=== PATIENT | male | born 1955 | race Caucasian/White ===

== ENCOUNTER → 2017-08-21 10:58 | Outpatient (CLI) | payer BC, SELFPAY ==
[2017-08-21 12:49] LABS: AST(SGOT) 37 U/L (15-37); Alanine Aminotransfer ALT/SGPT 47 U/L (16-61); Albumin, Serum 3.8 g/dL (3.2-5.0); Alkaline Phosphatase 68 U/L (45-117); Bilirubin, Direct 0.16 mg/dL (0.00-0.30); Cholesterol 178 mg/dL (200); Globulin 3.7 g/dL (2.2-4.2); High Density Lipoprotein 55 mg/dL; Protein, Total 7.5 g/dL (6.4-8.2); Triglycerides 131 mg/dL; Very Low Density Lipoprotein 26 mg/dL (5-40)
== END ==
PROVIDERS: Physician Assistant Medical; Family Provider Family Medicine; PCP Family Medicine; Visit Provider Internal Medicine Cardiovascular Disease
DX: E78.5 Hyperlipidemia, unspecified (principal); I25.10 Atherosclerotic heart disease of native coronary artery without angina pectoris; I10 Essential (primary) hypertension; Z79.899 Other long term (current) drug therapy
CPT/HCPCS: 36415; 80061; 80076

== ENCOUNTER 2018-01-12 07:30 | Outpatient (RCR) | payer BC, SELFPAY ==
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
--- NOTE | 2018-03-13 07:31 | HP.PTDCNRP_ITS ---
HP - Discharge Summary (1) - Patient Information AXEL GIRON was seen in my office for initial evaluation on 12/29/17. The following Plan of Care was established for this patient: Initial Frequency: 2x /Week Initial Duration: 4 Weeks - Anticipated Interventions Patient/Client Instruction: Educate patient on: Condition, Plan of Care For the Purpose of:: To decrease pain, To increase ROM, To improve muscle perf ormance and motor function, To improve ability to perform ADL's, To increase tolerance to activity/condition/position, To improve ability of physical actions for home/community/work/leisure, To improve health of tissue, To decrease soft tissue restriction, To increase flexibility/ROM, To improve ability to perform tasks related to life management Therapeutic Exercise to Include: Strength training, Body mechanics, Postural training, Flexibilty training, Active ROM For the Purpose of:: To decrease pain, To increase ROM, To improve muscle performance and motor function, To increase tolerance to activity/condition/position, To improve health of tissue, To decrease soft tissue restriction, To increase flexibility/ROM, To improve tolerance to ADL's Manual Therapy Techniques to Include: Mobilization Comment: CERVICAL TRACTION For the Purpose of:: To decrease pain, To increase ROM, To improve muscle performance and motor function, To improve ability to perform ADL's, To increase tolerance to activity/condition/position, To decrease soft tissue restriction, To increase flexibility/ROM, To improve ability to perform tasks related to life management IF ES: Yes Cryotherapy (ice pack, ice massage): Yes Thermo therapy (hot pack): Yes Ultrasound (thermal/non thermal): Yes Intermittent cervical traction: Yes For the Purpose of:: To decrease pain, To increase ROM, To improve health of tissue, To decrease soft tissue restriction This patient was last seen in our office 01/12/18. Pertinent comments regarding their Physical therapy will appear below: Patient seen for PT for cervical radiculopathy focusing in postural ex's ,patient education and ICTX,US. Patient symptoms unchanged with parathesia with ICTX . Patient is d/c due to under going TKR,thus is d/c. At this point I will be discontinuing this patient from physical therapy. I would be happy to see this patient again in the future if found appropriate by the physician. Thank you! Tyrel Spears, PT,
== END 2018-01-12 19:00 | disposition home or self-care (01) ==
LOC: PT 07:30
PROVIDERS: Family Provider Family Medicine; PCP Family Medicine; Visit Provider Family Medicine
DX: M54.12 Radiculopathy, cervical region (principal)
CPT/HCPCS: 97012; 97035; 97140; 97162

== ENCOUNTER → 2018-02-19 06:26 | Outpatient (CLI) | payer BC, SELFPAY ==
--- NOTE | 2018-02-19 15:38 | STRESSREP ---
Stress Test Report Pharmacologic myocardial perfusion stress test. 62-year-old man for preoperative surgery evaluation. Resting EKG demonstrates normal sinus rhythm with a rate of 62 bpm normal intervals and noted resting blood pressure 134/90 mmHg. 0.4 mg of regadenoson was infused per usual protocol followed by rapid intravenous saline flush injection continuous EKG monitoring was performed. The maximum heart rate attained was 80 bpm which was 50% of maximum predicted heart rate the maximum workload was 1 metabolic equivalent. At rest there were no ST or T wave changes noted suggest abnormal flow reserve at peak infusion no ST or T wave changes were noted suggest abnormal flow reserve. Myocardial perfusion protocol. 14.7 mCi of technetium 99m sestamibi was injected at rest. 0.4 mg of regadenoson was infused per usual protocol. At peak infusion 44.6 mCi of technetium 99m sestamibi was injected stress images were obtained stress and rest images were reconstructed and compared in the short axis vertical long and horizontal long axis. Gated images were also obtained Perfusion SPECT analysis: Review of the stress images demonstrate normal uptake of tracer noted in all areas of the myocardium. The resting images similarly demonstrate normal uptake of tracer noted in all areas of the myocardium. No areas of reversibility are noted suggest ischemia no previous infarct is noted. Gated SPECT analysis: The gated ejection fraction is noted to be 62%. Conclusion: Normal pharmacologic myocardial perfusion stress test. Preserved ejection fraction.
== END ==
PROVIDERS: Family Provider Family Medicine; PCP Family Medicine; Referring Provider Internal Medicine Cardiovascular Disease; Visit Provider Internal Medicine Cardiovascular Disease
DX: Z01.810 Encounter for preprocedural cardiovascular examination (principal); I25.10 Atherosclerotic heart disease of native coronary artery without angina pectoris; I10 Essential (primary) hypertension; E78.5 Hyperlipidemia, unspecified; R74.8 Abnormal levels of other serum enzymes
CPT/HCPCS: 78452; 93017; A9500; A4216; J2785

== ENCOUNTER → 2018-03-05 17:02 | Outpatient (CLI) | payer BC, SELFPAY | PROVIDERS: Family Provider Family Medicine; PCP Family Medicine; Referring Provider Orthopaedic Surgery; Visit Provider Orthopaedic Surgery | DX: Z01.812 Encounter for preprocedural laboratory examination (principal); M17.11 Unilateral primary osteoarthritis, right knee | CPT/HCPCS: 87081 ==

== ENCOUNTER → 2018-03-07 12:00 | Outpatient (CLI) | payer BC, SELFPAY ==
--- NOTE | 2018-03-07 12:32 | EKG12_ITS ---
Test Reason : PRE-OP Blood Pressure : / mmHG Vent. Rate : 062 BPM Atrial Rate : 062 BPM P-R Int : 158 ms QRS Dur : 074 ms QT Int : 422 ms P-R-T Axes : 021 010 020 degrees QTc Int : 428 ms Normal sinus rhythm Normal ECG Confirmed by DAYAMI STORY, RENETTA ([id number]), manager editorial ALE BAEZ ([id number]) on 03/14/2018 1:09:33 PM Referred By: GAURAV ANDERSON Confirmed By:RENETTA STOCK MD
[2018-03-07 12:40] LABS: Mean Corp Hgb Conc 33.3 g/gl (32-36); Mean Corpuscular Hgb 31.5 pg (27.0-32.0); Mean Corpuscular Volume 94.5 fL (80-94); Mean Platelet Vol. 9.9 fl (6.2-12.0); Platelet Count 195 K/mm3 (150-450); RBC Distribution Width CV 13.3 % (11.6-14.6); Red Blood Count 5.08 M/mm3 (4.6-6.2); White Blood Count 5.5 K/mm3 (4.4-11.0)
[2018-03-07 12:42] LABS: Scan Indicated on CBC? Y/N NO
[2018-03-07 12:58] LABS: AST(SGOT) 31 U/L (15-37); Alanine Aminotransfer ALT/SGPT 49 U/L (16-61); Albumin, Serum 3.8 g/dL (3.2-5.0); Alkaline Phosphatase 61 U/L (45-117); Bilirubin, Direct 0.21 mg/dL (0.00-0.30); Cholesterol 167 mg/dL (200); Globulin 3.7 g/dL (2.2-4.2); High Density Lipoprotein 49 mg/dL; Protein, Total 7.5 g/dL (6.4-8.2); Triglycerides 142 mg/dL; Very Low Density Lipoprotein 28 mg/dL (5-40)
[2018-03-07 12:59] LABS: Anion Gap 4 (5-15); BUN 18 mg/dL (7-18); BUN/Creat Ratio 16.2 RATIO (10-20); Calcium,Total 9.1 mg/dL (8.5-10.1); Chloride 104 mmol/L (98-107); Creatinine, Serum 1.11 mg/dL (0.70-1.30); EST Glomerular Filtration Rate 71 mL/min (>60); Est Glom Filt Rate - Afr Amer 86 mL/min (>60); Glucose 99 mg/dL (74-106); Potassium 4.4 mmol/L (3.5-5.1); Sodium Level 138 mmol/L (136-145)
== END ==
PROVIDERS: Physician Assistant Medical; Family Provider Family Medicine; PCP Family Medicine; Referring Provider Orthopaedic Surgery; Visit Provider Orthopaedic Surgery
DX: Z01.818 Encounter for other preprocedural examination (principal); M17.11 Unilateral primary osteoarthritis, right knee; E78.5 Hyperlipidemia, unspecified
CPT/HCPCS: 36415; 80048; 80061; 80076; 85027; 93005

== ENCOUNTER 2018-05-31 16:30 | Outpatient (RCR) | payer BC, SELFPAY ==
--- NOTE | 2018-03-15 13:15 | HP.PTEVAL ---
Patient's Visit Information AXEL GIRON is a 62 year old M referred to Physical Therapy by Ricci Kyle with a diagnosis of UNILATERAL PRMARY OSTEOARTHRITIS,PAIN IN KNEE. Date of Evaluation: 03/15/18 Physical Therapist: Tyrel Spears PT, - Visit Plan Frequency: 2-3x /Week Duration: 6 Months Plan: ROM,PRE'S QUADS/HAMS/HIP,NUSTEPS FOR ROM,GAIT BALANCE TRAINING - Subjective Subjective: This 62 y/o male presents to physical therapy with right TKR on 03/13/[address] Kumar at [facility]. Patient d/c same day with Carloz bandage and FWW. Pateint has had knee pain many years with right reconstruction 1977. Patient RTD next 03/21/18 .Pateint has parthesia in knee ,mild ecchymosis. Patient lives in 2 story with 3steps no rail. Patient can stay on 1st floor with walkin shower ,elevated commode.Patient has limitaions following surgery with ADLS' anf return to housework tasks . Patienmt surgery has affect QOL and gait. SOCIAL: . 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 GAIT: reciprocal pattern mild foward posture with swing phase decrease stance right leg. BALANCE: fair + with fww. STAIRS: one step at a time. EDEMA: 1+ right. JOINT LINE 46 CM. AROM: 0-105 supine knee flexion. MMT: quads/hams 4-/5,hip flexion 4-/5,ankle 4/5. [facility] - Goals Goal 1:: Independant with HEP Goal Time Frame: 6-8 Weeks Goal 2:: Patient to improve AROM knee flexion 0-120 degrees or greater to improve stairs Goal Time Frame: 6-8 Weeks Goal 3:: Patient to increase strength quads/hams /hip 4/5 to improve function Goal Time Frame: 6-8 Weeks Goal 4:: Patient to ambaulte with normal audrey and swing phase during gait cycle. Goal Time Frame: 6-8 Weeks Goal 5:: Patient to improve balance to good. Goal Time Frame: 6-8 Weeks Goal 6:: Patient to improve LFES score by 20 points to improve QOL Goal Time Frame: 6-8 Weeks - Rehabilitation Potential Physical Therapy Diagnosis: Patient underwent s/p TKR with decrease ROM , strength ,impairs gait,balance and RETURN TO WORK function thus benifit from skilled PT Rehabilitation Potential: Good - Anticipated Interventions Patient/Client Instruction: Educate patient on: Condition, Plan of Care For the Purpose of:: To decrease pain, To decrease swelling/inflammation, To increase ROM, To improve muscle performance and motor function, To improve ability to perform ADL's, To increase tolerance to activity/condition/position, To improve ability of physical actions for home/community/work/leisure, To improve gait and locomotor functions, To improve health of tissue, To decrease soft tissue restriction, To increase flexibility/ROM, To improve ability to perform tasks related to life management Therapeutic Exercise to Include: Strength training, Postural training, Flexibilty training, Gait and locomotor training, Passive ROM, Active ROM For the Purpose of:: To decrease pain, To decrease swelling/inflammation, To increase ROM, To improve muscle performance and motor function, To improve ability to perform ADL's, To increase tolerance to activity/condition/position, To improve performance and independence with ADL's, To improve ability of physical actions for home/community/work/leisure, To improve gait and locomotor functions, To improve health of tissue, To decrease soft tissue restriction, To increase flexibility/ROM, To improve endurance, To improve balance, To improve ability to perform tasks related to life management Cryotherapy (ice pack, ice massage): Yes Vasopneumatic device: Yes For the Purpose of:: To decrease swelling/inflammation, To improve nutrient delivery to tissue, To increase oxygenation perfusion, To improve health of tissue Thank you for the opportunity to evaluate your patient. For Medicare and Medicare HMO plans, please review the plan of care and approve it. It will need to be FAXED BACK to us at [phone] for Medicare purposes. Please let me know if there are questions or concerns regarding this plan of care. Physician Signature: Date:
--- NOTE | 2018-08-14 10:05 | HP.PT.NRP ---
HP - Discharge Summary (1) - Patient Information AXEL GIRON was seen in my office for initial evaluation on 03/15/18. The following Plan of Care was established for this patient: Initial Frequency: 2-3x /Week Initial Duration: 6 Months - Anticipated Interventions Patient/Client Instruction: Educate patient on: Condition, Plan of Care For the Purpose of:: To decrease pain, To decrease swelling/inflammation, To increase ROM, To improve muscle performance and motor function, To improve ability to perform ADL's, To increase tolerance to activity/condition/position, To improve ability of physical actions for home/community/work/leisure, To improve gait and locomotor functions, To improve health of tissue, To decrease soft tissue restriction, To increase flexibility/ROM, To improve ability to perform tasks related to life management Therapeutic Exercise to Include: Strength training, Postural training, Flexibilty training, Gait and locomotor training, Passive ROM, Active ROM For the Purpose of:: To decrease pain, To decrease swelling/inflammation, To increase ROM, To improve muscle performance and motor function, To improve ability to perform ADL's, To increase tolerance to activity/condition/position, To improve performance and independence with ADL's, To improve ability of physical actions for home/community/work/leisure, To improve gait and locomotor functions, To improve health of tissue, To decrease soft tissue restriction, To increase flexibility/ROM, To improve endurance, To improve balance, To improve ability to perform tasks related to life management Cryotherapy (ice pack, ice massage): Yes Vasopneumatic device: Yes For the Purpose of:: To decrease swelling/inflammation, To improve nutrient delivery to tissue, To increase oxygenation perfusion, To improve health of tissue This patient was last seen in our office 05/31/18. Pertinent comments regarding their Physical therapy will appear below: This patient received right TKR for ROM,STRENGTH ,gait and balance ,Patient doing well with ROM and strength . Goals met. At this point I will be discontinuing this patient from physical therapy. I would be happy to see this patient again in the future if found appropriate by the physician. Thank you! Tyrel Spears, PT, Cert MDT, OCS
== END 2018-05-31 19:00 | disposition home or self-care (01) ==
LOC: PT 16:30
PROVIDERS: Family Provider Family Medicine; PCP Family Medicine; Referring Provider Orthopaedic Surgery; Visit Provider Orthopaedic Surgery
DX: M17.11 Unilateral primary osteoarthritis, right knee (principal); M25.561 Pain in right knee
CPT/HCPCS: 97016; 97110; 97162

== ENCOUNTER → 2018-08-29 08:49 | Outpatient (CLI) | payer BC, SELFPAY ==
[2018-08-29 13:47] LABS: AST(SGOT) 33 U/L (15-37); Alanine Aminotransfer ALT/SGPT 48 U/L (16-61); Albumin, Serum 3.8 g/dL (3.2-5.0); Alkaline Phosphatase 72 U/L (45-117); Bilirubin, Direct 0.17 mg/dL (0.00-0.30); Cholesterol 170 mg/dL (200); Globulin 3.3 g/dL (2.2-4.2); High Density Lipoprotein 47 mg/dL; Protein, Total 7.1 g/dL (6.4-8.2); Triglycerides 164 mg/dL; Very Low Density Lipoprotein 33 mg/dL (5-40)
== END ==
PROVIDERS: Nurse Practitioner Family; Family Provider Family Medicine; PCP Family Medicine; Referring Provider Internal Medicine Cardiovascular Disease; Visit Provider Internal Medicine Cardiovascular Disease
DX: E78.5 Hyperlipidemia, unspecified (principal)
CPT/HCPCS: 36415; 80061; 80076

== ENCOUNTER → 2018-09-28 11:04 | Outpatient (CLI) | payer BC, SELFPAY ==
[2018-09-03 16:23] VITALS: BMI 30.6
--- NOTE | 2018-09-28 11:09 | ECHOD_ITS ---
Reason For Study: ASHD Procedure This was a 2D Doppler, Color Flow transthoracic echocardiogram. Exam performed in department. Left Ventricle Normal LV size. Left ventricular systolic function is normal. The estimated ejection fraction is 55 %. Stage 1 diastolic dysfunction. No regional wall motion abnormalities noted. Right Ventricle Normal RV size. Normal systolic function. Atria Normal left atrium. Normal right atrium. Mitral Valve Normal mitral valve. Mild (1+) eccentric mitral valve insufficiency. Tricuspid Valve Normal tricuspid valve. Unable to estimate RV systolic pressure due to inadequate jet, pulmonary artery pressure probably normal. Aortic Valve Normal aortic valve. Pulmonic Valve Normal pulmonic valve. Great Vessels Normal aortic root. Pericardium/Pleural No pericardial effusion. MMode/2D Measurements & Calculations LVIDd: 4.2 cm IVSd: 1.2 cm Ao root diam: 3.5 cm LVIDs: 2.7 cm LVPWd: 1.1 cm RVDd: 2.9 cm FS: 34.3 % LAV(MOD-bp): 47.5 ml LVAd ap4: 28.4 cm2 SV(MOD-sp4): 40.5 ml LAV(MOD-bp) Indexed: 21.4 ml/m2 EDV(MOD-sp4): 78.6 ml LAV(MOD-sp2): 49.7 ml EDV(sp4-el): 81.9 ml LAV(MOD-sp4): 39.2 ml LVAs ap4: 18.3 cm2 ESV(MOD-sp4): 38.1 ml ESV(sp4-el): 38.0 ml EF(MOD-sp4): 51.5 % EF(sp4-el): 53.6 % SV(sp4-el): 43.9 ml LA A4 area: 15.2 cm2 LA dimension(2D): 3.0 cm RA A4 area: 14.1 cm2 Doppler Measurements & Calculations MV E max quinten: 59.8 cm/sec Lat Peak E' Quinten: 8.1 cm/sec Med Peak E' Quinten: 4.9 cm/sec MV A max quinten: 92.8 cm/sec E/E' lat: 7.4 E/E' med: 12.2 MV E/A: 0.64 Ao V2 max: 107.7 cm/sec LV V1 max: 93.5 cm/sec PA V2 max: 71.6 cm/sec Ao max P.6 mmHg LV V1 max P.5 mmHg Interpretation Summary Normal LV size. Left ventricular systolic function is normal. The estimated ejection fraction is 55 %. Stage 1 diastolic dysfunction. Structurally normal valves. Ordering Physician: Fam Graves/Daniel Rincon Referring Physician: Fam Alberto M.D. Performed By: Ellie Gardner RDCS
== END ==
PROVIDERS: Family Provider Family Medicine; PCP Family Medicine; Referring Provider Nurse Practitioner Family; Visit Provider Nurse Practitioner Family
DX: I25.10 Atherosclerotic heart disease of native coronary artery without angina pectoris (principal); R06.02 Shortness of breath
CPT/HCPCS: 93306

== ENCOUNTER → 2018-11-29 15:03 | Outpatient (CLI) | payer BC, SELFPAY ==
[2018-10-05 09:39] VITALS: BMI 29.9
--- NOTE | 2018-11-29 15:06 | RAD_ITS ---
STUDY: X-RAY - ABDOMEN/PELVIS REASON FOR EXAM: Male, 63 years old. Right-sided kidney stone TECHNIQUE: Two AP supine views of the abdomen and pelvis. COMPARISON: None. FINDINGS: Constipation pattern is present. Nonobstructive bowel gas pattern. There is no demonstrated free abdominal air. Multiple calcifications are present to the left of midline at the L1-2 level measuring in total up to 19 x 12 mm. This could be vascular calcifications or jessica calcifications. There are likely too far superior to be located in the left ureter. There are calcified phleboliths in the pelvis. Normal visualized osseous structures. RAD/Abdomen Single View IMPRESSION: No urinary tract calculi are visible. Constipation pattern is present. Nonobstructive bowel gas pattern. Electronically Signed: Bill Hanley MD at 17:02 EDT Tel , Service support ,
== END ==
PROVIDERS: Family Provider Family Medicine; PCP Family Medicine; Referring Provider Urology; Visit Provider Urology
DX: N20.0 Calculus of kidney (principal)
CPT/HCPCS: 74018

== ENCOUNTER 2018-12-14 07:18 | Day surgery (SDC) | payer BC, SELFPAY ==
[2018-10-05 09:39] VITALS: BMI 29.9
[2018-12-14 07:44] VITALS: BP 158/83; PULSE 55; RESP 16; TEMP 37.1; O2SAT 96; BMI 30.3
[2018-12-14] MEDS: Cefazolin 2 GM in 0.9% Normal Saline 100 ML IV (08:46)
--- NOTE | 2018-12-14 08:46 | DCINST_ITS ---
Discharge Diet: Light diet - advance as tolerated Discharge Activity: Return to Normal Activity Call your doctor if your incision/area has: Continuous Slow Oozing, Sudden Increased Bleeding, Increased Pain/ Swelling, Increased Redness, Foul Smelling Discharge, Swelling at the incision site Allergies/Adverse Reactions: Allergies No Known Allergies Allergy (Verified 12/13/18 11:53) Medications to take at Discharge aspirin 81 mg tablet,delayed release 81 mg PO QDAY 08/21/17 lisinopril 20 mg tablet 20 mg PO QHS 08/21/17 metoprolol tartrate 100 mg tablet 100 mg PO QDAY tab 08/21/17 multivitamin tablet 1 tab PO QDAY 08/21/17 naproxen sodium 220 mg tablet 220 mg PO QDAY PRN tab 08/24/17 rosuvastatin 20 mg tablet 20 mg PO MOWEFR 08/24/17 allopurinol 100 mg tablet 100 mg PO BID tab 09/03/18 ascorbate calcium (vitamin C) 500 mg tablet 500 mg PO DAILY 09/03/18 cholecalciferol (vitamin D3) 1,000 unit capsule 1,000 unit PO BID cap 09/03/18 Tamsulosin HCl [Flomax] 0.4 mg PO QHS 12/13/18 Primary Care Physician: Fam Alberto MD [Primary Care Provider] - Test Results: Test results from this visit will be discussed in further detail at your follow- up appointment, if applicable. Please Follow Up With: Shahid Garcia MD When: please call to make an appointment.
--- NOTE | 2018-12-14 09:18 | PCM.OPRPT ---
Report of Operation Date of Procedure: 12/14/18 Pre-Operative Diagnosis: Right ureteral calculi Post-Operative Diagnosis: Right ureteral calculi impacted distal right ureter Surgery/Procedure Performed:: Cystoscopy, right retrograde pyelogram, balloon dilation and of the ureter, interpretation fluoroscopic images, ureteroscopy and laser lithotripsy, basket fragments, and right stent placement. Description of Surgical Findings:: 63-year-old male who has a small stone in the distal right ureter has been trying to pass it for several weeks now not been successful so I offered him surgical intervention he was agreeable to proceeding with ureteroscopy and laser and he understands he probably will need a stent afterwards. 63-year-old male taken back to the operating room after smooth induction of general anesthesia he was placed in dorsolithotomy position the penis and testicles are prepped and draped in usual sterile fashion went into the bladder with a 21 Peruvian rigid cystourethroscope the entire length of the urethra was normal membranous urethra is normal pendulous urethra is normal sphincter was intact verumontanum was normal nonobstructive prostate once again inside the bladder I looked at the right ureteral orifice severely inflamed he could see a tip of the stone at the at the very edge of the ureteral orifice I then used a Glidewire was able to get up the ureter I then advanced a balloon dilator, used a 12 Peruvian by 10 cm balloon dilator and balloon dilated the distal ureter I then left the wire in place next the wire went in with a semirigid ureteroscope encountered the stone perform laser lithotripsy of the stone I then used the basket back to about the fragments, I then went back in with a cystoscope performed a retrograde pyelogram and looked at the fluoroscopic images could see some contrast draining but discussed low so I decided to leave a stent put a wire up in the right kidney over the wire I placed a stent 6 Peruvian by 24 cm stent of the string of the stent for easy extraction patient's bladder was drained and was taken back to PACU in good condition as successfully remove the impacted stone left a stent and will remove the stent next week. Type of Anesthesia:: General Drains: stent - Admit VTE Documentation VTE Present on Admission: No VTE Mechan Device Prophylaxis: SCD's
[2018-12-14 09:26] VITALS: BP 121/81; BP 158/83; PULSE 54; RESP 18; TEMP 36.4; O2SAT 93
[2018-12-14 09:30] VITALS: BP 116/79; BP 158/83; PULSE 55; RESP 16; O2SAT 95
[2018-12-14 09:45] VITALS: BP 118/88; BP 158/83; PULSE 54; RESP 16; O2SAT 95
[2018-12-14] MEDS: Ketorolac 15 MG/ML Vial IV (09:45)
[2018-12-14 09:51] VITALS: BP 143/84; BP 158/83; PULSE 55; RESP 16; TEMP 35.9; O2SAT 95
[2018-12-14 10:15] VITALS: BP 158/83
== END 2018-12-14 10:40 | disposition home or self-care (01) ==
LOC: SDC 07:18 → AC 07:19
PROVIDERS: Family Provider Family Medicine; PCP Family Medicine; Referring Provider Urology; Visit Provider Urology
PROC: 0TJ98ZZ Inspection of Ureter, Via Natural or Artificial Opening Endoscopic (ICD-10-PCS; CPT 52352; principal; 2018-12-14 08:40)
DX: N20.1 Calculus of ureter (principal); I25.10 Atherosclerotic heart disease of native coronary artery without angina pectoris; I10 Essential (primary) hypertension; E78.00 Pure hypercholesterolemia, unspecified; Z79.82 Long term (current) use of aspirin; Z79.899 Other long term (current) drug therapy
CPT/HCPCS: 52356; 76000; J7120; C1769; C2617; J2405

== ENCOUNTER → 2019-04-16 10:44 | Outpatient (CLI) | payer BC, SELFPAY ==
[2019-04-16 12:34] LABS: AST(SGOT) 63 U/L (15-37); Alanine Aminotransfer ALT/SGPT 109 U/L (16-61); Albumin, Serum 3.7 g/dL (3.2-5.0); Alkaline Phosphatase 72 U/L (45-117); Bilirubin, Direct 0.14 mg/dL (0.00-0.30); Cholesterol 169 mg/dL (200); Globulin 3.8 g/dL (2.2-4.2); High Density Lipoprotein 50 mg/dL; PSA,Total - Annual Screen 1.46 ng/mL (0.00-4.00); Protein, Total 7.5 g/dL (6.4-8.2); Triglycerides 101 mg/dL; Very Low Density Lipoprotein 20 mg/dL (5-40)
== END ==
PROVIDERS: Family Provider Family Medicine; PCP Family Medicine; Referring Provider Nurse Practitioner Family; Visit Provider Nurse Practitioner Family
DX: I25.10 Atherosclerotic heart disease of native coronary artery without angina pectoris (principal); I10 Essential (primary) hypertension; E78.00 Pure hypercholesterolemia, unspecified; R06.09 Other forms of dyspnea
CPT/HCPCS: 36415; 80061; 80076; 83880; 84153; G0103

== ENCOUNTER → 2019-05-06 06:54 | Outpatient (CLI) | payer BC, SELFPAY ==
[2019-04-18 15:45] VITALS: BMI 31.0
--- NOTE | 2019-05-06 09:47 | STRESSREP ---
Stress Test Report Exercise myocardial perfusion stress test. 63-year-old man with a history of chest pain and known coronary artery disease. Stress protocol: Resting EKG demonstrates normal sinus rhythm with a rate of 69 bpm normal intervals are noted resting blood pressures 130/78 mmHg. The patient exercised according to regular Tre protocol for total duration of 6 minutes and 30 seconds. The maximum heart rate attained was 144 bpm which was 91% of maximum predicted heart rate the maximum workload was 7.7 metabolic equivalents. At rest there were no ST or T wave changes noted suggest ischemia. At peak exercise there was approximately [address] depression noted in leads II and aVF and V6. Occasional premature ventricular complex was noted. During recovery T wave inversions were noted in lead III. No clinical angina was noted the test was terminated due to dyspnea. The resting blood pressure was 130/78 mmHg with a peak blood pressure 190/90 mmHg. Myocardial perfusion protocol. 14.8 mCi of technetium 99m sestamibi was injected at rest. The patient exercised for 6-1/2 minutes at peak exercise 44.0 mCi of technetium 99m sestamibi was injected stress images were obtained stress and rest images were reconstructed and compared in the short axis vertical long horizontal long axis. Gated images were also obtained Perfusion SPECT analysis: Review of the stress images demonstrate normal uptake of tracer noted in all areas of the myocardium. The resting images similarly demonstrate normal uptake of tracer noted in all areas of the myocardium no areas of reversibility are noted suggest ischemia no previous infarct is noted. Gated SPECT analysis: The gated ejection fraction is noted to be 60%. Conclusion: Normal exercise myocardial perfusion stress test at a moderate workload. Good functional capacity. No ischemia noted.
== END ==
PROVIDERS: Family Provider Family Medicine; PCP Family Medicine; Referring Provider Nurse Practitioner Family; Visit Provider Nurse Practitioner Family
DX: I25.10 Atherosclerotic heart disease of native coronary artery without angina pectoris (principal); I10 Essential (primary) hypertension; E78.5 Hyperlipidemia, unspecified; R06.09 Other forms of dyspnea
CPT/HCPCS: 78452; 93017; A9500; A4216

== ENCOUNTER → 2019-09-05 11:44 | Outpatient (CLI) | payer BC, SELFPAY ==
[2019-04-18 15:45] VITALS: BMI 31.0
[2019-09-05 15:14] LABS: Hematocrit 49.9 % (40-54); Hemoglobin 16.5 g/dL (13.0-16.5); Mean Corp Hgb Conc 33.1 g/dL (32-36); Mean Corpuscular Hgb 31.2 pg (27.0-32.0); Mean Corpuscular Volume 94.3 fL (80-94); Mean Platelet Vol. 10.1 fl (6.2-12.0); Platelet Count 196 K/mm3 (150-450); RBC Distribution Width CV 13.2 % (11.6-14.6); RBC Distribution Width SD 45.3 fl (35.1-43.9); Red Blood Count 5.29 M/mm3 (4.6-6.2); White Blood Count 5.8 K/mm3 (4.4-11.0)
[2019-09-05 15:23] LABS: Vitamin D,25 Hydroxy 49.8 ng/mL
[2019-09-05 15:36] LABS: Anion Gap 5 (5-15); BUN 15 mg/dL (7-18); BUN/Creat Ratio 15.6 RATIO (10-20); Calcium,Total 9.5 mg/dL (8.5-10.1); Chloride 104 mmol/L (98-107); Cholesterol 175 mg/dL (200); Creatinine, Serum 0.96 mg/dL (0.70-1.30); EST Glomerular Filtration Rate 84 mL/min (>60); Est Glom Filt Rate - Afr Amer 101 mL/min (>60); Glucose 98 mg/dL (74-106); High Density Lipoprotein 54 mg/dL; Potassium 4.3 mmol/L (3.5-5.1); Sodium Level 138 mmol/L (136-145); Triglycerides 154 mg/dL; Very Low Density Lipoprotein 31 mg/dL (5-40)
== END ==
PROVIDERS: PCP Family Medicine; Referring Provider Family Medicine; Visit Provider Family Medicine
DX: Z00.00 Encounter for general adult medical examination without abnormal findings (principal); R53.83 Other fatigue
CPT/HCPCS: 36415; 80048; 80061; 82306; 84403; 84443; 85027

== ENCOUNTER → 2019-09-25 09:00 | Outpatient (CLI) | payer BC, SELFPAY ==
[2019-04-18 15:45] VITALS: BMI 31.0
--- NOTE | 2019-09-25 12:01 | NEURO ---
NCS and/or EMG Patient Report Ordering Doctor: Wood Hurtado DATE OF SERVICE: 09/25/19 Lam Bergman is a 64-year-old male who presents for electrodiagnostic testing of the upper limbs. He reports numbness and tingling in both hands. Electrodiagnostic findings: The right median motor nerve demonstrates prolonged distal latency with normal amplitude and reduced conduction velocity. Left median motor nerve demonstrates prolonged distal latency with reduced amplitude and reduced conduction velocity. Ulnar motor response is normal on the right. There is reduced ulnar conduction velocity across the left elbow. Prolonged left median sensory latency at the wrist. Absent right median sensory latency at the wrist. Normal ulnar and radial sensory responses. On needle EMG, all muscles tested in the upper limb showed no evidence of denervation with normal motor unit action potentials. Electrodiagnostic impression: This is an abnormal study in the upper limbs. 1. Electrodiagnostic findings demonstrate bilateral median mononeuropathy. This is consistent with a severe bilateral carpal tunnel syndrome. 2. No electrodiagnostic evidence noted for cervical radiculopathy. If there are any further questions, please do not hesitate to contact me.
== END ==
PROVIDERS: PCP Family Medicine; Referring Provider Family Medicine; Visit Provider Family Medicine
DX: G56.03 Carpal tunnel syndrome, bilateral upper limbs (principal)
CPT/HCPCS: 95886; 95912

== ENCOUNTER → 2020-03-02 | Outpatient (CLI) | payer BC, SELFPAY ==
[2019-10-18 08:31] VITALS: BMI 30.5
--- NOTE | 2020-03-02 11:00 | COLBX_PTH ---
PATIENT: AXEL GIRON LOC: [facility] U#:[id number] AGE/SX: 64/M ROOM: RE03/02/[address]: Dr. Bryn Arias MD : 1955 BED: DIS: 03/02/2020 SPEC #: [id number] RECD: 03/02/20 14:59 STATUS: LULU AUAditya #: [id number] HUNTER: 03/02/20 11:[address]: Bryn Arias DEPT: SURGICAL PATHOLOGY RECD BY: Jovanna Cheek ENTERED: 03/03/20 09:36 SP TYPE: COLON BX OTHR DR: Dr. Wood Hurtado MD [facility] Tissues: POLYP Procedures: Surgery Specimen Level IV HEADER OPERATION: Colonoscopy PRE-OP DIAGNOSIS: Screening / polyp TISSUE SUBMITTED: Polyp 30 cm MICROSCOPIC DIAGNOSIS Polyp at 30 cm, biopsy: Tubular adenoma. SJ:nany 03/04/20 MICROSCOPIC DESCRIPTION Slides are reviewed. GROSS DESCRIPTION Received in fixative is one container labeled with the patient's name and designated polyp 30 cm. The specimen consists of a piece of martinez-pink polyp measuring 0.7 x 0.4 x 0.3 cm. The entire specimen is submitted in one cassette. / SJ:nany 03/03/20 TC:1 CPT: 50618
== END | disposition home or self-care (01) ==
LOC: LABSPEC 15:33
PROVIDERS: PCP Family Medicine; Referring Provider Internal Medicine Gastroenterology; Visit Provider Internal Medicine Gastroenterology
DX: Z12.11 Encounter for screening for malignant neoplasm of colon (principal); D12.6 Benign neoplasm of colon, unspecified
CPT/HCPCS: 88305

== ENCOUNTER 2020-07-16 06:44 | Outpatient (RCR) | payer BC, SELFPAY ==
[2019-10-18 08:31] VITALS: BMI 30.5
[2020-07-16] MEDS: COVID-19 VACC, MRNA(PFIZER)/PF 30 MCG/0.3 ML SYRINGE IM (15:59)
[2020-08-06] MEDS: COVID-19 VACC, MRNA(PFIZER)/PF 30 MCG/0.3 ML SYRINGE IM (15:32)
== END 2020-07-16 23:59 ==
LOC: IMMUN 06:44
PROVIDERS: PCP Family Medicine; Referring Provider Family Medicine; Visit Provider Family Medicine
DX: Z23 Encounter for immunization (principal)
CPT/HCPCS: 0001A; 0002A; 91300

== ENCOUNTER 2021-03-23 09:00 | Outpatient (RCR) | payer BC, SELFPAY ==
--- NOTE | 2021-03-10 16:45 | HP.OTEVAL ---
Patient's Visit Information AXEL GIRON is a 65 year old M, referred to Occupational Therapy by Dr. Lynda Rodriguez MD, with a diagnosis of CTS, extensor tendon repair.. Date of Evaluation: 03/10/21 Occupational Therapist: Gisele Berg, STEPHANIER/Soraida, CHT - Subjective This 65 year old male was seen for OT eval with dx of wound unspecified finger without damage to nail and CTS with extensor tendon repair and CTR on 02/09/21. pt states he cut his finger in caught in a sleeper couch- pt states he went to ER because he couldn't stop bleeding. 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 pt states he can not do any writing. pt states he can make calls and dressing appropriately for work. - ROM MP: right -10/40 left 0/60 PIP: right -10/60 left 0/90 DIP: right -5/25 left 0/60 ROM Comments: therapist adj. orthosis to place PIP at 0* - Strength Glove Factory Sewer: right NT left 55# Lateral Pinch: right NT left 10# Tripod Pinch: right NT left 8# Strength Comments: will test strength at later date - Sensation Thumb: right 3.84 left 3.61 Index: right 3.84 left 3.61 Middle: right 3.22 left 3.22 Ring: right 3.22 left 3.22 Little: right 3.22 left 3.22 - Quick DASH-Disab of Arm,Shoulder& Hand Quick DASH Score: 31.6650 - Goals Goal:100% adherence to protocol: Yes Comment: extensor tendon protocol zone 4-5 Goal:Daily scar massage when approriate: Yes Goal:ROM equal to unaffected hand: Yes Goal:Glove Factory Sewer/Pinch strength at least 75% of unaffected hand: Yes Goal:Full use of affected hand in daily activities including: Yes - Rehabilitation General Assessment: pt arrives 4 week from extensor tendon repair zone 4-5 and CTR. pt demo with limited ROM and healing structures limiting pts use of right hand with ADLs and IADLs. pt would benefit from skilled OT services 1-2 x week for 6 weeks to return pts ROM and strength for pt to return to PLOF. Today therapist ed. pt on AROM of wrist, digits and extension ex. along with scar mtg- therapist noted PIP ext. lag by 10* adj. orthosis accordingly. pt demo understanding and agree to POC Rehabilitation Potential: Good - Anticipated Interventions A/AAROM/PROM, Strengthening, Scar Care, Modalities, Orthoses, Fine Motor Coord/Simone, Education re assistive Equipment, Education re Diagnosis - Visit Plan Frequency: 1-2x /Week Duration: 6 Weeks TEXT: Thank you for the opportunity to evaluate your patient. For Medicare and Medicare HMO plans, please review the plan of care and approve it. It will need to be FAXED BACK to us at [phone] for Medicare purposes. Please let me know if there are questions or concerns regarding this plan of care. Physician Signature: Date:
--- NOTE | 2021-05-27 13:11 | HP.OT.NRP ---
AXEL GIRON was seen in my office for initial evaluation on 03/10/21. The following Plan of Care was established for this patient: Initial Frequency: 1-2x /Week Initial Duration: 6 Weeks Anticipated Interventions: A/AAROM/PROM, Strengthening, Scar Care, Modalities, Orthoses, Fine Motor Coord/Simone, Education re assistive Equipment, Education re Diagnosis This patient was last seen in our office 03/23/21. Pertinent comments regarding their Occupational therapy will appear below: pt was seen for 4 OT session following a extensor tendon repair- pt cancelled his last scheduled apt. and at this time has not rescheduled- due to time lapse in services pt is d/c. At this point I will be discontinuing this patient from occupational therapy. I would be happy to see this patient again in the future if found appropriate by the physician. Thank you! Gisele Berg, OTR/L, CHT
== END 2021-03-23 19:00 | disposition home or self-care (01) ==
LOC: OT 09:00
PROVIDERS: PCP Family Medicine; Referring Provider Orthopaedic Surgery Hand Surgery; Visit Provider Orthopaedic Surgery Hand Surgery
DX: S61.209D Unspecified open wound of unspecified finger without damage to nail, subsequent encounter (principal)
CPT/HCPCS: 97035; 97110; 97166; 97530

== ENCOUNTER 2021-07-07 14:37 | Outpatient (CLI) | payer BC, SELFPAY ==
[2021-07-07 17:33] LABS: Absolute Lymphocyte Count 1.78 X10^3/uL (0.83-4.51); Basophil# 0.02 X10^3/uL; Basophil% 0.3 % (0-1); Eosinophil# 0.21 X10^3/uL; Eosinophils% 2.9 % (0-5); Hematocrit 47.6 % (40-54); Hemoglobin 15.9 g/dL (13.0-16.5); Lymphocyte # 1.78 X10^3/ul (0.83-4.51); Lymphocyte % 24.4 % (19-41); Mean Corp Hgb Conc 33.4 g/dL (32-36); Mean Corpuscular Hgb 31.9 pg (27.0-32.0); Mean Corpuscular Volume 95.4 fL (80-94); Mean Platelet Vol. 10.1 fl (6.2-12.0); Monocyte# 1.21 X10^3/uL; Monocyte% 16.6 % (0-10); NRBC Flagged by Analyzer 0 % (0-5); Neutrophil # 4.03 X10^3/uL (2.7-7.7); Neutrophil % 55.1 % (47-70); Platelet Count 255 K/mm3 (150-450); RBC Distribution Width CV 13.6 % (11.6-14.6); RBC Distribution Width SD 47.7 fl (35.1-43.9); Red Blood Count 4.99 M/mm3 (4.6-6.2); White Blood Count 7.3 K/mm3 (4.4-11.0)
[2021-07-07 17:59] LABS: ALB/GLOB Ratio 0.9 RATIO (0.9-2.4); AST(SGOT) 61 U/L (15-37); Alanine Aminotransfer ALT/SGPT 87 U/L (16-61); Albumin, Serum 3.5 g/dL (3.2-5.0); Alkaline Phosphatase 65 U/L (45-117); Anion Gap 5 (5-15); BUN 17 mg/dL (7-18); Calcium,Total 9.1 mg/dL (8.5-10.1); Chloride 105 mmol/L (98-107); Cholesterol 145 mg/dL (200); Creatinine, Serum 1.06 mg/dL (0.70-1.30); EST Glomerular Filtration Rate 74 mL/min (>60); Est Glom Filt Rate - Afr Amer 90 mL/min (>60); Globulin 3.8 g/dL (2.2-4.2); Glucose 95 mg/dL (74-106); High Density Lipoprotein 45 mg/dL; PSA,Total - Annual Screen 1.16 ng/mL (0.00-4.00); Potassium 4.3 mmol/L (3.5-5.1); Protein, Total 7.3 g/dL (6.4-8.2); Sodium Level 139 mmol/L (136-145); Thyroid Stim Hormone (TSH) 1.69 uIU/mL (0.358-3.74); Triglycerides 324 mg/dL; Very Low Density Lipoprotein 65 mg/dL (5-40)
== END 2021-07-07 23:59 | disposition home or self-care (01) ==
LOC: LAB 14:40
PROVIDERS: PCP Family Medicine; Referring Provider Physician Assistant Medical; Visit Provider Physician Assistant Medical
DX: I25.10 Atherosclerotic heart disease of native coronary artery without angina pectoris (principal); I10 Essential (primary) hypertension; E78.00 Pure hypercholesterolemia, unspecified; R07.9 Chest pain, unspecified; Z12.5 Encounter for screening for malignant neoplasm of prostate
CPT/HCPCS: 36415; 80053; 80061; 84153; 84443; 85025; G0103

== ENCOUNTER 2021-08-16 07:05 | Outpatient (CLI) | payer BC, SELFPAY ==
--- NOTE | 2021-08-16 13:14 | STRESSREP ---
Stress Test Report Exercise myocardial perfusion stress test. 66-year-old man with a history of chest pain. Stress protocol: Resting EKG demonstrates normal sinus rhythm with a rate of 65 bpm normal intervals are noted resting blood pressure is 138/80 mmHg. The patient exercised according to regular Tre protocol for total duration of 6 minutes and 44 seconds. The maximum heart rate attained was 131 bpm which was 85% of max impact at heart rate the maximum workload was 9.2 metabolic equivalents. At rest there were no ST or T wave changes noted suggest ischemia and at peak exercise upsloping ST changes were noted which did not meet the criteria for ischemia. No clinical angina was noted. The resting blood pressure was 138/80 with a peak blood pressure was 170/106 mmHg. Patient did experience some chest pressure at peak exercise which dissipated on recovery. There were no EKG changes noted to match this. Myocardial perfusion protocol. 14.8 mCi of technetium 99m sestamibi was injected at rest. Patient exercised according to regular Tre protocol and at peak exercise 44.5 mCi of technetium 99m sestamibi was injected stress images were obtained and stress and rest images were reconstructed and compared in the short axis vertical long and horizontal long axis. Gated images were also obtained per Perfusion SPECT analysis: Review of the stress images demonstrate normal uptake of tracer noted in all areas of the myocardium. The resting images similarly demonstrate normal uptake of tracer noted in all areas of the myocardium. No areas of reversibility are noted to suggest ischemia and no previous infarct is noted. Gated SPECT analysis: The gated ejection fraction is 65%. Conclusion: Normal exercise myocardial perfusion stress test. Preserved ejection fraction.
== END 2021-08-16 23:59 | disposition home or self-care (01) ==
PROVIDERS: PCP Family Medicine; Referring Provider Internal Medicine Cardiovascular Disease; Visit Provider Internal Medicine Cardiovascular Disease
DX: I10 Essential (primary) hypertension (principal); E78.00 Pure hypercholesterolemia, unspecified; R07.9 Chest pain, unspecified; R06.02 Shortness of breath; E78.5 Hyperlipidemia, unspecified
CPT/HCPCS: 78452; 93017; A9500; A4216

== ENCOUNTER 2021-09-10 08:04 | Day surgery (SDC) | payer BC, SELFPAY ==
[2021-09-09 07:48] VITALS: BMI 32.4
[2021-09-10 08:27] LABS: Absolute Lymphocyte Count 1.75 X10^3/uL (0.83-4.51); Basophil# 0.02 X10^3/uL; Basophil% 0.3 % (0-1); Eosinophils% 3.4 % (0-5); Hematocrit 46.9 % (40-54); Lymphocyte # 1.75 X10^3/ul (0.83-4.51); Mean Corp Hgb Conc 34.1 g/dL (32-36); Mean Corpuscular Hgb 31.9 pg (27.0-32.0); Mean Corpuscular Volume 93.4 fL (80-94); Mean Platelet Vol. 9.4 fl (6.2-12.0); Monocyte# 0.87 X10^3/uL; Monocyte% 14.9 % (0-10); NRBC Flagged by Analyzer 0 % (0-5); Neutrophil # 2.96 X10^3/uL (2.7-7.7); Neutrophil % 50.9 % (47-70); Platelet Count 221 K/mm3 (150-450); RBC Distribution Width CV 12.9 % (11.6-14.6); RBC Distribution Width SD 43.9 fl (35.1-43.9); Red Blood Count 5.02 M/mm3 (4.6-6.2); White Blood Count 5.8 K/mm3 (4.4-11.0)
[2021-09-10 08:35] LABS: Partial Thromboplast Time 25.8 Seconds (24.1-36.2); Prothrombin Time (Protime)PT. 13.1 SECONDS (11.7-14.9)
[2021-09-10 08:38] LABS: Anion Gap 8 (5-15); BUN 16 mg/dL (7-18); BUN/Creat Ratio 16.5 RATIO (10-20); Calcium,Total 9.1 mg/dL (8.5-10.1); Chloride 106 mmol/L (98-107); Creatinine, Serum 0.97 mg/dL (0.70-1.30); EST Glomerular Filtration Rate 82 mL/min (>60); Est Glom Filt Rate - Afr Amer 100 mL/min (>60); Estimated Creatinine Clearance 82.22 ml/min; Glucose 114 mg/dL (74-106); Sodium Level 138 mmol/L (136-145)
--- NOTE | 2021-09-10 10:05 | CL.D_ITS ---
Patient Name: AXEL GIRON Study Date: 09/10/2021 Performing: Daniel Rincon MD Ht: 72.04 inches 183 cm : 1955 Wt: 238.1 lbs 108 kg Age: 66 Gender: male BSA: 2.3 PROCEDURE(S) PERFORMED DC01-(11690)LHC/COR/LV CLINICAL PROFILE AND INDICATIONS Indications: Suspected CAD Heart Failure: None Stress/Imaging Date: 08/16/21Stress Test with SPECT MPI: Indeterminant CAD Presentations: Stable angina. CONCLUSIONS Coronary artery disease noted with moderate disease noted in the left anterior descending artery, mod erate disease in the circumflex artery, and a high-grade right coronary artery stenosis in a nondomin ant small vessel. Preserved left ventricular systolic function. Calcified paratracheal lymph nodes RECOMMENDATIONS Medical therapy DESCRIPTION OF PROCEDURE The patient arrived to the procedure lab. The risks and benefits of the procedure as well as a full d escription of our services here and current unavailability of surgical backup were fully explained to the patient and/or their significant other prior to the catheterization. The Timeout was completed, verifying the correct patient and procedure. The patient's procedural site was prepped and draped in the usual fashion. Local anesthetic was given subcutaneously to right radial region with Lidocaine 2% . Using a modified Seldinger technique, arterial access was obtained via the right radial artery, a 6 Fr sheath was inserted. Left Coronary Artery selective angiography was performed in multiple views u sing a 5 Fr. 4.0 [place] catheter. Right Coronary Artery selective angiography was then performed in mu ltiple views using a 5 Fr. 4.0 [place] catheter. Left Ventriculography was performed in [place] projection using a 5 Fr. Pigtail catheter. LV to AO pullback pressures were then recorded.The arterial sheath was pulled and a TR Band was applied for hemostasis 13cc air inserted CORONARY ANGIOGRAPHY DOMINANCE: Left Dominant LEFT HEART ASSESSMENT Left Ventricular Ejection Fraction: by LV Gram 65 % Normal LV wall motion Normal Left Ventricular systolic function Significant calcification of lymph nodes noted in the paratracheal area. LEFT MAIN: Mild calcification, Mild luminal irregularities LEFT ANTERIOR DESCENDING ARTERY: Moderate calcification, Proximal 50% stenosis and mid segment calcif ied 50 to 60% stenosis and distal mild disease present. CIRCUMFLEX ARTERY: Dominant vessel with first small obtuse marginal vessel and mild disease noted in the mid segment with an ectatic area in the mid to distal segment. No high-grade stenosis noted of m ore than 50% present. RIGHT CORONARY ARTERY: Nondominant vessel with proximal 80% stenosis present. % Stenosis COMPLICATIONS No Complications PROCEDURE MEDICATIONS Fentanyl 50 mcg IV Versed 1 mg IV Versed 1 mg IV Oxygen: 2 L/min via nasal cannula Heparin given IA 09/10/2021 09:41:43 Verapamil 2.5mg, Ntg 100mcgs, 3000 units of Heparin given IA 09/10/2021 09:41:43 SUMMARY OF HEMODYNAMIC DATA Time AIR REST ECG 08:38:50 AO 113/68 (89) SA 09:42:51 LV 95/4, 16 09:50:02 LV 114/7, 14 09:50:08 LV 104/9, 15 09:50:53 LVp 103/11, 16 09:51:03 AOp 105/63 (81) 09:51:08 RM AIR REST 10:04:22 Signed By Daniel Rincon MD On 09/10/2021 10:04:43 Daniel Rincon MD
--- NOTE | 2021-09-10 10:40 | CT_ITS ---
STUDY: CT CHEST WITHOUT CONTRAST REASON FOR EXAM: Male, 66 years old. Lymphadenopathy. Hypertension. RADIATION DOSAGE (If Supplied By Facility): CTDIvol = ( 19.79 ) mGy, DLP = ( 776.26 ) mGycm TECHNIQUE: Transaxial imaging was performed without the administration of intravenous contrast material. Multiplanar coronal and sagittal images were reformatted. Individualized dose optimization techniques were used for this CT. COMPARISON: No relevant priors. FINDINGS: CHEST Small benign-appearing bilateral axillary lymph nodes. There is elevation of the right hemidiaphragm. Calcified granuloma in the posterior right lower lobe. There are mild increased markings in the anterior aspect of the right lower lobe suggestive of either atelectasis and/or scarring. There is no demonstrated pleural abnormality. There are calcifications of the coronary arteries. There are multiple small lymph nodes within the mediastinum, which are normal in size and morphology most compatible with reactive lymph hyperplasia. Calcified subcarinal lymph nodes. Calcified bilateral hilar lymph nodes. Normal unenhanced pulmonary arteries. There is atherosclerotic calcification of the aortic arch and descending thoracic aorta. There are degenerative changes of the thoracic spine. Calcified splenic granulomas. Fatty infiltration of the liver. CT/Chest without Contrast IMPRESSION: Calcified mediastinal and bilateral hilar lymph nodes. Findings suggest mild degree of scarring in the anterior aspect of the right lower lobe. Fatty infiltration of the liver. Electronically Signed: Kodak Zamudio MD at 12:31 EDT ,
== END 2021-09-10 12:35 | disposition home or self-care (01) ==
PROVIDERS: Physician Assistant Medical; PCP Family Medicine; Referring Provider Internal Medicine Cardiovascular Disease; Visit Provider Internal Medicine Cardiovascular Disease
DX: I25.118 Atherosclerotic heart disease of native coronary artery with other forms of angina pectoris (principal); I10 Essential (primary) hypertension; E78.00 Pure hypercholesterolemia, unspecified; R07.9 Chest pain, unspecified; Z79.82 Long term (current) use of aspirin; Z79.899 Other long term (current) drug therapy
CPT/HCPCS: 36415; 71250; 80048; 85025; 85610; 85730; 88341; 88342; 93458; 99152; 99153; J7030; Q9967; C1769; C1894

== ENCOUNTER → 2021-12-02 | Outpatient (CLI) | payer BC, SELFPAY ==
--- NOTE | 2021-12-02 12:56 | VDLE_ITS ---
Reason For Study: edema RIGHT LEFT GSV is normal. GSV is normal. CFV is compressible, spontaneous, phasic, CFV is compressible, spontaneous, phasic, competent and demonstrates normal competent, and demonstrates normal augmentation. augmentation. FV is compressible, spontaneous, phasic, FV is compressible, spontaneous, phasic, competent and demonstrates normal competent and demonstrates normal augmentation. augmentation. POP V is compressible, spontaneous, phasic, POP V is compressible, spontaneous, phasic, competent and demonstrates normal competent and demonstrates normal augmentation. augmentation. T/P Trunk is compressible. T/P Trunk is compressible. PTV is compressible. PTV is compressible. RT PerV is compressible. LT PerV is compressible. Procedure This is a venous duplex using B-mode, color flow and spectral Doppler. Exam performed in department. The exam was diagnostic. A preliminary report was called and/or faxed to Dr. Sales. VL/Venous Duplex US - Apolinar Extrem Interpretation Summary Deep veins of the lower extremities are bilaterally patent and compressible seg mentally. There is no evidence of deep vein thrombosis on either side. Valvular competence appears in tact within the proximal deep venous systems bilaterally. The great saphenous veins appear bila terally patent and compressible segmentally. Ordering Physician: Fam Sales Performed By: Ricci Martinez, RVT
== END | disposition home or self-care (01) ==
LOC: CVS 12:43
PROVIDERS: PCP Family Medicine; Referring Provider Family Medicine; Visit Provider Family Medicine
DX: R60.0 Localized edema (principal)
CPT/HCPCS: 93970

== ENCOUNTER → 2022-07-13 | Outpatient (CLI) | payer BC, SELFPAY ==
[2022-07-13 13:17] LABS: AST(SGOT) 43 U/L (15-37); Alanine Aminotransfer ALT/SGPT 65 U/L (16-61); Albumin, Serum 3.7 g/dL (3.2-5.0); Alkaline Phosphatase 65 U/L (45-117); Anion Gap 11 (5-15); BUN 17 mg/dL (7-18); Calcium,Total 9.4 mg/dL (8.5-10.1); Chloride 105 mmol/L (98-107); Cholesterol 129 mg/dL (200); Creatinine, Serum 0.95 mg/dL (0.70-1.30); EST Glomerular Filtration Rate 84 mL/min (>60); Est Glom Filt Rate - Afr Amer 102 mL/min (>60); Globulin 3.6 g/dL (2.2-4.2); Glucose 105 mg/dL (74-106); High Density Lipoprotein 49 mg/dL; Potassium 3.8 mmol/L (3.5-5.1); Protein, Total 7.3 g/dL (6.4-8.2); Sodium Level 139 mmol/L (136-145); Triglycerides 131 mg/dL; Very Low Density Lipoprotein 26 mg/dL (5-40)
== END | disposition home or self-care (01) ==
LOC: MTLAB 09:51
PROVIDERS: PCP Family Medicine; Visit Provider Family Medicine
DX: I10 Essential (primary) hypertension (principal)
CPT/HCPCS: 36415; 80053; 80061

== ENCOUNTER 2022-08-08 10:59 | Emergency (ER) | payer BC, SELFPAY ==
[2022-08-08 11:00] VITALS: BP 168/101; PULSE 73; RESP 16; TEMP 36.7; O2SAT 97; BMI 31.7
--- NOTE | 2022-08-08 11:27 | EX.ED.DYSGE1 ---
HPI History of Present Illness Chief Complaint: Abn Labs Detail of Chief Complaint: Elevated D-dimer Narrative Narrative: Patient presents from GI office secondary to elevated D-dimer. Patient has had recurrent chest pain for at least the last 6 months. He has had significant cardiac work-up including stress test and heart cath that was unremarkable. Patient describes chest pressure that builds up with any exertion. It will improve after he belches. He was referred to Dr. Joy who he saw this morning. He had some lab work done including a D-dimer and was sent to the ER due to elevated D-dimer of 0.71. [facility] Medical History Acute insomnia Anxiety Atherosclerotic heart disease of [place] coronary artery without angina pectoris CAD (coronary artery disease) Calculus of right kidney Cervical radiculopathy Edema Elevated liver enzymes Erectile dysfunction Essential (primary) hypertension Essential hypertension GERD (gastroesophageal reflux disease) Glucose intolerance (impaired glucose tolerance) Gout HLD (hyperlipidemia) Osteoarthritis Home Medications aspirin 81 mg tablet,delayed release (Adult Low Dose Aspirin) 81 mg PO QDAY 08/21/17 [History Last Taken 09/10/21] lisinopril 20 mg tablet 20 mg PO QHS 08/21/17 [History Last Taken Unknown] metoprolol tartrate 100 mg tablet 100 mg PO QDAY 08/21/17 [History Last Taken 09/10/21] multivitamin 1 tab PO QDAY 08/21/17 [History Last Taken Unknown] naproxen sodium 220 mg tablet (Aleve) 220 mg PO QDAY PRN Pain 08/24/17 [History Last Taken Unknown] rosuvastatin 20 mg tablet (Crestor) 20 mg PO MOWEFR 08/24/17 [History Last Taken Unknown] allopurinol 100 mg tablet 100 mg PO BID 09/03/18 [History Last Taken 09/10/21] amlodipine 5 mg tablet 5 mg PO DAILY 10/18/19 [History Last Taken Unknown] nitroglycerin 0.4 mg sublingual tablet (Nitrostat) 0.4 mg sublingual Q5-15M PRN chest pain #25 tabs 08/25/21 [Rx Last Taken Unknown] omeprazole magnesium 20 mg tablet,delayed release (Prilosec OTC) 20 mg PO DAILY #30 tabs 08/25/21 [Rx Last Taken Unknown] isosorbide mononitrate 30 mg tablet,extended release 24 hr 30 mg PO DAILY #90 tabs 01/28/22 [Rx Last Taken Unknown] cholecalciferol (vitamin D3) 25 mcg (1,000 unit) capsule 25 mcg PO DAILY 05/03/22 [History Last Taken Unknown] Allergy/AdvReac Type Severity Reaction Status Date / Time gabapentin AdvReac memory loss Verified 08/08/22 11:02 Family History Father Myocardial infarction CAD (coronary artery disease) Hx coronary stents HLD (hyperlipidemia) Mother CVA (cerebral vascular accident) Brother Myocardial infarction CAD (coronary artery disease) Hc coronary stents HLD (hyperlipidemia) Hypertension Colon cancer Surgical History History of knee surgery History of left heart catheterization (09/10/21) History of lithotripsy (12/2018) 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) Social History Smoking Status: Never smoker alcohol intake: current alcohol intake frequency: a few times a week Alcohol type: beer, wine and hard liquor substance use type: does not use caffeine: Yes Type: coffee what type of physical activity do you participate in: none seatbelt use: always do you feel safe at home: Yes ROS ROS ED Constitutional Constitutional ED: Denies chills or fever(s) Eyes Eyes: Denies change in vision or discharge from eye(s) ENT ENT ED: Denies discharge from eye(s), rhinorrhea or sore throat Cardiovascular Cardiovascular: Reports chest pain; Denies palpitations Respiratory/Chest Respiratory/Chest: Reports dyspnea; Denies cough Gastrointestinal Gastrointestinal: Denies abdominal pain, diarrhea, nausea or vomiting Genitourinary Genitourinary ED: Denies dysuria Musculoskeletal Musculoskeletal: Denies back pain or extremity pain Integumentary Denies Abrasions or rash Neurologic Neurologic: Denies headache(s) or weakness Allergic/Immunologic Allergic/Immunologic ED: Denies lip swelling or urticaria EXAM Physical Exam Const Vital Signs: 08/08/22 11:00 08/08/22 11:11 Temperature 98.0 F Temperature Source Temporal Pulse Rate 73 Respiratory Rate 16 Respiratory Effort Short of Breath Respiratory Pattern Normal Blood Pressure 168/101 H Blood Pressure Mean 123 Pulse Ox 97 Oxygen Delivery Method Room Air Positive well nourished and well developed General Appearance ED: well developed HEENT Reports normocephalic and head/scalp atraumatic Eyes PERRL and EOMs intact bilaterally Neck supple Chest Wall inspection of chest normal and palpation of chest normal Resp normal respiratory effort and clear to auscultation bilaterally Cardio regular rate and regular rhythm GI normal to inspection, nondistended, normoactive bowel sounds Palpation: soft Extremity normal to inspection Neuro oriented x3 and no sensory deficits noted Sensorium / Orientation: alert Motor Exam: strength 5/5 throughout Psych mental status grossly normal Skin no rashes or lesions noted MDM MDM MDM Narrative Medical decision making narrative: Patient's prior heart cath from September of last year is reviewed. He had 50 to 60% LAD disease. This appeared stable when compared to prior. Patient's symptoms certainly sound more GI related and that he gets a buildup of gas and is better after he belches. CBC and chemistry studies are obtained as these were not performed earlier. Troponin is obtained to ensure no evidence of cardiac strain. CTA of the chest is ordered given the patient's elevated D-dimer. Lab Data Attestation: I reviewed the patient's lab results. Labs: Laboratory Results - last 24 hr 08/08/22 08/08/22 11:39 11:39 WBC 5.5 RBC 5.15 Hgb 16.4 Hct 48.2 MCV 93.6 MCH 31.8 MCHC 34.0 RDW Std Deviation 46.3 H RDW Coeff of Sima 13.4 Plt Count 223 MPV 9.4 Immature Gran % (Auto) 0.700 Neut % (Auto) 44.3 L Lymph % (Auto) 34.4 [place] % (Auto) 17.8 H Eos % (Auto) 2.4 Baso % (Auto) 0.4 Absolute Neuts (auto) 2.4 Absolute Lymphs (auto) 1.88 Nucleated RBC % 0 Sodium 139 Potassium 4.0 Chloride 107 Carbon Dioxide 27.0 Anion Gap 5 BUN 10 Creatinine 0.96 Estim Creat Clear Calc 83.08 Est GFR (MDRD) Af Amer 101 Est GFR (MDRD) Non-Af 84 BUN/Creatinine Ratio 10.5 Glucose 104 Calcium 9.0 Troponin I High Sens 8 Radiography Diagnostic Testing: Clinical Impression(s) from Imaging Studies Chest CTA 08/08/22 12:12 IMPRESSION: 1. No CTA evidence of pulmonary thromboemboli, thoracic aortic aneurysm or dissection. 2. Multiple calcified nodes in the subcarinal space and left hilum from prior granulomatous exposure. 3. Small calcified granuloma in the right posterior lung base. 4. Moderate elevation of right hemidiaphragm with subsegmental atelectasis of right lung base. 5. Moderate diffuse hepatic steatosis but unchanged when compared to 09/10/2021. 6. Extensive calcified plaques along the LAD branch and circumflex branch of the left coronary artery but unchanged since 09/10/2021. Electronically Signed: Carlos Vega MD at 12:50 EDT , EKG Initial EKG: Interpretation: Sinus Rhythm (Sinus at 61 with no acute ischemia.) Treatment and Re-Evaluation :: CBC and chemistry studies are unremarkable. Troponin is normal at 8. CTA of the chest reveals no evidence of PE. There is moderate elevation of the right hemidiaphragm with subsegmental atelectasis of the right lung base. Old granulomatous disease is noted. Extensive calcified plaques are noted in the LAD branch and circumflex branch, but this is noted to be unchanged when compared to prior study of 09/10/2021. Test results discussed with patient and at bedside. He will follow-up Dr. Joy for further GI work-up as his symptoms are brought on by increased gas and relieved by belching. He states his pain is the exact same that he was experiencing last year when he underwent a stress test and a heart cath. He does not feel that it has changed at all. Given his history of coronary disease I also recommend outpatient follow-up with cardiology. Discharge Plan Triage Chief Complaint: Abn Labs ED Provider: Tanika Nguyễn Dx/Rx/DC Orders Clinical Impression: Atypical chest pain Instructions: ED Chest Pain, Uncertain Cause Prescriptions: No Action aspirin [Adult Low Dose Aspirin] 81 mg tablet,delayed release (DR/EC) 81 mg PO QDAY lisinopril 20 mg tablet 20 mg PO QHS metoprolol tartrate 100 mg tablet 100 mg PO QDAY multivitamin tablet 1 tab PO QDAY naproxen sodium [Aleve] 220 mg tablet 220 mg PO QDAY PRN (Reason: Pain) rosuvastatin [Crestor] 20 mg tablet 20 mg PO Label Comments: 20 mg PO every monday, monday, and monday. Rx Instructions: 20 mg PO every monday, monday, and monday. allopurinol 100 mg tablet 100 mg PO BID amlodipine 5 mg tablet 5 mg PO DAILY Label Comments: TAKE 1 TABLET BY MOUTH EVERY DAY omeprazole magnesium [Prilosec OTC] 20 mg tablet,delayed release (DR/EC) 20 mg PO DAILY Qty: 30 3RF nitroglycerin [Nitrostat] 0.4 mg tablet, sublingual 0.4 mg sublingual Q5-15M PRN (Reason: chest pain) Qty: 25 3RF Rx Instructions: do not exceed 3 doses per episode cholecalciferol (vitamin D3) 25 mcg (1,000 unit) capsule 25 mcg PO DAILY isosorbide mononitrate 30 mg tablet extended release 24 hr 30 mg PO DAILY Qty: 90 3RF Primary Care Provider: Wood Hurtado Referrals: Daniel Rincon MD [Med Staff - Active Staff] - As Needed Wood Hurtado MD [Primary Care Provider] - Luc Joy DO [Med Staff - Active Staff] - Keep John appointment Disposition Disposition: Home, Self Care
[2022-08-08 11:55] LABS: Absolute Lymphocyte Count 1.88 X10^3/uL (0.83-4.51); Absolute Neutrophil Count 2.4 X10^3/uL (2.0-7.7); Basophil# 0.02 X10^3/uL; Basophil% 0.4 % (0-1); Eosinophil# 0.13 X10^3/uL; Eosinophils% 2.4 % (0-5); Hematocrit 48.2 % (40-54); Hemoglobin 16.4 g/dL (13.0-16.5); Lymphocyte # 1.88 X10^3/ul (0.83-4.51); Lymphocyte % 34.4 % (19-41); Mean Corpuscular Hgb 31.8 pg (27.0-32.0); Mean Corpuscular Volume 93.6 fL (80-94); Mean Platelet Vol. 9.4 fl (6.2-12.0); Monocyte# 0.97 X10^3/uL; Monocyte% 17.8 % (0-10); NRBC Flagged by Analyzer 0 % (0-5); Neutrophil # 2.42 X10^3/uL (2.7-7.7); Neutrophil % 44.3 % (47-70); Platelet Count 223 K/mm3 (150-450); RBC Distribution Width CV 13.4 % (11.6-14.6); RBC Distribution Width SD 46.3 fl (35.1-43.9); Red Blood Count 5.15 M/mm3 (4.6-6.2); White Blood Count 5.5 K/mm3 (4.4-11.0)
[2022-08-08 12:05] LABS: Anion Gap 5 (5-15); BUN 10 mg/dL (7-18); BUN/Creat Ratio 10.5 RATIO (10-20); Chloride 107 mmol/L (98-107); Creatinine, Serum 0.96 mg/dL (0.70-1.30); EST Glomerular Filtration Rate 84 mL/min (>60); Est Glom Filt Rate - Afr Amer 101 mL/min (>60); Estimated Creatinine Clearance 83.08 ml/min; Glucose 104 mg/dL (74-106); Sodium Level 139 mmol/L (136-145); Troponin-I HS 8 pg/mL (3.0-78.0)
--- NOTE | 2022-08-08 12:12 | CT_ITS ---
EXAM: CT ANGIOGRAPHY CHEST WITHOUT AND WITH INTRAVENOUS CONTRAST CLINICAL INDICATION: CP, elevated d-dimer TECHNIQUE: Helically acquired angiography images were obtained of the chest without and with intravenous contrast. This CT exam was performed using one or more of the following dose reduction techniques: automated exposure control, adjustment of the mA and/or kV according to patient size, and/or use of iterative reconstruction technique. This report was created using Dac[employer] report generation technology. MIP reconstructed images were created and reviewed. CONTRAST: IV 100mL Isovue-370 RADIATION DOSE: CTDIvol = 13.74 mGy, DLP = 599.86 mGy-cm COMPARISON: CT chest without contrast 09/10/2021. FINDINGS: PULMONARY ARTERIES: Less than optimal contrast enhancement of the peripheral pulmonary arteries. No suspicious intraluminal filling defects to suggest pulmonary thromboemboli. Normal in caliber. AORTA: Unremarkable. Normal in caliber. No evidence of dissection. GREAT VESSELS OF AORTIC ARCH: Unremarkable. Normal in caliber. No evidence of dissection. LUNGS AND PLEURAL SPACES: Calcified granuloma in the right posterior lung base. Minimal subsegmental atelectasis in the right lung base. No mass. No pleural effusion or thickening. No pneumothorax. HEART: Unremarkable. No signs of right heart strain, ratio of right ventricle to left ventricle measures less than 1. Normal cardiac size but extensive calcified plaques along the LAD branch and circumflex branch of the left coronary artery. Normal pericardium. MEDIASTINUM: Multiple calcified subcarinal nodes and calcified left hilar nodes from prior granulomatous exposure. Esophagus is unremarkable. No hiatal hernia. THYROID: Unremarkable. No thyroid lesions. BONES/JOINTS: Minimal degenerative anterolisthesis of T4 on T5. No suspicious lytic or blastic abnormality. LIVER: Moderate diffuse fatty infiltration of the liver. UPPER ABDOMEN: Moderate elevation of right hemidiaphragm. CT/CTA Chest W/WO Contrast IMPRESSION: 1. No CTA evidence of pulmonary thromboemboli, thoracic aortic aneurysm or dissection. 2. Multiple calcified nodes in the subcarinal space and left hilum from prior granulomatous exposure. 3. Small calcified granuloma in the right posterior lung base. 4. Moderate elevation of right hemidiaphragm with subsegmental atelectasis of right lung base. 5. Moderate diffuse hepatic steatosis but unchanged when compared to 09/10/2021. 6. Extensive calcified plaques along the LAD branch and circumflex branch of the left coronary artery but unchanged since 09/10/2021. Electronically Signed: Carlos Vega MD at 12:50 EDT ,
[2022-08-08 13:00] VITALS: BP 169/92
--- NOTE | 2022-08-08 13:00 | EKG12_ITS ---
Test Reason : CP Blood Pressure : / mmHG Vent. Rate : 061 BPM Atrial Rate : 061 BPM P-R Int : 174 ms QRS Dur : 072 ms QT Int : 418 ms P-R-T Axes : 031 -02 007 degrees QTc Int : 420 ms Normal sinus rhythm Normal ECG Confirmed by CHRIS STORY, GAUDENCIO ([id number]), online editor VENITA HOUSER ([id number]) on 08/10/2022 9:47:30 AM Referred By: Confirmed By:ABIDA PEREZ MD
== END 2022-08-08 13:34 | disposition home or self-care (01) ==
PROVIDERS: Emergency Provider Emergency Medicine; PCP Family Medicine; Visit Provider Emergency Medicine
DX: R07.89 Other chest pain (principal); I25.10 Atherosclerotic heart disease of native coronary artery without angina pectoris; I10 Essential (primary) hypertension; E78.5 Hyperlipidemia, unspecified; Z79.82 Long term (current) use of aspirin; Z79.899 Other long term (current) drug therapy
CPT/HCPCS: 71275; 80048; 84484; 85025; 93005; 99284; Q9967; A4216

== ENCOUNTER → 2022-08-08 | Outpatient (CLI) | payer BC, SELFPAY ==
[2022-08-08 10:12] LABS: Erythrocyte Sedimentation Rate 8 mm/hr (0-20)
[2022-08-08 11:04] LABS: CRP < 2.90 mg/L (0.0-3.0); LDH 210 U/L (87-241)
[2022-08-08 11:54] LABS: D-Dimer Quantitative (DVT/PE) 0.71 FEU/ug/m (0.27-0.49)
[2022-08-09 12:09] LABS: Anti-Centromere B Ab <0.2 AI (0.0-0.9); Anti-Chromatin <0.2 AI (0.0-0.9); Anti-Jo <0.2 AI (0.0-0.9); Anti-Scleroderma-70 AB <0.2 AI (0.0-0.9); RNP Ab <0.2 AI (0.0-0.9); SJOGREN'S Anti-SS-A test < 0.2 AI (0.0-0.9); SJOGREN'S Anti-SS-B test < 0.2 AI (0.0-0.9); Smith Ab <0.2 AI (0.0-0.9)
[2022-08-09 16:36] LABS: Anti-dsDNA Ab 1 IU/mL (0-9)
[2022-08-10 16:09] LABS: Albumin 3.8 g/dL (2.9-4.4); Alpha-1-Globulins 0.3 g/dL (0.0-0.4); Alpha-2-Globulins 0.9 g/dL (0.4-1.0); Cytoplasmic Ab (C-ANCA) <1:20 titer (Neg:<1:20); Gamma Globulin 0.9 g/dL (0.4-1.8); Immunoglobulin A 409 mg/dL (61-437); Immunoglobulin G 931 mg/dL (603-1613); Immunoglobulin M 40 mg/dL (20-172); QNTFERON TB Mitogen Value > 10.00 IU/mL (.); QNTFERON TB Nil Value 0.02 IU/mL (.); QNTFERON TB1+ Ag Value 0.02 IU/mL (.); QNTFERON TB2+ Ag Value 0.02 IU/mL (.)
[2022-08-11 14:19] LABS: Angiotensin Convert Enzyme < 15 U/L (14-82); Perinuclear Ab (P-ANCA) <1:20 titer (Neg:<1:20); QNTIFERON TB Positive Criteria Negative (Negative)
== END | disposition home or self-care (01) ==
LOC: LAB 09:15
PROVIDERS: PCP Family Medicine; Referring Provider Internal Medicine Gastroenterology; Visit Provider Internal Medicine Gastroenterology
DX: R10.13 Epigastric pain (principal)
CPT/HCPCS: 36415; 82164; 82784; 83615; 84165; 85379; 85652; 86140; 86225; 86235; 86256; 86334; 86480

== ENCOUNTER 2022-09-05 07:02 | Day surgery (SDC) | payer BC, SELFPAY ==
[2022-08-29 11:40] LABS: International Normalized Ratio 1.1; Partial Thromboplast Time 27.1 Seconds (24.1-36.2); Prothrombin Time (Protime)PT. 13.5 SECONDS (11.7-14.9)
--- NOTE | 2022-09-05 08:27 | CL.D_ITS ---
Patient Name: AXEL GIRON Study Date: 09/05/2022 Performing: Daniel Rincon MD Ht: 72 inches 182.88 cm : 1955 Wt: 236 lbs 107.05 kg Age: 67 Gender: male BSA: 2.29 PROCEDURE(S) PERFORMED DC01-(36052)LHC/COR/LV CLINICAL PROFILE AND INDICATIONS Indications: Suspected CAD Heart Failure: None Stress/Imaging Stress/Image Study Performed: No CAD Presentations: Unstable angina. CONCLUSIONS Three-vessel disease with a nondominant right coronary artery and moderate disease noted in the left anterior descending artery, moderate disease noted in the left circumflex artery. In comparison to the previous cardiac catheterization from a year ago the above unchanged. RECOMMENDATIONS Medical therapy DESCRIPTION OF PROCEDURE The patient arrived to the procedure lab. The risks and benefits of the procedure as well as a full description of our services here and current unavailability of surgical backup were fully explained to the patient and/or their significant other prior to the catheterization. The Timeout was completed, verifying the correct patient and procedure. The patient's procedural site was prepped and draped in the usual fashion. Local anesthetic was given subcutaneously to right radial region with Lidocaine 2%. Using a modified Seldinger technique, arterial access was obtained via the right radial artery, a 6Fr sheath was inserted. Right Coronary Artery selective angiography was then performed in multiple views using a 5 Fr. 4.0 Equality catheter. Left Coronary Artery selective angiography was performed in multiple views using a 5 Fr. 4.0 Equality catheter. Left Ventriculography was performed in [place]ERTY projection using a 5 Fr. Pigtail catheter. LV to AO pullback pressures were then recorded.The arterial sheath was pulled and a TR Band was applied for hemostasis.10cc air inserted. CORONARY ANGIOGRAPHY DOMINANCE: Left Dominant LEFT HEART ASSESSMENT Left Ventricular Ejection Fraction: by LV Gram 60 % Normal LV wall motion Normal Left Ventricular systolic function LEFT MAIN: Mild calcification, No significant disease noted LEFT ANTERIOR DESCENDING ARTERY: Medium size vessel noted with moderate calcification. There is a proximal 50% stenosis, and mid segment calcified 50 to 60% stenosis and distal mild disease. 2 small diagonal branches are noted which are severely diseased not amenable to PCI. CIRCUMFLEX ARTERY: Dominant vessel with first small obtuse marginal branch and mild disease noted in the midsegment with an ectatic area in the mid to distal segment. Second obtuse marginal branch noted with mild disease and distal mild disease noted no more than 30 to 40%. RIGHT CORONARY ARTERY: Nondominant vessel with high-grade proximal 80 to 90% stenosis noted. COMPLICATIONS No Complications PROCEDURE MEDICATIONS Fentanyl 50 mcg IV Versed 1 mg IV Versed 1 mg IV Oxygen: 2 L/min via nasal cannula Heparin given IA 09/05/2022 08:07:14 Verapamil 2.5mg, Ntg 100mcgs, 3000 units of Heparin given IA 09/05/2022 08:07:14 SUMMARY OF HEMODYNAMIC DATA Time AIR REST ECG 07:22:39 AO 91/63 (75) SA 08:10:28 LV 104/15, 26 08:18:01 LV 102/15, 23 08:18:06 LV 100/15, 25 08:18:46 LVp 101/13, 21 08:18:50 Signed By Daniel Rincon MD On 09/05/2022 08:26:47 Daniel Rincon MD
== END 2022-09-05 10:10 | disposition home or self-care (01) ==
PROVIDERS: Physician Assistant Medical; PCP Family Medicine; Referring Provider Internal Medicine Cardiovascular Disease; Visit Provider Internal Medicine Cardiovascular Disease
DX: I25.110 Atherosclerotic heart disease of native coronary artery with unstable angina pectoris (principal); I10 Essential (primary) hypertension; K21.9 Gastro-esophageal reflux disease without esophagitis; E78.00 Pure hypercholesterolemia, unspecified; Z79.82 Long term (current) use of aspirin; Z79.899 Other long term (current) drug therapy
CPT/HCPCS: 36415; 85610; 85730; 93458; 99152; 99153; J7040; Q9967; C1769; C1894

== ENCOUNTER → 2022-11-04 | Outpatient (CLI) | payer BC, SELFPAY ==
[2022-11-04 17:30] LABS: AST(SGOT) 31 U/L (15-37); Alanine Aminotransfer ALT/SGPT 48 U/L (16-61); Albumin, Serum 3.5 g/dL (3.2-5.0); Alkaline Phosphatase 62 U/L (45-117); Bilirubin, Direct 0.18 mg/dL (0.00-0.30); Cholesterol 134 mg/dL (200); Globulin 3.9 g/dL (2.2-4.2); High Density Lipoprotein 54 mg/dL; Protein, Total 7.4 g/dL (6.4-8.2); Triglycerides 121 mg/dL; Very Low Density Lipoprotein 24 mg/dL (5-40)
[2022-11-04 17:40] LABS: PSA,Total - Annual Screen 1.31 ng/mL (0.00-4.00)
[2022-11-07 16:09] LABS: Immunoglobulin A 393 mg/dL (61-437); Immunoglobulin G 900 mg/dL (603-1613); Immunoglobulin M 33 mg/dL (20-172); PROEL- A/G Ratio 1.1 (0.7-1.7); PROEL- Albumin 3.7 g/dL (2.9-4.4); PROEL- Alpha-1 Globulin 0.3 g/dL (0.0-0.4); PROEL- Beta Globulin 1.3 g/dL (0.7-1.3); PROEL- Gamma Globulin 0.8 g/dL (0.4-1.8); PROEL- Globulin, Total 3.3 g/dL (2.2-3.9)
== END | disposition home or self-care (01) ==
LOC: LAB 14:29
PROVIDERS: PCP Family Medicine; Referring Provider Internal Medicine Cardiovascular Disease; Visit Provider Internal Medicine Cardiovascular Disease
DX: Z12.5 Encounter for screening for malignant neoplasm of prostate (principal); I25.10 Atherosclerotic heart disease of native coronary artery without angina pectoris; E78.5 Hyperlipidemia, unspecified
CPT/HCPCS: 36415; 80061; 80076; 82784; 84153; 84165; 86334; G0103

== ENCOUNTER → 2023-05-15 | Outpatient (CLI) | payer BC, SELFPAY ==
--- OUTSIDE RECORDS SUMMARY | 2023-05-15 10:15 | XMS RPT_ITS | CCD ---
Author Name Unknown Address [id number] [place] [address] Organization [facility] Care Team Providers Care Assignment Manager Name Role Phone Chela Rahman Unavailable Unavailable MD Mckenzie, Daniel Hammer Unavailable Janey Cruz Unavailable Chela Rahman Unavailable Unavailable Unavailable Primary Care Provider Unavailabl e Allergies Allergy Classification Reported Allergen(s) Allergy Type Date of Onset Reaction(s) Facility (4 sources) atorvastatin Drug Allergy 08-26-2014 Myalgias [facility] Work Phone: (4 sources) gabapentin Drug Allergy 07-01-2013 MEMORY LOSS [facility] Work Phone: Medications Completed/Discontinued Medications Medication Drug Class(es) Dates Sig (Normalized) Sig (Original) allopurinol 100 mg oral tablet (5 sources) Xanthine Oxidase Inhibitor Start: 08-18-2015 take 1 tablet by mouth once daily ALLOPURINOL 100 MG TABS One tablet by mouth daily ALLOPURINOL [id number] Daniel Rincon MD Problems Active Problems Problem Classification Problem Date Documented Date Episodic/Chronic Coronary atherosclerosis and other heart disease (8 sources) Atherosclerotic heart disease of [place] coronary artery without angina pectoris; Translations: [Coronary arteriosclerosis] Onset: 07-01-2013 08-14-2015 Chronic Disorders of lipid metabolism (4 sources) Hyperlipidemia; Translations: [Hyperlipidemia, unspecified] Onset: 07-01-2013 07-01-2013 Chronic Essential hypertension (4 sources) Hypertensive disorder; Translations: [Essential (primary) hypertension] Onset: 07-01-2013 07-01-2013 Chronic Open wounds of extremities (1 source) Laceration of right index finger; Translations: [Laceration without foreign body of right index finger without damage to nail, initial encounter] Episodic Other nutritional; endocrine; and metabolic disorders (4 sources) Body mass index (BMI) 30.0-30.9, adult; Translations: [Body mass index (BMI) 30.0-30.9, adult] Onset: 02-25-2014 02-25-2014 Chronic Unclassified (8 sources) Long-term drug therapy; Translations: [Long-term (current) use of other medications] Onset: 07-06-2013 07-06-2013 Unclassified (1 source) Screening for malignant neoplasm of prostate ; Translations: [Encounter for screening for malignant neoplasm of prostate] Onset: 02-21-2017 02-21-2017 Past or Other Problems Problem Classification Problem Date Documented Date Episodic/Chronic Other nutritional; endocrine; and metabolic disorders (9 sources) Body mass index (BMI) 29.0-29.9, adult; Translations: [Body mass index (BMI) 29.0-29.9, adult] Onset: 07-03-2013 Resolved: 08-26-2014 08-26-2014 Episodic Other screening for suspected conditions (not mental disorders or infectious disease) (12 sources) Cardiovascular stress test abnormal; Translations: [Liver enzymes abnormal] Onset: 07-10-2013 Resolved: 08-14-2015 08-14-2015 Episodic Residual codes; unclassified (19 sources) FH: Hypertension; Translations: [FH: Raised blood lipids] Onset: 07-01-2013 Resolved: 02-18-2016 02-18-2016 Episodic Residual codes; unclassified (6 sources) Family history of stroke; Translations: [Family history of stroke] Resolved: 02-18-2016 02-25-2014 Episodic Residual codes; unclassified (6 sources) FH: Raised blood lipids; Translations: [Family history of other specified conditions] Resolved: 02-18-2016 02-25-2014 Episodic Residual codes; unclassified (6 sources) Family history of ischemic heart disease and other diseases of the circulatory system; Translations: [Family history of ischemic heart disease and other diseases of the circulatory system] Resolved: 02-18-2016 02-26-2015 Episodic Residual codes; unclassified (6 sources) Family history of ischemic heart disease; Translations: [Family history of ischemic heart disease and other diseases of the circulatory system] Onset: 07-01-2013 Resolved: 02-18-2016 07-01-2013 Episodic Results Test Name Value Interpretation Reference Range Facil ity Vital Signs Date Time Vital Sign Value Performing Clinician Faci lity 10-22-2020 18:52-0400 Diastolic blood pressure 79 mm[Hg] Joseph Jang MD Work Phone: [facility] Work Phone: 10-22-2020 18:52-0400 Heart rate 62 /min Joseph Jang MD Work Phone: [facility] Work Phone: 10-22-2020 18:52-0400 Respiratory rate 14 /min Joseph Jang MD Work Phone: [facility] Work Phone: 10-22-2020 18:52-0400 SaO2% (BldA) [Mass fraction] 99 % Joseph Jang MD Work Phone: [facility] Work Phone: 10-22-2020 18:52-0400 Systolic blood pressure 136 mm[Hg] Joseph Jang MD Work Phone: [facility] Work Phone: 10-22-2020 16:50-0400 Body height 182.9 cm Joseph Jang MD Work Phone: [facility] Work Phone: 10-22-2020 16:50-0400 Body mass index (BMI) [Ratio] 29.84 kg/m2 Joseph Jang MD Work Phone: [facility] Work Phone: 10-22-2020 16:50-0400 Body temperature 97.9 [degF] Joseph Jang MD Work Phone: [facility] Work Phone: 10-22-2020 16:50-0400 Body weight 99.79 kg Joseph Jang MD Work Phone: [facility] Work Phone: 02-21-2017 14:10-0400 BMI (Body Mass Index) 29.83 kg/m2 [facility] Work Phone: 02-21-2017 14:10-0400 BP Diastolic 80 mm[Hg] [facility] Work Phone: 02-21-2017 14:10-0400 BP Systolic 130 mm[Hg] [facility] Work Phone: 02-21-2017 14:10-0400 Height 182.88 cm [facility] Work Phone: 02-21-2017 14:10-0400 Pulse (Heart Rate) 64 /min [facility] Work Phone: 02-21-2017 14:10-0400 Respiratory Rate 20 /min [facility] Work Phone: 02-21-2017 14:10-0400 Weight 99.79 kg [facility] Work Phone: 08-18-2016 15:41-0400 BMI (Body Mass Index) 30.11 kg/m2 MD [facility] Work Phone: 08-18-2016 15:41-0400 BP Diastolic 60 mm[Hg] Daniel Rincon MD [facility] Work Phone: 08-18-2016 15:41-0400 BP Systolic 100 mm[Hg] Daniel Rincon MD [facility] Work Phone: 08-18-2016 15:41-0400 Height 182.88 cm Daniel Rincon MD [facility] Work Phone: 08-18-2016 15:41-0400 Pulse (Heart Rate) 68 /min MD [facility] Work Phone: 08-18-2016 15:41-0400 Respiratory Rate 20 /min Daniel Rincon MD [facility] Work Phone: 08-18-2016 15:41-0400 Weight 100.7 kg MD [facility] Work Phone: 02-18-2016 15:19-0400 BSA (Body Surface Area) 2.25 m2 MD [facility] Work Phone: 02-26-2015 15:41-0400 Heart rate 64 /min Daniel Rincon MD [facility] Work Phone: Encounters Encounter Date Encounter Type Care Provider Facility Start: 10-22-2020 End: 10-22-2020 Emergency department patient visit Joseph Jang MD Work Phone: [facility] ED Procedures Date Procedure Procedure Detail Performing Clinician Start: 10-22-2020 LACERATION REPAIR Joseph aJng MD Work Phone: Start: 02-21-2017 Screening for malignant neoplasm of prostate Screening, prostate ca Janey Cruz Start: 02-15-2017 End: 02-20-2017 *Hepatic Function Panel Adina Simms Start: 02-15-2017 End: 02-20-2017 Lipid 1996 panel - Serum or Plasma Daniel Rincon MD Start: 08-18-2016 End: 02-07-2017 Follow Up Appt 6 months Adina Simms Start: 08-18-2016 End: 02-07-2017 MMM Daniel Rincon MD Start: 08-16-2016 End: 08-16-2016 *Hepatic Function Panel Adina Simms Start: 08-16-2016 End: 08-16-2016 Lipid 1996 panel - Serum or Plasma Daniel Rincon MD Start: 02-18-2016 End: 02-18-2016 Dietary management education, guidance, and counseling Daniel Rincon MD Start: 02-18-2016 End: 02-18-2016 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 FARM MANAGER Daniel Rincon MD Start: 02-18-2016 End: 02-18-2016 Follow Up Appt 6 months Adina Simms Start: 02-18-2016 End: 03-21-2016 Nuclear stress test -exercise Daniel Rincon MD Start: 08-18-2015 End: 02-16-2016 *Hepatic Function Panel Adina Simms Start: 08-18-2015 End: 02-07-2017 FISH FARM MANAGER Daniel Rincon MD Start: 08-18-2015 End: 02-07-2017 Follow Up Appt 6 months Adina Simms Start: 08-18-2015 End: 02-16-2016 Lipid 1996 panel - Serum or Plasma Daniel Rincon MD Start: 06-26-2015 End: 08-17-2015 *Hepatic Function Panel Gisele vuong PA-C Work Phone: Start: 06-26-2015 End: 08-17-2015 Lipid [place] panel - Serum or Plasma Gisele Messina PA-C Work Phone: Start: 03-19-2015 End: 04-24-2015 *Hepatic Function Panel Gisele vuong PA-C Work Phone: Start: 02-26-2015 End: 02-26-2015 FISH FARM MANAGER Gisele Messina PA-C Work Phone: Start: 02-26-2015 End: 02-26-2015 Follow Up Appt 6 months Gisele vuong PA-C Work Phone: Start: 02-19-2015 End: 02-19-2015 *Hepatic Function Panel Adina Simms Start: 02-19-2015 End: 02-19-2015 Lipid 1996 panel - Serum or Plasma Daniel Rincon MD Start: 08-26-2014 End: 08-26-2014 Follow Up Appt 6 months Adina Simms Start: 08-26-2014 End: 08-26-2014 MMAdina Rincon MD Start: 08-25-2014 End: 08-25-2014 *Hepatic Function Panel Adina Simms Start: 08-25-2014 End: 08-25-2014 Lipid 1996 panel - Serum or Plasma Daniel Rincon MD Start: 02-25-2014 End: 02-25-2014 FISH FARM MANAGER Gisele Messina PA-C Work Phone: Start: 02-25-2014 End: 02-25-2014 Follow Up Appt 6 months Gisele vuong PA-C Work Phone: Start: 12-06-2013 End: 02-24-2014 *Hepatic Function Panel Adina Simms Start: 12-06-2013 End: 02-24-2014 Lipid 1996 panel - Serum or Plasma Daniel Rincon MD Start: 08-16-2013 End: 02-05-2014 *Hepatic Function Panel Adina Simms Start: 08-16-2013 End: 08-16-2013 Follow Up Appt 6 months Adina Simms Start: 08-16-2013 End: 02-05-2014 Lipid 1996 panel - Serum or Plasma Daniel Rincon MD Start: 08-16-2013 End: 08-16-2013 MMAdina Rincon MD Start: 07-10-2013 End: 02-05-2014 *BMP Daniel Rincon MD Start: 07-10-2013 End: 02-05-2014 CBC W Auto Differential panel - Blood Daniel Rincon MD Start: 07-10-2013 End: 07-16-2013 Chest x-ray Daniel Rincon MD Start: 07-10-2013 End: 02-05-2014 INR in Platelet poor plasma by Coagulation assay Daniel Rincon MD Start: 07-10-2013 End: 02-05-2014 Left Heart Cath Daniel Rincon MD Start: 07-10-2013 End: 07-10-2013 Nurse, Teaching, Wound Check (no charge) Daniel Rincon MD Start: 07-03-2013 End: 07-03-2013 *BMP Daniel Rincon MD Start: 07-03-2013 End: 07-03-2013 *Hepatic Function Panel Adina Simms Start: 07-03-2013 End: 07-10-2013 Carotid duplex Daniel Rincon MD Start: 07-03-2013 End: 07-03-2013 FISH FARM MANAGER Daniel Rincon MD Start: 07-03-2013 End: 07-03-2013 Ecg routine ecg w/least 12 lds w/i&r Daniel Rincon MD Start: 07-03-2013 End: 07-10-2013 Echocardiography Daniel Rincon MD Start: 07-03-2013 End: 07-03-2013 Follow Up Appt 6 months Adina Simms Start: 07-03-2013 End: 07-03-2013 Lipid 1996 panel - Serum or Plasma Daniel Rincon MD Start: 07-03-2013 End: 07-03-2013 Magnesium [Mass/volume] in Serum or Plasma Daniel Rincon MD Start: 07-03-2013 End: 07-10-2013 Nuclear stress test -exercise Daniel Rincon MD Plan of Treatment Date Care Activity Detail Author Start: 01-06-2021 Influenza vaccination Flu vaccine (Season Ended) [facility] Work Phone: Start: 09-01-2017 End: 02-21-2017 *Hepatic Function Panel *Hepatic Function Panel [facility] Work Phone: Start: 09-01-2017 End: 02-21-2017 Lipid panel [AGGREGATE] *Lipid Profile CC PCP [facility] Work Phone: Start: 08-22-2017 End: 08-22-2017 Appointment Appointment [facility] Work Phone: Start: 02-21-2017 End: 02-21-2017 Appointment Appointment [facility] Work Phone: Start: 02-21-2017 End: 02-21-2017 FISH FARM MANAGER FISH FARM MANAGER [facility] Work Phone: Start: 02-21-2017 End: 02-21-2017 Follow Up Appt 6 months Follow Up Appt 6 months [facility] Work Phone: Start: 02-21-2017 End: 02-21-2017 PSA *PSA (Prostate Specific Antigen) [facility] Work Phone: Start: 02-15-2017 End: 02-20-2017 *Hepatic Function Panel *Hepatic Function Panel [facility] Work Phone: Start: 02-15-2017 End: 02-20-2017 Lipid panel [AGGREGATE] *Lipid Profile CC PCP [facility] Work Phone: Start: 08-18-2016 End: 02-07-2017 Follow Up Appt 6 months Follow Up Appt 6 months [facility] Work Phone: Start: 08-18-2016 End: 02-07-2017 MMM MMM [facility] Work Phone: Start: 08-16-2016 End: 08-16-2016 *Hepatic Function Panel *Hepatic Function Panel [facility] Work Phone: Start: 08-16-2016 End: 08-16-2016 Lipid panel [AGGREGATE] *Lipid Profile CC PCP [facility] Work Phone: Start: 02-18-2016 End: 02-18-2016 FISH FARM MANAGER FISH FARM MANAGER [facility] Work Phone: Start: 02-18-2016 End: 02-18-2016 Follow Up Appt 6 months Follow Up Appt 6 months [facility] Work Phone: Start: 02-18-2016 End: 02-18-2016 Nuclear stress test -exercise Nuclear stress test -exercise [facility] Work Phone: Start: 08-18-2015 End: 02-16-2016 *Hepatic Function Panel *Hepatic Function Panel [facility] Work Phone: Start: 08-18-2015 End: 02-07-2017 FISH FARM MANAGER FISH FARM MANAGER [facility] Work Phone: Start: 08-18-2015 End: 02-07-2017 Follow Up Appt 6 months Follow Up Appt 6 months [facility] Work Phone: Start: 08-18-2015 End: 02-16-2016 Lipid panel [AGGREGATE] *Lipid Profile CC PCP [facility] Work Phone: Start: 06-26-2015 End: 08-17-2015 *Hepatic Function Panel *Hepatic Function Panel [facility] Work Phone: Start: 06-26-2015 End: 08-17-2015 Lipid panel [AGGREGATE] *Lipid Profile CC PCP [facility] Work Phone: Start: 03-19-2015 End: 04-24-2015 *Hepatic Function Panel *Hepatic Function Panel [facility] Work Phone: Start: 02-26-2015 End: 02-26-2015 FISH FARM MANAGER FISH FARM MANAGER [facility] Work Phone: Start: 02-26-2015 End: 02-26-2015 Follow Up Appt 6 months Follow Up Appt 6 months [facility] Work Phone: Start: 02-19-2015 End: 02-19-2015 *Hepatic Function Panel *Hepatic Function Panel [facility] Work Phone: Start: 02-19-2015 End: 02-19-2015 Lipid panel [AGGREGATE] *Lipid Profile CC PCP [facility] Work Phone: Start: 08-26-2014 End: 08-26-2014 Follow Up Appt 6 months Follow Up Appt 6 months [facility] Work Phone: Start: 08-26-2014 End: 08-26-2014 MMM MMM [facility] Work Phone: Start: 08-25-2014 End: 08-25-2014 *Hepatic Function Panel *Hepatic Function Panel [facility] Work Phone: Start: 08-25-2014 End: 08-25-2014 Lipid panel [AGGREGATE] *Lipid Profile CC PCP [facility] Work Phone: Start: 02-25-2014 End: 02-25-2014 FISH FARM MANAGER FISH FARM MANAGER [facility] Work Phone: Start: 02-25-2014 End: 02-25-2014 Follow Up Appt 6 months Follow Up Appt 6 months [facility] Work Phone: Start: 12-06-2013 End: 02-24-2014 *Hepatic Function Panel *Hepatic Function Panel [facility] Work Phone: Start: 12-06-2013 End: 02-24-2014 Lipid panel [AGGREGATE] *Lipid Profile CC PCP [facility] Work Phone: Start: 08-16-2013 End: 02-05-2014 *Hepatic Function Panel *Hepatic Function Panel [facility] Work Phone: Start: 08-16-2013 End: 08-16-2013 Follow Up Appt 6 months Follow Up Appt 6 months [facility] Work Phone: Start: 08-16-2013 End: 02-05-2014 Lipid panel [AGGREGATE] *Lipid Profile CC PCP [facility] Work Phone: Start: 08-16-2013 End: 08-16-2013 MMM MMM [facility] Work Phone: Start: 07-10-2013 End: 02-05-2014 *BMP *BMP [facility] Work Phone: Start: 07-10-2013 End: 02-05-2014 CBC W Auto Differential panel - Blood *CBC without Diff [facility] Work Phone: Start: 07-10-2013 End: 07-16-2013 Chest x-ray X-Ray, Chest, PA & Lateral [facility] Work Phone: Start: 07-10-2013 End: 02-05-2014 INR Coag RelTime (PPP) *PT/INR [facility] Work Phone: Start: 07-10-2013 End: 07-10-2013 Left Heart Cath Left Heart Cath [facility] Work Phone: Start: 07-03-2013 End: 07-03-2013 *BMP *BMP [facility] Work Phone: Start: 07-03-2013 End: 07-03-2013 *Hepatic Function Panel *Hepatic Function Panel [facility] Work Phone: Start: 07-03-2013 End: 07-03-2013 Carotid duplex Carotid duplex [facility] Work Phone: Start: 07-03-2013 End: 07-03-2013 FISH FARM MANAGER FISH FARM MANAGER [facility] Work Phone: Start: 07-03-2013 End: 07-03-2013 Ecg routine ecg w/least 12 lds w/i&r EKG (In office) [facility] Work Phone: Start: 07-03-2013 End: 07-03-2013 Echocardiography Echocardiogram (complete) [facility] Work Phone: Start: 07-03-2013 End: 07-03-2013 Follow Up Appt 6 months Follow Up Appt 6 months [facility] Work Phone: Start: 07-03-2013 End: 07-03-2013 Lipid panel [AGGREGATE] *Lipid Profile CC PCP [facility] Work Phone: Start: 07-03-2013 End: 07-03-2013 Magnesium *Magnesium [facility] Work Phone: Start: 07-03-2013 End: 07-03-2013 Nuclear stress test -exercise Nuclear stress test -exercise [facility] Work Phone: Start: 1955 Creatinine measurement Creatinine monitoring [facility] Work Phone: Start: 1955 Potassium monitoring Potassium monitoring [facility] Work Phone: Patient Education [facility] Work Phone: Immunizations Immunization Date Immunization Notes Care Provider Fa cili 10-22-2020 tetanus toxoid, redu ro diphtheria toxoid, and acellular pertussis vaccine, adsorbed Joseph Jang MD Work Phone: [facility] Work Phone: Social History Date Type Detail Facility Start: 10-22-2020 Tobacco smoking stat [facility] Never smoker [facility] Work Phone: Start: 10-22-2020 Alcohol intake Current drinke r of alcohol (finding) [facility] Work Phone: Start: 10-22-2020 Alcohol Comment daily [facility] Work Phone: Start: 1955 Sex Assigned At Not on file [facility] Work Phone: Exposure to SARS-CoV -2 (event) Not sure [facility] Evaluation note Note Date & Type Note Facility documented in this encounter [facility] Work Phone: Hospital Discharge instructions Attachments Note Date & Type Note Facility Hospital Discharge instructions The following attachments cannot be sent through Care Everywhere.Hand Laceration: Stitches ([place])documented in this encounter [facility] Work Phone: Additional Source Comments Reason for Visit (unrecogniz ed section and content) Scheduled Active and Recently Administ ered Medications (unrecognized section and content) FOR RECORDS PERTAINING TO PATIENTS WHO ARE OR HAVE BEEN ENROLLED IN A CHEMICAL DEPENDENCY/SUBSTANCEABUSE PROGRAM, SOME INFORMATION MAY BE OMITTED. This clinical summary was aggregated from multiple sources. Caution should be exercised in using it in the provision of clinical care. This summary normalizes information from multiple sources, and as a consequence, information in this document may materially change the coding, format and clinical context of patient data. In addition, data may be omitted in some cases. CLINICAL DECISIONS SHOULD BE BASED ON THE PRIMARY CLINICAL RECORDS. [facility] [employer] [facility]. provides no warranty or guarantee of the accuracy or completeness of information in this document.
[2023-05-15 10:59] LABS: AST(SGOT) 29 U/L (15-37); Alanine Aminotransfer ALT/SGPT 43 U/L (16-61); Albumin, Serum 3.5 g/dL (3.2-5.0); Alkaline Phosphatase 66 U/L (45-117); Bilirubin, Direct 0.19 mg/dL (0.00-0.30); Cholesterol 145 mg/dL (200); Globulin 3.7 g/dL (2.2-4.2); High Density Lipoprotein 58 mg/dL; Protein, Total 7.2 g/dL (6.4-8.2); Thyroid Stim Hormone (TSH) 2.13 uIU/mL (0.358-3.74); Triglycerides 95 mg/dL; Very Low Density Lipoprotein 19 mg/dL (5-40)
== END | disposition home or self-care (01) ==
PROVIDERS: PCP Family Medicine; Referring Provider Physician Assistant Medical; Visit Provider Physician Assistant Medical
DX: I25.10 Atherosclerotic heart disease of native coronary artery without angina pectoris (principal); I10 Essential (primary) hypertension; E78.00 Pure hypercholesterolemia, unspecified
CPT/HCPCS: 36415; 80061; 80076; 84443

== ENCOUNTER → 2023-09-22 | Outpatient (CLI) | payer BC, SELFPAY ==
[2023-09-22 11:54] LABS: Absolute Lymphocyte Count 1.64 X10^3/uL (0.83-4.51); Absolute Neutrophil Count 3.5 X10^3/uL (2.0-7.7); Basophil# 0.03 X10^3/uL; Basophil% 0.5 % (0-1); Eosinophil# 0.19 X10^3/uL; Hematocrit 48.6 % (40-54); Hemoglobin 16.6 g/dL (13.0-16.5); Lymphocyte # 1.64 X10^3/ul (0.83-4.51); Lymphocyte % 25.7 % (19-41); Mean Corp Hgb Conc 34.2 g/dL (32-36); Mean Corpuscular Hgb 32.2 pg (27.0-32.0); Mean Corpuscular Volume 94.2 fL (80-94); Mean Platelet Vol. 9.3 fl (6.2-12.0); Monocyte# 0.94 X10^3/uL; Monocyte% 14.8 % (0-10); NRBC Flagged by Analyzer 0 % (0-5); Neutrophil # 3.53 X10^3/uL (2.7-7.7); Neutrophil % 55.4 % (47-70); Platelet Count 319 K/mm3 (150-450); RBC Distribution Width CV 12.7 % (11.6-14.6); RBC Distribution Width SD 44.2 fl (35.1-43.9); Red Blood Count 5.16 M/mm3 (4.6-6.2); White Blood Count 6.4 K/mm3 (4.4-11.0)
[2023-09-22 12:29] LABS: BNP,B-Type NATRIURETIC PEPTIDE 22.7 pg/mL (0-100)
[2023-09-22 12:45] LABS: AST(SGOT) 28 U/L (15-37); Alanine Aminotransfer ALT/SGPT 47 U/L (16-61); Albumin, Serum 3.8 g/dL (3.2-5.0); Alkaline Phosphatase 66 U/L (45-117); Anion Gap 5 (5-15); BUN 15 mg/dL (7-18); BUN/Creat Ratio 14.3 RATIO (10-20); Calcium,Total 9.8 mg/dL (8.5-10.1); Chloride 103 mmol/L (98-107); Creatinine, Serum 1.05 mg/dL (0.70-1.30); EST Glomerular Filtration Rate 75 mL/min (>60); Est Glom Filt Rate - Afr Amer 90 mL/min (>60); Globulin 3.8 g/dL (2.2-4.2); Glucose 112 mg/dL (74-106); Magnesium 1.8 mg/dL (1.6-2.6); Potassium 3.8 mmol/L (3.5-5.1); Protein, Total 7.6 g/dL (6.4-8.2); Sodium Level 137 mmol/L (136-145); T4 Free Direct 0.98 ng/dL (0.76-1.46); Thyroid Stim Hormone (TSH) 2.01 uIU/mL (0.358-3.74)
== END | disposition home or self-care (01) ==
LOC: LAB 11:18
PROVIDERS: PCP Family Medicine; Referring Provider Nurse Practitioner Family; Visit Provider Nurse Practitioner Family
DX: I25.10 Atherosclerotic heart disease of native coronary artery without angina pectoris (principal); I10 Essential (primary) hypertension; E78.00 Pure hypercholesterolemia, unspecified; R06.09 Other forms of dyspnea
CPT/HCPCS: 36415; 80053; 83735; 83880; 84439; 84443; 85025

== ENCOUNTER 2023-10-27 10:01 | Outpatient (RCR) | payer BC, SELFPAY ==
--- NOTE | 2023-10-27 10:53 | HP.PTEVAL_ITS ---
Patient's Visit Information Visit Information Visit Information: AXEL GIRON is a 68 year old M referred to Physical Therapy by Aba Dc PA-C with a diagnosis of L knee pain and strain of L Quad. Date of Evaluation: 10/27/23 Physical Therapist: MONAE Jaramillo Visit Plan Frequency: 2x /Week Duration: 3 Weeks Plan: 2X/ week for 3 weeks for L Quad and hip flexor stretching, L Quad/HS co contraction strength, B Glut and hip ext strength, some core with HEP HEP: bridges, SLR, S/L hip abd, off the side of the table hip flexor stretch Subjective Subjective: Pt tweaked his L knee and they thought that he had torn the Quad a little bit. The PA wanted him to do PT. He injured him self about 1.5 to 2 mo ago. He was walking down the steps and his foot slipped out from underneath him. He is feeling better. It is not bothering him at all now. He is walking fine, getting up off the floor fine. He has a TKR on the R and that knee bothers him. He was walking and play pickle ball. he feels that a scaled down version he thinks he might be ready to go back to pickleball Pain L knee pain: Pain Intensity (Out of 10): 0 Objective Objective: Gait: walks with decrease stance time on the L Heel and toe raises with ease B LE MMT: B hip flex 4/5 R knee ext 4+/5 and L 4/5 R knee flex B 4+/5 L knee AROM -1 to 1118 R knee AROM 0-120 Pt is able to SLR, bridge and S/L hip abd without any issues Pt has tight L >R Quad/hip flexor tightness Pt has 2-/5 B hip ext strength with def decrease AROM (increase twinge of pain in his back) Balance/Special Test Scores Lower Extremity Functional Score: 46 Goals Goal 1:: I HEP Goal Time Frame: 4-6 Weeks Goal 2:: Be able to perform B hip ext with increase strength and no back pain Goal Time Frame: 4-6 Weeks Goal 3:: Restore B Quad and hip flexor muscle length Goal Time Frame: 4-6 Weeks Rehabilitation Potential Rehabilitation Potential: Good Anticipated Interventions Therapeutic Exercise to Include: Strength training, Flexibilty training, Gait and locomotor training, Active ROM and Dynamic Lumbar Stabilization For the Purpose of:: To decrease pain, To increase ROM, To improve muscle performance and motor function, To improve ability to perform ADL's, To improve ability of physical actions for home/community/work/leisure, To improve gait and locomotor functions, To improve health of tissue, To decrease soft tissue restriction and To increase flexibility/ROM Functional Training to Include: Gait training For the Purpose of:: To improve gait and locomotor functions Text: Thank you for the opportunity to evaluate your patient. For Medicare and Medicare HMO plans, please review the plan of care and approve it. It will need to be FAXED BACK to us at [phone] for Medicare purposes. For Medicare only, by signing this I certify the plan of care. Please let me know if there are questions or concerns regarding this plan of care. Physician Signature: ____Date:
--- NOTE | 2024-02-06 08:13 | HP.PT.NRP ---
Patient Information Patient Information: AXEL GIRON was seen in my office for initial evaluation on 10/27/23. The following Plan of Care was established for this patient: POC Established Initial Frequency: 2x /Week Initial Duration: 3 Weeks Anticipated Interventions Therapeutic Exercise to Include: Strength training, Flexibilty training, Gait and locomotor training, Active ROM and Dynamic Lumbar Stabilization For the Purpose of:: To decrease pain, To increase ROM, To improve muscle performance and motor function, To improve ability to perform ADL's, To improve ability of physical actions for home/community/work/leisure, To improve gait and locomotor functions, To improve health of tissue, To decrease soft tissue restriction and To increase flexibility/ROM Functional Training to Include: Gait training For the Purpose of:: To improve gait and locomotor functions Last Seen Last Seen: This patient was last seen in our office 10/27/23. Pertinent comments regarding their Physical therapy will appear below: DC PT At this point I will be discontinuing this patient from physical therapy. I would be happy to see this patient again in the future if found appropriate by the physician. Thank you! Hattie Donahue, MONAE Balance/Gait/Functional tests Balance/Special Test Scores Lower Extremity Functional Score: 46
== END 2023-10-27 19:00 | disposition home or self-care (01) ==
LOC: PT 10:01
PROVIDERS: PCP Family Medicine; Visit Provider Physician Assistant
DX: S83.8X2D Sprain of other specified parts of left knee, subsequent encounter (principal); S76.112D Strain of left quadriceps muscle, fascia and tendon, subsequent encounter
CPT/HCPCS: 97161

== ENCOUNTER 2023-12-26 16:53 | Emergency (ER) | payer BC, SELFPAY ==
[2023-12-26 16:54] VITALS: BP 122/99; PULSE 115; RESP 18; TEMP 37.7; O2SAT 98; BMI 31.3
[2023-12-26 17:43] VITALS: TEMP 37.3
--- NOTE | 2023-12-26 19:03 | EDS_ITS ---
HPI History of Present Illness Chief Complaint: Fever Informant: patient Onset/Context/Timing Onset: Yesterday Context: Gradual Onset Timing: Continuous Quality: Chills Location: Generalized Worsened by: Nothing Relieved by: Tylenol Narrative Narrative: Patient presents with a fever that began yesterday. Patient states he checked his temperature at home and it was up to 105. Patient states that was a scanning thermometer and he is not sure how accurate it was. Patient admits to feeling chilled. Patient states he did take some Tylenol prior to arrival. Patient states this seemed to help. Patient also admits to a frontal headache. Patient was to some postnasal drainage and some rhinorrhea. Patient also admits to a mild cough. 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 pectoris HLD (hyperlipidemia) Home Medications ?Medication ?Instructions ?Recorded ?Last Taken ?Type multivitamin 1 tab PO QDAY 08/21/17 Unknown History naproxen sodium 220 mg tablet 220 mg PO QDAY PRN Pain 08/24/17 Unknown History (Aleve) allopurinol 100 mg tablet 100 mg PO BID 09/03/18 09/10/21 History nitroglycerin 0.4 mg sublingual 0.4 mg sublingual Q5-15M PRN chest 11/04/22 Unknown Rx tablet (Nitrostat) pain #25 tabs rosuvastatin 20 mg tablet (Crestor) 20 mg PO DAILY 11/04/22 Unknown History sildenafil 100 mg tablet 100 mg PO ONCE PRN 11/04/22 Unknown History sucralfate 1 gram tablet 1 g PO BID 11/04/22 Unknown History amlodipine 5 mg tablet 5 mg PO BID #180 tabs 05/15/23 Unknown Rx aspirin 81 mg tablet,delayed 81 mg PO DAILY 05/15/23 Unknown History release (Adult Low Dose Aspirin) famotidine 20 mg tablet 20 mg PO QDAY 09/22/23 Unknown History metoprolol tartrate 100 mg tablet 100 mg PO QDAY 09/22/23 Unknown History ranolazine 1,000 mg 1,000 mg PO BID #180 tabs 11/08/23 Unknown Rx tablet,extended release,12 hr nirmatrelvir 300 mg (150 mg See Rx Instructions PO .COMPLEX 12/26/23 Unknown Rx x2)-ritonavir 100 mg tablet,dose #30 tabs pack (Paxlovid) Allergy/AdvReac Type Severity Reaction Status Date / Time gabapentin AdvReac memory loss Verified 12/26/23 16:54 Family History Father Myocardial infarction CAD (coronary artery disease) Hx coronary stents HLD (hyperlipidemia) Mother CVA (cerebral vascular accident) Brother Myocardial infarction CAD (coronary artery disease) Hc coronary stents HLD (hyperlipidemia) Hypertension Colon cancer Surgical History History of carpal tunnel surgery History of left heart catheterization (09/10/21) History of lithotripsy (12/2018) 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) History of knee surgery Social History Smoking Status: Never smoker alcohol intake: current alcohol intake frequency: a few times a week Alcohol type: beer, wine and hard liquor substance use type: does not use caffeine: Yes Type: coffee what type of physical activity do you participate in: none seatbelt use: always do you feel safe at home: Yes ROS ROS ED Constitutional Constitutional ED: Reports chills and fever(s) Eyes Eyes: Denies blurry vision or change in vision ENT ENT ED: Reports rhinorrhea; Denies sore throat Cardiovascular Cardiovascular: Denies chest pain or palpitations Respiratory/Chest Respiratory/Chest: Reports cough; Denies dyspnea Gastrointestinal Gastrointestinal: Denies nausea or vomiting Genitourinary Genitourinary ED: Denies dysuria or hematuria Musculoskeletal Musculoskeletal: Denies back pain or neck pain Integumentary Denies abscess or rash Neurologic Neurologic: Reports headache(s); Denies weakness Allergic/Immunologic Allergic/Immunologic ED: Denies mouth swelling or urticaria EXAM Physical Exam Const Vital Signs: 12/26/23 16:54 12/26/23 17:43 Temperature 99.8 F H 99.2 F H Temperature Source Oral Oral Pulse Rate 115 H Respiratory Rate 18 Blood Pressure 122/99 H Blood Pressure Mean 106 Pulse Ox 98 Oxygen Delivery Method Room Air Positive well nourished and well developed General Appearance ED: well developed and NAD HEENT Reports moist mucous membranes Neck supple and no JVD Resp normal respiratory effort and clear to auscultation bilaterally Cardio regular rate and regular rhythm GI non-tender and non-distended Palpation: soft Extremity normal to inspection General Extremety ED: Negative for edema or tenderness General Extremity: Negative for edema Neuro oriented x3, CN's II-XII intact bilaterally and no sensory deficits noted Sensorium / Orientation: alert Motor Exam: strength 5/5 throughout Psych mental status grossly normal MDM MDM MDM Narrative Medical decision making narrative: Differential diagnosis includes viral illness, COVID-19, influenza, and RSV. COVID-19, influenza, and RSV PCR will be obtained to assess for viral infection. Lab Data Attestation: I reviewed the patient's lab results. Lab results narrative: COVID-19 PCR was reviewed with positive. Influenza PCR was reviewed and was negative for influenza A and influenza B. RSV PCR was reviewed and was negative. Treatment and Re-Evaluation :: Patient was advised of his findings. Since the patient's symptoms only started yesterday evening, patient is eligible for Paxlovid. Patient states he would prefer to have this. Patient was given a prescription for this. Patient was instructed to follow-up with his primary care physician in 5 to 7 days. Patient was instructed continue Tylenol and ibuprofen as needed for any fevers. Patient was instructed to drink plenty of fluids. Patient was instructed to return if worse in any way. Patient understood and was agreeable with the plan. All questions were answered. Discharge Plan Triage Chief Complaint: Fever ED Provider: Jerod Prado Dx/Rx/DC Orders Clinical Impression: COVID-19, Essential (primary) hypertension Instructions: Coronavirus Disease 2019 (COVID-19): Caring for Yourself or Others Prescriptions: New Paxlovid 300 mg (150 mg x 2)-100 mg tablets,dose pack See Rx Instructions .ROUTE .COMPLEX Qty: 30 0RF Rx Instructions: take TWO 150 mg tablets of nirmatrelvir with ONE 100 mg tablet of ritonavir twice daily for 5 days No Action multivitamin tablet 1 tab PO QDAY naproxen sodium [Aleve] 220 mg tablet 220 mg PO QDAY PRN (Reason: Pain) allopurinol 100 mg tablet 100 mg PO BID rosuvastatin [Crestor] 20 mg tablet 20 mg PO DAILY metoprolol tartrate 100 mg tablet 100 mg PO QDAY sucralfate 1 gram tablet 1 g PO BID Patient Comments: TAKE 1 TABLET BY MOUTH FOUR TIMES A DAY sildenafil 100 mg tablet 100 mg PO ONCE PRN Patient Comments: take 1 tablet by mouth once daily nitroglycerin [Nitrostat] 0.4 mg tablet, sublingual 0.4 mg sublingual Q5-15M PRN (Reason: chest pain) Qty: 25 3RF Rx Instructions: do not exceed 3 doses per episode aspirin [Adult Low Dose Aspirin] 81 mg tablet,delayed release (DR/EC) 81 mg PO DAILY amlodipine 5 mg tablet 5 mg PO BID Qty: 180 3RF famotidine 20 mg tablet 20 mg PO QDAY ranolazine 1,000 mg tablet extended release 12 hr 1,000 mg PO BID Qty: 180 3RF Primary Care Provider: Wood Hurtado Referrals: Wood Hurtado MD [Primary Care Provider] - Print Language: Macedonian Disposition Disposition: Home, Self Care
[2023-12-26 19:30] VITALS: BP 154/86; PULSE 83; RESP 18; TEMP 36.2; O2SAT 94
== END 2023-12-26 19:31 | disposition home or self-care (01) ==
PROVIDERS: Emergency Provider Emergency Medicine; PCP Family Medicine; Visit Provider Emergency Medicine
DX: U07.1 COVID-19 (principal); I25.10 Atherosclerotic heart disease of native coronary artery without angina pectoris; I10 Essential (primary) hypertension; E78.5 Hyperlipidemia, unspecified; Z79.82 Long term (current) use of aspirin; Z79.899 Other long term (current) drug therapy
CPT/HCPCS: 87631; 99282

== ENCOUNTER → 2024-10-29 | Outpatient (CLI) | payer BC, SELFPAY ==
[2024-10-29 10:32] LABS: AST(SGOT) 28 U/L (<=37); Alanine Aminotransfer ALT/SGPT 31 U/L (<=46); Albumin, Serum 4.1 g/dL (3.4-4.8); Alkaline Phosphatase 69 U/L (40-129); Bilirubin, Direct 0.25 mg/dL (0.00-0.30); Cholesterol 133 mg/dL (<=200); Globulin 2.8 g/dL (2.2-4.2); High Density Lipoprotein 49 mg/dL; Low Density Lipoprotein Calc. 67 mg/dL; Total Bilirubin 0.64 mg/dL (0.00-1.30); Triglycerides 90 mg/dL; Very Low Density Lipoprotein 18 mg/dL (5-40); cholesterol:hdl ratio screen 2.74
--- OUTSIDE RECORDS SUMMARY | 2024-10-29 17:07 | XMS RPT_ITS | CCD ---
Author Organization [facility] Care Team Providers Care Tax Consultant Name Role Phone Chela Rahman Unavailable Unavailable MD Rincon Cyril S Unavailable Janey Cruz Unavailable Chela Rahman Unavailable Unavailable Unavailable Primary Care Provider Dr. Wood Cantu Primary Care Provider Dr. Wood Hurtado Referring Provider ESTRELLA Osorio Attending Provider Dr. Daniel Rincon Attending Provider Dr. Daniel Rincon Referring Provider Dr. Daniel Rincon Other Provider Dr. Wood Hurtado Primary Care Provider Dr. Wood Hurtado Referring Provider ESTRELLA Osorio Attending Provider Dr. Wood Hurtado Primary Care Provider Dr. Wood Hurtado Referring Provider Dr. Luc Joy Attending Provider [phone] ESTRELLA Osorio Attending Provider Dr. Daniel Rincon Attending Provider Dr. Wood Hurtado Primary Care Provider Dr. Wood Hurtado Referring Provider ESTRELLA Osorio Attending Provider Roof TEST ENGINEER.Fam MONTERO Unavailable [phone] Gisele Osorio Attending Unavail able Gisele Osorio Referring Unavail able Hurtado, Wood Primary Care Unavailable Roof STERILE PROCESS TECH, Fam Ambriz Attending Unavailable Roof STERILE PROCESS TECH, Fam Ambriz Referring Unavailable Hurtado, Wood Primary Care Unavailable Hurtado, Wood Primary Care Unavailable Aba Elias Attending Unavailable Hurtado, Wood Primary Care Unavailable Jerod Prado Attending Unavailable Hurtado, Wood Referring Unavailable Roof STERILE PROCESS TECH, Fam Ambriz Attending Unavailable Hurtado, Wood Primary Care Unavailable Hurtado, Wood Primary Care Unavailable Roof STERILE PROCESS TECH, Fam Ambriz Attending Unavailable Hurtado, Wood Referring Unavailable Hurtado, Wood Referring Unavailable Gisele Osorio Attending Unavail able Hurtado, Wood Primary Care Unavailable Maycol STORY, Delma Unavailable [phone] Wood Hurtado MD Primary Care Provider [phone] JUDYIS-MARIA, DELMA Referring Unavai lable TAMIS-MARIA, DELMA Referring Unavai lable TAMIS-MARIA, DELMA Referring Unavai lable TAMIS-MARIA, DELMA Attending Unavai lable TAMIS-MARIA, DELMA Attending Unavai lable TAMIS-MARIA, DELMA Referring Unavai lable GENESIS, WOOD Cordero Primary Care Unavailable TAMIS-MARIA, DELMA Referring Unavai lable HURTADO, WOOD Cordero Primary Care Unavailable TAMIS-MARIA, DELMA Referring Unavai lable TAMIS-MARIA, DELMA Attending Unavai lable GENESIS, WOOD Cordero Primary Care Unavailable TAMIS-MARIA, DELMA Attending Unavai lable TAMIS-MARIA, DELMA Admitting Unavai lable TAMIS-MARIA, DELMA Attending Unavai lable TAMIS-MARIA, DELMA Referring Unavai lable TAMIS-MARIA, DELMA Attending Unavai lable TAMIS-MARIA, DELMA Referring Unavai lable TAMIS-MARIA, DELMA Referring Unavai lable Wood Hurtado MD Primary Care Provider Dr. Wood Hurtado MD Primary Care Provider [phone] Gisele Osorio Attending Provider [phone] Gisele Osorio Referring Provider [phone] Genesis STORY, Dr. Muir Referring Provider [phone] Mckenzie STORY, Dr. Sanchez Attending Provider [phone] Allergies Allergy Classification Reported Allergen(s) Allergy Type Date of Onset Reaction(s) Facility (4 sources) atorvastatin Drug Allergy 08-26-2014 Myalgias [facility] Work Phone: (4 sources) gabapentin Drug Allergy 07-01-2013 MEMORY LOSS [facility] Work Phone: (10 sources) gabapentin Drug Allergy 08-25-2021 memory loss [facility] (1 source) gabapentin Drug Allergy 12-26-2023 [facility] Repository Medications Current Medications Medication Drug Class(es) Dates Sig (Normalized) Sig (Original) allopurinol 100 mg oral tablet (20 sources) Xanthine Oxidase Inhibitor Start: 09-03-2018 take 1 tablet by mouth twice daily allopurinol (ZYLOPRIM) 100 mg tablet Take 100 mg by mouth two times a day. 12/03/2023 Active Start: 08-21-2017 End: 09-03-2018 take 1 tablet by mouth once daily Allopurinol 100 mg tablet Discontinued 100 mg PO daily August 21, 2017 12:00am September 03, 2018 4:30pm Start: 08-18-2015 take 1 tablet by la th once daily ALLOPURINOL 100 MG TABS One tablet by mouth daily ALLOPURINOL [id number] Daniel Rincon MD ALLOPURINOL PO T sid by mouth 0 Active amLODIPine 2.5 mg oral tablet (20 sources) Dihydropyridine Calcium Channel Radha Start: 10-29-2024 take 1 tablet by mouth once daily Amlodipine 2.5 mg tablet Active 2.5 mg PO daily October 29, 2024 12:00am Start: 07-15-2024 take 1 tablet by la th once daily amLODIPine (NORVASC) 2.5 mg tablet Take 1 tablet by mouth once daily. 90 tablet 3 07/15/2024 Active Start: 01-23-2024 End: 07-15-2024 take 1 tablet by mouth once daily amLODIPine (NORVASC) 5 mg tablet Take 1 tablet by mouth once daily. 90 tablet 3 01/23/2024 07/15/2024 Discontinued Start: 05-15-2023 End: 10-29-2024 take 1 tablet by mouth twice daily Amlodipine 5 mg tablet Discontinued 5 mg PO TWICE A DAY 180 April 22, 2024 8:56am October 29, 2024 2:03pm Start: 10-18-2019 End: 05-15-2023 take 1 tablet by mouth once daily Amlodipine 5 mg tablet Discontinued 5 mg PO DAILY October 18, 2019 12:00am May 15, 2023 10:31am aspirin 81 mg delayed release oral tablet (20 sources) Platelet Aggregation Inhibitor, Nonsteroidal Anti-inflammatory Drug Start: 08-21-2017 End: 05-15-2023 Aspirin (Adult Low Dose Aspirin) 81 mg tablet,delayed release (DR/EC) Active 81 mg PO DAILY May 15, 2023 1:00am Start: 03-03-2004 ASPIRIN 81MG T ABLET Take one (1) tablet daily . 0 03/03/2004 Active atorvastatin 80 mg oral tablet (20 sources) HMG-CoA Reductase Inhibitor Start: 10-29-2024 take 1 tablet by mouth once daily Atorvastatin 80 mg tablet Active 80 mg PO daily October 29, 2024 12:00am Start: 07-15-2024 take 1 tablet by la th once daily atorvastatin (LIPITOR) 80 mg tablet Take 1 tablet by mouth once daily. 90 tablet 3 07/15/2024 Active Start: 03-19-2024 End: 07-15-2024 take 1 tablet by mouth once daily atorvastatin (LIPITOR) 40 mg tablet Take 1 tablet by mouth once daily. 90 tablet 3 03/19/2024 07/15/2024 Discontinued Start: 08-16-2013 take 1 tablet by la th once daily ATORVASTATIN CALCIUM 40 MG TABS One tablet by mouth daily ATORVASTATIN CALCIUM [id number] Daniel Rincon MD Start: 03-03-2006 End: 03-19-2024 LIPITOR 20 MG TAB Take one(1 ) tablet daily. 0 03/03/2006 03/19/2024 Discontinued famotidine 20 mg oral tablet (19 sources) Histamine-2 Receptor Antagonist Start: 09-22-2023 take 1 tablet by mouth once famotidine (PEPCID) 20 mg tablet Take 1 tablet by mouth every afternoon. 10/27/2023 Active Start: 08-29-2022 End: 05-15-2023 take 1 tablet by mouth at bedtime Famotidine 20 mg tablet Discontinued 20 mg PO AT BEDTIME August 29, 2022 12:00am May 15, 2023 10:03am losartan potassium 100 mg oral tablet (18 sources) Angiotensin 2 Receptor Radha Start: 10-29-2024 take 1 tablet by mouth once daily Losartan 100 mg tablet Active 100 mg PO daily October 29, 2024 12:00am Start: 01-23-2024 take 1 tablet by mouth once lo sartan (COZAAR) 100 mg tablet Take 1 tablet by mouth every afternoon. 90 tablet 3 01/23/2024 Active Start: 11-24-2023 End: 01-23-2024 take 1 tablet by mouth once losartan (COZAAR) 50 mg ta blet Take 1 tablet by mouth every afternoon. 11/24/2023 01/23/2024 Discontinued Start: 05-15-2023 End: 09-22-2023 take 1 tablet by mouth once daily Losartan 50 mg tablet Discontinued 50 mg PO DAILY May 15, 2023 1:00am September 22, 2023 10:09am metoprolol tartrate 50 mg oral tablet (20 sources) beta-Adrenergic Radha Start: 10-29-2024 Metopr olol Tartrate 50 mg tablet Active 25 mg PO daily October 29, 2024 12:00am Start: 07-15-2024 take 1 tablet by la th twice daily metoprolol tartrate, short acting, (LOPRESSOR) 50 mg tablet Take 1 tablet by mouth two times a day. 180 tablet 07/15/2024 Active Start: 01-23-2024 End: 07-15-2024 take 1 tablet by mouth twice daily metoprolol tartrate, short acting, (LOPRESSOR) 25 mg tablet Take 1 tablet by mouth two times a day. 180 tablet 3 01/23/2024 07/15/2024 Discontinued Start: 12-03-2023 End: 01-23-2024 take 1 tablet by mouth once daily metoprolol tartrate, short acting, (LOPRESSOR) 50 mg tablet Take 50 mg by mouth once daily. 12/03/2023 01/23/2024 Discontinued Start: 09-22-2023 End: 12-26-2023 take 1 tablet by mouth once daily Metoprolol Tartrate 100 mg tablet Discontinued 100 mg PO daily September 22, 2023 10:08am December 26, 2023 7:24pm Start: 05-15-2023 End: 09-22-2023 Metoprolol Tartrate 100 mg t ablet Discontinued 50 mg PO daily May 15, 2023 10:36am September 22, 2023 10:11am Start: 05-15-2023 take 50 mg by mouth once daily Metoprolol Tartrate Active 50 MG PO daily May 15, 2023 9:36am Start: 08-21-2017 End: 05-15-2023 take 1 tablet by mouth once daily Metoprolol Tartrate 100 mg tablet Discontinued 100 mg PO daily August 21, 2017 12:00am May 15, 2023 10:36am Start: 07-01-2013 take 1 tablet by la th once daily METOPROLOL TARTRATE 100 MG TABS One tablet by mouth daily METOPROLOL TARTRATE [id number] Niesha Gould RN Start: 03-03-2006 End: 01-23-2024 TOPROL XL 100 MG 24 HR TAB T sid one(1) tablet daily. 0 03/03/2006 01/23/2024 Discontinued (Course of therapy completed) Metoprolol Tartr ate (FIRST - METOPROLOL PO) Take by mouth 0 Active Multivitamin preparation (9 sources) Start: 08-21-2017 take 1 tablet by mouth once daily Multivitamin Active 1 TABLET PO daily August 21, 2017 2:05pm Start: 08-21-2017 take 1 tablet by la th once daily Multivitamin Active 1 TABLET PO daily August 20, 2017 11:00pm Start: 08-21-2017 take 1 tablet by la th once daily Multivitamin Active 1 TABLET PO daily August 21, 2017 12:00am Multivitamin tablet (1 source) Start: 08-21-2017 Multivitamin tablet Active 1 {tbl} PO daily August 21, 2017 12:00am Multivitamins-[place] als-Lutein (MULTIVITAMIN 50 PLUS) tab (14 sources) Multivitamins-Mi ne rals-Lutein (MULTIVITAMIN 50 PLUS) tab Take 1 tablet by mouth once daily. Active naproxen sodium 220 mg oral tablet (20 sources) Nonsteroidal Anti-inflammatory Drug Start: 08-21-2017 End: 08-24-2017 take 1 tablet by mouth once daily as needed for pain Naproxen Sodium (Aleve) 220 mg tablet Active 220 mg PO daily as needed for Pain August 24, 2017 4:25pm Start: 07-03-2013 take 1 tablet by la th once daily for pain ALEVE 220 MG TABS One tablet by mouth daily for knee pain NAPROXEN SODIUM [id number] Daniel Rincon MD nitroglycerin 0.4 mg sublingual tablet (13 sources) Nitrate Vasodilator Start: 08-25-2021 End: 11-04-2022 Nitroglycerin (Nitrostat) 0.4 mg tablet, sublingual Active 0.4 mg SL every 5 to 15 minutes as needed for chest pain November 04, 2022 2:21pm do not exceed 3 doses per episode Start: 08-25-2021 End: 11-04-2022 Nitroglycerin (Nitrostat) 0. 4 mg tablet, sublingual Active 0.4 MG SL every 5 to 15 minutes November 04, 2022 1:21pm do not exceed 3 doses per episode 12 hr ranolazine 1000 mg extended release oral tablet (20 sources) Anti-anginal Start: 09-22-2023 End: 09-22-2023 take 1 tablet by mouth twice daily Ranolazine 1,000 mg tablet extended release 12 hr Discontinued 500 mg PO TWICE A DAY September 22, 2023 10:08am September 22, 2023 10:47am Start: 11-04-2022 End: 08-29-2024 take 1 tablet by mouth twice daily Ranolazine 1,000 mg tablet extended release 12 hr Active 1000 mg PO TWICE A DAY 180 August 29, 2024 7:56am Start: 09-05-2022 End: 11-04-2022 take 1 tablet by mouth twice daily Ranolazine 500 mg tablet extended release 12 hr Discontinued 500 mg PO TWICE A DAY 60 September 27, 2022 10:13am November 04, 2022 2:05pm Completed/Discontinued Medications Medication Drug Class(es) Dates Sig (Normalized) Sig (Original) acetaminophen 325 mg / oxyCODONE hydrochloride 5 mg oral tablet (10 sources) Opioid Agonist Start: 12-14-2018 End: 12-19-2018 Oxycodone-Acetamino phen 1 TABLET tablet Discontinued 1 {tbl} PO EVERY 4 HOURS NEEDED as needed for Pain 14 December 14, 2018 December 18, 2018 12:00am December 19, 2018 12:08am Start: 12-14-2018 End: 12-19-2018 take 1 tablet by mouth every four hours as needed Oxycodone-Acetaminophen Discontinued 1 TABLET PO EVERY 4 HOURS NEEDED 14 December 14, 2018 December 18, 2018 11:08pm ascorbic acid 1000 mg extended release oral tablet (11 sources) Vitamin C Start: 02-21-2017 take 1 tablet by mouth once daily VITAMIN C CR CR-TABS One tablet by mouth daily ASCORBIC ACID CR-TABS Gisele Messina PA-C Start: 07-03-2013 End: 08-16-2013 take 1 tablet by mouth once daily VITAMIN C-DIVINA HIPS 500 MG TABS One tablet by mouth daily ASCORBIC ACID [id number] Daniel Rincon MD Start: 07-03-2013 End: 08-16-2013 take 1 tablet by mouth once daily VITAMIN C-DIVINA HIPS 500 MG TABS One tablet by mouth daily ASCORBIC ACID [id number] Daniel Rincon MD bacitracin zinc 0.5 unt/mg topical ointment (1 source) Start: 10-22-2020 End: 10-22-2020 bacitracin ointment calcium ascorbate 500 mg oral tablet (10 sources) Start: 09-03-2018 End: 10-18-2019 take 1 tablet by mouth once daily Ascorbate Calcium (Vitamin C) 500 mg tablet Discontinued 500 mg PO DAILY September 03, 2018 12:00am October 18, 2019 8:34am cholecalciferol 0.025 mg oral capsule (17 sources) Vitamin D Start: 05-03-2022 End: 08-29-2022 take 1 capsule by mouth once daily Cholecalciferol (Vitamin D3) 25 mcg (1,000 unit) capsule Discontinued 25 ug PO DAILY May 03, 2022 1:00am August 29, 2022 10:14am Start: 09-03-2018 End: 08-25-2021 take 1 capsule by mouth twice daily Cholecalciferol (Vitamin D3) 1,000 unit capsule Discontinued 1000 U PO TWICE A DAY September 03, 2018 12:00am August 25, 2021 8:46am ciprofloxacin 500 mg oral tablet (10 sources) Quinolone Antimicrobial Start: 12-14-2018 End: 10-18-2019 take 1 tablet by mouth twice daily Ciprofloxacin Hcl 500 MG tablet Discontinued 500 mg PO TWICE A DAY December 14, 2018 12:00am October 18, 2019 8:35am COENZYME Q10 (8 sources) Start: 07-03-2013 End: 08-16-2013 take 1 tablet by mouth twice daily CO Q-10 100 MG CAPS One tablet by mouth twice daily COENZYME Q10 [id number] Daniel Rincon MD Start: 07-03-2013 take 1 tablet by la th twice daily CO Q-10 100 MG CAPS One tablet by mouth twice daily COENZYME Q10 [id number] Daniel Rincon MD Start: 07-03-2013 End: 08-16-2013 take 1 tablet by mouth twice daily CO Q-10 100 MG CAPS One tablet by mouth twice daily COENZYME Q10 [id number] Daniel Rincon MD dicyclomine hydrochloride 20 mg oral tablet (3 sources) Anticholinergic Start: 11-04-2022 End: 05-15-2023 take 1 tablet by mouth twice daily Dicyclomine 20 mg tablet Discontinued 20 mg PO TWICE A DAY November 04, 2022 12:00am May 15, 2023 10:03am ibuprofen 400 mg oral tablet (4 sources) Nonsteroidal Anti-inflammatory Drug Start: 10-22-2020 End: 10-22-2020 ibuprofen (ADVIL;MOTRIN) tablet 400 mg Start: 03-03-2004 End: 01-23-2024 IBUPROFEN 800MG TABLET as ne cessary 0 03/03/2004 01/23/2024 Discontinued (Course of therapy completed) 24 hr isosorbide mononitrate 30 mg extended release oral tablet (16 sources) Nitrate Vasodilator Start: 01-27-2022 End: 05-15-2023 take 1 tablet by mouth once daily, then take 1 tablet by mouth every twenty-four hours Isosorbide Mononitrate 30 mg tablet extended release 24 hr Discontinued 30 mg PO DAILY January 05, 2023 11:36am May 15, 2023 10:30am 10 ml lidocaine hydrochloride 10 mg/ml injection (1 source) Antiarrhythmic, Amide Local Anesthetic Start: 10-22-2020 End: 10-22-2020 lidocaine 1 % injection 10 mL lisinopril 20 mg oral tablet (15 sources) Angiotensin Converting Enzyme Inhibitor Start: 08-21-2017 End: 05-15-2023 take 1 tablet by mouth at bedtime Lisinopril 20 mg tablet Discontinued 20 mg PO AT BEDTIME August 21, 2017 12:00am May 15, 2023 10:36am Start: 07-01-2013 take 1 tablet by la th once daily LISINOPRIL 20 MG TABS One tablet by mouth daily LISINOPRIL [id number] Niesha Gould RN LISINOPRIL PO Ta ke by mouth 0 Active MULTIPLE VITAMIN (4 sources) Start: 07-03-2013 take 1 tablet by mouth once daily MULTIVITAMINS TABS One tablet by mouth daily MULTIPLE VITAMIN Daniel Rincon MD Nirmatrelvir-Riton avir (Paxlovid) 300 mg (150 mg x 2)-100 mg tablets,dose pack (1 source) Start: 12-26-2023 End: 10-29-2024 Nirmatrelvir-Ritonav ir (Paxlovid) 300 mg (150 mg x 2)-100 mg tablets,dose pack Discontinued 0 PO .COMPLEX December 26, 2023 12:00am October 29, 2024 2:04pm take TWO 150 mg tablets of nirmatrelvir with ONE 100 mg tablet of ritonavir twice daily for 5 days omeprazole 40 mg delayed release oral capsule (17 sources) Proton Pump Inhibitor Start: 11-04-2022 End: 09-22-2023 take 1 capsule by mouth once daily Omeprazole 40 mg capsule,delayed release(DR/EC) Discontinued 40 mg PO DAILY November 04, 2022 12:00am September 22, 2023 10:10am Start: 08-29-2022 End: 11-04-2022 Omeprazole Magnesium (Prilos ec Otc) 20 mg tablet,delayed release (DR/EC) Discontinued 40 mg PO DAILY August 29, 2022 10:12am November 04, 2022 2:03pm Start: 08-25-2021 End: 08-29-2022 take 1 tablet by mouth once daily Omeprazole Magnesium (Prilosec Otc) 20 mg tablet,delayed release (DR/EC) Discontinued 20 mg PO DAILY August 25, 2021 12:00am August 29, 2022 10:14am phenazopyridine hydrochloride 100 mg oral tablet (10 sources) Start: 12-14-2018 End: 10-18-2019 take 1 tablet by mouth three times daily Phenazopyridine 100 MG tablet Discontinued 100 mg PO THREE TIMES A DAY December 14, 2018 12:00am October 18, 2019 8:36am rosuvastatin calcium 20 mg oral tablet (20 sources) HMG-CoA Reductase Inhibitor Start: 08-21-2017 End: 10-29-2024 take 1 tablet by mouth once daily Rosuvastatin (Crestor) 20 mg tablet Discontinued 20 mg PO DAILY November 04, 2022 2:01pm October 29, 2024 2:04pm Start: 08-16-2013 take 1 tablet by la th once daily CRESTOR 20 MG TABS One tablet by mouth daily ROSUVASTATIN CALCIUM [id number] Daniel Rincon MD Start: 08-16-2013 take 1 tablet by la th every other day CRESTOR 20 MG TABS one tablet by mouth every other day ROSUVASTATIN CALCIUM [id number] Ann Cline STERILE PROCESS TECH Rosuvastatin Graeme cium (CRESTOR PO) Take by mouth 0 Active sildenafil 100 mg oral tablet (3 sources) Phosphodiesterase 5 Inhibitor Start: 11-04-2022 End: 12-26-2023 take 1 tablet by mouth once as needed Sildenafil 100 mg tablet Discontinued 100 mg PO ONCE as needed November 04, 2022 12:00am December 26, 2023 7:25pm Sucralfate (3 sources) Aluminum Complex Start: 11-04-2022 End: 10-29-2024 take 1 tablet by mouth twice daily Sucralfate 1 gram tablet Discontinued 1 g PO TWICE A DAY November 04, 2022 12:00am October 29, 2024 2:05pm Start: 11-04-2022 take 1 g by mouth twice daily Sucralfate Active 1 GM PO TWICE A DAY November 03, 2022 11:00pm Start: 11-04-2022 take 1 g by mouth twice daily Sucralfate Active 1 GM PO TWICE A DAY November 04, 2022 12:00am tamsulosin hydrochloride 0.4 mg oral capsule (10 sources) alpha-Adrenergic Radha Start: 12-13-2018 End: 04-18-2019 take 1 capsule by mouth at bedtime Tamsulosin 0.4 MG capsule Discontinued 0.4 mg PO AT BEDTIME December 13, 2018 12:00am April 18, 2019 4:47pm vitamin b 12 0.25 mg oral tablet (8 sources) Vitamin B12 Start: 07-03-2013 End: 08-16-2013 take 1 tablet by mouth once daily VITAMIN B-12 250 MCG TABS One tablet by mouth daily CYANOCOBALAMIN [id number] Daniel Rincon MD CHOLECALCIFEROL TABS (3 sources) Start: 02-21-2017 take 1 tablet by mouth once daily VITAMIN D TABS One tablet by mouth daily CHOLECALCIFEROL TABS [id number] Gisele Messina PA-C vitamin e 1000 unt oral tablet (8 sources) Start: 07-03-2013 End: 08-16-2013 take 1 tablet by mouth once daily VITAMIN E 1000 UNIT CAPS One tablet by mouth daily VITAMIN E [id number] Daniel Rincon MD Problems Active Problems Problem Classification Problem Date Documented Date Episodic/Chronic Abdominal pain (10 sources) Epigastric discomfort; Translations: [Epigastric pain] 08-08-2022 Episodic Coronary atherosclerosis and other heart disease (20 sources) Atherosclerotic heart disease of [place] coronary artery without angina pectoris; Translations: [Coronary arteriosclerosis] Onset: 07-01-2013 08-14-2015 Chronic Disorders of lipid metabolism (20 sources) Hyperlipidemia; Translations: [Hyperlipidemia, unspecified] Onset: 03-03-2006 07-01-2013 Chronic Essential hypertension (20 sources) Hypertensive disorder; Translations: [Essential hypertension] Onset: 03-03-2006 07-01-2013 Chronic Fever of unknown origin (1 source) Fever, unspecified; Translations: [Fever, unspecified] Onset: 01-21-2024 Episodic Nonspecific chest pain (20 sources) Atypical chest pain; Translations: [Other chest pain] Onset: 03-03-2006 08-08-2022 Episodic Open wounds of extremities (1 source) Laceration of right index finger; Translations: [Laceration without foreign body of right index finger without damage to nail, initial encounter] Episodic Osteoarthritis (16 sources) Degenerative joint disease involving multiple joints; Translations: [Polyosteoarthritis, unspecified] Onset: 03-03-2006 03-03-2006 Chronic Other liver diseases (10 sources) Elevated liver enzymes level; Translations: [Abnormal levels of other serum enzymes] 10-17-2019 Episodic Other lower respiratory disease (10 sources) Dyspnea on exertion; Translations: [Dyspnea, unspecified] 10-17-2019 Episodic Other lower respiratory disease (4 sources) Dyspnea; Translations: [Shortness of breath] 01-23-2024 Episodic Other lower respiratory disease (1 source) Elevated diaphragm; Translations: [Disorders of diaphragm] 09-22-2023 Episodic Other nutritional; endocrine; and metabolic disorders (4 sources) Body mass index (BMI) 30.0-30.9, adult; Translations: [Body mass index (BMI) 30.0-30.9, adult] Onset: 02-25-2014 02-25-2014 Chronic Other nutritional; endocrine; and metabolic disorders (2 sources) Overweight; Translations: [Overweight] 01-23-2024 Episodic Residual codes; unclassified (1 source) Family history of prostate cancer; Translations: [Family history of malignant neoplasm of prostate] 07-15-2024 Episodic Unclassified (8 sources) Long-term drug therapy; Translations: [Long-term (current) use of other medications] Onset: 07-06-2013 07-06-2013 Unclassified (1 source) Screening for malignant neoplasm of prostate ; Translations: [Encounter for screening for malignant neoplasm of prostate] Onset: 02-21-2017 02-21-2017 Viral infection (1 source) Disease caused by 2019-nCoV; Translations: [COVID-19] 12-26-2023 Episodic Past or Other Problems Problem Classification Problem Date Documented Date Episodic/Chronic Other connective tissue disease (16 sources) Pain in limb; Translations: [Pain in unspecified limb] Onset: 02-25-2003 09-01-2003 Episodic Other lower respiratory disease (1 source) Other forms of dyspnea; Translations: [Other forms of dyspnea] Onset: 09-22-2023 Episodic Other lower respiratory disease (1 source) Shortness of breath; Translations: [SOB (shortness of breath)] Onset: 03-19-2024 Episodic Other nutritional; endocrine; and metabolic disorders (9 sources) Body mass index (BMI) 29.0-29.9, adult; Translations: [Body mass index (BMI) 29.0-29.9, adult] Onset: 07-03-2013 Resolved: 08-26-2014 08-26-2014 Episodic Other screening for suspected conditions (not mental disorders or infectious disease) (20 sources) Cardiovascular stress test abnormal; Translations: [Liver enzymes abnormal] Onset: 03-03-2006 Resolved: 08-14-2015 08-14-2015 Episodic Residual codes; unclassified [...] Results Test Name Value Interpretation Reference Range Facility Bilirubin directOrdered By: Gisele Messina on 10-29-2024 Bilirubin.direct [Mass/Vol] 0.25 mg/dL 0.00-0.3 0 [facility] Bilirubin, totalOrdered By: Gisele Messina on 10-29-2024 Bilirubin [Mass/Vol] 0.64 mg/dL 0.00-1.30 [facility] Calculated very low density lipoprotein (VLDL) cholesterol measurementOrdered By: Gisele Messina on 10-29-2024 Calculated very low density lipoprotein (VLDL) cholesterol measurement 18 mg/dL 5-40 [facility] LDL calc ser/plasOrdered By: Gisele Messina on 10-29-2024 Cholesterol in LDL [Mass/Vol] 67 mg/dL [facility] Comment on above: Gfkiiwwisy=813-528 m g/dL & Higher Urix=238 mg/dL or greater Laboratory - Chemistry and C hemistry - challengeOrdered By: Gisele Messina on 10-29-2024 AST [Catalytic activity/Vol] 28 U/L <38 [facility] Screening total cholesterol/ high density lipoprotein (HDL) cholesterol ratioOrdered By: Gisele Messina on 10-29-2024 Cholesterol.total/Cholester ol in HDL [Mass ratio] 2.74 {ratio} [facility] Serum globulin measurementOr dered By: Gisele Messina on 10-29-2024 Globulin (S) [Mass/Vol] 2.8 g/dL 2.2-4.2 [facility] Serum or plasma alanine pollard otransferase (ALT) measurementOrdered By: Gisele Messina on 10-29-2024 ALT [Catalytic activity/Vol] 31 U/L <47 [facility] Serum or plasma albumin ronald urement (mass/volume)Ordered By: Gisele Messina on 10-29-2024 Albumin [Mass/Vol] 4.1 g/dL 3.4-4.8 [facility] Serum or plasma alkaline jeanie sphatase measurementOrdered By: Gisele Messina on 10-29-2024 ALP [Catalytic activity/Vol] 69 U/L 40-129 [facility] Serum or plasma cholesterol in HDL measurement (mass/volume)Ordered By: Gisele Messina on 10-29-2024 Cholesterol in HDL [Mass/Vol] 49 mg/dL >40 [facility] Comment on above: National Cholesterol Education Program (NCEP) guidelines:<40 mg/dL: Low HDL-cholesterol (major risk factor for CHD)>= 60 mg/dL: High HDL-cholesterol (negative risk factor for CHD)HDL-cholesterol is affected by a number of factors, e.g. smoking, exercise, hormones, sex and age. Serum or plasma cholesterol measurement (mass/volume)Ordered By: Gisele Messina on 06-24-2025 Cholesterol [Mass/Vol] 133 mg/dL <201 [facility] Comment on above: Cholesterol level, D esirable <200 mg/dLBorderline high cholesterol 200-239 mg/dLHigh cholesterol >=240 mg/dLRecommendations of the NCEP Adult Treatment Panel for the following risk-cutoff thresholds for the [place] population. Total proteinOrdered By: Erik joycelyn Mayuri on 10-29-2024 Protein [Mass/Vol] 7.0 g/dL 5[facility]4 [facility] Triglycerides measurementOrd ered By: Gisele Messina on 10-29-2024 Triglyceride [Mass/Vol] 90 mg/dL <199 [facility] Comment on above: The drugs N-Acetylcy steine and Metamizole may falsely depress this assay. Normal range: <150 mg/dLBorderline High: 150-199 mg/dLHigh: 200-499 mg/dLVery High: >500 mg/dL CNOVon 07-15-2024 CNOV Office Visit (CATHMN ) LAM GARCIA ([id number]) 1955 M Date Time Provider Department 07/15/24 2:30 PM DELMA SEVERINO During your visit today, we recorded the following information about you: Pulse Respiration Blood pressure Weight 66/minute 18/minute 101/63 103.4 kg Height 1.829 m Delma Severino MD 07/15/2024 6:32 PM Signed Heart, Vascular [facility] Thoracic [facility] Department of Cardiovascular Medicine SECTION OF INTERVENTIONAL CARDIOLOGY OUTPATIENT VISIT DATE July 15, 2024 OUTPATIENT VISIT TYPE Established CHIEF COMPLAINT: Followup HISTORY OF PRESENT ILLNESS: Patient is a 68-year-old male with a history of hypertension, hyperlipidemia, and coronary artery disease (CAD), He had several prior caths with the most recent in 2022. But was advised medical therapies. He came to see me for chest pain in 2023. Cath done most recently in with moderate LAD and RFR of 0.94 and moderate dominant LCX with RFR of 0.99. There were small LPL with severe disease and LPDA with severe disease and OM1 with severe disease but a large OM2 with mild disease but on further review has a focal 50% disease in the mid vessel The RCA was non dominant with severe disease. He was medically managed and comes in f/u. Of note he had extensive testing for other causes and they could not find the reason. The patient reports persistent chest discomfort described as a tightness that occurs both during ambulation and while lying on his right side. The discomfort is less severe when lying down compared to walking. He notes that the discomfort when lying down occurs when lying on his right side and is alleviated by sitting up and belching or lying on his back. The symptoms when walking will get better if he stops to rest. He denies any new symptoms since his last cardiac catheterization. He experiences numbness in his legs extending to his feet after standing or walking for prolonged periods, which he attributes to sciatica. This numbness reportedly affects his balance and ability to walk. These symptoms have limited his ability to exercise. He denies any medication allergies. He smokes and consumes bourbon 2-3 times per week. He uses Viagra occasionally. Recent lab results show an LDL of 72 mg/dL and an Lp(a) of 8 mg/dL. Current medications include amlodipine 5 mg once daily, allopurinol, aspirin, atorvastatin 40 mg once daily, Pepcid, losartan 100 mg once daily, metoprolol tartrate 25 mg BID, multivitamins, and Ranexa. He has not tried Imdur. PAST MEDICAL HISTORY Diagnosis Date ABNORMAL CARDIOVASC STUDY NOS 03/03/2006 CT scan with a high calcium score of 880.9 02-27-06 Arthritis CAD (coronary artery disease) Elevated hemidiaphragm GENERAL OSTEOARTHROSIS 03/03/2006 Hernia, diaphragmatic HLD (hyperlipidemia) HTN (hypertension) PAST SURGICAL HISTORY Procedure Laterality Date ARTHROSCOPY KNEE DIAGNOSTIC W/WO SYNOVIAL BX SPX Arthroscopy, knee ARTHROTOMY W/MENISCUS REPAIR KNEE Open knee reconstruction REVISE MEDIAN N/CARPAL TUNNEL SURG TOTAL KNEE REPLACEMENT Right SOCIAL HISTORY Social History Tobacco Use Smoking status: Never Passive exposure: Never Smokeless tobacco: Never Vaping Use Vaping status: Never Used Substance Use Topics Alcohol use: Yes Comment: bourbon 2-3x/week Drug use: No FAMILY HISTORY Problem Relation Age of Onset Stroke Mother at age 82 Heart Attack Father 88 stents Coronary Artery Disease Father Heart Attack Brother 50 stents Heart Attack Maternal Grandfather 74 fatal Coronary Artery Disease Maternal Grandfather Diabetes Maternal Grandfather Heart Attack Paternal Grandfather 58 Coronary Artery Disease Paternal Grandfather ALLERGIES: ALLERGIES No Known Allergies MEDICATIONS: Current Outpatient Medications Medication Sig atorvastatin (LIPITOR) 40 mg tablet Take 1 tablet by mouth once daily. allopurinol (ZYLOPRIM) 100 mg tablet Take 100 mg by mouth two times a day. famotidine (PEPCID) 20 mg tablet Take 1 tablet by mouth every afternoon. ranolazine SR (RANEXA) 1,000 mg tab ER 12 hr Take 1,000 mg by mouth two times a day. Multivitamins-Minerals- Lutein (MULTIVITAMIN 50 PLUS) tab Take 1 tablet by mouth once daily. metoprolol tartrate, short acting, (LOPRESSOR) 25 mg tablet Take 1 tablet by mouth two times a day. losartan (COZAAR) 100 mg tablet Take 1 tablet by mouth every afternoon. amLODIPine (NORVASC) 5 mg tablet Take 1 tablet by mouth once daily. ASPIRIN 81MG TABLET Take one (1) tablet daily . No current facility-administered medications for this visit. REVIEW OF SYSTEMS: ROS see above PHYSICAL EXAMINATION: 07/15/24 1527 BP: 101/63 BP Site: Left Arm BP Position: Sitting Pulse: 66 Resp: 18 SpO2: 97% Weight: 103.4 kg (228 lb) Height: 182 (more content not included)... Normal [facility] Comprehensive metabolic 2000 panelon 07-10-2024 Albumin [Mass/Vol] 4.2 g/dL Normal 3.9-4.9 [facility] Comment on above: Order Comment: Speci men Type: BLOOD SPECIMENOrdering Facility: [facility] Address: [address] [place] [address] Performed By: #### 2 4323-8 ####[facility] [id number] [place] [address] [place]#### 78307-7 ####[facility] LABORATORYCLIA [id number] [place], [place] [address] [place] [address] OF [facility]ITALNCL[facility] [id number] [place] [address] [place] ALP [Catalytic activity/Vol] 71 U/L Normal 38-113 [facility] Comment on above: Order Comment: Speci men Type: BLOOD SPECIMENOrdering Facility: [facility] Address: [address] [place] [address] Performed By: #### 2 4323-8 ####[facility] FLORIDAWNCL[facility] [id number] [place] [address] [place]#### 45073-1 ####[facility] LABORATORYCLIA [id number] [address] STATES OF [facility]IT[facility]IA [id number] [place] [address] [place] ALT [Catalytic activity/Vol] 19 U/L Normal 10-54 [facility] Comment on above: Order Comment: Speci men Type: BLOOD SPECIMENOrdering Facility: [facility] Address: [address] [place] [address] Performed By: #### 2 4323-8 ####[facility] MED[facility] CENTERLIA [id number] [place] [address] [place]#### 61024-7 ####[facility]ORATORYCLIA [id number] [place] [address] [place] AMERICABUCYRUS COMM[facility] KBOHIOHEALTH PICKERINGTON METHODIST HOSPITALTORIVER'S EDGE HOSPITALLIA [id number] [place] [address] [place] Anion gap [Moles/Vol] 13 mmol/L Normal 8-15 [facility] Comment on above: Order Comment: Speci men Type: BLOOD SPECIMENOrdering Facility: [facility] Address: [address] [place] [address] Performed By: #### 2 4323-8 ####[facility] MILLTOWNCLIA [id number] [place] [address] [place]#### 14328-9 ####[facility]ORATORYCLIA [id number] [address] STATES OF [facility] MILLTOWNCLIA [id number] [place] [address] [place] AST [Catalytic activity/Vol] 17 U/L Normal 14-40 [facility] Comment on above: Order Comment: Speci men Type: BLOOD SPECIMENOrdering Facility: [facility] Address: [address] [place] [address] Performed By: #### 2 4323-8 ####[facility] MILLTOWNCLIA [id number] [place] [address] [place]#### 22526-9 ####[facility]ORATORYCLIA [id number] [address] STATES OF [facility] HOSPITALLIA [id number] [place] [address] [place] Bilirubin [Mass/Vol] 0.4 mg/dL Normal 0.2-1.3 [facility] Comment on above: Order Comment: Speci men Type: BLOOD SPECIMENOrdering Facility: [facility] Address: [address] [place] [address] Performed By: #### 2 4323-8 ####[facility] MILLTOWNCLIA [id number] [place] [address] [place]#### 36835-2 ####[facility]ORATORYCLIA [id number] [place] [address] [place] AMERICAMETROHEALTH PARMA [facility] MILLTOWNCLIA [id number] [place] [address] [place] Calcium [Mass/Vol] 9.4 mg/dL Normal 8.5-10.2 [facility] Comment on above: Order Comment: Speci men Type: BLOOD SPECIMENOrdering Facility: [facility] Address: [facility] [place] [id number] Performed By: #### 2 4323-8 ####[facility]ITALOSTER MILLTOWNCLIA [id number] [place] [address] [place]#### 07657-2 ####[facility]ORATORYCLIA [id number] [place] [address] [place] [facility] KB MILLWNCLIA [id number] [place] [address] [place] Chloride [Moles/Vol] 102 mmol/L Normal 98-107 [facility] Comment on above: Order Comment: Speci men Type: BLOOD SPECIMENOrdering Facility: [facility] Address: [facility] [place] [address] Performed By: #### 2 4323-8 ####[facility] MILLTOWNCLIA [id number] [place] [address] [place]#### 82296-7 ####[facility]ORATORYCLIA [id number] [place] [address] [place] AMERICABUCYRUS COMM[facility] KB MILLTOWNCLIA [id number] [place] [address] [place] CO2 [Moles/Vol] 25 mmol/L Normal 22-30 [facility] Comment on above: Order Comment: Speci men Type: BLOOD SPECIMENOrdering Facility: [facility] Address: [facility] [place] [address] Performed By: #### 2 4323-8 ####[facility] KB MILLTOWNCLIA [id number] [place] [address] [place]#### 10816-8 ####[facility]ORATORYCLIA [id number] [address] [id number] [place] [address] [place] Creatinine [Mass/Vol] 1.07 mg/dL Normal 0.73-1.22 [facility] Comment on above: Order Comment: Speci men Type: BLOOD SPECIMENOrdering Facility: [facility] Address: [address] [place] [address] Performed By: #### 2 4323-8 ####[facility]ITALA [id number] [address]#### 17799-7 ####[facility]OSPITALCLIA [id number] [address] [id number] [place] [address] STATES [facility] Creatinine and Glomerular filtration rate.predicted panel (S/P/Bld) 76 mL/min/1.73m??? Normal >=60 [facility] Comment on above: Order Comment: Aidai men Type: BLOOD SPECIMENOrdering Facility: [facility] Address: [address] [place] [address] Result Comment: Diana mated Glomerular Filtration Rate (eGFR) is calculated using the 2020 CKD-EPI creatinine equation. This equation utilizes serum creatinine, sex, and age as parameters. The creatinine assay has traceable calibration to isotope dilution-mass spectrometry. Refer to KDIGO guidelines for clinical interpretation. In patients with unstable renal function, e.g. those with acute kidney injury, the eGFR may not accurately reflect actual GFR. Performed By: #### 2 4323-8 ####[facility] FLORIDAWFLLIA [id number] [address]#### 27816-8 ####[facility] LABORATORYCLIA [id number] [address] [id number] [place] [address] [place] Glucose [Mass/Vol] 104 mg/dL High 74-99 [facility] Comment on above: Order Comment: Speci men Type: BLOOD SPECIMENOrdering Facility: [facility] Address: [address] [place] [address] Result Comment: The [place] Diabetes Association (ADA) provides guidance for cutoff values for fasting glucose and random glucose. The ADA defines fasting as no caloric intake for at least 8 hours. Fasting plasma glucose results between 100 to 125 mg/dL indicate increased risk for diabetes (prediabetes). Fasting plasma glucose results greater than or equal to 126 mg/dL meet the criteria for diagnosis of diabetes. In the absence of unequivocal hyperglycemia, results should be confirmed by repeat testing. In a patient with classic symptoms of hyperglycemia or hyperglycemic crisis, random plasma glucose results greater than or equal to 200 mg/dL meet the criteria for diagnosis of diabetes. Reference: Standards of Medical Care in Diabetes 2016, [place] Diabetes Association. Diabetes Care. 2016.39(Suppl 1). Performed By: #### 2 4323-8 ####[facility] MED[facility] CENTERLIA [id number] [place] [address] [place]#### 06717-3 ####[facility]ORATORYCLIA [id number] [place] [address] [place] AMERICAKETTERING HEALTH BEHAVIORAL MEDICAL CENTERLIA [id number] [place] [address] [place] Potassium [Moles/Vol] 4.5 mmol/L Normal 3.7-5.1 [facility] Comment on above: Order Comment: Speci men Type: BLOOD SPECIMENOrdering Facility: [facility] Address: [address] [place] [address] Performed By: #### 2 4323-8 ####[facility] MEDICAL CENTERLIA [id number] [place] [address] [place]#### 10573-7 ####[facility]ORATORYCLIA [id number] [address] KB MILLTOWNCLIA [id number] [place] [address] [place] Protein [Mass/Vol] 6.7 g/dL Normal 6.3-8.0 [facility] Comment on above: Order Comment: Speci men Type: BLOOD SPECIMENOrdering Facility: [facility] Address: [address] [place] [address] Performed By: #### 2 4323-8 ####[facility] MILLWNCLIA [id number] [place] [address] [place]#### 65631-7 ####[facility] LABORATORYCLIA [id number] [address] STATES OF [facility]A [id number] [place] [address] [place] Sodium [Moles/Vol] 140 mmol/L Normal 136-144 [facility] Comment on above: Order Comment: Speci men Type: BLOOD SPECIMENOrdering Facility: [facility] Address: [address] [place] [address] Performed By: #### 2 4323-8 ####[facility] FLORIDAWNCLIA [id number] [place] [address] [place]#### 56386-0 ####[facility]ORATORYCLIA [id number] [place] [address] [place] AMERICABUCYR[facility] KB MILLTOWNCLIA [id number] [place] [address] [place] Urea nitrogen [Mass/Vol] 16 mg/dL Normal 9-24 [facility] Comment on above: Order Comment: Speci men Type: BLOOD SPECIMENOrdering Facility: [facility] Address: [address] [place] [address] Performed By: #### 2 4323-8 ####[facility] MILLTOWNCLIA [id number] [place] [address] [place]#### 80610-1 ####[facility] LABORATORYCLIA [id number] [address]WFLL[address] [id number] [place] [address] [place] Lipid 1996 panelon 5 Cholesterol [Mass/Vol] 142 mg/dL Normal <200 [facility] Comment on above: Order Comment: Speci men Type: BLOOD SPECIMENOrdering Facility: [facility] Address: [address] [place] [address] Result Comment: <200 mg/dL, Desirable 200-239 mg/dL, Borderline high >239 mg/dL, High Performed By: #### 2 4323-8 ####[facility] FLORIDAWNCLIA [id number] [place] [address] [place]#### 87443-6 ####[facility]ORATORYCLIA [id number] [address] STATES [facility] HOSPITALLIA [id number] [place] [address] [place] Cholesterol in HDL [Mass/Vol] 48 mg/dL Normal >39 [facility] Comment on above: Order Comment: Speci men Type: BLOOD SPECIMENOrdering Facility: [facility] Address: [address] [place] [address] Result Comment: 40-5 9 mg/dL, Acceptable >59 mg/dL, High: Negative risk factor for coronary heart disease <40 mg/dL, Low: Positive risk factor for coronary heart disease Performed By: #### 2 4323-8 ####[facility] MILLTOWNCLIA [id number] [place] [address] [place]#### 72322-4 ####[facility]ORATORYCLIA [id number] [address] [id number] [address] Cholesterol in LDL [Mass/Vol] 72 mg/dL Normal <100 [facility] Comment on above: Order Comment: Speci men Type: BLOOD SPECIMENOrdering Facility: [facility] Address: [address] [place] [address] Result Comment: <100 mg/dL, Optimal 100-129 mg/dL, Near optimal/above optimal 130-159 mg/dL, Borderline high 160-189 mg/dL, High >189 mg/dL, Very high Secondary prevention optimal LDL Cholesterol levels are recommended to be < 70 mg/dL Performed By: #### 2 4323-8 ####[facility] [id number] [address] OF [facility]#### 39690-3 ####[facility] LABORATORYCLIA [id number] [address] [id number] [address] Cholesterol in LDL/Cholesterol in HDL [Mass ratio] 1.50 {ratio} Normal <2.54 [facility] Comment on above: Order Comment: Speci men Type: BLOOD SPECIMENOrdering Facility: [facility] Address: [address] [place] [address] Result Comment: [place] d[place]: 1. National Cholesterol Education Program ATP III Guideline At-A-Glance Quick Desk Reference: National Heart, Lung, and Blood Flushing. National Institutes of Health. 2001: NIH Publication No. 01-3305. 2. An International Atherosclerosis Society position paper: global recommendations for the management of dyslipidemia: executive summary, Atherosclerosis. 2014: 232(2):410-413. Performed By: #### 2 4323-8 ####[facility]NC[facility] [id number] [place] [address] [place]#### 06960-9 ####[facility] LABORATORYCLIA [id number] [place], [place] [address] [place] [id number] STATES [facility] Cholesterol in VLDL [Mass/Vol] 22 mg/dL Normal <30 [facility] Comment on above: Order Comment: Speci men Type: BLOOD SPECIMENOrdering Facility: [facility] Address: [address] [place] [address] Performed By: #### 2 4323-8 ####[facility] [id number] [address]#### 58930-6 ####[facility] LABORATORYCLIA [id number] [address] [id number] [address] STATES OF [place] Cholesterol non HDL [Mass/Vol] 94 mg/dL Normal <130 [facility] Comment on above: Order Comment: Speci men Type: BLOOD SPECIMENOrdering Facility: [facility] Address: [address] [place] [address] Result Comment: <130 mg/dL, Optimal 130-159 mg/dL, Near optimal/above optimal 160-189 mg/dL, Borderline high 190-219 mg/dL, High >219 mg/dL, Very high Secondary prevention optimal non HDL Cholesterol levels are recommended to be <100 mg/dL Performed By: #### 2 4323-8 ####[facility] [id number] [address] [place]#### 46607-4 ####[facility]ORATORYCLIA [id number] [address] STATES OF [facility] [id number] [place] [address] [place] Cholesterol.total/Cholester ol in HDL [Mass ratio] 2.96 {ratio} Normal <5.10 [facility] Comment on above: Order Comment: Speci men Type: BLOOD SPECIMENOrdering Facility: [facility] Address: [address] [place] [address] Performed By: #### 2 4323-8 ####[facility] MILLTOWNCLIA [id number] [address] [place]#### 98201-1 ####[facility]ORATORYCLIA [id number] [address] [id number] [address] FASTING TIME 12 hrs Normal [facility] Comment on above: Order Comment: Speci men Type: BLOOD SPECIMENOrdering Facility: [facility] Address: [address] [place] [address] Performed By: #### 2 4323-8 ####[facility] FLORIDAWNCLIA [id number] [address] [place]#### 71468-6 ####[facility]ORATORYCLIA [id number] [address] KB MILLTOWNCLIA [id number] [address] Triglyceride [Mass/Vol] 108 mg/dL Normal <150 [facility] Comment on above: Order Comment: Speci men Type: BLOOD SPECIMENOrdering Facility: [facility] Address: [address] [place], [place] [id number] Result Comment: <150 mg/dL, Normal 150-199 mg/dL, Borderline high 200-499 mg/dL, High >499 mg/dL, Very high Performed By: #### 2 4323-8 ####[facility] MILLTOWNCLIA [id number] [address] [place]#### 71578-9 ####[facility] LABORATORYCLIA [id number] [place] [id number] [place] STATES OF [facility] KB [facility] [id number] [place] [address] [facility] OF ABE Tiffanie 07-08-2024 CNPN Telephone (CATHMN) LAM GARCIA ([id number]) 1955 Date Time Provider Department 07/08/24 DELMA SEVERINO During your visit today, we recorded the following information about you: Tika Eagle 07/08/2024 2:29 PM Signed July 08, 2024 [id number] Patient Name: Lam Garcia Contact Information: [phone] (home) [phone] (cell) Reason For Call:Appointment ([place] or [facility]) Physician:Dr Serene Maria Pt called to make sure no blood tests are needed before next Monday's visit. Allergies As of Date: 07/08/2024 (No Known Allergies) Date Reviewed: 03/29/2024 Reviewed by: Shabana Molina, RN - Fully Assessed Reason for Visit: Patient Question [9315] Cmt: blood work? Prescriptions as of 07/08/2024 - atorvastatin (LIPITOR) 40 mg tablet Take 1 tablet by mouth once daily. - allopurinol (ZYLOPRIM) 100 mg tablet Take 100 mg by mouth two times a day. - famotidine (PEPCID) 20 mg tablet Take 1 tablet by mouth every afternoon. - ranolazine SR (RANEXA) 1,000 mg tab ER 12 hr Take 1,000 mg by mouth two times a day. - Multivitamins-Minerals- Lutein (MULTIVITAMIN 50 PLUS) tab Take 1 tablet by mouth once daily. - metoprolol tartrate, short acting, (LOPRESSOR) 25 mg tablet Take 1 tablet by mouth two times a day. - losartan (COZAAR) 100 mg tablet Take 1 tablet by mouth every afternoon. - amLODIPine (NORVASC) 5 mg tablet Take 1 tablet by mouth once daily. - ASPIRIN 81MG TABLET Take one (1) tablet daily . Problem List As Of Date 07/08/2024 Noted Resolved PAIN IN LIMB [M79.609] 02/25/2003 ABNORMAL CARDIOVASC STUDY NOS [R94.30] 03/03/2006 CHEST PAIN NOS [R07.9] 03/03/2006 BENIGN HYPERTENSION [I10] 03/03/2006 HYPERLIPIDEMIA NEC/NOS [E78.5] 03/03/2006 GENERAL OSTEOARTHROSIS [M15.9] 03/03/2006 Encounter Status:Closed by TIKA EAGLE on 07/08/24 [facility] Tiffanie 04-18-2024 CNPN Telephone (CATHMN) LAM GARCIA ([id number]) 1955 M Date Time Provider Department 04/18/24 DELMA SEVERINO During your visit today, we recorded the following information about you: Juhi Bo 04/18/2024 3:30 PM Signed Patient's Cardiac Cath denied by insurance. Appeal submitted via fax 04/17/2024 Copy uploaded under scanned documents. Allergies As of Date: 04/18/2024 (No Known Allergies) Date Reviewed: 03/29/2024 Reviewed by: Shabana Molina, RN - Fully Assessed Prescriptions as of 04/18/2024 - atorvastatin (LIPITOR) 40 mg tablet Take 1 tablet by mouth once daily. - allopurinol (ZYLOPRIM) 100 mg tablet Take 100 mg by mouth two times a day. - famotidine (PEPCID) 20 mg tablet Take 1 tablet by mouth every afternoon. - ranolazine SR (RANEXA) 1,000 mg tab ER 12 hr Take 1,000 mg by mouth two times a day. - Multivitamins-Minerals- Lutein (MULTIVITAMIN 50 PLUS) tab Take 1 tablet by mouth once daily. - metoprolol tartrate, short acting, (LOPRESSOR) 25 mg tablet Take 1 tablet by mouth two times a day. - losartan (COZAAR) 100 mg tablet Take 1 tablet by mouth every afternoon. - amLODIPine (NORVASC) 5 mg tablet Take 1 tablet by mouth once daily. - ASPIRIN 81MG TABLET Take one (1) tablet daily . Problem List As Of Date 04/18/2024 Noted Resolved PAIN IN LIMB [M79.609] 02/25/2003 ABNORMAL CARDIOVASC STUDY NOS [R94.30] 03/03/2006 CHEST PAIN NOS [R07.9] 03/03/2006 BENIGN HYPERTENSION [I10] 03/03/2006 HYPERLIPIDEMIA NEC/NOS [E78.5] 03/03/2006 GENERAL OSTEOARTHROSIS [M15.9] 03/03/2006 Encounter Status:Closed by JUHI BO on 04/18/24 Normal [facility] Basic metabolic 2000 panelon 03-29-2024 Anion gap [Moles/Vol] 13 mmol/L Normal 8-15 [facility] Comment on above: Order Comment: Speci men Type: BLOOD SPECIMENOrdering Facility: [facility] Address: [address] [place] [address] Performed By: #### 2 4321-2 ####[facility] LABCLIA [id number] [place] [address] [place] Calcium [Mass/Vol] 9.8 mg/dL Normal 8.5-10.2 [facility] Comment on above: Order Comment: Speci men Type: BLOOD SPECIMENOrdering Facility: [facility] Address: [address] [place] [address] Performed By: #### 2 4321-2 ####[facility] LABCLIA [id number] [place] [address] [place] Chloride [Moles/Vol] 104 mmol/L Normal 98-107 [facility] Comment on above: Order Comment: Speci men Type: BLOOD SPECIMENOrdering Facility: [facility] Address: [address] [place] [address] Performed By: #### 2 4321-2 ####[facility] LABCLIA [id number] [place] [address] [place] CO2 [Moles/Vol] 23 mmol/L Normal 22-30 [facility] Comment on above: Order Comment: Speci men Type: BLOOD SPECIMENOrdering Facility: [facility] Address: [address] [place] [address] Performed By: #### 2 4321-2 ####[facility] LABCLIA [id number] [place] [address] [place] Creatinine [Mass/Vol] 1.01 mg/dL Normal 0.73-1.22 [facility] Comment on above: Order Comment: Speci men Type: BLOOD SPECIMENOrdering Facility: [facility] Address: [address] [place] [address] Performed By: #### 2 4321-2 ####[facility] LABCLIA [id number] [place] [address] [place] Creatinine and Glomerular filtration rate.predicted panel (S/P/Bld) 81 mL/min/1.73m??? Normal >=60 [facility] Comment on above: Order Comment: Speci men Type: BLOOD SPECIMENOrdering Facility: [facility] Address: [address] [place] [address] Result Comment: Diana mated Glomerular Filtration Rate (eGFR) is calculated using the 2020 CKD-EPI creatinine equation. This equation utilizes serum creatinine, sex, and age as parameters. The creatinine assay has traceable calibration to isotope dilution-mass spectrometry. Refer to KDIGO guidelines for clinical interpretation. In patients with unstable renal function, e.g. those with acute kidney injury, the eGFR may not accurately reflect actual GFR. Performed By: #### 2 4321-2 ####[facility] LABIA [id number] [place] [address] [place] Glucose [Mass/Vol] 105 mg/dL High 74-99 [facility] Comment on above: Order Comment: Speci men Type: BLOOD SPECIMENOrdering Facility: [facility] Address: [address] [place] [address] Result Comment: The [place] Diabetes Association (ADA) provides guidance for cutoff values for fasting glucose and random glucose. The ADA defines fasting as no caloric intake for at least 8 hours. Fasting plasma glucose results between 100 to 125 mg/dL indicate increased risk for diabetes (prediabetes). Fasting plasma glucose results greater than or equal to 126 mg/dL meet the criteria for diagnosis of diabetes. In the absence of unequivocal hyperglycemia, results should be confirmed by repeat testing. In a patient with classic symptoms of hyperglycemia or hyperglycemic crisis, random plasma glucose results greater than or equal to 200 mg/dL meet the criteria for diagnosis of diabetes. Reference: Standards of Medical Care in Diabetes 2016, [place] Diabetes Association. Diabetes Care. 2016.39(Suppl 1). Performed By: #### 2 4321-2 ####[facility] LABIA [id number] [place] [address] [place] Potassium [Moles/Vol] 4.1 mmol/L Normal 3.7-5.1 [facility] Comment on above: Order Comment: Speci men Type: BLOOD SPECIMENOrdering Facility: [facility] Address: [address] [place] [address] Performed By: #### 2 4321-2 ####[facility] LABIA [id number] [place] [address] [place] Sodium [Moles/Vol] 140 mmol/L Normal 136-144 [facility] Comment on above: Order Comment: Speci men Type: BLOOD SPECIMENOrdering Facility: [facility] Address: [address] [place] [address] Performed By: #### 2 4321-2 ####[facility] LABCLIA [id number] [place] [address] [place] Urea nitrogen [Mass/Vol] 15 mg/dL Normal 9-24 [facility] Comment on above: Order Comment: Speci men Type: BLOOD SPECIMENOrdering Facility: [facility] Address: [address] [place] [address] Performed By: #### 2 4321-2 ####[facility] LABCLIA [id number] [place] [id number] [place] CARD CATH DIAGNOSTICon 03-29 CARD CATH DIAGNOSTIC Site Id: [id number] Lab #: [id number] [employer] 10 Study Date: 03/29/2024 Start Time: 03/29/2024 8:41:02 AM End Time: 03/29/2024 9:33:22 AM Physician Name Kishore Vasquez M.D., M.D. Nursing/Serge Yan R.N., M. R.N. Leonardo, N. R.N. Lynch, J R.N. + + PATIENT INFORMATION + + Name: MR. LAM GARCIA : 1955 Age: 68 years Gender: M Height: 72 in / 183 cm Weight: 227.29 lb / 103.10 kg BMI: 30.79 kg/m BSA: 2.25 m + --------+ CLINICAL HISTORY/INDICATION(s) + --------+ High-risk noninvasive findings in a medically managed patient with worsening/limiting symptoms and worsening findings; AUC score = 9. CAD Presentation: Symptoms Likely to be Ischemic Angina Classification (within 2 weeks): CCS II Anti-Angina Meds (within 2 weeks): Yes. No Heart Failure No Cardiomyopathy - No LV Dysfunction Pre-Op Evaluation before Non-Card Surg: No Cardiogenic Shock: No Cardiac Arrest: No The patient is a 68 year old male with HTN, HLD, known CAD on prior cath who had been medically managed who presents with ongoing chest pain. He is referred for [facility] to assess for progression of CAD and consider physiologic assessment. Access Point Sheath Size Hemostasis Method Right Radial Artery 6F Short Radial TR band + + DIAGNOSTIC FINDINGS + + Coronary Anatomy: Left Dominant Injection Site(s): Coronary Artery LMT: The LMT has mild luminal irregularities. Additional Comment: The left main is moderately calcified. The left main is a large caliber vessel that bifurcates into LAD and LCX. LAD: The proximal LAD is narrowed 50 % - focal disease and ostial. The mid LAD is narrowed 50 % - involving a bifurcation. The distal is narrowed 65 % - focal disease. Additional Comment: The LAD is moderately calicified. The LAD is a large caliber vessel that gives rise to two medium diagonal branches and a large septal before reaching and wrapping around the apex. The proximal LAD has a focal 50% stenosis. The mid LAD has a focal 50% stenosis. The distal LAD has an apical 65% stenosis. The remaining vessel has mild diffuse disease. RFR across the proximal and mid LAD ending in the distal LAD was 0.94 consistent with a non physiologically signficant stenosis. LCX: The distal circumflex is narrowed 50 % - focal disease. The 1st left posterolateral circumflex is narrowed 80 % - ostial and focal disease. The 2nd left posterolateral circumflex is narrowed 80 % - focal disease and ostial. The left posterolateral descending circumflex is narrowed 70 % - focal disease. Additional Comment: The LCX is moderately calcified. The LCX is a large caliber dominant vessel that gives off a small OM1 and a large OM2 before continuing in AV groove and giving several LPLs before terminating as the LPDA. The AV LCx has a 50% stenosis followed by an aneurysmal segment. The OM1 has diffuse moderate disease and the OM2 has mild diffuse disease. There is severe ostial stenoses of the LPL1 and LPL2 as seen on prior angiograms. These are small branches. The LPDA has A Focal stenosis 70% as seen on prior angiograms. RFR across the distal Lcx into AV groove was 0.99. RAMUS: The Ramus is Absent. RCA: The proximal RCA is narrowed 90 % - focal disease. Additional Comment: The RCA is nondominant and is medium sized vessel that gives rise to a marginal then continues as a diminutive vessel. There is a 90% focal stenosis in the proximal RCA. +-------+ IMAGING +-------+ Intravascular imaging not performed. + ---+ HEMODYNAMIC INTERROGATION + ---+ Run 1, LCX Distal Type RFR for Pre-PCI Value- 0.99. Run 2, LAD Distal Type RFR for Pre-PCI Value- 0.94. RFR for distal LCx 0.99, 0.99, 0.99. RFR for distal LAD 0.94, 0.93, 0.94. 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 Plan: -Further optimization of medical therapies -Agressive risk factor control + + ADVERSE OUTCOME(s)/COMPLICATION (s) + + None + --------+ PROCEDURAL & TECHNICAL DETAILS + --------+ PROCEDURE SEQUENCE: Time Procedure Performed 03/29/2024 8:49:26 AM Left Heart Cath 03/29/2024 9:22:50 AM (more content not included)... Normal [facility] CBC panel Auto (Bld)on 03-29 Erythrocyte distribution width (RBC) [Ratio] 13.1 % Normal 11.5-15.0 [facility] Comment on above: Order Comment: Carrol olivas Type: BLOOD SPECIMENOrdering Facility: [facility] Address: [address] [place] [address] Performed By: #### 5 8410-2 ####[facility] LABIA [id number] [address] [place] Hematocrit (Bld) [Volume fraction] 47.6 % Normal 39.0-51.0 [facility] Comment on above: Order Comment: Carrol olivas Type: BLOOD SPECIMENOrdering Facility: [facility] Address: [address] [place] [address] Performed By: #### 5 8410-2 ####[facility] LABCLIA [id number] [place] [address] [place] Hemoglobin (Bld) [Mass/Vol] 15.8 g/dL Normal 13.0-17. 0 [facility] Comment on above: Order Comment: Carrol olivas Type: BLOOD SPECIMENOrdering Facility: [facility] Address: [address] [place] [address] Performed By: #### 5 8410-2 ####[facility] LABCLIA [id number] [place] [address] [place] MCH (RBC) [Entitic mass] 31.6 pg Normal 26.0-34.0 [facility] Comment on above: Order Comment: Speci men Type: BLOOD SPECIMENOrdering Facility: [facility] Address: [address] [place] [address] Performed By: #### 5 8410-2 ####[facility] LABCLIA [id number] [place] [address] [place] MCHC (RBC) [Mass/Vol] 33.2 g/dL Normal 30.5-36.0 [facility] Comment on above: Order Comment: Speci men Type: BLOOD SPECIMENOrdering Facility: [facility] Address: [address] [place] [address] Performed By: #### 5 8410-2 ####[facility] LABIA [id number] [place] [address] [place] MCV (RBC) [Entitic vol] 95.2 fL Normal 80.0-100.0 [facility] Comment on above: Order Comment: Speci men Type: BLOOD SPECIMENOrdering Facility: [facility] Address: [address] [place] [address] Performed By: #### 5 8410-2 ####[facility] LABIA [id number] [place] [address] [place] Nucleated RBC (Bld) [#/Vol] 10*3/uL Normal <0.01 [facility] Comment on above: Order Comment: Speci men Type: BLOOD SPECIMENOrdering Facility: [facility] Address: [address] [place] [address] Performed By: #### 5 8410-2 ####[facility] LABIA [id number] [place] [address] [place] Platelet mean volume (Bld) [Entitic vol] 9.5 fL Normal 9.0-12.7 [facility] Comment on above: Order Comment: Speci men Type: BLOOD SPECIMENOrdering Facility: [facility] Address: [address] [place] [address] Performed By: #### 5 8410-2 ####[facility] LABIA [id number] [place] [address] [place] Platelets (Bld) [#/Vol] 232 10*3/uL Normal 150-400 [facility] Comment on above: Order Comment: Speci men Type: BLOOD SPECIMENOrdering Facility: [facility] Address: [address] [place] [address] Performed By: #### 5 8410-2 ####[facility] LABIA [id number] [place] [address] [place] RBC (Bld) [#/Vol] 5.00 10*6/uL Normal 4.20-6.00 [facility] Comment on above: Order Comment: Speci men Type: BLOOD SPECIMENOrdering Facility: [facility] Address: [address] [place] [address] Performed By: #### 5 8410-2 ####[facility] LABIA [id number] [place] [address] [place] WBC (Bld) [#/Vol] 5.96 10*3/uL Normal 3.70-11.00 [facility] Comment on above: Order Comment: Speci men Type: BLOOD SPECIMENOrdering Facility: [facility] Address: [address] [place] [address] Performed By: #### 5 8410-2 ####[facility] LABIA [id number] [place] [id number] [place] ECG COMPLETEon 03-29-2024 ECG COMPLETE Ventricular Rate : 5 6 BPM Atrial Rate : 56 BPM P-R Interval : 180 ms QRS Duration : 76 ms Q-T Interval : 464 ms QTC Calculation(Bazett) : 447 ms Calculated P [place] : 29 degrees Calculated R [place] : -5 degrees Calculated T [place] : -16 degrees SINUS BRADYCARDIA OTHERWISE NORMAL ECG Confirmed by MD JOSE, PhD, ISACC ([id number]) on 05/02/2024 4:39:13 PM NAME : LAM GARCIA PID : [id number] : 1955 Gender : Male Race : ORD : [id number] Procedure Date : Mar 29 2024 08:17:36 Edit Date : May 02 2024 16:39:17 Diagnosis: SINUS BRADYCARDIA OTHERWISE NORMAL ECG Confirmed by MD JOSE, PhD, ISACC ([id number]) on 05/02/2024 4:39:13 PM Test Reason : Pre-OP [facility] : 23 : [facility] Overread By : MD JOSE, PhD,ISACC Edited By : MD JOSE, PhD,ISACC Referred By : , Acquired by : [id number], Normal [facility] HbA1c (Bld)on 03-29-2024 Average glucose Estimated from glycated hemoglobin (Bld) [Mass/Vol] 103 mg/dL Normal [facility] Comment on above: Order Comment: Carrol olivas Type: BLOOD SPECIMENOrdering Facility: [facility] Address: [address] [place] [address] Result Comment: eAG: (Estimated average glucose) is a calculated value from HgbA1c and is surgical sales representative of the average blood glucose level in the last 2-3 month period. Performed By: #### 5 5454-3 ####[facility] LABCLIA [id number] [place] [address] [place] [facility] HbA1c (Bld) [Mass fraction] 5.2 % Normal 4.3-5.6 [facility] Comment on above: Order Comment: Carrol olivas Type: BLOOD SPECIMENOrdering Facility: [facility] Address: [address] [place] [address] Result Comment: [place] Diabetes Association guidelines indicate that patients with HgbA1c in the range 5.7-6.4% are at increased risk for development of diabetes, and intervention by lifestyle modification may be beneficial. HgbA1c greater or equal to 6.5% is considered diagnostic of diabetes. Performed By: #### 5 5454-3 ####[facility] LABCLIA [id number] [place] [id number] [facility] Tiffanie 03-28-2024 CNPN Telephone (CATLMN) LAM GARCIA ([id number]) 1955 M Date Time Provider Department 03/28/24 DELMA SEVERINO During your visit today, we recorded the following information about you: Yue Rivera RN 03/28/2024 2:09 PM Signed CARDIOVASCULAR LAB INSTRUCTIONS: Readiness to Learn: Cognitive Ability: Alert and oriented Motivation To Learn: Interested Family/Significant Other Support: Unable to assess - Family not present Instruction Provided To: Patient Patient Learns Best By: Verbal Instruction Factors Affecting Learning: None Physical Limitations Affecting Learning: None Learning Response: Procedure: Left Heart Diagnostic Pre procedure education topics: Arrival time/NPO Status/Medications/Escobar el Instructions/Restrictio ns Patient/Family Response Evaluation: Verbalizes understanding Follow Up Plan and Medication: As directed by physician Instruction/Supplementa l Material Given: Cardiac catheterization instructions, procedure information, hospital information, hotel information. Instructed By Yue Rivera, RN, RN. In Department of CARDIOLOGY. Allergies As of Date: 03/28/2024 (No Known Allergies) Date Reviewed: 03/19/2024 Reviewed by: Delma Severino MD - Fully Assessed Reason for Visit: Patient Education [91] Prescriptions as of 03/28/2024 - atorvastatin (LIPITOR) 40 mg tablet Take 1 tablet by mouth once daily. - allopurinol (ZYLOPRIM) 100 mg tablet Take 100 mg by mouth two times a day. - famotidine (PEPCID) 20 mg tablet Take 1 tablet by mouth every afternoon. - ranolazine SR (RANEXA) 1,000 mg tab ER 12 hr Take 1,000 mg by mouth two times a day. - Multivitamins-Minerals- Lutein (MULTIVITAMIN 50 PLUS) tab Take 1 tablet by mouth once daily. - metoprolol tartrate, short acting, (LOPRESSOR) 25 mg tablet Take 1 tablet by mouth two times a day. - losartan (COZAAR) 100 mg tablet Take 1 tablet by mouth every afternoon. - amLODIPine (NORVASC) 5 mg tablet Take 1 tablet by mouth once daily. - ASPIRIN 81MG TABLET Take one (1) tablet daily . Problem List As Of Date 03/28/2024 Noted Resolved PAIN IN LIMB [M79.609] 02/25/2003 ABNORMAL CARDIOVASC STUDY NOS [R94.30] 03/03/2006 CHEST PAIN NOS [R07.9] 03/03/2006 BENIGN HYPERTENSION [I10] 03/03/2006 HYPERLIPIDEMIA NEC/NOS [E78.5] 03/03/2006 GENERAL OSTEOARTHROSIS [M15.9] 03/03/2006 Encounter Status:Closed by YUE RIVERA RN on 03/28/24 [facility] ([id number]) 1955 Date Time Provider Department 03/26/24 DELMA SEVERINO During your visit today, we recorded the following information about you: Delma Severino MD 03/26/2024 5:14 PM Signed Cath denied by Insurance The following letter should be send and I will ask the team to request an appeal basedon the information in chart and the letter 03-27-2024 Re: Lam Garcia To Whom it May concern I am writing regarding an appeal for the denial of services to proceed with a cardiac cath in this patient. The reference number is [id number]. I am surprised by your denial, as if you read my note it is clear that this patient has classic angina and known coronary artery disease despite optimal medical therapy. To summarize this is a 68-year-old male with multiple cardiac risk factors including obesity hypertension high cholesterol who has known severe coronary artery disease with severe LPL 1, LPL 2, LPDA and an intermediate stenosis of the mid LAD on cardiac cath in 2022. He had been managed medically but continues to have ongoing symptoms despite optimal medical therapy. This therapy includes antiplatelets, atorvastatin, ranolazine, and metoprolol. Given the known severe disease and the ongoing symptoms despite medical therapy he is referred for coronary angiography with the intention of proceeding with revascularization if it is appropriate. I hope that you reconsider this request for a cardiac cath. Please let me know if you have any questions. Delma Severino MD, [facility], FA. FSCAI Allergies As of Date: 03/26/2024 (No Known Allergies) Date Reviewed: 03/19/2024 Reviewed by: Delma Severino MD - Fully Assessed Prescriptions as of 03/26/2024 - atorvastatin (LIPITOR) 40 mg tablet Take 1 tablet by mouth once daily. - allopurinol (ZYLOPRIM) 100 mg tablet Take 100 mg by mouth two times a day. - famotidine (PEPCID) 20 mg tablet Take 1 tablet by mouth every afternoon. - ranolazine SR (RANEXA) 1,000 mg tab ER 12 hr Take 1,000 mg by mouth two times a day. - Multivitamins-Minerals- Lutein (MULTIVITAMIN 50 PLUS) tab Take 1 tablet by mouth once daily. - metoprolol tartrate, short acting, (LOPRESSOR) 25 mg tablet Take 1 tablet by mouth two times a day. - losartan (COZAAR) 100 mg tablet Take 1 tablet by mouth every afternoon. - amLODIPine (NORVASC) 5 mg tablet Take 1 tablet by mouth once daily. - ASPIRIN 81MG TABLET Take one (1) tablet daily . Problem List As Of Date 03/26/2024 Noted Resolved PAIN IN LIMB [M79.609] 02/25/2003 ABNORMAL CARDIOVASC STUDY NOS [R94.30] 03/03/2006 CHEST PAIN NOS [R07.9] 03/03/2006 BENIGN HYPERTENSION [I10] 03/03/2006 HYPERLIPIDEMIA NEC/NOS [E78.5] 03/03/2006 GENERAL OSTEOARTHROSIS [M15.9] 03/03/2006 Encounter Status:Closed by DELMA SEVERINO on 03/26/24 Normal [facility] CNOVon 03-19-2024 CNOV Office Visit (CATHMN ) LAM GARCIA ([id number]) 1955 Date Time Provider Department 03/19/24 2:30 PM DELMA SEVERINO CATHMN During your visit today, we recorded the following information about you: Pulse Respiration Blood pressure Weight 69/minute 15/minute 142/84 103.2 kg Height 1.829 m Delma Severino MD 03/19/2024 3:37 PM Signed [facility] Department of Cardiovascular Medicine SECTION OF INTERVENTIONAL CARDIOLOGY OUTPATIENT VISIT DATE March 19, 2024 OUTPATIENT VISIT TYPE Established CHIEF COMPLAINT: For CAD and chest pain HISTORY OF PRESENT ILLNESS: Patient is a 68-year-old male with a history of hypertension, hyperlipidemia, and coronary artery disease (CAD), presenting for evaluation of chest pressure and dyspnea. He reports a two-year history of intermittent chest pressure localized to the mid-sternal area, accompanied by dyspnea. He had severeal prior caths with the most recent in 2022. But was advised medical therapies. When I met him I suggested an echo and amyloid study but if this is unrevealing then cath He reports worsening dyspnea and chest pressure over the past year to year and a half, which have become more pronounced recently. These symptoms are variable, sometimes occurring after walking short distances (1-2 blocks) and other times not appearing even after walking up to a mile. He notes that the symptoms are not consistently related to the time of day, weather, or meals. He experiences relief with rest and forced belching. He also reports persistent lower extremity edema, which has improved since the reduction of amlodipine dosage. He notes that wearing lower-cut socks seems to exacerbate the swelling. Recent diagnostic tests include an echocardiogram showing good cardiac function with mild stiffness, and an amyloid scan and blood tests that were negative for amyloidosis. Lipid panel results showed an LDL of 77 mg/dL, HDL within normal limits, and lipoprotein A levels were good. 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 PAST MEDICAL HISTORY Diagnosis Date ABNORMAL CARDIOVASC STUDY NOS 03/03/2006 CT scan with a high calcium score of 880.9 02-27-06 Arthritis CAD (coronary artery disease) Elevated hemidiaphragm GENERAL OSTEOARTHROSIS 03/03/2006 Hernia, diaphragmatic HLD (hyperlipidemia) HTN (hypertension) PAST SURGICAL HISTORY Procedure Laterality Date ARTHROSCOPY KNEE DIAGNOSTIC W/WO SYNOVIAL BX SPX Arthroscopy, knee ARTHROTOMY W/MENISCUS REPAIR KNEE Open knee reconstruction REVISE MEDIAN N/CARPAL TUNNEL SURG SOCIAL HISTORY Social History Tobacco Use Smoking status: Never Passive exposure: Never Smokeless tobacco: Never Vaping Use Vaping status: Never Used Substance Use Topics Alcohol use: Yes Comment: bourbon 2-3x/week Drug use: No FAMILY HISTORY Problem Relation Age of Onset Stroke Mother at age 82 Heart Attack Father 88 stents Coronary Artery Disease Father Heart Attack Brother 50 stents Heart Attack Maternal Grandfather 74 fatal Coronary Artery Disease Maternal Grandfather Diabetes Maternal Grandfather Heart Attack Paternal Grandfather 58 Coronary Artery Disease Paternal Grandfather ALLERGIES: ALLERGIES No Known Allergies MEDICATIONS: Current Outpatient Medications Medication Sig allopurinol (ZYLOPRIM) 100 mg tablet Take 100 mg by mouth two times a day. famotidine (PEPCID) 20 mg tablet Take 1 tablet by mouth every afternoon. ranolazine SR (RANEXA) 1,000 mg tab ER 12 hr Take 1,000 mg by mouth two times a day. Multivitamins-Minerals- Lutein (MULTIVITAMIN 50 PLUS) tab Take 1 tablet by mouth once daily. metoprolol tartrate, short acting, (LOPRESSOR) 25 mg tablet Take 1 tablet by mouth two times a day. losartan (COZAAR) 100 mg tablet Take 1 tablet by mouth every afternoon. amLODIPine (NORVASC) 5 mg tablet Take 1 tablet by mouth once daily. LIPITOR 20 MG TAB Take one(1) tablet daily. ASPIRIN 81MG TABLET Take one (1) tablet daily . No current facility-administered medications for this visit. REVIEW OF SYSTEMS: Review of Systems Constitutional: Negative for chills, fever, malaise/fatigue, weight gain and weight loss. HENT: Negative for hearing loss and nosebleeds. Eyes: Negative for visual disturbance. Cardiovascular: Positive for chest pain, dyspnea on exertion and leg swelling. Negative for claudication, irregular heartbeat, near-syncope, orthopnea, palpitations, paroxysmal nocturnal dyspnea and syncope. Respiratory: Positive for shortness of breath. Negative for cough, sleep disturbances due to breathing and wheezing. Endocrine: Negative for cold intolerance, heat intolerance, polydipsia, polyphagia and polyuria. Hematologic/Lymphatic: Neg (more content not included)... Normal [facility] Office Visit (CFLAMN ) LAM GARCIA ([id number]) 1955 M Date Time Provider Department 03/19/24 1:30 PM ECHO A17 CARD MAIN CFLAMN During your visit today, we recorded the following information about you: Delma Severino MD 03/19/2024 4:36 PM Signed See office notes for comments Delma Severino MD 03/20/2024 1:08 PM [facility]igned [facility] Referring Provider: DELMA SEVERINO [[id number]] Allergies As of Date: 03/19/2024 (No Known Allergies) Date Reviewed: 03/19/2024 Reviewed by: Delma Severino MD - Fully Assessed Visit Diagnosis:SOB (shortness of breath) [R06.02] Order(s):ECHO [[id number]] Order #: [id number]. #:[id number] : 1 Prescriptions as of 03/20/2024 - atorvastatin (LIPITOR) 40 mg tablet Take 1 tablet by mouth once daily. - allopurinol (ZYLOPRIM) 100 mg tablet Take 100 mg by mouth two times a day. - famotidine (PEPCID) 20 mg tablet Take 1 tablet by mouth every afternoon. - ranolazine SR (RANEXA) 1,000 mg tab ER 12 hr Take 1,000 mg by mouth two times a day. - Multivitamins-Minerals- Lutein (MULTIVITAMIN 50 PLUS) tab Take 1 tablet by mouth once daily. - metoprolol tartrate, short acting, (LOPRESSOR) 25 mg tablet Take 1 tablet by mouth two times a day. - losartan (COZAAR) 100 mg tablet Take 1 tablet by mouth every afternoon. - amLODIPine (NORVASC) 5 mg tablet Take 1 tablet by mouth once daily. - ASPIRIN 81MG TABLET Take one (1) tablet daily . Problem List As Of Date 03/19/2024 Noted Resolved PAIN IN LIMB [M79.609] 02/25/2003 ABNORMAL CARDIOVASC STUDY NOS [R94.30] 03/03/2006 CHEST PAIN NOS [R07.9] 03/03/2006 BENIGN HYPERTENSION [I10] 03/03/2006 HYPERLIPIDEMIA NEC/NOS [E78.5] 03/03/2006 GENERAL OSTEOARTHROSIS [M15.9] 03/03/2006 Encounter Status:Closed by DELMA SEVERINO on 03/20/24 Normal [facility] ECHOon 03-19-2024 CONCLUSIONS: - Exam indication: Shortness of Breath - The left ventricle is normal in size. There is left ventricular hypertrophy. Left ventricular systolic function is normal. EF = 54 5% (2D biplane) - The right ventricle is normal in size. Right ventricular systolic function is normal. - There are no significant valvular abnormalities. - The patient has not had a prior [facility] echocardiographic exam for comparison. * * * Final * * * [facility] Echocardiography Report: Transthoracic Echo [facility] A17 Date of service: 03/19/2024 12:55:24 PM SEATER Ordering physician: DELMA SEVERINO Indication: Shortness of Breath Technologist: Sulema Figueroa Interpreting physician: Bob Arce MD PATIENT: Name: MR. LAM GARCIA : 1955 Age: 68 years Gender: M History of coronary artery disease, hypertension and dyslipidemia. Previous cardiovascular interventions: Diagnostic cath (2011) Primary rhythm: sinus. Height: 182.90 cm BSA: 2.30 m Weight: 104.33 kg BMI: 31.2 kg/m Heart rate 71 bpm Blood pressure 129/77 mmHg Color Doppler was utilized to interrogate the cardiac valves assessed and spectral Doppler was utilized to determine the flow velocities and pressure gradients reported in this exam. MEASUREMENTS: Value Indexed Normal Max aortic dimension 3.4 cm Ao < 3.8 Left atrial volume 66 ml (biplane A-L) 29 ml/m Jimy <= 34 LV ID (diastole) 4.8 cm (2D) 2.08 cm/m LV ID (systole) 3.2 cm (2D) 1.39 cm/m IVS, leaflet tips 1.2 cm (2D) Posterior wall thickness 1.2 cm (2D) Left ventricular mass 213 g (2D) 92 g/m LV stroke volume 52 ml (2D biplane) LV end diastolic volume 97 ml (2D biplane) 42.3 ml/m 34<=EDVi<75 LV end systolic volume 45 ml (2D biplane) 19.5 ml/m Ejection Fraction 54 % (2D biplane) EF > 52 FINDINGS: LEFT VENTRICLE The left ventricle is normal in size. There is left ventricular hypertrophy. Left ventricular systolic function is normal. Grade I left ventricular diastolic dysfunction. Mitral annular lateral E/e': 10.3. Mitral annular septal E/e': 13.0. Wall Motion: All scored segments are normal. RIGHT VENTRICLE The right ventricle is normal in size. Right ventricular systolic function is normal. RV systolic tissue Doppler velocity is 12.0 cm/s. Tricuspid annular displacement is 2.2 cm. Estimated right ventricular systolic pressure is not reported due to an insufficient tricuspid regurgitation signal. Estimated right atrial pressure is 3 mmHg based on IVC assessment. LEFT ATRIUM The left atrial cavity is normal in size. Pulmonary Veins: The pulmonary venous pattern showed normal systolic flow. RIGHT ATRIUM The right atrial cavity is normal in size. Inferior Vena Cava: The inferior vena cava appears normal measuring 1.4 cm. The vessel decreases greater than 50 percent with inspiration. MITRAL VALVE There is trace mitral valve regurgitation. There is mild thickening. The pressure half time is 62 msec. The peak mitral E/A ratio is 0.98. The mitral flow deceleration time is 214 msec. TRICUSPID VALVE There is trace tricuspid valve regurgitation. There is no thickening. AORTIC VALVE There is no aortic valve regurgitation. Tricuspid aortic valve. There is mild thickening. The peak gradient is 7 mmHg (peak velocity = 131.0 cm/s). PULMONIC VALVE The pulmonic valve cusps are structurally normal. There is trace pulmonic valve regurgitation. AORTA The visualized aorta is normal in size. Measurements - Mid ascending aorta 3.4 cm. PULMONARY ARTERIES The pulmonary arteries are unseen or not interrogated. INTERATRIAL SEPTUM There is no evidence of intracardiac shunting as detected by Doppler. INTERVENTRICULAR SEPTUM There is no flow through the interventricular septum as detected by Doppler. PERICARDIUM There is no pericardial effusion. There is an epicardial fat pad. [facility] Echocardiography Echocardiography Report: Transthoracic Echo [facility] A17 Date of service: 03/19/2024 12:55:24 PM SEATER Ordering physician: DELMA SEVERINO Indication: Shortness of Breath Technologist: Sulema Figueroa Interpreting physician: Bob Arce MD PATIENT: Name: MR. LAM GARCIA : 1955 Age: 68 years Gender: M History of coronary artery disease, hypertension and dyslipidemia. Previous cardiovascular interventions: Diagnostic cath (2011) Primary rhythm: sinus. Height: 182.90 cm BSA: 2.30 m Weight: 104.33 kg BMI: 31.2 kg/m Heart rate 71 bpm Blood pressure 129/77 mmHg Color Doppler was utilized to interrogate the cardiac valves assessed and spectral Doppler was utilized to determine the flow velocities and pressure gradients reported in this exam. MEASUREMENTS: Value Indexed Normal Max aortic dimension 3.4 cm Ao < 3.8 Left atrial volume 66 ml (biplane A-L) 29 ml/m Jimy <= 34 LV ID (diastole) 4.8 cm (2D) 2.08 cm/m LV ID (systole) 3.2 cm (2D) 1.39 cm/m IVS, leaflet tips 1.2 cm (2D) Posterior wall thickness 1.2 cm (2D) Left ventricular mass 213 g (2D) 92 g/m LV stroke volume 52 ml (2D biplane) LV end diastolic volume 97 ml (2D biplane) 42.3 ml/m 34<=EDVi<75 LV end systolic volume 45 ml (2D biplane) 19.5 ml/m Ejection Fraction 54 % (2D biplane) EF > 52 FINDINGS: LEFT VENTRICLE The left ventricle is normal in size. There is left ventricular hypertrophy. Left ventricular systolic function is normal. Grade I left ventricular diastolic dysfunction. Mitral annular lateral E/e': 10.3. Mitral annular septal E/e': 13.0. Wall Motion: All scored segments are normal. RIGHT VENTRICLE The right ventricle is normal in size. Right ventricular systolic function is normal. RV systolic tissue Doppler velocity is 12.0 cm/s. Tricuspid annular displacement is 2.2 cm. Estimated right ventricular systolic pressure is not reported due to an insufficient tricuspid regurgitation signal. Estimated right atrial pressure is 3 mmHg based on IVC assessment. LEFT ATRIUM The left atrial cavity is normal in size. Pulmonary Veins: The pulmonary venous pattern showed normal systolic flow. RIGHT ATRIUM The right atrial cavity is normal in size. Inferior Vena Cava: The inferior vena cava appears normal measuring 1.4 cm. The vessel decreases greater than 50 percent with inspiration. MITRAL VALVE There is trace mitral valve regurgitation. There is mild thickening. The pressure half time is 62 msec. The peak mitral E/A ratio is 0.98. The mitral flow deceleration time is 214 msec. TRICUSPID VALVE There is trace tricuspid valve regurgitation. There is no thickening. AORTIC VALVE There is no aortic valve regurgitation. Tricuspid aortic valve. There is mild thickening. The peak gradient is 7 mmHg (peak velocity = 131.0 cm/s). PULMONIC VALVE The pulmonic valve cusps are structurally normal. There is trace pulmonic valve regurgitation. AORTA The visualized aorta is normal in size. Measurements - Mid ascending aorta 3.4 cm. PULMONARY ARTERIES The pulmonary arteries are unseen or not interrogated. INTERATRIAL SEPTUM There is no evidence of intracardiac shunting as detected by Doppler. INTERVENTRICULAR SEPTUM There is no flow through the interventricular septum as detected by Doppler. PERICARDIUM There is no pericardial effusion. There is an epicardial fat pad. CONCLUSIONS: - Exam indication: Shortness of Breath - The left ventricle is normal in size. There is left ventricular hypertrophy. Left ventricular systolic function is normal. EF = 54 5% (2D biplane) - The right ventricle is normal in size. Right ventricular systolic function is normal. - There are no significant valvular abnormalities. - The patient has not had a prior CC echocardiographic exam for comparison. * * * Final * * * CC Experience Headphones Medical Image : [id number] ISUID Normal [facility] CARDIAC AMYLOID SPECT/manager of security n 03-19-2024 NM CARDIAC AMYLOID SPECT/CT * * *Final R eport* * * DATE OF EXAM: Mar 19 2024 12:08PM [facility] 0847 - [place] CARDIAC AMYLOID SPECT/CT / PROCEDURE REASON: SOB (shortness of breath) * * * * Physician Interpretation * * * * NM CTAC Report: [facility] Date of service: 03/19/2024 11:39:56 AM CTAC interpreting physician: Keon Lara MD PATIENT: Name: MR. LAM GARCIA Age: 68 years Gender: M 1. Incidental Findings from limited non-diagnostic CTAC: - Coronary calcifications visualized. calcified hilar granulomas. Calcified granuloma in right lung base * * * Final * * * ---- Patient: Name: MR. LAM GARCIA Age: 68 years Gender: M CONCLUSIONS: 1. Not Consistent with TTR amyloidosis * Please note that a negative or mildly positive study does not exclude AL amyloid. In addition, equivocal results could represent AL amyloid or early ATTR. We suggest concomitant workup of AL amyloid with laboratory testing and pathologic assessment as appropriate. Nuclear Med Report: [id number] PLANAR and SPECT: Myocardial imaging of the chest with CT attenuation correction was performed at 3 hours post IV injection of Tc-99m Pyrophosphate. See administered doses below. [facility] Date of service: 03/19/2024 11:39:56 AM Ordering Physician: Requesting Physician: DELMA SEVERINO Indication: Suspected Amyloid Heart Disease Interpreting physician: Keon Lara MD CT Dose-Length Product(DLP): 162.0 mGy * cm. CT Dose Reduction Employed: Yes. Exam Type: Rest Study Date: 03/19/2024 Radiopharm: 99m Technetium-HDP Dosage(mCi): 19.7 Injection Time: 8:35:56 PM Atten Correction: performed Time Interval: 3.0 hours Image Quality The overall study imaging quality was deemed to be good. CARDIAC FINDINGS: PLANAR: Visual Comparison to Bone: Grade 0 = No uptake and normal bone uptake (negative for ATTR) SPECT: Uptake Pattern: Persistent Blood Pool NON CARDIAC FINDINGS: Summary: Not Consistent with TTR amyloidosis * Please note that a negative or mildly positive study does not exclude AL amyloid. In addition, equivocal results could represent AL amyloid or early ATTR. We suggest concomitant workup of AL amyloid with laboratory testing and pathologic assessment as appropriate. * * * Final * * * RP Bareback Rider: RASHAWN Transcribe Date/Time: Mar 19 2024 11:39A Dictated by : KEON LARA MD This examination was interpreted and the report reviewed and electronically signed by: KEON LARA MD on Mar 19 2024 2:02PM EST [id number] Normal [facility] SPECT Heart for infarct W Tc -99m PYP Arie 03-19-2024 * * *Final Report* * * DATE OF EXAM: Mar 19 2024 12:08PM [facility] 0847 - [place] CARDIAC AMYLOID SPECT/CT / PROCEDURE REASON: SOB (shortness of breath) * * * * Physician Interpretation * * * * NM CTAC Report: [facility] Date of service: 03/19/2024 11:39:56 AM CTAC interpreting physician: Keon Lara MD PATIENT: Name: MR. LAM GARCIA Age: 68 years Gender: M 1. Incidental Findings from limited non-diagnostic CTAC: - Coronary calcifications visualized. calcified hilar granulomas. Calcified granuloma in right lung base * * * Final * * * ---- Patient: Name: MR. LAM GARCIA Age: 68 years Gender: M CONCLUSIONS: 1. Not Consistent with TTR amyloidosis * Please note that a negative or mildly positive study does not exclude AL amyloid. In addition, equivocal results could represent AL amyloid or early ATTR. We suggest concomitant workup of AL amyloid with laboratory testing and pathologic assessment as appropriate. Nuclear Med Report: [id number] PLANAR and SPECT: Myocardial imaging of the chest with CT attenuation correction was performed at 3 hours post IV injection of Tc-99m Pyrophosphate. See administered doses below. [facility] Date of service: 03/19/2024 11:39:56 AM Ordering Physician: Requesting Physician: DELMA SEVERINO Indication: Suspected Amyloid Heart Disease Interpreting physician: Keon Lara MD CT Dose-Length Product(DLP): 162.0 mGy * cm. CT Dose Reduction Employed: Yes. Exam Type: Rest Study Date: 03/19/2024 Radiopharm: 99m Technetium-HDP Dosage(mCi): 19.7 Injection Time: 8:35:56 PM Atten Correction: performed Time Interval: 3.0 hours Image Quality The overall study imaging quality was deemed to be good. CARDIAC FINDINGS: PLANAR: Visual Comparison to Bone: Grade 0 = No uptake and normal bone uptake (negative for ATTR) SPECT: Uptake Pattern: Persistent Blood Pool NON CARDIAC FINDINGS: Summary: Not Consistent with TTR amyloidosis * Please note that a negative or mildly positive study does not exclude AL amyloid. In addition, equivocal results could represent AL amyloid or early ATTR. We suggest concomitant workup of AL amyloid with laboratory testing and pathologic assessment as appropriate. * * * Final * * * Bareback Rider: RASHAWN Transcribe Date/Time: Mar 19 2024 11:39A Dictated by : KEON LARA MD This examination was interpreted and the report reviewed and electronically signed by: KEON LARA MD on Mar 19 2024 2:02PM [facility] DIVISION OF RADIOLOGY Provider, [facility] Saadjohn velásquez [place] - 03/19/2024 * * *Final Report* * * DATE OF EXAM: Mar 19 2024 12:08PM [facility] 0847 - [place] CARDIAC AMYLOID SPECT/CT / PROCEDURE REASON: SOB (shortness of breath) * * * * Physician Interpretation * * * * NM CTAC Report: [facility] Date of service: 03/19/2024 11:39:56 AM CTAC interpreting physician: Keon Lara MD PATIENT: Name: MR. LAM GARCIA Age: 68 years Gender: M 1. Incidental Findings from limited non-diagnostic CTAC: - Coronary calcifications visualized. calcified hilar granulomas. Calcified granuloma in right lung base * * * Final * * * ---- Patient: Name: MR. LAM GARCIA Age: 68 years Gender: M CONCLUSIONS: 1. Not Consistent with TTR amyloidosis * Please note that a negative or mildly positive study does not exclude AL amyloid. In addition, equivocal results could represent AL amyloid or early ATTR. We suggest concomitant workup of AL amyloid with laboratory testing and pathologic assessment as appropriate. Nuclear Med Report: [id number] PLANAR and SPECT: Myocardial imaging of the chest with CT attenuation correction was performed at 3 hours post IV injection of Tc-99m Pyrophosphate. See administered doses below. [facility] Date of service: 03/19/2024 11:39:56 AM Ordering Physician: Requesting Physician: DELMA SEVERINO Indication: Suspected Amyloid Heart Disease Interpreting physician: Keon Lara MD CT Dose-Length Product(DLP): 162.0 mGy * cm. CT Dose Reduction Employed: Yes. Exam Type: Rest Study Date: 03/19/2024 Radiopharm: 99m Technetium-HDP Dosage(mCi): 19.7 Injection Time: 8:35:56 PM Atten Correction: performed Time Interval: 3.0 hours Image Quality The overall study imaging quality was deemed to be good. CARDIAC FINDINGS: PLANAR: Visual Comparison to Bone: Grade 0 = No uptake and normal bone uptake (negative for ATTR) SPECT: Uptake Pattern: Persistent Blood Pool NON CARDIAC FINDINGS: Summary: Not Consistent with TTR amyloidosis * Please note that a negative or mildly positive study does not exclude AL amyloid. In addition, equivocal results could represent AL amyloid or early ATTR. We suggest concomitant workup of AL amyloid with laboratory testing and pathologic assessment as appropriate. * * * Final * * * RP Bareback Rider: RASHAWN Transcribe Date/Time: Mar 19 2024 11:39A Dictated by : KEON ALRA MD This examination was interpreted and the report reviewed and electronically signed by: KEON LARA MD on Mar 19 2024 2:02PM EST [facility] Radiology Study observation (narrative) [facility] SPECT Heart for infarct W Tc -99m PYP IVOrdered By: [facility]cf Provider on 03-19-2024 [facility] CBC W Auto Differential pane l (Bld)on 03-11-2024 Basophils (Bld) [#/Vol] 0.03 10*3/uL Normal <0.11 [facility] Comment on above: Order Comment: Speci men Type: BLOOD SPECIMENOrdering Facility: [facility] Address: [address] [place] [address] Performed By: #### 5 7021-8 ####[facility] LABCLIA [id number] [place] [address] [place] Basophils/100 WBC (Bld) 0.5 % Normal [facility] Comment on above: Order Comment: Speci men Type: BLOOD SPECIMENOrdering Facility: [facility] Address: [address] [place] [address] Performed By: #### 5 7021-8 ####[facility] LABCLIA [id number] [place] [address] [place] Differential cell count method Nom (Bld) Auto Normal [facility] Comment on above: Order Comment: Speci men Type: BLOOD SPECIMENOrdering Facility: [facility] Address: [address] [place] [address] Performed By: #### 5 7021-8 ####[facility] LABIA [id number] [place] [address] [place] Eosinophils (Bld) [#/Vol] 0.13 10*3/uL Normal <0.46 [facility] Comment on above: Order Comment: Speci men Type: BLOOD SPECIMENOrdering Facility: [facility] Address: [address] [place] [address] Performed By: #### 5 7021-8 ####[facility] LABIA [id number] [place] [address] [place] Eosinophils/100 WBC (Bld) 2.1 % Normal [facility] Comment on above: Order Comment: Speci men Type: BLOOD SPECIMENOrdering Facility: [facility] Address: [address] [place] [address] Performed By: #### 5 7021-8 ####[facility] LABIA [id number] [place] [address] [place] Erythrocyte distribution width (RBC) [Ratio] 13.4 % Normal 11.5-15.0 [facility] [facility] [place] Comment on above: Order Comment: Speci men Type: BLOOD SPECIMENOrdering Facility: [facility] Address: [address] [place] [address] Performed By: #### 5 7021-8 ####[facility] LABIA [id number] [place] [address] [place] Hematocrit (Bld) [Volume fraction] 48.1 % Normal 39.0-51.0 [facility] [place] Comment on above: Order Comment: Speci men Type: BLOOD SPECIMENOrdering Facility: [facility] Address: [address] [place] [address] Performed By: #### 5 7021-8 ####[facility] LABCLIA [id number] [place] [address] [place] Hemoglobin (Bld) [Mass/Vol] 16.2 g/dL Normal 13.0-17. 0 [facility] [place] Comment on above: Order Comment: Speci men Type: BLOOD SPECIMENOrdering Facility: [facility] Address: [address] [place] [address] Performed By: #### 5 7021-8 ####[facility] LABIA [id number] [place] [address] [place] Immature granulocytes (Bld) [#/Vol] 0.05 10*3/uL Normal <0.10 [facility] [place] Comment on above: Order Comment: Speci men Type: BLOOD SPECIMENOrdering Facility: [facility] Address: [address] [place] [address] Performed By: #### 5 7021-8 ####[facility] LABIA [id number] [place] [address] [place] Immature granulocytes/100 WBC (Bld) 0.8 % Normal [facility] [place] Comment on above: Order Comment: Speci men Type: BLOOD SPECIMENOrdering Facility: [facility] Address: [address] [place] [address] Performed By: #### 5 7021-8 ####[facility] LABIA [id number] [place] [address] [place] Lymphocytes (Bld) [#/Vol] 1.63 10*3/uL Normal 1.00-4.0 0 [facility] [place] Comment on above: Order Comment: Speci men Type: BLOOD SPECIMENOrdering Facility: [facility] Address: [address] [place] [address] Performed By: #### 5 7021-8 ####[facility] LABIA [id number] [place] [address] [place] Lymphocytes/100 WBC (Bld) 26.9 % Normal [facility] [place] Comment on above: Order Comment: Speci men Type: BLOOD SPECIMENOrdering Facility: [facility] Address: [address] [place] [address] Performed By: #### 5 7021-8 ####[facility] LABIA [id number] [place] [address] [place] MCH (RBC) [Entitic mass] 32.0 pg Normal 26.0-34.0 [facility] [place] Comment on above: Order Comment: Speci men Type: BLOOD SPECIMENOrdering Facility: [facility] Address: [address] [place] [address] Performed By: #### 5 7021-8 ####[facility] [id number] [place] [address] [place] MCHC (RBC) [Mass/Vol] 33.7 g/dL Normal 30.5-36.0 [facility] Comment on above: Order Comment: Speci men Type: BLOOD SPECIMENOrdering Facility: [facility] Address: [address] [place] [address] Performed By: #### 5 7021-8 ####[facility] [id number] [place] [address] [place] MCV (RBC) [Entitic vol] 94.9 fL Normal 80.0-100.0 [facility] Comment on above: Order Comment: Speci men Type: BLOOD SPECIMENOrdering Facility: [facility] Address: [address] [place] [address] Performed By: #### 5 7021-8 ####[facility] LABIA [id number] [place] [address] [place] Monocytes (Bld) [#/Vol] 0.84 10*3/uL Normal <0.87 [facility] [place] Comment on above: Order Comment: Speci men Type: BLOOD SPECIMENOrdering Facility: [facility] Address: [address] [place], [place] [address] Performed By: #### 5 7021-8 ####[facility] LABCLIA [id number] [place] [address] [place] Monocytes/100 WBC (Bld) 13.9 % Normal [facility] Comment on above: Order Comment: Speci men Type: BLOOD SPECIMENOrdering Facility: [facility] Address: [address] [place] [address] Performed By: #### 5 7021-8 ####[facility] LABCLIA [id number] [place] [address] [place] Neutrophils (Bld) [#/Vol] 3.37 10*3/uL Normal 1.45-7.5 0 [facility] [place] Comment on above: Order Comment: Speci men Type: BLOOD SPECIMENOrdering Facility: [facility] Address: [address] [place] [address] Performed By: #### 5 7021-8 ####[facility] LABCLIA [id number] [place] [address] [place] Neutrophils/100 WBC (Bld) 55.8 % Normal [facility] [place] Comment on above: Order Comment: Speci men Type: BLOOD SPECIMENOrdering Facility: [facility] Address: [address] [place] [address] Performed By: #### 5 7021-8 ####[facility] LABCLIA [id number] [place] [address] [place] Nucleated RBC (Bld) [#/Vol] 10*3/uL Normal <0.01 [facility] [place] Comment on above: Order Comment: Speci men Type: BLOOD SPECIMENOrdering Facility: [facility] Address: [address] [place] [address] Performed By: #### 5 7021-8 ####[facility] LABCLIA [id number] [place] [address] [place] Nucleated RBC/100 WBC (Bld) [Ratio] 0.0 /100 WBC Normal [facility] [place] Comment on above: Order Comment: Speci men Type: BLOOD SPECIMENOrdering Facility: [facility] Address: [address] [place] [address] Performed By: #### 5 7021-8 ####[facility] LABCLIA [id number] [place] [address] [place] Platelet mean volume (Bld) [Entitic vol] 10.0 fL Normal 9.0-12.7 [facility] [place] Comment on above: Order Comment: Speci men Type: BLOOD SPECIMENOrdering Facility: [facility] Address: [address] [place] [address] Performed By: #### 5 7021-8 ####[facility] LABCLIA [id number] [place] [address] [place] Platelets (Bld) [#/Vol] 232 10*3/uL Normal 150-400 [facility] [place] Comment on above: Order Comment: Speci men Type: BLOOD SPECIMENOrdering Facility: [facility] Address: [address] [place] [address] Performed By: #### 5 7021-8 ####[facility] LABCLIA [id number] [place] [address] [place] RBC (Bld) [#/Vol] 5.07 10*6/uL Normal 4.20-6.00 [facility] Comment on above: Order Comment: Speci men Type: BLOOD SPECIMENOrdering Facility: [facility] Address: [address] [place] [address] Performed By: #### 5 7021-8 ####[facility] LABCLIA [id number] [place] [address] [place] WBC (Bld) [#/Vol] 6.05 10*3/uL Normal 3.70-11.00 [facility] Comment on above: Order Comment: Speci men Type: BLOOD SPECIMENOrdering Facility: [facility] Address: [address] [place] [id number] Performed By: #### 5 7021-8 ####[facility] LABCLIA [id number] [place] [id number] [place] Comprehensive metabolic 2000 panelon 03-11-2024 Albumin [Mass/Vol] 4.2 g/dL Normal 3.9-4.9 [facility] Comment on above: Order Comment: Speci men Type: BLOOD SPECIMENOrdering Facility: [facility] Address: [address] [place] [address] Performed By: #### 2 4323-8, 43426-9 ####[facility] LABCLIA [id number] [place] [address] [place] ALP [Catalytic activity/Vol] 67 U/L Normal 38-113 [facility] [place] Comment on above: Order Comment: Speci men Type: BLOOD SPECIMENOrdering Facility: [facility] Address: [address] [place] [address] Performed By: #### 2 4323-8, 08257-0 ####[facility] LABCLIA [id number] [address] [place] ALT [Catalytic activity/Vol] 31 U/L Normal 10-54 [facility] [place] Comment on above: Order Comment: Speci men Type: BLOOD SPECIMENOrdering Facility: [facility] Address: [address] [place] [address] Performed By: #### 2 4323-8, 37295-8 ####[facility] LABCLIA [id number] [place] [id number] [place] Anion gap [Moles/Vol] 14 mmol/L Normal 8-15 [facility] Comment on above: Order Comment: Speci men Type: BLOOD SPECIMENOrdering Facility: [facility] Address: [address] [place], [place] [address] Performed By: #### 2 4328, ####[facility] LABCLIA [id number] [place] [id number] [place] AST [Catalytic activity/Vol] 25 U/L Normal 14-40 [facility] [place] Comment on above: Order Comment: Speci men Type: BLOOD SPECIMENOrdering Facility: [facility] Address: [address] [place] [address] Performed By: #### 2 4328, ####[facility] LABCLIA [id number] [place] [id number] [place] Bilirubin [Mass/Vol] 0.6 mg/dL Normal 0.2-1.3 [facility] Comment on above: Order Comment: Speci men Type: BLOOD SPECIMENOrdering Facility: [facility] Address: [address] [place] [address] Performed By: #### 2 4328, ####[facility] LABIA [id number] [place] [address] [place] Calcium [Mass/Vol] 9.5 mg/dL Normal 8.5-10.2 [facility] Comment on above: Order Comment: Speci men Type: BLOOD SPECIMENOrdering Facility: [facility] Address: [address] [place] [address] Performed By: #### 2 4328, ####[facility] LABCLIA [id number] [place] [id number] [place] Chloride [Moles/Vol] 102 mmol/L Normal 98-107 [facility] Comment on above: Order Comment: Speci men Type: BLOOD SPECIMENOrdering Facility: [facility] Address: [address] [place] [address] Performed By: #### 2 4323-8, 96856-5 ####[facility] LABCLIA [id number] [place] [id number] [place] CO2 [Moles/Vol] 23 mmol/L Normal 22-30 [facility] [place] Comment on above: Order Comment: Speci men Type: BLOOD SPECIMENOrdering Facility: [facility] Address: [address] [place] [address] Performed By: #### 2 4323-8, 95937-1 ####[facility] LABCLIA [id number] [place] [address] [place] Creatinine [Mass/Vol] 0.94 mg/dL Normal 0.73-1.22 [facility] Comment on above: Order Comment: Speci men Type: BLOOD SPECIMENOrdering Facility: [facility] Address: [address] [place] [address] Performed By: #### 2 4323-8, ####[facility] LABCLIA [id number] [place] [address] [place] Creatinine and Glomerular filtration rate.predicted panel (S/P/Bld) 88 mL/min/1.73m??? Normal >=60 [facility] [place] Comment on above: Order Comment: Speci men Type: BLOOD SPECIMENOrdering Facility: [facility] Address: [address] [place] [address] Result Comment: Diana mated Glomerular Filtration Rate (eGFR) is calculated using the 2020 CKD-EPI creatinine equation. This equation utilizes serum creatinine, sex, and age as parameters. The creatinine assay has traceable calibration to isotope dilution-mass spectrometry. Refer to KDIGO guidelines for clinical interpretation. In patients with unstable renal function, e.g. those with acute kidney injury, the eGFR may not accurately reflect actual GFR. Performed By: #### 2 4323-8, 94917-3 ####[facility] LABCLIA [id number] [place] [address] [place] Glucose [Mass/Vol] 104 mg/dL High 74-99 [facility] Comment on above: Order Comment: Speci men Type: BLOOD SPECIMENOrdering Facility: [facility] Address: [address] [place] [address] Result Comment: The [place] Diabetes Association (ADA) provides guidance for cutoff values for fasting glucose and random glucose. The ADA defines fasting as no caloric intake for at least 8 hours. Fasting plasma glucose results between 100 to 125 mg/dL indicate increased risk for diabetes (prediabetes). Fasting plasma glucose results greater than or equal to 126 mg/dL meet the criteria for diagnosis of diabetes. In the absence of unequivocal hyperglycemia, results should be confirmed by repeat testing. In a patient with classic symptoms of hyperglycemia or hyperglycemic crisis, random plasma glucose results greater than or equal to 200 mg/dL meet the criteria for diagnosis of diabetes. Reference: Standards of Medical Care in Diabetes 2016, [place] [employer]. Diabetes Care. 2016.39(Suppl 1). Performed By: #### 2 4323-8, 71328-8 ####[facility] LABCLIA [id number] [place] [address] [place] Potassium [Moles/Vol] 3.9 mmol/L Normal 3.7-5.1 [facility] Comment on above: Order Comment: Speci men Type: BLOOD SPECIMENOrdering Facility: [facility] Address: [address] [place] [address] Performed By: #### 2 4323-8, 13083-1 ####[facility] LABIA [id number] [place] [address] [place] Protein [Mass/Vol] 7.1 g/dL Normal 6.3-8.0 [facility] Comment on above: Order Comment: Speci men Type: BLOOD SPECIMENOrdering Facility: [facility] Address: [address] [place] [address] Performed By: #### 2 4323-8, 09666-4 ####[facility] LABCLIA [id number] [place] [address] [place] Sodium [Moles/Vol] 139 mmol/L Normal 136-144 [facility] Comment on above: Order Comment: Speci men Type: BLOOD SPECIMENOrdering Facility: [facility] Address: [address] [place] [address] Performed By: #### 2 4323-8, 96316-3 ####[facility] [id number] [place] [id number] [place] Urea nitrogen [Mass/Vol] 14 mg/dL Normal 9-24 [facility] [place] Comment on above: Order Comment: Speci men Type: BLOOD SPECIMENOrdering Facility: [facility] Address: [address] [place] [address] Performed By: #### 2 4323-8, 89608-9 ####[facility] [id number] [place] [address] [place] IMMUNOFIXATION SCREEN, SERUM on 03-11-2024 MPA RESULT No M protein is identified. Normal No M protein is identified . [facility] [place] Comment on above: Order Comment: Speci men Type: BLOOD SPECIMENOrdering Facility: [facility] Address: [address] [place] [address] Performed By: #### I FES ####[facility] [id number] [place] [address] [place] STAFF REVIEW (MPA) Reviewed by Laisha Rey M.D., Ph.D Normal [facility] [place] Comment on above: Order Comment: Speci men Type: BLOOD SPECIMENOrdering Facility: [facility] Address: [address] [place] [address] Performed By: #### I FES ####[facility] [id number] [place] [address] [place] KAPPA/ARELLANO,FREE,SERon 2023 Immunoglobulin light chains.kappa.free (S) [Mass/Vol] 18.2 mg/L Normal 3.3-19.4 [facility] [place] Comment on above: Order Comment: Speci men Type: BLOOD SPECIMENOrdering Facility: [facility] Address: [address], [place] [address] Result Comment: Rare ly, increased serum free light chains levels may not be detected or accurately quantified due to prozone phenomenon or in high viscosity samples using this immunoturbidimetric assay. Correlation with other laboratory results and clinical findings is recommended. The [place] Free Light Chain was performed using the Binding Site Optilite immunoturbidimetric method. Result obtained with different assay methods or kits cannot be used interchangeably. Performed By: #### K LFRS ####[facility] LABCLIA [id number] [address] [facility] Immunoglobulin light chains.kappa/Immunoglobulin light chains.lambda (S) [Mass ratio] 1.18 Normal 0.26-1.65 [facility] [place] Comment on above: Order Comment: Speci men Type: BLOOD SPECIMENOrdering Facility: [facility] Address: [address] [place] [address] Performed By: #### K LFRS ####[facility] LABCLIA [id number] [address] Immunoglobulin light chains.lambda.free [Mass/Vol] 15.4 mg/L Normal 5.7-26.3 [facility] [place] Comment on above: Order Comment: Speci men Type: BLOOD SPECIMENOrdering Facility: [facility] Address: [address] [place] [address] Result Comment: Rare ly, increased serum free light chains levels may not be detected or accurately quantified due to prozone phenomenon or in high viscosity samples using this immunoturbidimetric assay. Correlation with other laboratory results and clinical findings is recommended. The [place] Free Light Chain was performed using the Binding Site Optilite immunoturbidimetric method. Result obtained with different assay methods or kits cannot be used interchangeably. Performed By: #### K LFRS ####[facility] LABCLIA [id number] [place] [address] [place] LPa SerPl-mCncon 03-11-2024 Lipoprotein a [Mass/Vol] 8 mg/dL Normal <30 [facility] [place] Comment on above: Order Comment: Speci men Type: BLOOD SPECIMENOrdering Facility: [facility] Address: [address] [place] [address] Performed By: #### 1 0835-7 ####[facility] LABCLIA [id number] [place] [address] [place] Lipid 1996 panelon 4 Cholesterol [Mass/Vol] 160 mg/dL Normal <200 [facility] Comment on above: Order Comment: Speci men Type: BLOOD SPECIMENOrdering Facility: [facility] Address: [address] [place] [address] Result Comment: <200 mg/dL, Desirable 200-239 mg/dL, Borderline high >239 mg/dL, High Performed By: #### 2 4323-8, 02498-4 ####[facility] LABCLIA [id number] [address] [place] Cholesterol in HDL [Mass/Vol] 55 mg/dL Normal >39 [facility] [place] Comment on above: Order Comment: Speci men Type: BLOOD SPECIMENOrdering Facility: [facility] Address: [address] [place] [address] Result Comment: 40-5 9 mg/dL, Acceptable >59 mg/dL, High: Negative risk factor for coronary heart disease <40 mg/dL, Low: Positive risk factor for coronary heart disease Performed By: #### 2 4323-8, 64977-3 ####[facility] LABCLIA [id number] [address] [place] Cholesterol in LDL [Mass/Vol] 77 mg/dL Normal <100 [facility] [place] Comment on above: Order Comment: Speci men Type: BLOOD SPECIMENOrdering Facility: [facility] Address: [address] [place] [address] Result Comment: <100 mg/dL, Optimal 100-129 mg/dL, Near optimal/above optimal 130-159 mg/dL, Borderline high 160-189 mg/dL, High >189 mg/dL, Very high Secondary prevention optimal LDL Cholesterol levels are recommended to be < 70 mg/dL Performed By: #### 2 4323-8, 87393-2 ####[facility] LABCLIA [id number] [place] [address] [place] Cholesterol in LDL/Cholesterol in HDL [Mass ratio] 1.40 {ratio} Normal <2.54 [facility] [place] Comment on above: Order Comment: Speci men Type: BLOOD SPECIMENOrdering Facility: [facility] Address: [address] [place] [address] Result Comment: Kane toledoce: 1. National Cholesterol Education Program ATP III Guideline At-A-Glance Quick Desk Reference: National Heart, Lung, and Blood Flushing. National Institutes of Health. 2001: NIH Publication No. 01-3305. 2. An International Atherosclerosis Society position paper: global recommendations for the management of dyslipidemia: executive summary, Atherosclerosis. 2014: 232(2):410-413. Performed By: #### 2 4323-8, 90218-6 ####[facility] LABCLIA [id number] [place] [address] [place] Cholesterol in VLDL [Mass/Vol] 28 mg/dL Normal <30 [facility] [place] Comment on above: Order Comment: Speci men Type: BLOOD SPECIMENOrdering Facility: [facility] Address: [address] [place] [address] Performed By: #### 2 4323-8, 45767-5 ####[facility] LABCLIA [id number] [place] [address] [place] Cholesterol non HDL [Mass/Vol] 105 mg/dL Normal <130 [facility] [place] Comment on above: Order Comment: Speci men Type: BLOOD SPECIMENOrdering Facility: [facility] Address: [address] [place] [address] Result Comment: <130 mg/dL, Optimal 130-159 mg/dL, Near optimal/above optimal 160-189 mg/dL, Borderline high 190-219 mg/dL, High >219 mg/dL, Very high Secondary prevention optimal non HDL Cholesterol levels are recommended to be <100 mg/dL Performed By: #### 2 4323-8, 60565-8 ####[facility] LABCLIA [id number] [address] [address] [place] Cholesterol.total/Cholester ol in HDL [Mass ratio] 2.91 {ratio} Normal <5.10 [facility] [place] Comment on above: Order Comment: Speci men Type: BLOOD SPECIMENOrdering Facility: [facility] Address: [address] [place] [address] Performed By: #### 2 4323-8, 15546-3 ####[facility] LABIA [id number] [place] [address] [place] FASTING TIME 12 hrs Normal [facility] [place] Comment on above: Order Comment: Speci men Type: BLOOD SPECIMENOrdering Facility: [facility] Address: [address] [place] [address] Performed By: #### 2 4323-8, ####[facility] LABIA [id number] [place] [address] [place] Triglyceride [Mass/Vol] 142 mg/dL Normal <150 [facility] Comment on above: Order Comment: Speci men Type: BLOOD SPECIMENOrdering Facility: [facility] Address: [address] [place] [address] Result Comment: <150 mg/dL, Normal 150-199 mg/dL, Borderline high 200-499 mg/dL, High >499 mg/dL, Very high Performed By: #### 2 4323-8, ####[facility] LABIA [id number] [place] [address] [place] MONOCLONAL PROT UR W/INTERPo n 03-11-2024 STAFF REVIEW ([facility]) Reviewed by Laisha Rey M.D., Ph.D Normal [facility] Comment on above: Order Comment: Speci men Type: URINE SPECIMENOrdering Facility: [facility] Address: [address] [place] [address] Performed By: #### U RMPA ####[facility] LABCLIA [id number] [address] [place] UMPA RESULT No M protein is identified. Normal No M protein is identified . [facility] Comment on above: Order Comment: Speci men Type: URINE SPECIMENOrdering Facility: [facility] Address: [address] [place] [address] Performed By: #### U RMPA ####[facility] LABIA [id number] [address] [place] CNPNon 03-08-2024 CNPN Telephone (CATHMN) LAM GARCIA ([id number]) 1955 M Date Time Provider Department 03/08/24 DELMA SEVERINO During your visit today, we recorded the following information about you: Tika Eagle 03/08/2024 3:20 PM Signed Recvd call from pre-access department. Pt has multiple blood tests ordered, and the results are required before the test can be approved. This caregiver was unsuccessful in reaching patient personally to relay message. Left VMM on his cell # provided by his adult sone when we call the # listed in Demographics ([phone]) Juhi Bo 03/08/2024 4:27 PM Signed Patient returned call He will get labs at [facility] Topmost Allergies As of Date: 03/08/2024 (No Known Allergies) Date Reviewed: 01/23/2024 Reviewed by: Delma Severino MD - Fully Assessed Reason for Visit: Insurance Authorization [[id number]] Prescriptions as of 03/11/2024 - allopurinol (ZYLOPRIM) 100 mg tablet Take 100 mg by mouth two times a day. - famotidine (PEPCID) 20 mg tablet Take 1 tablet by mouth every afternoon. - ranolazine SR (RANEXA) 1,000 mg tab ER 12 hr Take 1,000 mg by mouth two times a day. - Multivitamins-Minerals- Lutein (MULTIVITAMIN 50 PLUS) tab Take 1 tablet by mouth once daily. - metoprolol tartrate, short acting, (LOPRESSOR) 25 mg tablet Take 1 tablet by mouth two times a day. - losartan (COZAAR) 100 mg tablet Take 1 tablet by mouth every afternoon. - amLODIPine (NORVASC) 5 mg tablet Take 1 tablet by mouth once daily. - LIPITOR 20 MG TAB Take one(1) tablet daily. - ASPIRIN 81MG TABLET Take one (1) tablet daily . Problem List As Of Date 03/08/2024 Noted Resolved PAIN IN LIMB [M79.609] 02/25/2003 ABNORMAL CARDIOVASC STUDY NOS [R94.30] 03/03/2006 CHEST PAIN NOS [R07.9] 03/03/2006 BENIGN HYPERTENSION [I10] 03/03/2006 HYPERLIPIDEMIA NEC/NOS [E78.5] 03/03/2006 GENERAL OSTEOARTHROSIS [M15.9] 03/03/2006 Encounter Status:Closed [facility] RE[facility]I [facility] (ELISEO) LAM GARCIA ([id number]) 1955 M Date Time Provider Department 02/06/24 DELMA SEVERINO During your visit today, we recorded the following information about you: Tika Eagle 02/06/2024 8:18 AM Signed Images on CD recvd from [facility] imported to [email or web address] (DL) nm stress 08/16/21; chest w/o contrast 09/10/21; CTA chest 4/3/23;NM stress 03/21/16; 07/10/13; 02/19/10; Allergies As of Date: 02/06/2024 (No Known Allergies) Date Reviewed: 01/23/2024 Reviewed by: Delma Severino MD - Fully Assessed Reason for Visit: Received Outside Medical Records [[id number]] Cmt: [facility] Prescriptions as of 02/06/2024 - allopurinol (ZYLOPRIM) 100 mg tablet Take 100 mg by mouth two times a day. - famotidine (PEPCID) 20 mg tablet Take 1 tablet by mouth every afternoon. - ranolazine SR (RANEXA) 1,000 mg tab ER 12 hr Take 1,000 mg by mouth two times a day. - Multivitamins-Minerals- Lutein (MULTIVITAMIN 50 PLUS) tab Take 1 tablet by mouth once daily. - metoprolol tartrate, short acting, (LOPRESSOR) 25 mg tablet Take 1 tablet by mouth two times a day. - losartan (COZAAR) 100 mg tablet Take 1 tablet by mouth every afternoon. - amLODIPine (NORVASC) 5 mg tablet Take 1 tablet by mouth once daily. - LIPITOR 20 MG TAB Take one(1) tablet daily. - ASPIRIN 81MG TABLET Take one (1) tablet daily . Problem List As Of Date 02/06/2024 Noted Resolved PAIN IN LIMB [M79.609] 02/25/2003 ABNORMAL CARDIOVASC STUDY NOS [R94.30] 03/03/2006 CHEST PAIN NOS [R07.9] 03/03/2006 BENIGN HYPERTENSION [I10] 03/03/2006 HYPERLIPIDEMIA NEC/NOS [E78.5] 03/03/2006 GENERAL OSTEOARTHROSIS [M15.9] 03/03/2006 Encounter Status:Closed by TIKA EAGLE on 02/06/24 Normal [facility] CNOVon 01-23-2024 CNOV Office Visit (CATHMN ) BREE,LAM J ([id number]) 1955 M Date Time Provider Department 01/23/24 2:15 PM DELMA SEVERINO During your visit today, we recorded the following information about you: Pulse Respiration Blood pressure Weight 64/minute 18/minute 134/75 104.3 kg Height 1.829 m Delma Severino MD 01/23/2024 7:10 PM Signed Heart, Vascular and Thoracic [facility] Department of Cardiovascular Medicine SECTION OF INTERVENTIONAL CARDIOLOGY OUTPATIENT VISIT DATE 01/23/2024 OUTPATIENT VISIT TYPE NEW PRIMARY CARE PHYSICIAN: To use this Smartlink, specify the provider ID whose address you want to display, e.g., .PROVADDR[1 (where 1 is the provider ID). REFERRING PHYSICIAN: No referring provider defined for this encounter. CHIEF COMPLAINT: For CAD and chest pain HISTORY OF PRESENT ILLNESS: Patient is a 68-year-old male with a history of hypertension, hyperlipidemia, and coronary artery disease (CAD), presenting for evaluation of chest pressure and dyspnea. He reports a two-year history of intermittent chest pressure localized to the mid-sternal area, accompanied by dyspnea. These symptoms occur variably during physical activity, such as walking or playing pickleball, and are sometimes alleviated by belching. He notes that the symptoms can be unpredictable, occurring during short walks or not at all during longer activities. Additionally, he has observed bilateral lower extremity edema over the past year, and overall fatigue and SOB His cardiac history includes three cardiac catheterizations, with the most recent in 2022. The first catheterization in 2011 was prompted by anxiety due to a strong family history of myocardial infarction, including both grandfathers, his brother, and his father having CAD. He was told he had blockages that were not severe and should be medically managed. The second catheterization was a follow-up, and the third was performed due to the onset of chest pressure and SOB. At that time in 2022 n addition to his cardiac evaluations, he has had extensive gastrointestinal and pulmonary testing, including a scope and imaging studies. These tests revealed an elevated right hemidiaphragm and an abdominal hernia, but no hiatal hernia. He has not had an echocardiogram.For this reason his PCP requested that he be re-evaluated with cath and when cath was done he was informed of smaller coronaries with blockages and cannot be addressed surgically. He has also undergone multiple stress tests, with the most recent in 2021, which reportedly showed no significant abnormalities. He is frustrated because he feels everyone keeps stating that the heart or lung or GI is not the cause and he wants someone to give him answers. NURSING INTAKE: The patient is a 68 year old male from [place], [place] here today for cardiovascular evaluation. He has a long personal history of CAD. He had a heart catheterization in 2013 (medical therapy recommended at the time). He had a high calcium score in 2005. He has had several heart catheterizations and stress tests since (most re recent cath in 09/2022). 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 He was told that his vessels are too small to stent and that some of them are not blocked enough to stent. For the last couple of years he has been experiencing chest pressure with activity (pickleball and walking). He feels like he has to belch in order to relieve the pressure. He sometimes has the pressure while at rest. He is also short of breath with and without activity. The pressure is usually somewhat relieved with belching. He does have an abdominal hernia. For the last 6 months he has noticed bilateral leg/ankle swelling. He feels like his symptoms have worsened over the last couple of years. He has a medical history significant for: CAD, HLD, HTN, arthritis, abd hernia He reports the following symptoms of chest pressure, shortness of breath, leg swelling He denies the following symptoms of palpitations, lightheadedness, dizziness, syncope, claudication, coughing, wheezing and signs/symptoms of a stroke. He follows a regular diet. He participates in pickleball, walking and biking for exercise/activity. Although he has not been exercising lately due to his symptoms. PAST MEDICAL HISTORY Diagnosis Date ABNORMAL CARDIOVASC STUDY NOS 03/03/2006 CT scan with a high calcium score of 880.9 02-27-06 Arthritis CAD (coronary artery disease) Elevated hemidiaphragm GENERAL OSTEOARTHROSIS 03/03/2006 Hernia, diaphragmatic HLD (hyperlipidemia) HTN (hypertension) PAST SURGICAL HISTORY Procedure Laterality Date ARTHROSCOPY KNEE DIAGNOSTIC W/WO SYNOVIAL BX SPX Arthroscopy, knee ARTHROTOMY W/MENISCUS REPAIR KNEE Open knee reconstruction (more content not included)... Normal [facility] ECG COMPLETEon 01-23-2024 ECG COMPLETE Ventricular Rate : 5 6 BPM Atrial Rate : 56 BPM P-R Interval : 176 ms QRS Duration : 72 ms Q-T Interval : 418 ms QTC Calculation(Bazett) : 403 ms Calculated P [place] : 29 degrees Calculated R [place] : 5 degrees Calculated T [place] : 13 degrees SINUS BRADYCARDIA OTHERWISE NORMAL ECG Confirmed by FERNANDEZ MOREIRA MD (57) on 02/09/2024 2:39:56 PM NAME : LAM GARCIA PID : [id number] : 1955 Gender : Male Race : ORD : [id number] Procedure Date : Jan 23 2024 13:39:13 Edit Date : Feb 09 2024 14:39:58 Diagnosis: SINUS BRADYCARDIA OTHERWISE NORMAL ECG Confirmed by FERNANDEZ MOREIRA MD (57) on 02/09/2024 2:39:56 PM Test Reason : Location : [facility] : [place] [address] Overread By : FERNANDEZ MOREIRA MD Edited By : FERNANDEZ MOREIRA MD Referred By : , Acquired by : LATA TELLO [facility] Emergency Department Summary on 12-26-2023 Emergency Department Summary [facility] Medical Records Department [address] [place] [id number] Emergency Department Summary 12/26/23 MR#: [id number] Acct: [id number] Name: LAM GARCIA Rep #: [id number] : 1955 68 From: Jerod Prado DO PCP: Dr. Wood Hurtado MD Status:DEP ER Location: ED HPI History of Present Illness Chief Complaint: Fever Informant: patient Onset/Context/Timing Onset: Yesterday Context: Gradual Onset Timing: Continuous Quality: Chills Location: Generalized Worsened by: Nothing Relieved by: Tylenol Narrative Narrative: Patient presents with a fever that began yesterday. Patient states he checked his temperature at home and it was up to 105. Patient states that was a scanning thermometer and he is not sure how accurate it was. Patient admits to feeling chilled. Patient states he did take some Tylenol prior to arrival. Patient states this seemed to help. Patient also admits to a frontal headache. Patient was to some postnasal drainage and some rhinorrhea. Patient also admits to a mild cough. [facility] Medical History Gout Anxiety Acute insomnia CAD (coronary artery disease) GERD (gastroesophageal reflux disease) Osteoarthritis Cervical radiculopathy Erectile dysfunction Edema Glucose intolerance (impaired glucose tolerance) Calculus of right kidney Essential (primary) hypertension Essential hypertension Elevated liver enzymes Atherosclerotic heart disease of [place] coronary artery without angina pectoris HLD (hyperlipidemia) Home Medications ???Medication ???Instructions ???Recorded ???Last Taken ???Type multivitamin 1 tab PO QDAY 08/21/17 Unknown History naproxen sodium 220 mg tablet 220 mg PO QDAY PRN Pain 08/24/17 Unknown History (Aleve) allopurinol 100 mg tablet 100 mg PO BID 09/03/18 09/10/21 History nitroglycerin 0.4 mg sublingual 0.4 mg sublingual Q5-15M PRN chest 11/04/22 Unknown Rx tablet (Nitrostat) pain #25 tabs rosuvastatin 20 mg tablet (Crestor) 20 mg PO DAILY 11/04/22 Unknown History sildenafil 100 mg tablet 100 mg PO ONCE PRN 11/04/22 Unknown History sucralfate 1 gram tablet 1 g PO BID 11/04/22 Unknown History amlodipine 5 mg tablet 5 mg PO BID #180 tabs 05/15/23 Unknown Rx aspirin 81 mg tablet,delayed 81 mg PO DAILY 05/15/23 Unknown History release (Adult Low Dose Aspirin) famotidine 20 mg tablet 20 mg PO QDAY 09/22/23 Unknown History metoprolol tartrate 100 mg tablet 100 mg PO QDAY 09/22/23 Unknown History ranolazine 1,000 mg 1,000 mg PO BID #180 tabs 11/08/23 Unknown Rx tablet,extended release,12 hr nirmatrelvir 300 mg (150 mg See Rx Instructions PO .COMPLEX 12/26/23 Unknown Rx x2)-ritonavir 100 mg tablet,dose #30 tabs pack (Paxlovid) Allergy/AdvReac Type Severity Reaction Status Date / Time gabapentin AdvReac memory loss Verified 12/26/23 16:54 Family History Father Myocardial infarction CAD (coronary artery disease) Hx coronary stents HLD (hyperlipidemia) Mother CVA (cerebral vascular accident) Brother Myocardial infarction CAD (coronary artery disease) Hc coronary stents HLD (hyperlipidemia) Hypertension Colon cancer Surgical History History of carpal tunnel surgery History of left heart catheterization (09/10/21) History of lithotripsy (12/2018) 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) History of knee surgery Social History Smoking Status: Never smoker alcohol intake: current alcohol intake frequency: a few times a week Alcohol type: beer, wine and hard liquor substance use type: does not use caffeine: Yes Type: coffee what type of physical activity do you participate in: none seatbelt use: always do you feel safe at home: Yes ROS ROS ED Constitutional Constitutional ED: Reports chills and fever(s) Eyes Eyes: Denies blurry vision or change in vision ENT ENT ED: Reports rhinorrhea; Denies sore throat Cardiovascular Cardiovascular: Denies chest pain or palpitations Respiratory/Chest Respiratory/Chest: Reports cough; Denies dyspnea Gastrointestinal Gastrointestinal: Denies nausea or vomiting Genitourinary Genitourinary ED: Denies dysuria or hematuria Musculoskeletal Musculoskeletal: Denies back pain or neck pain Integumentary Denies abscess or rash Neurologic Neurologic: Reports headache(s); Denies weakness Allergic/Immunologic Allergic/Immunologic ED: Denies mouth swelling or urticaria EXAM Physical Exam Const Vital Signs: 12/26/23 16:54 12/26/23 17:43 Temperature 99.8 F H 99.2 F H Temperature Source Oral Oral Pulse Rate 115 H Respiratory Rate 18 (more content not included)... Normal [facility] M100.678on 12-26-2023 M100.678 SARS-CoV-2 (COVID 19 ) A Positive A INFLUENZA A Negative INFLUENZA B Negative RSV PCR Negative SARS-CoV-2 (COVID 19) Normal [facility] Comment on above: Performed By: #### M 100.678 #### [facility] Laboratory [facility] [place], [address] Inital Evaluation (1) - PTon 10-27-2023 Inital Evaluation (1) - PT [facility] [address] [place] [address] / REHABILITATION SERVICES INITIAL EVALUATION MR#: [id number] Acct: [id number] Name: LAM GARCIA Rep #: [id number] : 1955 68 From: Hattie LICONA Referring Dr.: Aba Dc PA-C Status: REG R CR Insurance: Singular SELF PAY INSURANCE Patient's Visit Information Visit Information Visit Information: LAM GARCIA is a 68 year old M referred to Physical Therapy by Aba Dc PA-C with a diagnosis of L knee pain and strain of L Quad. Date of Evaluation: 10/27/23 Physical Therapist: MONAE Jaramillo Visit Plan Frequency: 2x /Week Duration: 3 Weeks Plan: 2X/ week for 3 weeks for L Quad and hip flexor stretching, L Quad/HS co contraction strength, B Glut and hip ext strength, some core with HEP HEP: bridges, SLR, S/L hip abd, off the side of the table hip flexor stretch Subjective Subjective: Pt tweaked his L knee and they thought that he had torn the Quad a little bit. The PA wanted him to do PT. He injured him self about 1.5 to 2 mo ago. He was walking down the steps and his foot slipped out from underneath him. He is feeling better. It is not bothering him at all now. He is walking fine, getting up off the floor fine. He has a TKR on the R and that knee bothers him. He was walking and play pickle ball. he feels that a scaled down version he thinks he might be ready to go back to pickleball Pain L knee pain: Pain Intensity (Out of 10): 0 Objective Objective: Gait: walks with decrease stance time on the L Heel and toe raises with ease B LE MMT: B hip flex 4/5 R knee ext 4+/5 and L 4/5 R knee flex B 4+/5 L knee AROM -1 to 1118 R knee AROM 0-120 Pt is able to SLR, bridge and S/L hip abd without any issues Pt has tight L >R Quad/hip flexor tightness Pt has 2-/5 B hip ext strength with def decrease AROM (increase twinge of pain in his back) Balance/Special Test Scores Lower Extremity Functional Score: 46 Goals Goal 1:: I HEP Goal Time Frame: 4-6 Weeks Goal 2:: Be able to perform B hip ext with increase strength and no back pain Goal Time Frame: 4-6 Weeks Goal 3:: Restore B Quad and hip flexor muscle length Goal Time Frame: 4-6 Weeks Rehabilitation Potential Rehabilitation Potential: Good Anticipated Interventions Therapeutic Exercise to Include: Strength training, Flexibilty training, Gait and locomotor training, Active ROM and Dynamic Lumbar Stabilization For the Purpose of:: To decrease pain, To increase ROM, To improve muscle performance and motor function, To improve ability to perform ADL's, To improve ability of physical actions for home/community/work/lei sure, To improve gait and locomotor functions, To improve health of tissue, To decrease soft tissue restriction and To increase flexibility/ROM Functional Training to Include: Gait training For the Purpose of:: To improve gait and locomotor functions Text: Thank you for the opportunity to evaluate your patient. For Medicare and Medicare HMO plans, please review the plan of care and approve it. It will need to be FAXED BACK to us at [phone] for Medicare purposes. For Medicare only, by signing this I certify the plan of care. Please let me know if there are questions or concerns regarding this plan of care. Physician Signature: Date: 10/27/23 1053 CC: GABO Dc; Dr. Wood Hurtado MD Signed Normal [facility] 10-20-2023 REJI Telephone ([facility]) LAM GARCIA ([id number]) 1955 M Date Time Provider Department 10/20/23 RENZO ECKERT During your visit today, we recorded the following information about you: Blanca Boston 10/20/2023 8:44 AM Signed NEW PATIENT REFERRAL: Referring Physician: DOMINIC KovacsC Requesting Physician: Dr. Renzo Eckert MD Reason for Referral: PENDING Diagnosis: Atherosclerotic heart disease of [place] coronary artery without angina; Essential (primary) hypertension; Pure hypercholesterolemia, unspecified Referral Received? Yes Referring Provider Information Received? Yes Patient Demographics AND Insurance Received? Yes Medical Records Received? Yes Cardiac Images Received? No CareEverywhere Updated? Yes - Pulled records through on 10/20/23 Blanca Boston [employer]aire[employer] Associated Facilities in Care Everywhere: Patients Care Team: RECORDS REQUEST: Office faxed medical records request to [facility] - Uploaded records request into patients chart - Review under scanned documents - Office requested the following information: Medical Records AND Cardiac Images from 2020 to present Facility Info: Sent AND delivered on 10/20/23 via [employer] - Blanca Boston [employer] Blanca Boston 11/02/2023 1:37 PM Signed Office received outside medical records from [facility] - Scanned AND uploaded medical records into patients chart - Review under scanned documents - Records Include: 4 PARTS OF MEDICAL RECORDS Allergies As of Date: 10/20/2023 (No Known Allergies) Date Reviewed: 03/03/2006 Reviewed by: Janey Juarez) - Reviewed Reason for Visit: Received Outside Medical Records [[id number]] Cmt: Referral AND Medical Records Consult [502] Cmt: New Patient Referral to Dr. Renzo Eckert MD Prescriptions as of 11/02/2023 - LIPITOR 20 MG TAB Take one(1) tablet daily. - TOPROL XL 100 MG 24 HR TAB Take one(1) tablet daily. - ASPIRIN 81MG TABLET Take one (1) tablet daily . - IBUPROFEN 800MG TABLET as necessary Problem List As Of Date 10/20/2023 Noted Resolved PAIN IN LIMB [M79.609] 02/25/2003 ABNORMAL CARDIOVASC STUDY NOS [R94.30] 03/03/2006 CHEST PAIN NOS [R07.9] 03/03/2006 BENIGN HYPERTENSION [I10] 03/03/2006 HYPERLIPIDEMIA NEC/NOS [E78.5] 03/03/2006 GENERAL OSTEOARTHROSIS [M15.9] 03/03/2006 Encounter Status:Closed by BLANCA BOSTON on 10/20/23 Normal [facility] BNP,B-Type NATRIURETIC PEPTI Romy 09-22-2023 Natriuretic peptide B (Bld) [Mass/Vol] 22.7 pg/mL Normal 0-100 [facility] Comment on above: Performed By: #### L 500.4050, L503.6620, L506.0400, L100.0100, L501.9520, L501.5200 #### [facility] Laboratory [address] [place], [place], [id number] CBC W/Diff, Automatedon 09-05 Absolute Lymph 1.64 X10 3/uL Normal 0.83-4.51 [facility] Comment on above: Performed By: #### L 500.4050, L503.6620, L506.0400, L100.0100, L501.9520, L501.5200 #### [facility] [address] [place], [place], [id number] [phone] Absolute Neut 3.5 X10 3/uL Normal 2.0-7.7 [facility] Comment on above: Performed By: #### L 500.4050, L503.6620, L506.0400, L100.0100, L501.9520, L501.5200 #### [facility] [address] [place], [address] Basophils/100 WBC (Bld) 0.5 % Normal 0-1 [facility] Comment on above: Performed By: #### L 500.4050, L503.6620, L506.0400, L100.0100, L501.9520, L501.5200 #### [facility] [address] [place], [address] Eosinophils/100 WBC (Bld) 3.0 % Normal 0-5 [facility] Comment on above: Performed By: #### L 500.4050, L503.6620, L506.0400, L100.0100, L501.9520, L501.5200 #### [facility] [address] [place], [address] Erythrocyte distribution width (RBC) [Ratio] 12.7 % Normal 11.6-14.6 [facility] Comment on above: Performed By: #### L 500.4050, L503.6620, L506.0400, L100.0100, L501.9520, L501.5200 #### [facility] [address] [place], [address] Hematocrit (Bld) [Volume fraction] 48.6 % Normal 40-54 [facility] Comment on above: Performed By: #### L 500.4050, L503.6620, L506.0400, L100.0100, L501.9520, L501.5200 #### [facility] [address] [place], [address] Hemoglobin (Bld) [Mass/Vol] 16.6 g/dL High 13.0-16. 5 [facility] Comment on above: Performed By: #### L 500.4050, L503.6620, L506.0400, L100.0100, L501.9520, L501.5200 #### [facility] [address] [place], [address] IG% 0.600 Normal 0.0-0.9 [facility] Comment on above: Result Comment: IG% - Immature Granulocytes (promyelocytes, myelocytes and metamyelocytes) > 1% indicates that a LEFT SHIFT is Present. Performed By: #### L 500.4050, L503.6620, L506.0400, L100.0100, L501.9520, L501.5200 #### [facility] [address] [place], [address] Lymphocytes/100 WBC (Bld) 25.7 % Normal 19-41 [facility] Comment on above: Performed By: #### L 500.4050, L503.6620, L506.0400, L100.0100, L501.9520, L501.5200 #### [facility] [address] [place], [address] MCH (RBC) [Entitic mass] 32.2 pg High 27.0-32.0 [facility] Comment on above: Performed By: #### L 500.4050, L503.6620, L506.0400, L100.0100, L501.9520, L501.5200 #### [facility] [facility] [address] [place], [address] MCHC (RBC) [Mass/Vol] 34.2 g/dL Normal 32-36 [facility] Comment on above: Performed By: #### L 500.4050, L503.6620, L506.0400, L100.0100, L501.9520, L501.5200 #### [facility] [address] [place], [address] MCV (RBC) [Entitic vol] 94.2 fL High 80-94 [facility] Comment on above: Performed By: #### L 500.4050, L503.6620, L506.0400, L100.0100, L501.9520, L501.5200 #### [facility] [address] [place], [address] Monocytes/100 WBC (Bld) 14.8 % High 0-10 [facility] Comment on above: Performed By: #### L 500.4050, L503.6620, L506.0400, L100.0100, L501.9520, L501.5200 #### [facility] [address] [place], [address] Neutrophils/100 WBC (Bld) 55.4 % Normal 47-70 [facility] Comment on above: Performed By: #### L 500.4050, L503.6620, L506.0400, L100.0100, L501.9520, L501.5200 #### [facility] [address] [place], [address] Nucleated RBC (Bld) [#/Vol] 0 10*3/uL Normal 0-5 [facility] Comment on above: Performed By: #### L 500.4050, L503.6620, L506.0400, L100.0100, L501.9520, L501.5200 #### [facility] [address] [place], [address] Platelet mean volume (Bld) [Entitic vol] 9.3 fL Normal 6.2-12.0 [facility] Comment on above: Performed By: #### L 500.4050, L503.6620, L506.0400, L100.0100, L501.9520, L501.5200 #### [facility] [address] [place], [address] Platelets (Bld) [#/Vol] 319 10*3/uL Normal 150-450 [facility] Comment on above: Performed By: #### L 500.4050, L503.6620, L506.0400, L100.0100, L501.9520, L501.5200 #### [facility] [address] [place], [address] RBC (Bld) [#/Vol] 5.16 10*6/uL Normal 4.6-6.2 [facility] Comment on above: Performed By: #### L 500.4050, L503.6620, L506.0400, L100.0100, L501.9520, L501.5200 #### [facility] [address] [place], [address] RDW SD 44.2 fl High 35.1-43.9 [facility] Comment on above: Performed By: #### L 500.4050, L503.6620, L506.0400, L100.0100, L501.9520, L501.5200 #### [facility] [address] [place], [address] WBC (Bld) [#/Vol] 6.4 10*3/uL Normal 4.4-11.0 [facility] Comment on above: Performed By: #### L 500.4050, L503.6620, L506.0400, L100.0100, L501.9520, L501.5200 #### [facility] [address] [place], [address] Cardiology Visit Reporton Cardiology Visit Report [facility] [address] [place] [address] OFFICE VISIT Date of Service: 09/22/23 MR#: [id number] Acct: [id number] Name: LAM GARCIA Rep #: [id number] : 1955 Provider: STERILE PROCESS TECH-C Fam H Kenisha f Age/Sex: 68/M Location: [facility] Status: Signed HPI HPI History of Present Illness Details: LAM GARCIA, is a 68 year old gentleman that presents here today for a cardiovascular follow up. He is a gentleman with a history of coronary artery disease status post catheterization in 2013, 2021 and more recently September 2022. He had presented with significant chest discomfort and it demonstrated a dominant left system with an ejection fraction of 60% LAD with moderate calcification and a proximal 50% stenosis in mid segment 50 to 60% stenosis and 2 small diagonal branches which were not amenable to PCI. The circumflex artery was dominant with mild disease in the right coronary was nondominant with a proximal high-grade 80 to 90% stenosis noted. It was determined to be unchanged from the year prior and medical therapy was recommended. He did have ranolazine added to his regimen and he appears to tolerating this quite well. He acknowledges chest pressure that improves with belching. He acknowledges palpitations, bilateral lower extremity edema, and shortness of breath with activity. This is intermittent and not with all activity. He denies claudication, shortness of breath at rest, orthopnea, or PND. He denies lightheadedness, dizziness, near-syncope, or syncope. He acknowledges fatigue. Intake Vital Signs 05/15/23 09:05 09/22/23 10:03 Height 6 ft 6 ft Weight: 228 lb BMI 30.9 BP 130/78 H 136/92 H Blood Pressure Location Lt brachial Position Sitting Respiration 18 Pulse 92 Pulse Source Monitor Intake Visit Reasons: 4 M FU Intake Specialist Required: No Accompanied by: Self Is patient in pain?: No Allergies gabapentin Adverse Reaction (Verified 09/22/23 10:07) memory loss Medications ???Medication ???Instructions ???Recorded ???Confirmed ???Type multivitamin 1 tab PO QDAY 08/21/17 09/22/23 History naproxen sodium 220 mg tablet 220 mg PO QDAY PRN Pain 08/24/17 09/22/23 History (Aleve) allopurinol 100 mg tablet 100 mg PO BID 09/03/18 09/22/23 History nitroglycerin 0.4 mg sublingual 0.4 mg sublingual Q5-15M PRN chest 11/04/22 09/22/23 Rx tablet (Nitrostat) pain #25 tabs rosuvastatin 20 mg tablet (Crestor) 20 mg PO DAILY 11/04/22 09/22/23 History sildenafil 100 mg tablet 100 mg PO ONCE PRN 11/04/22 09/22/23 History sucralfate 1 gram tablet 1 g PO BID 11/04/22 11/04/22 History amlodipine 5 mg tablet 5 mg PO BID #180 tabs 05/15/23 09/22/23 Rx aspirin 81 mg tablet,delayed 81 mg PO DAILY 05/15/23 09/22/23 History release (Adult Low Dose Aspirin) famotidine 20 mg tablet 20 mg PO QDAY 09/22/23 09/22/23 History metoprolol tartrate 100 mg tablet 100 mg PO QDAY 09/22/23 09/22/23 History ranolazine 1,000 mg 1,000 mg PO BID #180 tabs 09/22/23 09/22/23 Rx tablet,extended release,12 hr PFSH Medical History Gout Anxiety Acute insomnia CAD (coronary artery disease) GERD (gastroesophageal reflux disease) Osteoarthritis Cervical radiculopathy Erectile dysfunction Edema Glucose intolerance (impaired glucose tolerance) Calculus of right kidney Essential (primary) hypertension Essential hypertension Elevated liver enzymes Atherosclerotic heart disease of [place] coronary artery without angina pectoris HLD (hyperlipidemia) Surgical History History of left heart catheterization (09/10/21) History of lithotripsy (12/2018) 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) History of knee surgery Family History Father Myocardial infarction CAD (coronary artery disease) Hx coronary stents HLD (hyperlipidemia) Mother CVA (cerebral vascular accident) Brother Myocardial infarction CAD (coronary artery disease) Hc coronary stents HLD (hyperlipidemia) Hypertension Colon cancer Social History Smoking Status: Never smoker alcohol intake: current alcohol intake frequency: a few times a week Alcohol type: beer, wine and hard liquor substance use type: does not use caffeine: Yes Type: coffee what type of physical activity do you participate in: none seatbelt use: always do you feel safe at home: Yes ROS Const Const: Positive for fatigue; Negative for weakness ENT ENT: Negative for dizziness or balance problems Cardio Chest Pain: Yes Character: other (pressure) Relieving: other (belching relieves it) Palpitations: Yes Edema: (more content not included)... Normal [facility] Comprehensive Metabolic Prof ilon 09-22-2023 Albumin [Mass/Vol] 3.8 g/dL Normal 3.2-5.0 [facility] Comment on above: Performed By: #### L 500.4050, L503.6620, L506.0400, L100.0100, L501.9520, L501.5200 #### [facility] [address] [place], [address] Albumin/Globulin [Mass ratio] 1.0 {ratio} Normal 0.9-2.4 [facility] Comment on above: Performed By: #### L 500.4050, L503.6620, L506.0400, L100.0100, L501.9520, L501.5200 #### [facility] [address] [place], [address] ALK P 66 U/L Normal 45-117 [facility] Comment on above: Performed By: #### L 500.4050, L503.6620, L506.0400, L100.0100, L501.9520, L501.5200 #### [facility] [address] [place], [address] ALT [Catalytic activity/Vol] 47 U/L Normal 16-61 [facility] Comment on above: Performed By: #### L 500.4050, L503.6620, L506.0400, L100.0100, L501.9520, L501.5200 #### [facility] [address] [place], [address] AST [Catalytic activity/Vol] 28 U/L Normal 15-37 [facility] Comment on above: Performed By: #### L 500.4050, L503.6620, L506.0400, L100.0100, L501.9520, L501.5200 #### [facility] [address] [place], [address] Bilirubin [Mass/Vol] 0.80 mg/dL Normal 0.20-1.00 [facility] Comment on above: Result Comment: For patients on eltrombopag therapy, use of Dimension [place] TBIL is not recommended. Performed By: #### L 500.4050, L503.6620, L506.0400, L100.0100, L501.9520, L501.5200 #### [facility] [address] [place], [address] BUN/CRE 14.3 RATIO Normal 10-20 [facility] Comment on above: Performed By: #### L 500.4050, L503.6620, L506.0400, L100.0100, L501.9520, L501.5200 #### [facility] [address] [place], [address] CA,Total 9.8 mg/dL Normal 8.5-10.1 [facility] Comment on above: Performed By: #### L 500.4050, L503.6620, L506.0400, L100.0100, L501.9520, L501.5200 #### [facility] [address] [place], [address] Chloride [Moles/Vol] 103 mmol/L Normal 98-107 [facility] Comment on above: Performed By: #### L 500.4050, L503.6620, L506.0400, L100.0100, L501.9520, L501.5200 #### [facility] [address] [place], [address] CO2 [Moles/Vol] 29.0 mmol/L Normal 21.0-32.0 [facility] Comment on above: Performed By: #### L 500.4050, L503.6620, L506.0400, L100.0100, L501.9520, L501.5200 #### [facility] [address] [place], [place], [id number] Creatinine [Mass/Vol] 1.05 mg/dL Normal 0.70-1.30 [facility] Comment on above: Result Comment: The validity of the calculated GFR GFRAA in patients over 70 years has not been determined. Clinical correlation is essential. Performed By: #### L 500.4050, L503.6620, L506.0400, L100.0100, L501.9520, L501.5200 #### [facility] [address] [place], [place], [id number] (309 EST GFR - AA 90 mL/min Normal >60 [facility] Comment on above: Result Comment: Afri can [place] GFR Calc Performed By: #### L 500.4050, L503.6620, L506.0400, L100.0100, L501.9520, L501.5200 #### [facility] [address] [place], [place], [id number] GAP 5 Normal 5-15 [facility] Comment on above: Performed By: #### L 500.4050, L503.6620, L506.0400, L100.0100, L501.9520, L501.5200 #### [facility] [address] [place], [place], [id number] (947 GFR/1.73 sq M.predicted among non-blacks MDRD (S/P/Bld) [Vol rate/Area] 75 mL/min/{1.73_m2} Normal >60 [facility] Comment on above: Result Comment: Non- GFR Calc Performed By: #### L 500.4050, L503.6620, L506.0400, L100.0100, L501.9520, L501.5200 #### [facility] [address] [place], [address] Globulin (S) [Mass/Vol] 3.8 g/dL Normal 2.2-4.2 [facility] Comment on above: Performed By: #### L 500.4050, L503.6620, L506.0400, L100.0100, L501.9520, L501.5200 #### [facility] [address] [place], [address] Glucose [Mass/Vol] 112 mg/dL High 74-106 [facility] Comment on above: Result Comment: Fast ing Glucose result from 100 to 125 mg/dL suggests IMPAIRED HOMEOSTASIS per A.D.A. criteria. Performed By: #### L 500.4050, L503.6620, L506.0400, L100.0100, L501.9520, L501.5200 #### [facility] [address] [place], [address] Potassium [Moles/Vol] 3.8 mmol/L Normal 3.5-5.1 [facility] Comment on above: Performed By: #### L 500.4050, L503.6620, L506.0400, L100.0100, L501.9520, L501.5200 #### [facility] [address] [place], [address] Sodium [Moles/Vol] 137 mmol/L Normal 136-145 [facility] Comment on above: Performed By: #### L 500.4050, L503.6620, L506.0400, L100.0100, L501.9520, L501.5200 #### [facility] [address] [place], [address] T PROT 7.6 g/dL Normal 6.4-8.2 [facility] Comment on above: Performed By: #### L 500.4050, L503.6620, L506.0400, L100.0100, L501.9520, L501.5200 #### [facility] [address] [place], [address] Urea nitrogen [Mass/Vol] 15 mg/dL Normal 7-18 [facility] Comment on above: Performed By: #### L 500.4050, L503.6620, L506.0400, L100.0100, L501.9520, L501.5200 #### [facility] [address] [place], [address] Magnesiumon 09-22-2023 Magnesium [Mass/Vol] 1.8 mg/dL Normal 1.6-2.6 [facility] Comment on above: Performed By: #### L 500.4050, L503.6620, L506.0400, L100.0100, L501.9520, L501.5200 #### [facility] [address] [place], [address] T4 Free Directon 09-22-2023 T4 FREE DIRECT 0.98 ng/dL Normal 0.76-1.46 [facility] Comment on above: Performed By: #### L 500.4050, L503.6620, L506.0400, L100.0100, L501.9520, L501.5200 #### [facility] [address] [place], [address] Thyroid Stim Hormone (TSH)on 09-22-2023 TSH 2.01 uIU/mL Normal 0.358-3.74 [facility] Comment on above: Performed By: #### L 500.4050, L503.6620, L506.0400, L100.0100, L501.9520, L501.5200 #### [facility] [address] [place], [address] Basophil percentageOrdered B y: Gisele Messina on 05-15-2023 Bilirubin [Mass/Vol] 0.50 mg/dL 0.20-1.00 [facility] Comment on above: For patients on eltr ombopag therapy, use of Dimension [place] TBIL is not recommended. Cholesterol [Mass/Vol] 145 mg/dL <200 [facility] Comment on above: <200 mg/dL Desirable 200-240 mg/dL Borderline >240 mg/dL High Risk Protein [Mass/Vol] 7.2 g/dL 6.4-8.2 [facility] Triglyceride [Mass/Vol] 95 mg/dL <199 [facility] Comment on above: The drugs N-Acetylcy steine and Metamizole may falsely depress this assay.Serum Triglycerides Reference Interval Normal <150 mg/dL Borderline high 150 - 199 mg/dL High 200 - 499 mg/dL Very High > or = 500 mg/dL Cardiology Visit Reporton Cardiology Visit Report [facility] [address] [place] [address] OFFICE VISIT Date of Service: 05/15/23 MR#: [id number] Acct: [id number] Name: LAM GARCIA Rep #: [id number] : 1955 Provider: ESTRELLA Weaver Age/Sex: 67/M Location[place] [facility] Status: Signed HPI HPI History of Present Illness Details: LAM GARCIA, is a 67 year old gentleman that presents here today for a cardiovascular follow up. He is a gentleman with a history of coronary artery disease status post catheterization in 2013, 2021 and more recently September 2022. He had presented with significant chest discomfort and it demonstrated a dominant left system with an ejection fraction of 60% LAD with moderate calcification and a proximal 50% stenosis in mid segment 50 to 60% stenosis and 2 small diagonal branches which were not amenable to PCI. The circumflex artery was dominant with mild disease in the right coronary was nondominant with a proximal high-grade 80 to 90% stenosis noted. It was determined to be unchanged from the year prior and medical therapy was recommended he did have ranolazine added to his regimen and he appears to tolerating this quite well. Pt does occasionally have chest pressure, this is more so related to laying on his right side. He is still able to do activity without issues. He does have SOB with his discomfort, otherwise he is okay. He has not needed to use any NTG. He does not have any palpitations. He does not have any lightheadedness/dizzine ss. He does not have any edema. Intake Vital Signs 11/04/22 13:58 05/15/23 09:01 05/15/23 09:05 Height 6 ft 6 ft 6 ft Weight: 225 lb 231 lb BMI 30.5 31.3 BP 123/80 H 143/91 H 130/78 H Blood Pressure Location Lt brachial Lt brachial Position Sitting Sitting Respiration 16 18 Pulse 57 L 86 Pulse Source Monitor Monitor Pulse Oximetry (%) 96 Intake Visit Reasons: 6 M Intake Specialist Required: No Is patient in pain?: No Allergies gabapentin Adverse Reaction (Verified 05/15/23 09:01) memory loss Medications multivitamin 1 tab PO QDAY 08/21/17 [History Confirmed 05/15/23] naproxen sodium 220 mg tablet (Aleve) 220 mg PO QDAY PRN Pain 08/24/17 [History Confirmed 05/15/23] allopurinol 100 mg tablet 100 mg PO BID 09/03/18 [History Confirmed 05/15/23] nitroglycerin 0.4 mg sublingual tablet (Nitrostat) 0.4 mg sublingual Q5-15M PRN chest pain #25 tabs 11/04/22 [Rx Confirmed 05/15/23] omeprazole 40 mg capsule,delayed release 40 mg PO DAILY 11/04/22 [History Confirmed 05/15/23] ranolazine 1,000 mg tablet,extended release,12 hr 1,000 mg PO BID 11/04/22 [History Confirmed 05/15/23] rosuvastatin 20 mg tablet (Crestor) 20 mg PO DAILY 11/04/22 [History Confirmed 05/15/23] sildenafil 100 mg tablet 100 mg PO ONCE PRN 11/04/22 [History Confirmed 11/04/22] sucralfate 1 gram tablet 1 g PO BID 11/04/22 [History Confirmed 11/04/22] amlodipine 5 mg tablet 5 mg PO BID #180 tabs 05/15/23 [Rx Confirmed 05/15/23] aspirin 81 mg tablet,delayed release (Adult Low Dose Aspirin) 81 mg PO DAILY 05/15/23 [History Confirmed 05/15/23] losartan 50 mg tablet 50 mg PO DAILY 05/15/23 [History Confirmed 05/15/23] metoprolol tartrate 100 mg tablet 50 mg PO QDAY 05/15/23 [History Confirmed 05/15/23] [facility] Medical History Acute insomnia Anxiety Atherosclerotic heart disease of [place] coronary artery without angina pectoris CAD (coronary artery disease) Calculus of right kidney Cervical radiculopathy Edema Elevated liver enzymes Erectile dysfunction Essential (primary) hypertension Essential hypertension GERD (gastroesophageal reflux disease) Glucose intolerance (impaired glucose tolerance) Gout HLD (hyperlipidemia) Osteoarthritis Surgical History History of knee surgery History of left heart catheterization (09/10/21) History of lithotripsy (12/2018) 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) Family History Father Myocardial infarction CAD (coronary artery disease) Hx coronary stents HLD (hyperlipidemia) Mother CVA (cerebral vascular accident) Brother Myocardial infarction CAD (coronary artery disease) Hc coronary stents HLD (hyperlipidemia) Hypertension Colon cancer Social History Smoking Status: Never smoker alcohol intake: current alcohol intake frequency: a few times a week Alcohol type: beer, wine and hard liquor substance use type: does not use caffeine: Yes Type: coffee what type of physical activity do you participate in: none seatbelt use: always do you feel safe at home: Yes ROS Const Const (more content not included)... Normal [facility] Direct bilirubinOrdered By: Gisele Messina on 05-15-2023 Bilirubin.direct [Mass/Vol] 0.19 mg/dL 0.00-0.3 0 [facility] - Chemistry and C hemistry - challengeOrdered By: Gisele Messina on 05-15-2023 ALP [Catalytic activity/Vol] 66 U/L 45-117 [facility] ALT [Catalytic activity/Vol] 43 U/L 16-61 [facility] Globulin (S) [Mass/Vol] 3.7 g/dL 2.2-4.2 [facility] Lipid Profileon 05-15-2023 Cholesterol [Mass/Vol] 145 mg/dL Normal 200 [facility] Comment on above: Result Comment: <200 mg/dL Desirable 200-240 mg/dL Borderline >240 mg/dL High Risk Performed By: #### L 500.4100, L501.9520, L500.3400 ####[facility] [address] [place], [address] Cholesterol in HDL [Mass/Vol] 58 mg/dL Normal [facility] Comment on above: Result Comment: The drugs N-Acetylcysteine and Metamizole may falsely depress this assay. Reference Range HDL <40 mg/dL Low HDL Cholesterol HDL >or= 60 mg/dL High HDL Cholesterol Performed By: #### L 500.4100, L501.9520, L500.3400 ####[facility] [address] [place], [address] Cholesterol in LDL [Mass/Vol] 68 mg/dL Normal 0-130 [facility] Comment on above: Performed By: #### L 500.4100, L501.9520, L500.3400 ####[facility] [address] [place], [address] Cholesterol in VLDL [Mass/Vol] 19 mg/dL Normal 5-40 [facility] Comment on above: Performed By: #### L 500.4100, L501.9520, L500.3400 ####[facility] [address] [place], [address] Triglyceride [Mass/Vol] 95 mg/dL Normal [facility] Comment on above: Result Comment: The drugs N-Acetylcysteine and Metamizole may falsely depress this assay. Serum Triglycerides Reference Interval Normal <150 mg/dL Borderline high 150 - 199 mg/dL High 200 - 499 mg/dL Very High > or = 500 mg/dL Performed By: #### L 500.4100, L501.9520, L500.3400 ####[facility] [address] [place], [address] Liver Profileon 05-15-2023 Albumin [Mass/Vol] 3.5 g/dL Normal 3.2-5.0 [facility] Comment on above: Performed By: #### L 500.4100, L501.9520, L500.3400 ####[facility] [address] [place], [address] ALK P 66 U/L Normal 45-117 [facility] Comment on above: Performed By: #### L 500.4100, L501.9520, L500.3400 ####[facility] [address] [place], [address] ALT [Catalytic activity/Vol] 43 U/L Normal 16-61 [facility] Comment on above: Performed By: #### L 500.4100, L501.9520, L500.3400 ####[facility] [address] [place], [address] AST [Catalytic activity/Vol] 29 U/L Normal 15-37 [facility] Comment on above: Performed By: #### L 500.4100, L501.9520, L500.3400 ####[facility] [address] [place], [address] Bilirubin [Mass/Vol] 0.50 mg/dL Normal 0.20-1.00 [facility] Comment on above: Result Comment: For patients on eltrombopag therapy, use of Dimension [place] TBIL is not recommended. Performed By: #### L 500.4100, L501.9520, L500.3400 ####[facility] [address] [place], [address] Bilirubin.direct [Mass/Vol] 0.19 mg/dL Normal 0.00-0.3 0 [facility] Comment on above: Performed By: #### L 500.4100, L501.9520, L500.3400 ####[facility] [address] [place], [address] Globulin (S) [Mass/Vol] 3.7 g/dL Normal 2.2-4.2 [facility] Comment on above: Performed By: #### L 500.4100, L501.9520, L500.3400 ####[facility] [id number] [place], [address] T PROT 7.2 g/dL Normal 6.4-8.2 [facility] Comment on above: Performed By: #### L 500.4100, L501.9520, L500.3400 ####[facility] [id number] [place], [address] No Panel InformationOrdered By: Gisele Messina on 05-15-2023 Thyroid Stimulating Hormone (TSH) 2.13 uIU/mL 0.358-3.74 [facility] Serum or plasma albumin ronald urement (mass/volume)Ordered By: Gisele Messina on 05-15-2023 Albumin [Mass/Vol] 3.5 g/dL 3.2-5.0 [facility] Serum or plasma cholesterol in HDL measurement (mass/volume)Ordered By: Gisele Messina on 05-15-2023 Cholesterol in HDL [Mass/Vol] 58 mg/dL >40 [facility] Comment on above: The drugs N-Acetylcy steine and Metamizole may falsely depress this assay. Reference Range HDL <40 mg/dL Low HDL Cholesterol HDL >or= 60 mg/dL High HDL Cholesterol Serum or plasma cholesterol in VLDL measurement (mass/volume)Ordered By: Gisele Messina on 05-15-2023 Cholesterol in VLDL [Mass/Vol] 19 mg/dL 5-40 [facility] Serum or plasma low density lipoprotein (LDL) cholesterol measurement (mass/volume)Ordered By: Gisele Messina on 05-15-2023 Cholesterol in LDL [Mass/Vol] 68 mg/dL 0-130 [facility] Thin prep Papanicolaou smear with manual screeningOrdered By: Gisele Messina on 05-15-2023 Thin prep Papanicolaou smear with manual screening 29 U/L 15-37 [facility] Thyroid Stim Hormone (TSH)on 05-15-2023 TSH 2.13 uIU/mL Normal 0.358-3.74 [facility] Comment on above: Performed By: #### L 500.4100, L501.0820, L500.3400 ####[facility] [id number] [place], [address] Basophil percentageOrdered B y: Vilonia Mckenzie on 11-04-2022 Bilirubin [Mass/Vol] 0.50 mg/dL 0.20-1.00 [facility] Comment on above: For patients on eltr ombopag therapy, use of Dimension [place] TBIL is not recommended. Cholesterol [Mass/Vol] 134 mg/dL <200 [facility] Comment on above: <200 mg/dL Desirable 200-240 mg/dL Borderline >240 mg/dL High Risk Protein [Mass/Vol] 7.4 g/dL 6.4-8.2 [facility] Triglyceride [Mass/Vol] 121 mg/dL <199 [facility] Comment on above: The drugs N-Acetylcy steine and Metamizole may falsely depress this assay.Serum Triglycerides Reference Interval Normal <150 mg/dL Borderline high 150 - 199 mg/dL High 200 - 499 mg/dL Very High > or = 500 mg/dL Direct bilirubinOrdered By: Daniel Mckenzie on 11-04-2022 Bilirubin.direct [Mass/Vol] 0.18 mg/dL 0.00-0.3 0 [facility] Laboratory - Chemistry and C hemistry - challengeOrdered By: Vilonia Mckenzie on 11-04-2022 Albumin [Mass/Vol] 3.7 g/dL 2.9-4.4 [facility] ALP [Catalytic activity/Vol] 62 U/L 45-117 [facility] ALT [Catalytic activity/Vol] 48 U/L 16-61 [facility] Globulin (S) [Mass/Vol] 3.9 g/dL 2.2-4.2 [facility] No Panel InformationOrdered By: Daniel Rincon on 11-04-2022 Addendum Document Comment . [facility] Comment on above: The SPE pattern appe ars unremarkable. Evidence ofmonoclonal protein is not apparent. Jnoyp-2-Yvhcndvxy 0.3 g/dL 0.0-0.4 [facility] Ryaih-0-Fzusaupwa 1.0 g/dL 0.4-1.0 [facility] Gamma Globulins 0.8 g/dL 0.4-1.8 [facility] Prostate Specific Antigen Screen 1.31 ng/mL 0.00-4.00 [facility] Comment on above: This test was perfor med using the TPSA assay method for theerento chemistry system. Values obtained with differentassay methods cannot be used interchangably.When changing PSA assays in the course of monitoring apatient, additional sequential testing should be carriedout to confirm baseline values. Serum Immunofixation Comment . [facility] Comment on above: No monoclonality det ected. Protein Fractions Elph [Inte rp]Ordered By: Daniel Rincon on 11-04-2022 Protein Fractions [Interp] Comment . [facility] Comment on above: Protein electrophore sis scan will follow via computer,mail, or statistician delivery. Serum albumin to globulin ra césar by protein electrophoresisOrdered By: Daniel Rincon on 11-04-2022 Albumin/Globulin Elph [Mass ratio] 1.1 0.7-1.7 [facility] Serum globulin measurement ( mass/volume)Ordered By: Daniel Rincon on 11-04-2022 Globulin (S) [Mass/Vol] 3.3 g/dL 2.2-3.9 [facility] Serum or plasma IgA measurem ent (mass/volume)Ordered By: Daniel Rincon on 11-04-2022 IgA [Mass/Vol] 393 mg/dL 61-437 [facility] Serum or plasma IgG measurem ent (mass/volume)Ordered By: Daniel Rincon on 11-04-2022 IgG [Mass/Vol] 900 mg/dL 603-1613 [facility] Serum or plasma IgM measurem ent (mass/volume)Ordered By: Daniel Rincon on 11-04-2022 IgM [Mass/Vol] 33 mg/dL 20-172 [facility] Comment on above: Performed at: - [address] [id number] Director: Bryn Mohamud PhD, Phone: [phone] Serum or plasma albumin ronald urement (mass/volume)Ordered By: Daniel Rincon on 11-04-2022 Albumin [Mass/Vol] 3.5 g/dL 3.2-5.0 [facility] Serum or plasma beta globuli n measurement by electrophoresis (mass/volume)Ordered By: Daniel Rincon on 11-04-2022 Beta globulin Elph [Mass/Vol] 1.3 g/dL 0.7-1.3 [facility] Serum or plasma cholesterol in HDL measurement (mass/volume)Ordered By: Daniel Rincon on 11-04-2022 Cholesterol in HDL [Mass/Vol] 54 mg/dL >40 [facility] Comment on above: The drugs N-Acetylcy steine and Metamizole may falsely depress this assay. Reference Range HDL <40 mg/dL Low HDL Cholesterol HDL >or= 60 mg/dL High HDL Cholesterol Serum or plasma cholesterol in VLDL measurement (mass/volume)Ordered By: Daniel Rincon on 11-04-2022 Cholesterol in VLDL [Mass/Vol] 24 mg/dL 5-40 [facility] Serum or plasma low density lipoprotein (LDL) cholesterol measurement (mass/volume)Ordered By: Daniel Rincon on 11-04-2022 Cholesterol in LDL [Mass/Vol] 56 mg/dL 0-130 [facility] Thin prep Papanicolaou smear with manual screeningOrdered By: Danielivette Rincon on 11-04-2022 Thin prep Papanicolaou smear with manual screening 31 U/L 15-37 [facility] Thin prep Papanicolaou smear with manual screening See comment [facility] Comment on above: NOT OBSERVED Total protein bloodOrdered B y: Daniel Mckenzie on 11-04-2022 Protein [Mass/Vol] 7.0 g/dL 6.0-8.5 [facility] INR in Blood by Coagulation assayOrdered By: Gisele Messina on 08-29-2022 INR Coag (Bld) [Relative time] 1.1 {INR} [facility] Laboratory - CoagulationOrde red By: Gisele Messina on 08-29-2022 aPTT Coag (Bld) [Time] 27.1 s 24.1-36.2 [facility] PT Coag (PPP) [Time] 13.5 s 11.7-14.9 [facility] Absolute lymphocyte countOrd ered By: Dr. Nguynễ on 08-08-2022 Lymphocytes Auto (Unsp spec) [#/Vol] 1.88 10*3/uL 0.83-4.51 [facility] Albumin Elph [Mass/Vol]Order ed By: Luc Joy on 08-08-2022 Albumin [Mass/Vol] 3.8 g/dL 2.9-4.4 [facility] Atypical perinuclear antineu trophil cytoplasmic antibodies measurementOrdered By: Luc Joy on 08-08-2022 Neutrophil cytoplasmic Ab.perinuclear.atypical IF (S) [Titer] <1:20 titer Neg:<1:20 [facility] Comment on above: The atypical pANCA p attern has been observed in asignificant percentage of patients with ulcerative colitis,primary sclerosing cholangitis and autoimmune hepatitis. Basophil percentageOrdered B y: Dr. Nguyễn on 08-08-2022 Basophils/100 WBC (Bld) 0.4 % 0-1 [facility] Chloride [Moles/Vol] 107 mmol/L 98-107 [facility] Eosinophils/100 WBC (Bld) 2.4 % 0-5 [facility] Glucose [Mass/Vol] 104 mg/dL 74-106 [facility] Comment on above: Fasting Glucose resu lt from 100 to 125 mg/dL suggests IMPAIRED HOMEOSTASIS per A.D.A. criteria. Neutrophils (Bld) [#/Vol] 2.4 10*3/uL 2.0-7.7 [facility] Neutrophils/100 WBC (Bld) 44.3 % 47-70 [facility] Potassium [Moles/Vol] 4.0 mmol/L 3.5-5.1 [facility] Sodium [Moles/Vol] 139 mmol/L 136-145 [facility] WBC (Bld) [#/Vol] 5.5 10*3/uL 4.4-11.0 [facility] Basophil percentageOrdered B y: Luc Joy on 08-08-2022 Basophil percentage < 0.2 AI 0.0-0.9 [facility] LDH [Catalytic activity/Vol] 210 U/L 87-241 [facility] Blood erythrocytes count (nu mber/volume)Ordered By: Dr. Nguyễn on 08-08-2022 RBC (Bld) [#/Vol] 5.15 10*6/uL 4.6-6.2 [facility] Blood hemoglobin measurement (mass/volume)Ordered By: Dr. Nguyễn on 08-08-2022 Hemoglobin (Bld) [Mass/Vol] 16.4 g/dL 13.0-16. 5 [facility] Blood lymphocytes/100 leukoc ytesOrdered By: Dr. Nguyễn on 08-08-2022 Lymphocytes/100 WBC (Bld) 34.4 % 19-41 [facility] Blood monocytes/100 leukocyt esOrdered By: Dr. Nguyễn on 08-08-2022 Monocytes/100 WBC (Bld) 17.8 % 0-10 [facility] Blood platelet mean volumeOr dered By: Dr. Nguyễn on 08-08-2022 Platelet mean volume (Bld) [Entitic vol] 9.4 fL 6.2-12.0 [facility] Determination of erythrocyte mean corpuscular volume (MCV)Ordered By: Dr. Nguyễn on 08-08-2022 MCV (RBC) [Entitic vol] 93.6 fL 80-94 [facility] Erythrocyte sedimentation ra teOrdered By: Luc Joy on 08-08-2022 ESR (Bld) [Velocity] 8 mm/h 0-20 [facility] Hematocrit Auto (Bld) [Volum e fraction]Ordered By: Dr. Nguyễn on 08-08-2022 Hematocrit (Bld) [Volume fraction] 48.2 % 40-54 [facility] Interpretation of serum or p lasma protein pattern by immunofixation (narrative resultOrdered By: Luc Joy on 08-08-2022 Protein Fractions Immunofixation Kervin [Interp] See comment [facility] Comment on above: Result: Not Observed Laboratory - Chemistry and C hemistry - challengeOrdered By: Dr. Nguyễn on 08-08-2022 CO2 [Moles/Vol] 27.0 mmol/L 21.0-32.0 [facility] Urea nitrogen/Creatinine [Mass ratio] 10.5 mg/mg 10-20 [facility] Laboratory - Hematology and Cell countsOrdered By: Dr. Nguyễn on 08-08-2022 Erythrocyte distribution width (RBC) [Entitic vol] 46.3 fL 35.1-43.9 [facility] Erythrocyte distribution width (RBC) [Ratio] 13.4 % 11.6-14.6 [facility] Immature granulocytes/100 WBC (Bld) 0.700 % 0.0-0.9 [facility] Comment on above: IG% - Immature Granu locytes (promyelocytes, myelocytes and metamyelocytes) > 1% indicates that a LEFT SHIFT is Present. MCH (RBC) [Entitic mass] 31.8 pg 27.0-32.0 [facility] Nucleated RBC/100 WBC (Bld) [Ratio] 0 % 0-5 [facility] MCHC Auto (RBC) [Mass/Vol]Or dered By: Dr. Nguyễn on 08-08-2022 MCHC (RBC) [Mass/Vol] 34.0 g/dL 32-36 [facility] No Panel InformationOrdered By: Dr. Nguyễn on 08-08-2022 Estimated Creatinine Clearance Calc 83.08 ml/min [facility] Estimated GFR (MDRD) Amer 101 mL/min >60 [facility] Comment on above: GFR Calc Estimated GFR (MDRD) Non-Af Amer 84 mL/min >60 [facility] Comment on above: Non- GFR Calc Troponin I High Sensitivity 8 pg/mL 3.0-78.0 [facility] Comment on above: Please Note: New Eloisa t Units and Gender Specific Reference Ranges. For more information see Policy Stat Procedure [place] High Sensitivity Troponin (TNIH) and attachments. No Panel InformationOrdered By: Luc Joy on 08-08-2022 Addendum Document Comment . [facility] Comment on above: Protein electrophore sis scan will follow via computer,mail, or statistician delivery. Centromere B Antibody <0.2 AI 0.0-0.9 [facility] D-Dimer Quantitative (PE/DVT) 0.71 FEU/ug/m 0.27-0.49 [facility] Comment on above: D-Dimer ELEVATED (>0 .49): Additional studies and clinicalassessments are indicated to conclude diagnosis of:Deep Vein Thrombosis (DVT) or Pulmonary Embolism (PE)CRITICAL VALUE VERIFIED. CALLED TO THIEN LINCOLN08/08/22 1154 Glenda Valladares.RESULTS READ BACK BY SAME . Previous reported result: 0.71 FEU/ug/mEdited by: CEE on 08/08/22:1154 AMENDED REPORT 08/08/22 1154 D-DIMER QUANT previously reported as: 0.71 *H FEU/ug/m D-Dimer ELEVATED (>0.49): Additional studies and clinicalassessments are indicated to conclude diagnosis of:Deep Vein Thrombosis (DVT) or Pulmonary Embolism (PE) BUDGET ACCOUNTANT Antibody <0.2 AI 0.0-0.9 [facility] Platelets bldOrdered By: Dr. Nguyễn on 08-08-2022 Platelets (Bld) [#/Vol] 223 10*3/uL 150-450 [facility] Qualitative QuantiFERON-TB g old in tube testOrdered By: Luc Joy on 08-08-2022 M. tuberculosis tuberculin stim IFN-g Ql (Bld) 0.02 IU/mL . [facility] Serum DNA double strand anti body assay (units/volume)Ordered By: Luc Joy on 08-08-2022 DNA double strand Ab Qn (S) 1 [IU]/mL 0-9 [facility] Comment on above: Negative <5 Equivoca l 5 - 9 Positive >9 Serum Skye-1 antibody assay (u nits/volume)Ordered By: Luc Joy on 08-08-2022 Skye-1 extractable nuclear Ab Qn (S) <0.2 AI 0.0-0.9 [facility] Serum Scl-70 extractable nuc lear antibody assay (units/volume)Ordered By: Luc Joy on 08-08-2022 SCL-70 extractable nuclear Ab Qn (S) <0.2 AI 0.0-0.9 [facility] Serum Cruz extractable nucl ear antibody detectionOrdered By: Luc Joy on 08-08-2022 Cruz extractable nuclear Ab Ql (S) <0.2 AI 0.0-0.9 [facility] Serum neubz-0-uovzdabm measu rement by electrophoresisOrdered By: Luc Joy on 08-08-2022 Alpha 1 globulin Elph [Mass/Vol] 0.3 g/dL 0.0-0.4 [facility] Alpha 1 globulin Elph [Mass/Vol] 0.9 g/dL 0.4-1.0 [facility] Serum classic neutrophil cyt oplasmic antibody assay (units/volume)Ordered By: Luc Joy on 08-08-2022 Neutrophil cytoplasmic Ab.classic Qn (S) <1:20 titer Neg:<1:20 [facility] Serum globulin measurement ( mass/volume)Ordered By: Luc Joy on 08-08-2022 Globulin (S) [Mass/Vol] 3.2 g/dL 2.2-3.9 [facility] Serum or plasma C reactive p rotein measurement (mass/volume)Ordered By: Luc Joy on 08-08-2022 CRP [Mass/Vol] mg/L 0.0-3.0 [facility] Comment on above: C-Reactive Protein ( CRP) provides useful information for thediagnosis, therapy and monitoring of inflammatory processesand associated diseases. For the evaluation of Relative Riskfor Cardiovascular Disease, a High Sensitivity CRP (HSCRP)should be ordered. Serum or plasma IgA measurem ent (mass/volume)Ordered By: Luc Joy on 08-08-2022 IgA [Mass/Vol] 409 mg/dL 61-437 [facility] Serum or plasma IgG measurem ent (mass/volume)Ordered By: Luc Joy on 08-08-2022 IgG [Mass/Vol] 931 mg/dL 603-1613 [facility] Serum or plasma IgM measurem ent (mass/volume)Ordered By: Luc Joy on 08-08-2022 IgM [Mass/Vol] 40 mg/dL 20-172 [facility] Serum or plasma angiotensin converting enzyme measurement (enzymatic activity/volume)Ordered By: Luc Joy on 08-08-2022 Angiotensin converting enzyme [Catalytic activity/Vol] U/L 14-82 [facility] Comment on above: Performed at: - [address] [id number] Director: Bryn Mohamud PhD, Phone: [phone] Serum or plasma beta globuli n measurement by electrophoresis (mass/volume)Ordered By: Luc Joy on 08-08-2022 Beta globulin Elph [Mass/Vol] 1.1 g/dL 0.7-1.3 [facility] Serum or plasma calcium ronald urement (mass/volume)Ordered By: Dr. Nguyễn on 08-08-2022 Calcium [Mass/Vol] 9.0 mg/dL 8.5-10.1 [facility] Serum or plasma creatinine m easurement (mass/volume)Ordered By: Dr. Nguyễn on 08-08-2022 Creatinine [Mass/Vol] 0.96 mg/dL 0.70-1.30 [facility] Comment on above: The validity of the calculated GFR & GFRAA in patients over 70 years has not been determined. Clinical correlation is essential. Serum or plasma gamma globul in measurement by electrophoresis (mass/volume)Ordered By: Luc Joy on 08-08-2022 Gamma globulin Elph [Mass/Vol] 0.9 g/dL 0.4-1.8 [facility] Serum or plasma immunoelectr ophoresis interpretation (nominal result)Ordered By: Luc Joy on 08-08-2022 Interpretation IEP [Interp] Comment . [facility] Comment on above: No monoclonality det ected. Serum or plasma urea nitroge n measurement (mass/volume)Ordered By: Dr. Nguyễn on 08-08-2022 Urea nitrogen [Mass/Vol] 10 mg/dL 7-18 [facility] Serum perinuclear neutrophil cytoplasmic antibody titer by immunofluorescenceOrdered By: Luc Joy on 08-08-2022 Neutrophil cytoplasmic Ab.perinuclear IF (S) [Titer] <1:20 titer Neg:<1:20 [facility] Comment on above: The presence of posi tive fluorescence exhibiting P-ANCA orC-ANCA patterns alone is not specific for the diagnosis ofWegener's Granulomatosis (WG) or microscopic polyangiitis.Decisions about treatment should not be based solely onANCA IFA results. The International ANCA Group Consensusrecommends follow up testing of positive sera with both IA-3 and MPO-ANCA enzyme immunoassays. As many as 5% serumsamples are positive only by EIA. Ref. AM J Clin [id number];111:507-513. Thin prep Papanicolaou smear with manual screeningOrdered By: Dr. Nguyễn on 08-08-2022 Thin prep Papanicolaou smear with manual screening 5 5-15 [facility] Thin prep Papanicolaou smear with manual screeningOrdered By: Luc Joy on 08-08-2022 Thin prep Papanicolaou smear with manual screening 1.2 0.7-1.7 [facility] Thin prep Papanicolaou smear with manual screening Comment . [facility] Comment on above: QuantiFERON-TB Gold Plus is a qualitative indirect test forM tuberculosis infection (including disease) and isintended for use in conjunction with risk assessment,radiography, and other medical and diagnostic evaluations.The QuantiFERON-TB Gold Plus result is determined bysubtracting the Nil value from either TB antigen (Ag)value. The Mitogen tube serves as a control for the test. Thin prep Papanicolaou smear with manual screening 0.02 IU/mL . [facility] Thin prep Papanicolaou smear with manual screening > 10.00 IU/mL . [facility] Thin prep Papanicolaou smear with manual screening Negative Negative [facility] Comment on above: No response to M tub erculosis antigens detected.Infection with M tuberculosis is unlikely, but high riskindividuals should be considered for additional testing(ATS/IDSA/CDC Clinical Practice Guidelines, 2017). Thereference range is an Antigen minus Nil result of <0.35IU/mL.The specimen received for QuantiFERON testing was incubatedby the ordering institution. Specific procedures outlinedin our Directory of Services and in the package insert forthe QuantiFERON Gold (In Tube) test must be followed toenable for proper stimulation of cells for the productionof interferon gamma. Chemiluminescence immunoassaymethodology Total protein bloodOrdered B y: Luc Joy on 08-08-2022 Protein [Mass/Vol] 7.0 g/dL 6.0-8.5 [facility] Basophil percentageOrdered B y: Dr. Hurtado on 07-13-2022 Bilirubin [Mass/Vol] 0.60 mg/dL 0.20-1.00 [facility] Comment on above: For patients on eltr ombopag therapy, use of Dimension [place] TBIL is not recommended. Chloride [Moles/Vol] 105 mmol/L 98-107 [facility] Cholesterol [Mass/Vol] 129 mg/dL <200 [facility] Comment on above: <200 mg/dL Desirable 200-240 mg/dL Borderline >240 mg/dL High Risk Glucose [Mass/Vol] 105 mg/dL 74-106 [facility] Comment on above: Fasting Glucose resu lt from 100 to 125 mg/dL suggests IMPAIRED HOMEOSTASIS per A.D.A. criteria. Potassium [Moles/Vol] 3.8 mmol/L 3.5-5.1 [facility] Protein [Mass/Vol] 7.3 g/dL 6.4-8.2 [facility] Sodium [Moles/Vol] 139 mmol/L 136-145 [facility] Triglyceride [Mass/Vol] 131 mg/dL <199 [facility] Comment on above: The drugs N-Acetylcy steine and Metamizole may falsely depress this assay.Serum Triglycerides Reference Interval Normal <150 mg/dL Borderline high 150 - 199 mg/dL High 200 - 499 mg/dL Very High > or = 500 mg/dL Laboratory - Chemistry and C hemistry - challengeOrdered By: Dr. Hurtado on 07-13-2022 ALP [Catalytic activity/Vol] 65 U/L 45-117 [facility] ALT [Catalytic activity/Vol] 65 U/L 16-61 [facility] CO2 [Moles/Vol] 23.0 mmol/L 21.0-32.0 [facility] Globulin (S) [Mass/Vol] 3.6 g/dL 2.2-4.2 [facility] Urea nitrogen/Creatinine [Mass ratio] 18.0 mg/mg 10-20 [facility] No Panel InformationOrdered By: Dr. Hurtado on 07-13-2022 Estimated GFR (MDRD) Amer 102 mL/min >60 [facility] Comment on above: GFR Calc Estimated GFR (MDRD) Non-Af Amer 84 mL/min >60 [facility] Comment on above: Non- GFR Calc Serum or plasma albumin ronald urement (mass/volume)Ordered By: Dr. Hurtado on 07-13-2022 Albumin [Mass/Vol] 3.7 g/dL 3.2-5.0 [facility] Serum or plasma albumin/glob ulin mass ratioOrdered By: Dr. Hurtado on 07-13-2022 Albumin/Globulin [Mass ratio] 1.0 {ratio} 0.9-2.4 [facility] Serum or plasma calcium ronald urement (mass/volume)Ordered By: Dr. Hurtado on 07-13-2022 Calcium [Mass/Vol] 9.4 mg/dL 8.5-10.1 [facility] Serum or plasma cholesterol in HDL measurement (mass/volume)Ordered By: Dr. Hurtado on 07-13-2022 Cholesterol in HDL [Mass/Vol] 49 mg/dL >40 [facility] Comment on above: The drugs N-Acetylcy steine and Metamizole may falsely depress this assay. Reference Range HDL <40 mg/dL Low HDL Cholesterol HDL >or= 60 mg/dL High HDL Cholesterol Serum or plasma cholesterol in VLDL measurement (mass/volume)Ordered By: Dr. Hurtado on 07-13-2022 Cholesterol in VLDL [Mass/Vol] 26 mg/dL 5-40 [facility] Serum or plasma creatinine m easurement (mass/volume)Ordered By: Dr. Hurtado on 07-13-2022 Creatinine [Mass/Vol] 0.95 mg/dL 0.70-1.30 [facility] Comment on above: The validity of the calculated GFR & GFRAA in patients over 70 years has not been determined. Clinical correlation is essential. Serum or plasma low density lipoprotein (LDL) cholesterol measurement (mass/volume)Ordered By: Dr. Hurtado on 07-13-2022 Cholesterol in LDL [Mass/Vol] 54 mg/dL 0-130 [facility] Serum or plasma urea nitroge n measurement (mass/volume)Ordered By: Dr. Hurtado on 07-13-2022 Urea nitrogen [Mass/Vol] 17 mg/dL 7-18 [facility] Thin prep Papanicolaou smear with manual screeningOrdered By: Dr. Hurtado on 07-13-2022 Thin prep Papanicolaou smear with manual screening 43 U/L 15-37 [facility] Thin prep Papanicolaou smear with manual screening 11 5-15 [facility] Absolute lymphocyte counton 09-10-2021 Lymphocytes Auto (Unsp spec) [#/Vol] 1.75 10*3/uL 0.83-4.51 [facility] Work Phone: Basophil percentageon 2021 Basophils/100 WBC (Bld) 0.3 % 0-1 [facility] Work Phone: Chloride [Moles/Vol] 106 mmol/L 98-107 [facility] Work Phone: Eosinophils/100 WBC (Bld) 3.4 % 0-5 [facility] Work Phone: Glucose [Mass/Vol] 114 mg/dL 74-106 [facility] Work Phone: [phone] Comment on above: Fasting Glucose resu lt from 100 to 125 mg/dL suggests IMPAIRED HOMEOSTASIS per A.D.A. criteria. Neutrophils (Bld) [#/Vol] 3.0 10*3/uL 2.0-7.7 [facility] Work Phone: Neutrophils/100 WBC (Bld) 50.9 % 47-70 [facility] Work Phone: Potassium [Moles/Vol] 4.0 mmol/L 3.5-5.1 [facility] Work Phone: Sodium [Moles/Vol] 138 mmol/L 136-145 [facility] Work Phone: WBC (Bld) [#/Vol] 5.8 10*3/uL 4.4-11.0 [facility] Work Phone: Blood erythrocytes count (nu mber/volume)on 09-10-2021 RBC (Bld) [#/Vol] 5.02 10*6/uL 4.6-6.2 [facility] Work Phone: Blood hemoglobin measurement (mass/volume)on 09-10-2021 Hemoglobin (Bld) [Mass/Vol] 16.0 g/dL 13.0-16. 5 [facility] Work Phone: Blood lymphocytes/100 leukoc yteson 09-10-2021 Lymphocytes/100 WBC (Bld) 30.0 % 19-41 [facility] Work Phone: Blood monocytes/100 leukocyt eson 09-10-2021 Monocytes/100 WBC (Bld) 14.9 % 0-10 [facility] Work Phone: Blood platelet mean volumeon 09-10-2021 Platelet mean volume (Bld) [Entitic vol] 9.4 fL 6.2-12.0 [facility] Work Phone: [phone] Determination of erythrocyte mean corpuscular volume (MCV)on 09-10-2021 MCV (RBC) [Entitic vol] 93.4 fL 80-94 [facility] Work Phone: [phone] Hematocrit Auto (Bld) [Volum e fraction]on 09-10-2021 Hematocrit (Bld) [Volume fraction] 46.9 % 40-54 [facility] Work Phone: [phone] INR in Blood by Coagulation assayon 09-10-2021 INR Coag (Bld) [Relative time] 1.0 {INR} [facility] Work Phone: [phone] Laboratory - Chemistry and C hemistry - challengeon 09-10-2021 CO2 [Moles/Vol] 24.0 mmol/L 21.0-32.0 [facility] Work Phone: [phone] Urea nitrogen/Creatinine [Mass ratio] 16.5 mg/mg 10-20 [facility] Work Phone: [phone] Laboratory - Coagulationon 0 09-10-2021 aPTT Coag (Bld) [Time] 25.8 s 24.1-36.2 [facility] Work Phone: [phone] PT Coag (PPP) [Time] 13.1 s 11.7-14.[address] [facility] [address] [facility] Work Phone: [phone] Laboratory - Hematology and Cell countson 09-10-2021 Erythrocyte distribution width (RBC) [Entitic vol] 43.9 fL 35.1-43.9 [facility] Work Phone: Erythrocyte distribution width (RBC) [Ratio] 12.9 % 11.6-14.6 [facility] Work Phone: Immature granulocytes/100 WBC (Bld) 0.500 % 0.0-0.9 [facility] Work Phone: Comment on above: IG% - Immature Granu locytes (promyelocytes, myelocytes and metamyelocytes) > 1% indicates that a LEFT SHIFT is Present. MCH (RBC) [Entitic mass] 31.9 pg 27.0-32.0 [facility] Work Phone: Nucleated RBC/100 WBC (Bld) [Ratio] 0 % 0-5 [facility] Work Phone: MCHC Auto (RBC) [Mass/Vol]on 09-10-2021 MCHC (RBC) [Mass/Vol] 34.1 g/dL 32-36 [facility] Work Phone: No Panel Informationon 09-10 Estimated Creatinine Clearance Calc 82.22 ml/min [facility] Work Phone: Estimated GFR (MDRD) Amer 100 mL/min >60 [facility] Work Phone: Comment on above: GFR Calc Estimated GFR (MDRD) Non-Af Amer 82 mL/min >60 [facility] Work Phone: Comment on above: Non- GFR Calc Platelets bldon 09-10-2021 Platelets (Bld) [#/Vol] 221 10*3/uL 150-450 [facility] Work Phone: Serum or plasma calcium ronald urement (mass/volume)on 09-10-2021 Calcium [Mass/Vol] 9.1 mg/dL 8.5-10.1 [facility] Work Phone: Serum or plasma creatinine m easurement (mass/volume)on 05-06-2022 Creatinine [Mass/Vol] 0.97 mg/dL 0.70-1.30 [facility] Work Phone: Comment on above: The validity of the calculated GFR & GFRAA in patients over 70 years has not been determined. Clinical correlation is essential. Serum or plasma urea nitroge n measurement (mass/volume)on 09-10-2021 Urea nitrogen [Mass/Vol] 16 mg/dL 7-18 [facility] Work Phone: Thin prep Papanicolaou smear with manual screeningon 09-10-2021 Thin prep Papanicolaou smear with manual screening 8 5-15 [facility] Work Phone: Absolute lymphocyte counton 07-07-2021 Lymphocytes Auto (Unsp spec) [#/Vol] 1.78 10*3/uL 0.83-4.51 [facility] Work Phone: Basophil percentageon 2021 Basophils/100 WBC (Bld) 0.3 % 0-1 [facility] Work Phone: Bilirubin [Mass/Vol] 0.50 mg/dL 0.20-1.00 [facility] Work Phone: Comment on above: For patients on eltr ombopag therapy, use of Dimension [place] TBIL is not recommended. Chloride [Moles/Vol] 105 mmol/L 98-107 [facility] Work Phone: Cholesterol [Mass/Vol] 145 mg/dL <200 [facility] Work Phone: Comment on above: <200 mg/dL Desirable 200-240 mg/dL Borderline >240 mg/dL High Risk Eosinophils/100 WBC (Bld) 2.9 % 0-5 [facility] Work Phone: Glucose [Mass/Vol] 95 mg/dL 74-106 [facility] Work Phone: Neutrophils (Bld) [#/Vol] 4.0 10*3/uL 2.0-7.7 [facility] Work Phone: Neutrophils/100 WBC (Bld) 55.1 % 47-70 [facility] Work Phone: [phone] Potassium [Moles/Vol] 4.3 mmol/L 3.5-5.1 [facility] Work Phone: [phone] Protein [Mass/Vol] 7.3 g/dL 6.4-8.2 [facility] Work Phone: [phone] Sodium [Moles/Vol] 139 mmol/L 136-145 [facility] Work Phone: [phone] Triglyceride [Mass/Vol] 324 mg/dL [facility] Work Phone: Comment on above: The drugs N-Acetylcy steine and Metamizole may falsely depress this assay.Serum Triglycerides Reference Interval Normal <150 mg/dL Borderline high 150 - 199 mg/dL High 200 - 499 mg/dL Very High > or = 500 mg/dL WBC (Bld) [#/Vol] 7.3 10*3/uL 4.4-11.0 [facility] Work Phone: [phone] Blood erythrocytes count (nu mber/volume)on 07-07-2021 RBC (Bld) [#/Vol] 4.99 10*6/uL 4.6-6.2 [facility] Work Phone: [phone] Blood hemoglobin measurement (mass/volume)on 07-07-2021 Hemoglobin (Bld) [Mass/Vol] 15.9 g/dL 13.0-16. 5 [facility] Work Phone: Blood lymphocytes/100 leukoc yteson 07-07-2021 Lymphocytes/100 WBC (Bld) 24.4 % 19-41 [facility] Work Phone: Blood monocytes/100 leukocyt eson 07-07-2021 Monocytes/100 WBC (Bld) 16.6 % 0-10 [facility] Work Phone: [phone] Blood platelet mean volumeon 07-07-2021 Platelet mean volume (Bld) [Entitic vol] 10.1 fL 6.2-12.0 [facility] Work Phone: Determination of erythrocyte mean corpuscular volume (MCV)on 07-07-2021 MCV (RBC) [Entitic vol] 95.4 fL 80-94 [facility] Work Phone: Hematocrit Auto (Bld) [Volum e fraction]on 07-07-2021 Hematocrit (Bld) [Volume fraction] 47.6 % 40-54 [facility] Work Phone: [phone] Laboratory - Chemistry and C hemistry - challengeon 07-07-2021 ALP [Catalytic activity/Vol] 65 U/L 45-117 [facility] Work Phone: ALT [Catalytic activity/Vol] 87 U/L 16-61 [facility] Work Phone: CO2 [Moles/Vol] 29.0 mmol/L 21.0-32.0 [facility] Work Phone: [phone] Globulin (S) [Mass/Vol] 3.8 g/dL 2.2-4.2 [facility] Work Phone: [phone] Urea nitrogen/Creatinine [Mass ratio] 16.0 mg/mg 10-20 [facility] Work Phone: Laboratory - Hematology and Cell countson 07-07-2021 Erythrocyte distribution width (RBC) [Entitic vol] 47.7 fL 35.1-43.9 [facility]: [phone] Erythrocyte distribution width (RBC) [Ratio] 13.6 % 11.6-14.6 [facility] Work Phone: [phone] Immature granulocytes/100 WBC (Bld) 0.700 % 0.0-0.9 [facility] Work Phone: [phone] Comment on above: IG% - Immature Granu locytes (promyelocytes, myelocytes and metamyelocytes) > 1% indicates that a LEFT SHIFT is Present. MCH (RBC) [Entitic mass] 31.9 pg 27.0-32.0 [facility] Work Phone: [phone] Nucleated RBC/100 WBC (Bld) [Ratio] 0 % 0-5 [facility] Work Phone: [phone] MCHC Auto (RBC) [Mass/Vol]on 07-07-2021 MCHC (RBC) [Mass/Vol] 33.4 g/dL 32-36 [facility] Work Phone: No Panel Informationon 07-07 Estimated GFR (MDRD) Amer 90 mL/min >60 [facility] Work Phone: Comment on above: GFR Calc Estimated GFR (MDRD) Non-Af Amer 74 mL/min >60 [facility] Work Phone: Comment on above: Non- GFR Calc Prostate Specific Antigen Screen 1.16 ng/mL 0.00-4.00 [facility] Work Phone: Comment on above: This test was perfor med using the TPSA assay method for [employer] chemistry system. Values obtained with differentassay methods cannot be used interchangably.When changing PSA assays in the course of monitoring apatient, additional sequential testing should be carriedout to confirm baseline values. Thyroid Stimulating Hormone (TSH) 1.69 uIU/mL 0.358-3.74 [facility] Work Phone: Platelets bldon 07-07-2021 Platelets (Bld) [#/Vol] 255 10*3/uL 150-450 [facility] Work Phone: Serum or plasma albumin ronald urement (mass/volume)on 07-07-2021 Albumin [Mass/Vol] 3.5 g/dL 3.2-5.0 [facility] Work Phone: Serum or plasma albumin/glob ulin mass ratioon 07-07-2021 Albumin/Globulin [Mass ratio] 0.9 {ratio} 0.9-2.4 [facility] Work Phone: Serum or plasma calcium ronald urement (mass/volume)on 07-07-2021 Calcium [Mass/Vol] 9.1 mg/dL 8.5-10.1 [facility] Work Phone: Serum or plasma cholesterol in HDL measurement (mass/volume)on 07-07-2021 Cholesterol in HDL [Mass/Vol] 45 mg/dL [facility] Work Phone: Comment on above: The drugs N-Acetylcy steine and Metamizole may falsely depress this assay. Reference Range HDL <40 mg/dL Low HDL Cholesterol HDL >or= 60 mg/dL High HDL Cholesterol Serum or plasma cholesterol in VLDL measurement (mass/volume)on 07-07-2021 Cholesterol in VLDL [Mass/Vol] 65 mg/dL 5-40 [facility] Work Phone: Serum or plasma creatinine m easurement (mass/volume)on 07-07-2021 Creatinine [Mass/Vol] 1.06 mg/dL 0.70-1.30 [facility] Work Phone: Comment on above: The validity of the calculated GFR & GFRAA in patients over 70 years has not been determined. Clinical correlation is essential. Serum or plasma low density lipoprotein (LDL) cholesterol measurement (mass/volume)on 07-07-2021 Cholesterol in LDL [Mass/Vol] 35 mg/dL 0-130 [facility] Work Phone: Serum or plasma urea nitroge n measurement (mass/volume)on 07-07-2021 Urea nitrogen [Mass/Vol] 17 mg/dL 7-18 [facility] Work Phone: Thin prep Papanicolaou smear with manual screeningon 07-07-2021 Thin prep Papanicolaou smear with manual screening 61 U/L 15-37 [facility] Work Phone: Thin prep Papanicolaou smear with manual screening 5 5-15 [facility] Work Phone: Lac RepairOrdered By: Joseph Jang on 10-22-2020 Joseph Jang MD 10/22/2020 6:45 PM [employer] Date/Time: 10/22/2020 6:18 PM Performed by: Joseph Jang MD Authorized by: Joseph Jang MD Consent: Consent obtained: Verbal Consent given by: Patient Risks discussed: Infection, pain, poor cosmetic result, poor wound healing, need for additional repair and tendon damage Alternatives discussed: No treatment Anesthesia (see MAR for exact dosages): Anesthesia method: Nerve block Block anesthetic: Lidocaine 1% w/o epi Block technique: Digital nerve Laceration details: Length (cm): 1.6 Repair type: Repair type: Simple Pre-procedure details: Preparation: Patient was prepped and draped in usual sterile fashion Exploration: Hemostasis achieved with: Direct pressure Wound exploration: wound explored through full range of motion Wound extent: no fascia violation noted, no foreign bodies/material noted, no tendon damage noted and no underlying fracture noted Contaminated: no Treatment: Area cleansed with: Saline Amount of cleaning: Standard Irrigation solution: Sterile saline Irrigation method: Pressure wash Skin repair: Repair method: Sutures Suture size: 4-0 Wound skin closure material used: monocryl. Suture technique: Simple interrupted Number of sutures: 2 Approximation: Approximation: Close Post-procedure details: Dressing: Antibiotic ointment and splint for protection Patient tolerance of procedure: Tolerated well, no immediate complications [employer] Work Phone: [facility] Work Phone: Office Visit: [facility] 02-22-20 Documentation of current medications (procedure) Done Invalid Interpretation Code [facility] Work Phone: [phone] Fall risk assessment No Invalid Interpretation Code [employer] Work Phone: [phone] Protein mass conc Done Invalid Interpretation Code [employer] Work Phone: [phone] Lab Report: Lipid Profileon 02-20-2017 Cholesterol in HDL mass conc 53 mg/dL Invalid Interpretation Code [employer] Work Phone: [phone] Cholesterol in LDL mass conc 86 mg/dL Invalid Interpretation Code 0-130 [facility] Work Phone: [phone] Cholesterol mass conc 167 mg/dL Invalid Interpretation Code 200 [employer] Work Phone: [phone] Lipoprotein.pre-beta mass conc 28 mg/dL Invalid Interpretation Code 5-40 [employer] Work Phone: [phone] Triglyceride mass conc 141 mg/dL Invalid Interpretation Code [facility] Work Phone: [phone] Lab Report: Liver Profileon 02-20-2017 Albumin mass conc 3.8 g/dL Invalid Interpretation Code 3.4-5.0 [facility] Work Phone: [phone] Alkaline phosphatase (ALP) 67 U/L Inval id Interpretation Code 45-117 [facility] Work Phone: [phone] ALP enzyme act/vol (Bld) 67 U/L Invalid Interpretation Code 45-117 [facility] Work Phone: [phone] ALT enzyme act/vol 48 U/L Invalid Interpretation Code 12-78 [facility] Work Phone: [phone] AST enzyme act/vol 37 U/L Invalid Interpretation Code 15-37 [facility] Work Phone: [phone] Bilirubin mass conc 0.60 mg/dL Invalid Interpretation Code 0.20-1.00 [facility] Work Phone: [phone] Bilirubin.direct mass conc 0.16 mg/dL Inval id Interpretation Code 0.00-0.30 [facility] Work Phone: [phone] Globulin Calculated mass conc (S) 3.7 g/dL Invalid Interpretation Code 2.2-4.2 [facility] Work Phone: [phone] Protein mass conc 7.5 g/dL Invalid Interpretation Code 6.4-8.2 [facility] Work Phone: [phone] Office Visiton 08-18-2016 Fall risk assessment Fall risk assessment Invali d Interpretation Code [facility] Work Phone: [phone] Protein mass conc Done Invalid Interpretation Code [facility] Work Phone: [phone] Office Visiton 02-18-2016 Dietary management education, guidance, and counseling (procedure) yes Invalid Interpretation Code [facility] Work Phone: [phone] Tobacco smoking status NHIS Never smoker Inva lid Interpretation Code [facility] Work Phone: [phone] Tobacco use CPHS Never smoker Invalid Interpretation Code [facility] Work Phone: [phone] 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 Left ventricular Ejection fraction 55 % Invalid Interpretation Code [facility] Work Phone: [phone] Replaced Document: Kai Suarez CG Observationson 02-26-2015 EKG QRS axis 32 deg Invalid Interpretation Code [facility] Work Phone: [phone] Interpretation Sinus Rhythm WITHIN NORMAL LIMITS Invalid Interpretation Code [facility] Work Phone: [phone] P [place] 24 deg Invalid Interpretation Code [facility] Work Phone: [phone] IA Interval 142 ms Invalid Interpretation Code [facility] Work Phone: [phone] Pulse (Heart Rate) 64 /min Invalid Interpretation Code [facility] Work Phone: [phone] QRS Duration 90 ms Invalid Interpretation Code [facility] Work Phone: [phone] QT Interval new path ms Invalid Interpretation Code [facility] Work Phone: [phone] QTc Galvan 405 ms Invalid Interpretation Code [facility] Work Phone: [phone] T [place] -1 deg Invalid Interpretation Code [facility] Work Phone: [phone] Lab Report: PSA,Total - Beti al Screenon 02-19-2015 PSA,TOT SCREEN 1.45 ng/mL Invalid Interpretation Code 0.00-4.00 [facility] Work Phone: [phone] Office Visiton 08-26-2014 cardiac risk group C Invalid Interpretation Code [facility] Work Phone: [phone] General cardiovascular disease 10Y risk [#] [place]D'Agostino N/A Invalid Interpretation Code [facility] Work Phone: [phone] Lab Report: BMPon 07-10-2013 Calcium mass conc 9.4 mg/dL Normal 8.5-10.1 [facility] Work Phone: [phone] Chloride molar conc 104 mmol/L Normal 98-107 [facility] Work Phone: [phone] Creatinine mass conc 0.9 mg/dL Normal 0.8-1.[address] [facility] Work Phone: [phone] Glucose mass conc 86 mg/dL Normal 70-110 [facility] Work Phone: [phone] Potassium molar conc 4.3 mmol/L Normal 3.5-5.[address] [facility] Work Phone: [phone] Sodium molar conc 138 mmol/L Normal 136-145 [facility] Work Phone: [phone] Urea nitrogen mass conc 17 mg/dL Normal 7-18 [facility] Work Phone: [phone] Lab Report: CBCon 07-10-2013 Hematocrit Auto Volume Fraction (Bld) 47.1 % Normal 40-54 [facility] Work Phone: [phone] Hemoglobin mass conc (Bld) 16.3 g/dL Normal 13.0-16.5 [facility] Work Phone: [phone] Platelets Auto #/vol (Bld) 218 10*3/mm3 Normal 150-450 [facility] Work Phone: [phone] RBC Auto #/vol (Bld) 5.17 10*6/uL Normal 4.6-6.2 [facility] Work Phone: [phone] WBC Auto #/vol (Bld) 6.5 10*3/uL Normal 4.4-11.[address] [facility] Work Phone: [phone] Lab Report: PTon 07-10-2013 INR Coag RelTime (PPP) 1.0 {INR} Normal [facility] Work Phone: [phone] PTP 12.4 SECONDS Normal 11.9-14.4 [facility] Work Phone: [phone] Lab Report: MGon 07-03-2013 Magnesium mass conc 1.7 mg/dL Low 1.8-2.4 [facility] Work Phone: [phone] Vital Signs Date Time Vital Sign Value Performing Clinician Facility 10-29-2024 13:59-0400 Body height 182.[address] Wood Hurtado MD Work Phone: [facility] 10-29-2024 13:59-0400 Body mass index (BMI) [Ratio] 30.1 kg/m2 Dr. Wood Hurtado MD Work Phone: [facility] 10-29-2024 13:59-0400 Body weight 100.[address] Wood Hurtado MD Work Phone: [facility] 10-29-2024 13:59-0400 Diastolic blood pressure 85 mm[Hg] Dr. Wood Hurtado MD Work Phone: [facility] 10-29-2024 13:59-0400 Heart rate 62 /min Dr. Wood Hurtado MD Work Phone: [facility] 10-29-2024 13:59-0400 Respiratory rate 16 /min Dr. Wood Hurtado MD Work Phone: [facility] 10-29-2024 13:59-0400 Systolic blood pressure 121 mm[Hg] Dr. Wood Hurtado MD Work Phone: [facility] 07-15-2024 15:27-0400 Body height 182.9 cm Delma Severino MD Work Phone: [facility] 07-15-2024 15:27-0400 Body mass index (BMI) [Ratio] 30.92 kg/m2 Delma Severino MD Work Phone: [facility] 07-15-2024 15:27-0400 Body weight 103.42 kg Delma Severino MD Work Phone: [facility] 07-15-2024 15:27-0400 Diastolic blood pressure 63 mm[Hg] Delma Severino MD Work Phone: [facility] 07-15-2024 15:27-0400 Heart rate 66 /min Delma Severino MD Work Phone: [facility] 07-15-2024 15:27-0400 Respiratory rate 18 /min Delma Severino MD Work Phone: [facility] 07-15-2024 15:27-0400 SaO2% (BldA) [Mass fraction] 97 % Delma Severino MD Work Phone: [facility] Comment on above: RA 07-15-2024 15:27-0400 Systolic blood pressure 101 mm[Hg] Delma Severino MD Work Phone: [facility] 03-19-2024 14:29-0500 Body height 182.9 cm Delma Severino MD Work Phone: [facility] 03-19-2024 14:29-0500 Body mass index (BMI) [Ratio] 30.87 kg/m2 Delma Severino MD Work Phone: [facility] 03-19-2024 14:29-0500 Body weight 103.24 kg Delma Severino MD Work Phone: [facility] 03-19-2024 14:29-0500 Diastolic blood pressure 84 mm[Hg] Delma Severino MD Work Phone: [facility] 03-19-2024 14:29-0500 Heart rate 69 /min Delma Severino MD Work Phone: [facility] 03-19-2024 14:29-0500 Respiratory rate 15 /min Delma Severino MD Work Phone: [facility] 03-19-2024 14:29-0500 SaO2% (BldA) [Mass fraction] 95 % Delma Severino MD Work Phone: [facility] 03-19-2024 14:29-0500 Systolic blood pressure 142 mm[Hg] Delma Severino MD Work Phone: [facility] 01-23-2024 15:13-0400 Diastolic blood pressure 75 mm[Hg] Delma Severino MD Work Phone: [facility] 01-23-2024 15:13-0400 Systolic blood pressure 134 mm[Hg] Delma Severino MD Work Phone: [facility] 01-23-2024 15:10-0400 Body height 182.9 cm Delma Severino MD Work Phone: [facility] 01-23-2024 15:10-0400 Body mass index (BMI) [Ratio] 31.19 kg/m2 Delma Severino MD Work Phone: [facility] 01-23-2024 15:10-0400 Body weight 104.33 kg Delma Severino MD Work Phone: [facility] 01-23-2024 15:10-0400 Heart rate 64 /min Delma Severino MD Work Phone: [facility] 01-23-2024 15:10-0400 Respiratory rate 18 /min Delma Severino MD Work Phone: [facility] 01-23-2024 15:10-0400 SaO2% (BldA) [Mass fraction] 97 % Delma Severino MD Work Phone: [facility] Comment on above: RA 05-15-2023 09:05-0500 Body height 182.[address] Wood Hurtado Work Phone: [facility] 05-15-2023 09:05-0500 Diastolic blood pressure 78 mm[Hg] Dr. Wood Hurtado Work Phone: [facility] 05-15-2023 09:05-0500 Systolic blood pressure 130 mm[Hg] Dr. Wood Hurtado Work Phone: [facility] 05-15-2023 09:01-0500 Body mass index (BMI) [Ratio] 31.3 kg/m2 Dr. Wood Hurtado Work Phone: [facility] 05-15-2023 09:01-0500 Body weight 104.[address] Wood Hurtado Work Phone: [facility] 05-15-2023 09:01-0500 Heart rate 86 /min Dr. Wood Hurtado Work Phone: [facility] 05-15-2023 09:01-0500 Respiratory rate 18 /min Dr. Wood Hurtado Work Phone: [facility] 05-15-2023 09:01-0500 SaO2% (BldA) [Mass fraction] 96 % Dr. Wood Hurtado Work Phone: [facility] 11-04-2022 13:58-0400 Body height 182.[address] Wood Hurtado Work Phone: [facility] 11-04-2022 13:58-0400 Body mass index (BMI) [Ratio] 30.5 kg/m2 Dr. Wood Hurtado Work Phone: [facility] 11-04-2022 13:58-0400 Body weight 102.[address] Wood Hurtado Work Phone: [facility] 11-04-2022 13:58-0400 Diastolic blood pressure 80 mm[Hg] Dr. Wood Hurtado Work Phone: [facility] 11-04-2022 13:58-0400 Heart rate 57 /min Dr. Wood Hurtado Work Phone: [facility] 11-04-2022 13:58-0400 Respiratory rate 16 /min Dr. Wood Hurtado Work Phone: [facility] 11-04-2022 13:58-0400 Systolic blood pressure 123 mm[Hg] Dr. Wood Hurtado Work Phone: [facility] 09-05-2022 07:22-0400 Body height 182.[address] Wood Hurtado Work Phone: [facility] 08-29-2022 09:54-0400 Body mass index (BMI) [Ratio] 32 kg/m2 Dr. Wood Hurtado Work Phone: [facility] 08-29-2022 09:54-0400 Body weight 107.[address] Wood Hurtado Work Phone: [facility] 08-29-2022 09:54-0400 Diastolic blood pressure 100 mm[Hg] Dr. Wood Hurtado Work Phone: [facility] 08-29-2022 09:54-0400 Heart rate 81 /min Dr. Wood Hurtado Work Phone: [facility] 08-29-2022 09:54-0400 Respiratory rate 18 /min Dr. Wood Hurtado Work Phone: [facility] 08-29-2022 09:54-0400 SaO2% (BldA) [Mass fraction] 95 % Dr. Wood Hurtado Work Phone: [facility] 08-29-2022 09:54-0400 Systolic blood pressure 148 mm[Hg] Dr. Wood Hurtado Work Phone: [facility] 08-08-2022 13:00-0400 Diastolic blood pressure 92 mm[Hg] Dr. Wood Hurtado Work Phone: [facility] 08-08-2022 13:00-0400 Systolic blood pressure 169 mm[Hg] Dr. Wood Hurtado Work Phone: [facility] 08-08-2022 11:00-0400 Body height 182.[address] Wood Hurtado Work Phone: [facility] 08-08-2022 11:00-0400 Body mass index (BMI) [Ratio] 31.7 kg/m2 Dr. Wood Hurtado Work Phone: [facility] 08-08-2022 11:00-0400 Body temperature 98 [degF] Dr. Wood Hurtado Work Phone: [facility] 08-08-2022 11:00-0400 Body weight 106.[address] Wood Hurtado Work Phone: [facility] 08-08-2022 11:00-0400 Heart rate 73 /min Dr. Wood Hurtado Work Phone: [facility] 08-08-2022 11:00-0400 Respiratory rate 16 /min Dr. Wood Hurtado Work Phone: [facility] 08-08-2022 11:00-0400 SaO2% (BldA) [Mass fraction] 97 % Dr. Wood Hurtado Work Phone: [facility] 09-10-2021 08:38-0400 Body height 182.[address] Wood Hurtado Work Phone: [facility] Work Phone: 09-10-2021 08:38-0400 Body weight 108.[address] Wood Hurtado Work Phone: [facility] Work Phone: 09-09-2021 07:48-0400 Body mass index (BMI) [Ratio] 32.4 kg/m2 Dr. Wood Hurtado Work Phone: [facility] Work Phone: 08-25-2021 08:43-0400 Body mass index (BMI) [Ratio] 32.4 kg/m2 Dr. Wood Hurtado Work Phone: [facility] Work Phone: 08-25-2021 08:43-0400 Body weight 108.[address] Wood Hurtado Work Phone: [facility] Work Phone: 08-25-2021 08:43-0400 Diastolic blood pressure 86 mm[Hg] Dr. Wood Hurtado Work Phone: [facility] Work Phone: 08-25-2021 08:43-0400 Heart rate 72 /min Dr. Wood Hurtado Work Phone: [facility] Work Phone: 08-25-2021 08:43-0400 Respiratory rate 18 /min Dr. Wood Hurtado Work Phone: [facility] Work Phone: 08-25-2021 08:43-0400 SaO2% (BldA) [Mass fraction] 95 % Dr. Wood Hurtado Work Phone: [facility] Work Phone: 08-25-2021 08:43-0400 Systolic blood pressure 121 mm[Hg] Dr. Wood Hurtado Work Phone: [facility] Work Phone: 08-25-2021 08:43-0400 Body height 182.[address] Wood Hurtado Work Phone: [facility] Work Phone: 08-25-2021 08:43-0400 Body mass index (BMI) [Ratio] 32.4 kg/m2 Dr. Wood Hurtado Work Phone: [facility] Work Phone: 08-25-2021 08:43-0400 Body weight 108.[address] Wood Hurtado Work Phone: [facility] Work Phone: 08-25-2021 08:43-0400 Diastolic blood pressure 86 mm[Hg] Dr. Wood Hurtado Work Phone: [facility] Work Phone: 08-25-2021 08:43-0400 Heart rate 72 /min Dr. Wood Hurtado Work Phone: [facility] Work Phone: 08-25-2021 08:43-0400 Respiratory rate 18 /min Dr. Wood Hurtado Work Phone: [facility] Work Phone: 08-25-2021 08:43-0400 SaO2% (BldA) [Mass fraction] 95 % Dr. Wood Hurtado Work Phone: [facility] Work Phone: 08-25-2021 08:43-0400 Systolic blood pressure 121 mm[Hg] Dr. Wood Hurtado Work Phone: [facility] Work Phone: 07-07-2021 12:59-0500 Body mass index (BMI) [Ratio] 32.3 kg/m2 Dr. Wood Hurtado Work Phone: [facility] Work Phone: 07-07-2021 12:59-0500 Body weight 107.[address] Wood Hurtado Work Phone: [facility] Work Phone: 07-07-2021 12:59-0500 Diastolic blood pressure 83 mm[Hg] Dr. Wood Hurtado Work Phone: [facility] Work Phone: 07-07-2021 12:59-0500 Heart rate 77 /min Dr. Wood Hurtado Work Phone: [facility] Work Phone: 07-07-2021 12:59-0500 Respiratory rate 18 /min Dr. Wood Hurtado Work Phone: [facility] Work Phone: 07-07-2021 12:59-0500 SaO2% (BldA) [Mass fraction] 95 % Dr. Wood Hurtado Work Phone: [facility] Work Phone: 07-07-2021 12:59-0500 Systolic blood pressure 136 mm[Hg] Dr. Wood Hurtado Work Phone: [facility] Work Phone: 10-22-2020 18:52-0400 Diastolic blood pressure 79 mm[Hg] Joseph Jang MD [facility] Phone: [facility] Work Phone: 10-22-2020 18:52-0400 Heart rate 62 /min Joseph Jang MD Work Phone: [facility] Work Phone: 10-22-2020 18:52-0400 Respiratory rate 14 /min Joseph Jang MD Work Phone: [facility] Work Phone: 10-22-2020 18:52-0400 SaO2% (BldA) [Mass fraction] 99 % Joseph Jang MD Work Phone: [facility] Work Phone: 10-22-2020 18:52-0400 Systolic blood pressure 136 mm[Hg] Joseph Jang MD Work Phone: [facility] Work Phone: 10-22-2020 16:50-0400 Body height 182.9 cm Joseph Jang MD Work [facility] Work Phone: 10-22-2020 16:50-0400 Body mass index (BMI) [Ratio] 29.84 kg/m2 Joseph Jang MD Work Phone: [facility] Work Phone: 10-22-2020 16:50-0400 Body temperature 97.9 [degF] Joseph Jang MD Work Phone: [facility] Work Phone: 10-22-2020 16:50-0400 Body weight 99.79 kg Joseph Jang MD Work Phone: [facility] Work Phone: 02-21-2017 14:10-0400 BMI (Body Mass Index) 29.83 kg/m2 Janey Cruz [facility] Work Phone: 02-21-2017 14:10-0400 BP Diastolic 80 mm[Hg] Janey Cruz [facility] Work Phone: 02-21-2017 14:10-0400 BP Systolic 130 mm[Hg] Janey Cruz [facility] Work Phone: 02-21-2017 14:10-0400 Height 182.88 cm Janey Cruz [facility] Work Phone: 02-21-2017 14:10-0400 Pulse (Heart Rate) 64 /min [facility] Work Phone: 02-21-2017 14:10-0400 Respiratory Rate 20 /min [facility] Work Phone: 02-21-2017 14:10-0400 Weight 99.79 kg [facility] Work Phone: 08-18-2016 15:41-0400 BMI (Body Mass Index) 30.11 kg/m2 Daniel Rincon MD [facility] Work Phone: 08-18-2016 15:41-0400 BP Diastolic 60 mm[Hg] Daniel Rincon MD [facility] Work Phone: 08-18-2016 15:41-0400 BP Systolic 100 mm[Hg] [facility] Work Phone: 08-18-2016 15:41-0400 Height 182.88 cm MD [facility] Work Phone: 08-18-2016 15:41-0400 Pulse (Heart Rate) 68 /min MD [facility] Work Phone: 08-18-2016 15:41-0400 Respiratory Rate 20 /min MD [facility] Work Phone: 08-18-2016 15:41-0400 Weight 100.7 kg MD [facility] Work Phone: 02-18-2016 15:19-0400 BSA (Body Surface Area) 2.25 m2 MD [facility] Work Phone: 02-26-2015 15:41-0400 Heart rate 64 /min MD [facility] Work Phone: Encounters Encounter Date Encounter Type Care Provider Facility Start: 10-29-2024 End: 10-29-[address] Wood Hurtado MD Work Phone: [facility] Work Phone: Start: 10-29-2024 End: 10-29-[address] Daniel Rincon MD -[facility] Work Phone: Start: 10-29-2024 Patient encounter procedure Gisele Messina PA -Laboratory Work Phone: Start: 07-15-2024 End: 07-15-2024 ambulatory DELMA SEVERINO Facility:[facility] Start: 07-15-2024 End: 07-15-2024 Office outpatient visit 40 minutes Delma Severino MD Work Phone: Cardiology Comment on above: Hypertension, unspec ified type (Primary Dx); High cholesterol; Coronary artery disease involving [place] coronary artery of [place] heart, unspecified whether angina present; Chest pain, unspecified type; Family history of prostate cancer Start: 07-15-2024 End: 09-14-2024 Follow-up encounter Delma Severino MD Work Phone: Cardiology Start: 07-10-2024 End: 07-10-2024 ambulatory DELMA SEVERINO Facility:[facility] Start: 07-08-2024 End: 07-08-2024 Telephone encounter Delma Severino MD Work Phone: Cardiology Comment on above: Patient Question (bl ood work?) High cholesterol (Pr imary Dx) Start: 04-18-2024 End: 04-18-2024 Telephone encounter Delma Severino MD Work Phone: Cardiology Start: 03-29-2024 End: 03-29-2024 ambulatory DELMA SEVERINO Facility:[facility] Start: 03-28-2024 End: 03-28-2024 Telephone encounter Delma Severino MD Work Phone: Cardiology Comment on above: Patient Education Start: 03-26-2024 End: 03-26-2024 Telephone encounter Delma Severino MD Work Phone: Cardiology Start: 03-22-2024 ambulatory [facility] Facility[facility] Start: 03-19-2024 End: 03-19-2024 Office outpatient visit 40 minutes Delma Severino MD Work Phone: Cardiology Comment on above: High cholesterol (Pr imary Dx); Hypertension, unspecified type; Chest pain, unspecified type; Overweight; Coronary artery disease involving [place] coronary artery of [place] heart, unspecified whether angina present; SOB (shortness of breath) Start: 03-19-2024 End: 03-19-2024 ambulatory DELMA SEVERINO Facility:[facility] Start: 03-19-2024 End: 03-19-2024 Patient encounter procedure Echo A17 Card Main Work Phone: Cardiology Comment on above: SOB (shortness of br eath) Start: 03-19-2024 End: 03-19-2024 ambulatory DELMA CHISHOLMMARIA Facility:[facility] Start: 03-19-2024 End: 03-19-2024 Subsequent hospital visit by physician [employer] Work Phone: Molecular Imaging Comment on above: SOB (shortness of br eath) [R06.02] Start: 03-19-2024 End: 03-19-2024 [facility] Start: 03-19-2024 End: 03-19-2024 Subsequent hospital visit by physician [facility] Start: 03-11-2024 End: 03-11-2024 [facility] Start: 03-08-2024 End: 03-11-2024 Telephone encounter Delma Severino MD Work Phone: Cardiology Comment on above: Insurance Authorizat ion Start: 02-06-2024 End: 02-06-2024 Telephone encounter Delma Severino MD Work Phone: Cardiology Comment on above: Received Outside Med ical Records ([facility]) Start: 01-23-2024 End: 01-23-2024 Office outpatient new 60 minutes Delma Severino MD Work Phone: Cardiology Comment on above: High cholesterol (Pr imary Dx); Hypertension, unspecified type; Chest pain, unspecified type; Overweight; SOB (shortness of breath); Coronary artery disease involving [place] coronary artery of [place] heart, unspecified whether angina present Start: 01-23-2024 End: 01-23-2024 ambulatory DELMA SEVERINO Facility:[facility] Start: 12-26-2023 End: 12-26-2023 Emergency department patient visit Wood Hurtado Facility:[facility] Start: 12-06-2023 Orders Only Delma Severino MD Work Phone: Cardiology Comment on above: Chest pain, unspecif ied type (Primary Dx) Start: 10-27-2023 End: 10-27-2023 ambulatory Wood Hurtado Facility:[facility] Start: 10-20-2023 Telephone encounter Renzo Eckert MD Work Phone: Cardiology Comment on above: Received Outside [facility] Records (Referral & Medical Records); Consult (New Patient Referral to Dr. Renzo Eckert MD) Start: 09-22-2023 End: 09-22-2023 ambulatory Wood Hurtado [place] [place]: 09-22-2023 End: 09-22-2023 ambulatory Fam Graves NP Facility:[facility] Start: 05-15-2023 End: 05-15-[address] Wood Hurtado Work Phone: [facility] Work Phone: Start: 05-15-2023 End: 05-15-[address] Wood Hurtado Work Phone: [facility] Work Phone: Start: 05-15-2023 End: 05-15-2023 ambulatory Gisele DE LA ROSA Facility:[facility] Start: 11-04-2022 End: 11-04-[address] Wood Hurtado Work Phone: [facility] Work Phone: Start: 11-04-2022 End: 11-04-[address] Wood Hurtado Work Phone: [facility] Work Phone: Start: 09-05-2022 End: 09-05-2022 Admission to same day surgery center Dr. Wood Hurtado Work Phone: [facility]-[employer]/Special Procedures Start: 09-05-2022 End: 09-05-[address] Wood Hurtado Work Phone: [facility] Work Phone: Start: 08-29-2022 End: 08-29-[address] Wood Hurtado Work Phone: [facility] Start: 08-08-2022 End: 08-08-2022 Emergency department patient visit Dr. Wood Hurtado Work Phone: [facility]-Emergency Department Start: 08-08-2022 End: 08-08-[address] Wood Hurtado Work Phone: [facility] Work Phone: Start: 08-08-2022 End: 08-08-[address] Wood Hurtado Work Phone: [facility]-Laboratory Start: 08-08-2022 End: 08-08-[address] Wood Hurtado Work Phone: [facility] Start: 07-13-2022 End: 07-13-2022 ambulatory [facility] Work Phone: Start: 07-13-2022 End: 07-13-2022 Patient encounter procedure [facility] Start: 12-02-2021 End: 12-02-[address] Wood Hurtado Work Phone: [facility]-Cardiovascular Services Start: 09-10-2021 End: 09-10-2021 Admission to same day surgery center Dr. Wood Hurtado Work Phone: [facility]-[employer]/Special Procedures Start: 08-25-2021 End: 08-25-[address] Wood Hurtado Work Phone: [facility] Start: 08-16-2021 Non-patient / Non-visit Dr. Estrella Hurtado Work Phone: [facility] Start: 08-16-2021 End: 08-16-[address] [facility] Start: 07-07-2021 End: 07-07-[address] Wood Hurtado Work Phone: [facility]-Laboratory Start: 10-22-2020 End: 10-22-2020 Emergency department patient visit Joseph Jang MD Work Phone: [facility] ED Comment on above: Laceration of right index finger without foreign body without damage to nail, initial encounter (Primary Dx) Start: 01-02-[address] Wood Hurtado Work Phone: [facility] Procedures Date Procedure Procedure Detail Performing Clinician Start: 07-10-2024 Lipid 1996 panel - Serum or Plasma Delma Severino MD Work Phone: Start: 03-19-2024 Echo tthrc r-t 2d w/wom-mode compl spec&colr d Delma Severino MD Work Phone: Start: 03-19-2024 Rp loclzj kourtney spect w/ct 1 area 1 day imaging Delma Severino MD Work Phone: Start: 03-11-2024 Lipid 1996 panel - Serum or Plasma Delma Severino MD Work Phone: Start: 08-08-2022 CT angiography of chest with contrast Dr. Wood Hurtado Work Phone: Start: 09-10-2021 CT of chest without contrast Dr. Wood leone Work Phone: Start: 08-16-2021 Radionuclide imaging of perfusion of myocardium under exercise stress Dr. Wood Hurtado Work Phone: Start: 10-22-2020 LACERATION REPAIR Joseph Jang MD Work Phone: Start: 02-21-2017 Screening for malignant neoplasm of prostate Screening, prostate ca Janey Cruz Start: 02-15-2017 End: 02-20-2017 *Hepatic Function Panel Adina Simms Start: 02-15-2017 End: 02-20-2017 Lipid 1996 panel - Serum or Plasma Daniel Rincon MD Start: 08-18-2016 End: 02-07-2017 Follow Up Appt 6 months Adina Simms Start: 08-18-2016 End: 02-07-2017 MMAdina Rincon MD Start: 08-16-2016 End: 08-16-2016 *Hepatic Function Panel Adina Simms Start: 08-16-2016 End: 08-16-2016 Lipid 1996 panel - Serum or Plasma Daniel Rincon MD Start: 02-18-2016 End: 02-18-2016 Dietary management education, guidance, and counseling Daniel Rincon MD Start: 02-18-2016 End: 02-18-2016 AMALIA Rincon MD Start: 02-18-2016 End: 02-18-2016 Follow Up Appt 6 months Adina Simms Start: 02-18-2016 End: 03-21-2016 Nuclear stress test -exercise Daniel Rincon MD Start: 08-18-2015 End: 02-16-2016 *Hepatic Function Panel Adina Simms Start: 08-18-2015 End: 02-07-2017 AMALIA Rincon MD Start: 08-18-2015 End: 02-07-2017 Follow Up Appt 6 months Adina Simms Start: 08-18-2015 End: 02-16-2016 Lipid 1996 panel - Serum or Plasma Daniel Rincon MD Start: 06-26-2015 End: 08-17-2015 *Hepatic Function Panel Gisele vuong PA-C Work Phone: Start: 06-26-2015 End: 08-17-2015 Lipid 1996 panel - Serum or Plasma Gisele Messina PA-C Work Phone: Start: 03-19-2015 End: 04-24-2015 *Hepatic Function Panel Gisele vuong PA-C Work Phone: Start: 02-26-2015 End: 02-26-2015 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 Gisele Messina PA-C Work Phone: Start: 02-26-2015 End: 02-26-2015 Follow Up Appt 6 months Gisele vuong PA-C Work Phone: Start: 02-19-2015 End: 02-19-2015 *Hepatic Function Panel Adina Simms Start: 02-19-2015 End: 02-19-2015 Lipid 1996 panel - Serum or Plasma Daniel Rincon MD Start: 08-26-2014 End: 08-26-2014 Follow Up Appt 6 months Adina Simms Start: 08-26-2014 End: 08-26-2014 MMM Daniel Rincon MD Start: 08-25-2014 End: 08-25-2014 *Hepatic Function Panel Adina Simms Start: 08-25-2014 End: 08-25-2014 Lipid 1996 panel - Serum or Plasma Daniel Rincon MD Start: 02-25-2014 End: 02-25-2014 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 Gisele Messina PA-C Work Phone: Start: 02-25-2014 [...] Daniel Rincon MD Start: 08-16-2013 End: 08-16-2013 MMM Daniel Rincon MD Start: 07-10-2013 End: 02-05-2014 *BMP [...] Daniel Rincon MD Start: 07-03-2013 End: 07-03-2013 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 Daniel Rincon MD Start: 07-03-2013 End: 07-03-2013 [...] stress test -exercise Daniel Rincon MD Start: 03-03-2006 Lipid 1996 panel - Serum or Plasma Renzo Ekcert MD Work Phone: Plan of Treatment Date Care Activity Detail Author Start: 10-22-2030 Urine microalbumin profile [facility]yin Start: 08-09-2030 RSV Vaccine (1 - 1-dose 75+ series) RSV Vaccine (1 - 1-dose 75+ series) [facility] Start: 07-10-2029 Lipid panel Lipid Screening [facility] Start: 03-11-2029 Lipid panel Lipid Screening [facility] Start: 07-11-2027 Diabetes Screening Diabetes Screening [facility] Start: 03-29-2027 Diabetes Screening Diabetes Screening [facility] Start: 03-11-2027 Diabetes Screening Diabetes Screening [facility] Start: 07-15-2025 BP Controlled (<130/80) BP Controlled (<130/80) [facility] Start: 07-10-2025 Hepatitis B surface antibody level LDL Cholesterol [facility] Start: 03-11-2025 Hepatitis B surface antibody level LDL Cholesterol [facility] Start: 11-13-2024 End: 11-13-2024 Patient encounter procedure 11/13/2024 8:00 AM EDT Office Visit Cardiology [address] [place] [id number] Delma Severino MD [address] [place] [address] Coronary artery disease involving [place] coronary artery of [place] heart, unspecified whether angina present Cardiology Comment on above: Coronary artery disease involving [place] coronary artery of [place] heart, unspecified whether angina present Start: 11-13-2024 End: 11-13-2024 ambulatory 11/13/2024 7:15 AM EDT Results Only [facility] [address] [place] [id number] LAB WORK Main Fine [facility] Comment on above: LAB WORK Start: 10-15-2024 End: 01-14-2025 Comprehensive metabolic 2000 panel - Serum or Plasma COMPREHENSIVE METABOLIC PANEL Lab Routine High cholesterol Expected: 10/15/2024, Expires: 01/14/2025 [facility] Work Phone: Comment on above: Expected: 10/15/2024, Expires: Start: 10-15-2024 End: 01-14-2025 Lipid 1996 panel - Serum or Plasma LIPID PANEL BASIC Lab Routine High cholesterol Expected: 10/15/2024, Expires: 01/14/2025 [facility] Comment on above: Expected: 10/15/2024, Expires: Start: 07-15-2024 End: 07-15-2024 Patient encounter procedure 07/15/2024 2:30 PM EDT Office Visit Cardiology [address] [place] [id number] Delma Severino MD [address] [place] [address] Coronary artery disease involving [place] coronary artery of [place] heart, unspecified whether angina present Cardiology Comment on above: Coronary artery disease involving [place] coronary artery of [place] heart, unspecified whether angina present Start: 07-15-2024 End: 10-14-2024 Prostate specific Ag [Mass/volume] in Serum or Plasma PROSTATE-SPECIFIC ANTIGEN DIAGNOSTIC Lab Routine Family history of prostate cancer Expected: 07/15/2024, Expires: 10/14/2024 [facility] Comment on above: Expected: 07/15/2024, Expires: Start: 07-08-2024 End: 10-07-2024 Comprehensive metabolic 2000 panel - Serum or Plasma COMPREHENSIVE METABOLIC PANEL Lab Routine High cholesterol Expected: 07/08/2024, Expires: 10/07/2024 [facility] Work Phone: Comment on above: Expected: 07/08/2024, Expires: Start: 07-08-2024 End: 10-07-2024 Lipid 1996 panel - Serum or Plasma LIPID PANEL BASIC Lab Routine High cholesterol Expected: 07/08/2024, Expires: 10/07/2024 [facility] Comment on above: Expected: 07/08/2024, Expires: Start: 05-08-2024 Advance Directive Discussion Advance Directive Discussion [facility] Start: 04-01-2024 End: 04-01-2024 Patient encounter procedure 04/01/2024 1:30 PM EST Office Visit Cardiology [address] [place] [address] Delma Severino MD [address] [place] [id number] Clinician, Interventional [address] [place] [address] ok to use new patient slot Cardiology Comment on above: ok to use new patient slot Start: 03-29-2024 End: 03-29-2024 Admission to same day surgery center 03/29/2024 9:55 PM EST - 03/29/2024 11:02 PM EST Surgery HOSP [employer] [address] [place] [id number] Delma Severino MD [address] [place] [address] [address]ON[address] C[address] W IMAGE INJECT & INTERP W LT HEART CATH W INJECT LT VENTRGRAPHY HOSP [employer] Comment on above: CORONARY ANGIO W CATH PLACE W IMAGE INJE CT & INTERP W LT HEART CATH W INJECT LT VENTRGRAPHY Start: 03-29-2024 End: 03-29-2024 Cath plmt l hrt & arts w/njx & angio img s&i CORONARY ANGIO W CATH PLACE W IMAGE INJECT & INTERP W LT HEART CATH W INJECT LT VENTRGRAPHY Coronary artery disease involving [place] coronary artery of [place] heart, unspecified whether angina present 03/29/2024 9:55 PM EST PICKER OPERATOR Start: 03-29-2024 End: 03-29-2024 Prq trluml coronary stent w/angio one art/brnch INSERT INTRACORONARY STENT-PER MAJOR VESSEL OR BRANCH Coronary artery disease involving [place] coronary artery of [place] heart, unspecified whether angina present 03/29/2024 9:55 PM EST PICKER OPERATOR Start: 03-29-2024 Subsequent hospital visit by physician 03/29/2024 9:55 PM EST Hospital Encounter HOSP [employer] [address] [facility] [place] [address] Delma Severino MD [address] [place] [address] Coronary artery disease involving [place] coronary artery of [place] heart, unspecified whether angina present [I25.10] HOSP [employer] Comment on above: Coronary artery disease involving [place] coronary artery of [place] heart, unspecified whether angina present [I25.10] Start: 03-29-2024 End: 03-29-2024 ambulatory Cardiology Comment on above: DX:Coronary artery disease involving [place] coronary artery of [place] heart, unspecified whether angina present Start: 03-29-2024 End: 03-29-2024 Patient encounter procedure 03/29/2024 7:30 AM EST Office Visit Admitting [address] [place] [address] ADMIT Admitting Comment on above: ADMIT Start: 03-19-2024 End: 03-19-2024 Patient encounter procedure 03/19/2024 1:30 PM EST Office Visit Cardiology [address] [address] SOB (shortness of breath) [R06.02] Cardiology Comment on above: SOB (shortness of breath) [R06.02] Start: 03-19-2024 End: 03-19-2024 Patient encounter procedure 03/19/2024 11:30 AM EST Appointment Molecular Imaging [address] [place], [place] [phone] NM SPECTCT CARDIAC AMYLOID [facility] Imaging Comment on above: NM SPECTCT CARDIAC AMYLOID Start: 03-19-2024 End: 03-19-2024 Patient encounter procedure 03/19/2024 8:30 AM EST Appointment Molecular Imaging [address] [place], [place] [phone] NM SPECTCT CARDIAC AMYLOID [facility] Comment on above: NM SPECTCT CARDIAC AMYLOID Start: 01-23-2024 End: 01-23-2024 Patient encounter procedure 01/23/2024 2:15 PM EDT Office Visit Cardiology [address] [place], [place] [phone] Delma Severino MD [address] [place], [place] [id number] Clinician, Zoe [address] [place] [id number] DX: Atherosclerotic heart disease of [place] coronary artery without angina; Essential (primary) hypertension; Pure hypercholesterolemia, unspecified Cardiology Comment on above: DX: Atherosclerotic heart disease of [place] coronary artery without angina; Essential (primary) hypertension; Pure hypercholesterolemia, unspecified Start: 01-23-2024 End: 04-23-2024 CBC W Auto Differential panel - Blood COMPLETE BLOOD COUNT AND DIFFERENTIAL Lab Routine SOB (shortness of breath) Expected: 01/23/2024, Expires: 04/23/2024 [facility] Comment on above: Expected: 01/23/2024, Expires: Start: 01-23-2024 End: 04-23-2024 Comprehensive metabolic 2000 panel - Serum or Plasma COMPREHENSIVE METABOLIC PANEL Lab Routine High cholesterol Expected: 01/23/2024, Expires: 04/23/2024 [facility] Work Phone: Comment on above: Expected: 01/23/2024, Expires: Start: 01-23-2024 End: 04-23-2024 IMMUNOFIXATION SCREEN, SERUM IMMUNOFIXATION SCREEN, SERUM Lab Routine SOB (shortness of breath) Expected: 01/23/2024, Expires: 04/23/2024 [facility] Comment on above: Expected: 01/23/2024, Expires: Start: 01-23-2024 End: 04-23-2024 KAPPA/ARELLANO,FREE,SER KAPPA/ARELLANO,FREE,SER Lab Routine SOB (shortness of breath) Expected: 01/23/2024, Expires: 04/23/2024 [facility] Comment on above: Expected: 01/23/2024, Expires: Start: 01-23-2024 End: 04-23-2024 Lipid 1996 panel - Serum or Plasma LIPID PANEL BASIC Lab Routine High cholesterol Expected: 01/23/2024, Expires: 04/23/2024 [facility] Comment on above: Expected: 01/23/2024, Expires: Start: 01-23-2024 End: 04-23-2024 Lipoprotein a [Mass/volume] in Serum or Plasma LIPOPROTEIN (A) Lab Routine High cholesterol Expected: 01/23/2024, Expires: 04/23/2024 [facility] Comment on above: Expected: 01/23/2024, Expires: Start: 01-23-2024 End: 04-23-2024 MONOCLONAL PROT UR W/INTERP MONOCLONAL PROT UR W/INTERP Lab Routine SOB (shortness of breath) Expected: 01/23/2024, Expires: 04/23/2024 [facility] Comment on above: Expected: 01/23/2024, Expires: Start: 01-23-2024 End: 04-23-2024 Natriuretic peptide.B prohormone N-Terminal [Mass/volume] in Serum or Plasma NT PRO BNP Lab Routine SOB (shortness of breath) Expected: 01/23/2024, Expires: 04/23/2024 [facility] Comment on above: Expected: 01/23/2024, Expires: 4 Start: 01-23-2024 End: 04-23-2024 Protein/Creatinine [Mass Ratio] in Urine PROTEIN / CREATININE RATIO Lab Routine SOB (shortness of breath) Expected: 01/23/2024, Expires: 04/23/2024 [facility] Comment on above: Expected: 01/23/2024, Expires: 4 Start: 01-23-2024 End: 01-23-2024 ambulatory 01/23/2024 1:45 PM EDT Results Only Cardiology [address] [place] [address] DX: Atherosclerotic heart disease of [place] coronary artery without angina; Essential (primary) hypertension; Pure hypercholesterolemia, unspecified Cardiology Comment on above: DX: Atherosclerotic heart disease of [place] coronary artery without angina; Essential (primary) hypertension; Pure hypercholesterolemia, unspecified Start: 01-07-2024 Covid-19 Vaccine () Covid-19 Vaccine () [facility] Start: 01-07-2024 Covid-19 Vaccine () Covid-19 Vaccine () [facility] Start: 01-07-2024 Influenza vaccination [facility] Start: 11-30-2023 End: 11-30-2023 Patient encounter procedure Cardiology Comment on above: DX: Atherosclerotic heart disease of [place] coronary artery without angina; Essential (primary) hypertension; Pure hypercholesterolemia, unspecified Start: 05-08-2023 Advance Directive Discussion Advance Directive Discussion [facility] Start: 05-08-2023 Behavioral Health Screening Behavioral Health Screening [facility] Start: 03-07-2023 Shingrix Vaccine (2 of 2) Shingrix Vaccine (2 of 2) [facility] Start: 03-07-2023 Shingrix Vaccine (3 of 3) Shingrix Vaccine (3 of 3) [facility] Start: 01-06-2023 Covid-19 Vaccine () Covid-19 Vaccine () [facility] Start: 08-08-2022 Electrocardiographic procedure [facility] Start: 08-08-2022 Angiotensin converting enzyme [Enzymatic activity/volume] in Serum or Plasma [facility] Start: 08-08-2022 In-vitro immunologic test [facility] Start: 08-08-2022 Serum immunofixation [facility] Start: 08-08-2022 [facility] Start: 01-06-2021 Influenza vaccination Flu vaccine (Season Ended) [facility] Work Phone: Start: 09-01-2017 End: 02-21-2017 *Hepatic Function Panel *Hepatic Function Panel [facility] Work Phone: Start: 09-01-2017 End: 02-21-2017 Lipid panel [AGGREGATE] *Lipid Profile CC PCP [facility] Work Phone: Start: 08-22-2017 End: 08-22-2017 Appointment Appointment [facility] Work Phone: Start: 02-21-2017 End: 02-21-2017 Appointment Appointment [facility] Work Phone: Start: 02-21-2017 End: 02-21-2017 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 [facility] Work Phone: Start: 02-21-2017 End: 02-21-2017 Follow Up Appt 6 months Follow Up Appt 6 months [facility] Work Phone: Start: 02-21-2017 End: 02-21-2017 PSA *PSA (Prostate Specific Antigen) [facility] Work Phone: Start: 02-15-2017 End: 02-20-2017 *Hepatic Function Panel *Hepatic Function Panel [facility] Work Phone: Start: 02-15-2017 End: 02-20-2017 Lipid panel [AGGREGATE] *Lipid Profile CC PCP [facility] Work Phone: Start: 08-18-2016 End: 02-07-2017 Follow Up Appt 6 months Follow Up Appt 6 months [facility] Work Phone: Start: 08-18-2016 End: 02-07-2017 MMM MMM [facility] Work Phone: Start: 08-16-2016 End: 08-16-2016 *Hepatic Function Panel *Hepatic Function Panel [facility] Work Phone: Start: 08-16-2016 End: 08-16-2016 Lipid panel [AGGREGATE] *Lipid Profile CC PCP [facility] Work Phone: Start: 02-18-2016 End: 02-18-2016 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 [facility] Work Phone: Start: 02-18-2016 End: 02-18-2016 Follow Up Appt 6 months Follow Up Appt 6 months [facility] Work Phone: Start: 02-18-2016 End: 02-18-2016 Nuclear stress test -exercise Nuclear stress test -exercise [facility] Work Phone: Start: 08-18-2015 End: 02-16-2016 *Hepatic Function Panel *Hepatic Function Panel [facility] Work Phone: Start: 08-18-2015 End: 02-07-2017 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 [facility] Work Phone: Start: 08-18-2015 End: 02-07-2017 Follow Up Appt 6 months Follow Up Appt 6 months [facility] Work Phone: Start: 08-18-2015 End: 02-16-2016 Lipid panel [AGGREGATE] *Lipid Profile CC PCP [facility] Work Phone: Start: 2015 RSV Vaccine (1 - 1-dose 60+ series) RSV Vaccine (1 - 1-dose 60+ series) [facility] Start: 06-26-2015 End: 08-17-2015 *Hepatic Function Panel *Hepatic Function Panel [facility] Work Phone: Start: 06-26-2015 End: 08-17-2015 Lipid panel [AGGREGATE] *Lipid Profile CC PCP [facility] Work Phone: Start: 03-19-2015 End: 04-24-2015 *Hepatic Function Panel *Hepatic Function Panel [facility] Work Phone: Start: 02-26-2015 End: 02-26-2015 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 [facility] Work Phone: Start: 02-26-2015 End: 02-26-2015 Follow Up Appt 6 months Follow Up Appt 6 months [facility] Work Phone: Start: 02-19-2015 End: 02-19-2015 *Hepatic Function Panel *Hepatic Function Panel [facility] Work Phone: Start: 02-19-2015 End: 02-19-2015 Lipid panel [AGGREGATE] *Lipid Profile CC PCP [facility] Work Phone: Start: 08-26-2014 End: 08-26-2014 Follow Up Appt 6 months Follow Up Appt 6 months [facility] Work Phone: Start: 08-26-2014 End: 08-26-2014 MMM MMM [facility] Work Phone: Start: 08-25-2014 End: 08-25-2014 *Hepatic Function Panel *Hepatic Function Panel [facility] Work Phone: Start: 08-25-2014 End: 08-25-2014 Lipid panel [AGGREGATE] *Lipid Profile CC PCP [facility] Work Phone: Start: 02-25-2014 End: 02-25-2014 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 [facility] Work Phone: Start: 02-25-2014 End: 02-25-2014 Follow Up Appt 6 months Follow Up Appt 6 months [facility] Work Phone: Start: 12-06-2013 End: 02-24-2014 *Hepatic Function Panel *Hepatic Function Panel [facility] Work Phone: Start: 12-06-2013 End: 02-24-2014 Lipid panel [AGGREGATE] *Lipid Profile CC PCP [facility] Work Phone: Start: 08-16-2013 End: 02-05-2014 *Hepatic Function Panel *Hepatic Function Panel [facility] Work Phone: Start: 08-16-2013 End: 08-16-2013 Follow Up Appt 6 months Follow Up Appt 6 months [facility] Work Phone: Start: 08-16-2013 End: 02-05-2014 Lipid panel [AGGREGATE] *Lipid Profile CC PCP [facility] Work Phone: Start: 08-16-2013 End: 08-16-2013 MMM MMM [facility] Work Phone: Start: 07-10-2013 End: 02-05-2014 *BMP *BMP [facility] Work Phone: Start: 07-10-2013 End: 02-05-2014 CBC W Auto Differential panel - Blood *CBC without Diff [facility] Work Phone: Start: 07-10-2013 End: 07-16-2013 Chest x-ray X-Ray, Chest, PA & Lateral [facility] Work Phone: Start: 07-10-2013 End: 02-05-2014 INR Coag RelTime (PPP) *PT/INR [facility] Work Phone: Start: 07-10-2013 End: 07-10-2013 Left Heart Cath Left Heart Cath [facility] Work Phone: Start: 07-03-2013 End: 07-03-2013 *BMP *BMP [facility] Work Phone: Start: 07-03-2013 End: 07-03-2013 *Hepatic Function Panel *Hepatic Function Panel [facility] Work Phone: Start: 07-03-2013 End: 07-03-2013 Carotid duplex Carotid duplex [facility] Work Phone: Start: 07-03-2013 End: 07-03-2013 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 [facility] Work Phone: Start: 07-03-2013 End: 07-03-2013 Ecg routine ecg w/least 12 lds w/i&r EKG (In office) [facility] Work Phone: Start: 07-03-2013 End: 07-03-2013 Echocardiography Echocardiogram (complete) [facility] Work Phone: Start: 07-03-2013 End: 07-03-2013 Follow Up Appt 6 months Follow Up Appt 6 months [facility] Work Phone: Start: 07-03-2013 End: 07-03-2013 Lipid panel [AGGREGATE] *Lipid Profile CC PCP [facility] Work Phone: Start: 07-03-2013 End: 07-03-2013 Magnesium *Magnesium [facility] Work Phone: Start: 07-03-2013 End: 07-03-2013 Nuclear stress test -exercise Nuclear stress test -exercise [facility] Work Phone: Start: 03-03-2011 Lipid panel Lipid Screening [facility] Start: 08-09-2010 Prostate specific antigen measurement Prostate Cancer Screening Discussion [facility] Start: 03-03-2009 Diabetes Screening Diabetes Screening [facility] Start: 08-09-2000 Screening for malignant neoplasm of colon [facility] Start: 08-09-1973 Annual PCP Team Chronic Disease Visit Annual PCP Team Chronic Disease Visit [facility] Start: 08-09-1973 Anxiety Screening Anxiety Screening [facility] Start: 08-09-1973 BP Controlled (<130/80) BP Controlled (<130/80) [facility] Start: 08-09-1973 Depression Screening Depression Screening [facility] Start: 08-09-1973 Hepatitis C screening Hepatitis C Screening [facility] Start: 1955 Creatinine measurement Creatinine monitoring [facility] Work Phone: Start: 1955 Potassium monitoring Potassium monitoring [facility] Work Phone: Albumin [Moles/volum e] in Serum or Plasma [facility] Albumin/Globulin ratio [facility] Antibody to lupus La protein measurement [facility] Antibody to SS-A measurement [facility] Catheterization of l eft heart [facility] Work Phone: Catheterization of l [facility] heart [facility] Centromere protein B Ab [Units/volume] in Serum [facility] Chromatin Ab [Units/ volume] in Serum or Plasma [facility] DNA double strand Ab [Units/volume] in Serum [facility] End: 12-05-2024 ECG COMPLETE ECG COMPLETE ECG Routine Chest pain, unspecified type 1 Occurrences starting 12/06/2023 until 12/05/2024 [facility] Work Phone: Comment on above: 1 Occurrences starting 12/06/2023 until 12/05/2024 End: 01-22-2025 Echocardiography ECHO Cardiology Routine SOB (shortness of breath) 1 Occurrences starting 01/23/2024 until 01/22/2025 [facility] Comment on above: 1 Occurrences starting 01/23/2024 until 01/22/2025 Electrophoresis: [id number] [facility] Electrophoresis: mariano ma globulin [facility] Globulin measurement [facility] IgA [Mass/volume] in Serum or Plasma [facility] IgG [Mass/volume] in Serum or Plasma [facility] IgM [Mass/volume] in Serum or Plasma [facility] Skye-1 extractable nuc lear Ab [Units/volume] in Serum [facility] Mycobacterium tuberc ulosis tuberculin stimulated gamma interferon [Presence] in Blood [facility] Neutrophil cytoplasm ic Ab.classic [Units/volume] in Serum [facility] P-ANCA measurement [facility] Patient Education [facility] [employer] Work Phone: Patient referral [facility] Work Phone: Protein electrophore sis panel - Serum or Plasma [facility] SCL-70 extractable n uclear Ab [Units/volume] in Serum by Immunoassay [facility] Serum protein electrophoresis [facility] Cruz extractable nu clear Ab [Presence] in Serum [facility] End: 02-21-2025 SPECT Heart for infarct W Tc-99m PYP IV NM SPECT/CT CARDIAC AMYLOID Radiology Routine SOB (shortness of breath) 1 Occurrences starting 01/23/2024 until 02/21/2025 [facility] Comment on above: 1 Occurrences starting 01/23/2024 until 02/21/2025 XR Chest PA and Lateral [facility] Work Phone: Immunizations Immunization Date Immunization Notes Care Provider Missael anderson 01-04-2023 influenza virus vaccine, unspecified formulation Delma Severino MD Work Phone: [facility] 10-22-2020 tetanus toxoid, reduced diphtheria toxoid, and acellular pertussis vaccine, adsorbed Joseph Jang MD Work Phone: [facility] Work Phone: 08-06-2020 Covid (Pfizer) Dr. Wood sage Work Phone: [facility] 07-16-2020 Covid (Pfizer) Dr. Wood sage Work Phone: [facility] 01-21-2020 influenza virus vaccine, unspecified formulation Renzo Eckert MD Work Phone: [facility] Payers Date Payer Category Payer Self-pay [id number] 2023 [employer] BLUE CARD PPO OOS [id number] 2023 Unknown [employer]M BLUE CARD PPO OOS [id number] 2023-Present [phone] [address] [place] [address] PPO [id number] 2022 Unknown [id number] 2020 Medicare MEDICARE ERNESTINA CHAPMAN [id number] Medicare MEDICARE A ONLY [id number] Unknown SELF PAY INSURANCE [id number] Unknown [id number] Unknown [id number] Unknown [id number] Unknown [id number] Unknown [id number] Unknown [id number] Unknown [id number] Social History Date Type Detail Facility Start: 10-22-2020 End: 12-26-2023 Tobacco smoking status MNIS Never smoker [facility] Start: 10-22-2020 End: 07-15-2024 Alcohol intake Current drinker of alcohol (finding) [facility] Work Phone: Start: 10-22-2020 Alcohol Comment daily [facility] Work Phone: Start: 1955 Sex Assigned At Not on file [facility] Work Phone: Exposure to SARS-CoV-2 (event) Not sure [facility] Start: 08-25-2021 End: 05-15-2023 Tobacco smoking status NHIS Unknown if ever smoked [facility] Start: 12-13-2018 Non-smoker [facility] Start: 1955 Sex Assigned At Male [facility] Start: 01-23-2024 End: 07-15-2024 Gender identity Not on file [facility] Start: 01-23-2024 End: 03-19-2024 Tobacco use and exposure Smokeless tobacco non-user [facility] Start: 01-23-2024 End: 07-15-2024 History of Social function [facility] Start: 01-23-2024 Alcohol Comment dearing 2-3x/week [facility] NEGATED: Highlighted rowStart: NINF History of tobacco use Passive smoker [facility] Medical Equipment Procedure Code Equipment Code Equipment Origin al Text Equipment Identifier Dates STENT,URETERAL 6 FR PIG [id number] FDA Start: 12-14-2018 STENT,URETERAL 6 FR PIG 6X26 FDA Start: 12-14-2018 STENT,URETERAL 6 FR PIG 6X26 FDA Start: 12-14-2018 STENT,URETERAL 6 FR PIG 6X26 FDA Start: 12-14-2018 STENT,URETERAL 6 FR PIG 6X26 FDA Start: 12-14-2018 STENT,URETERAL 6 FR PIG 6X26 FDA Start: 12-14-2018 STENT,URETERAL 6 FR PIG 6X26 FDA Start: 12-14-2018 STENT,URETERAL 6 FR PIG 6X26 FDA Start: 12-14-2018 STENT,URETERAL 6 FR PIG 6X26 FDA Start: 12-14-2018 STENT,URETERAL 6 FR PIG 6X26 FDA Start: 12-14-2018 Goals Date Patient Goal Desired Activity /State Personal health goal Functional Status Date Assessment Result Facility 03-29-2024 Are you deaf, or do you have serious difficulty hearing No 03/29/2024 12:56 PM Shabana Lucero RN [facility] 03-29-2024 Are you blind, or do you have serious difficulty seeing, even when wearing glasses No 03/29/2024 12:56 PM Shabana Lucero, ARI [facility] 03-29-2024 Do you have serious difficulty walking or climbing stairs No 03/29/2024 12:56 PM Shabana Lucero RN [facility] 03-29-2024 Do you have difficul ty dressing or bathing No 03/29/2024 12:56 PM Shabana Lucero RN No [facility] 03-29-2024 Because of a physica l, mental, or emotional condition, do you have difficulty doing errands alone such as visiting a physician's office or shopping No 03/29/2024 12:56 PM Shabana Lucero RN No [facility] Mental Status Date Assessment Result Facility 03-29-2024 Because of a physica l, mental, or emotional condition, do you have serious difficulty concentrating, remembering, or making decisions No 03/29/2024 12:56 PM Shabana Lucero RN No [facility] 08-08-2022 Cognitive function Level Of Cons ciousness Awake;Alert;Appropriate;Fol lows Commands [facility] Work Phone: Clinical Notes 10-20-2023 to 07-31-2024 Patient InstructionsDelma Severino MD - 07/15/2024 2:30 PM EDTResult Encounter Note - Delma Severino MD - 07/15/2024 8:05 AM EDTPatient InstructionsPatient Instructions Note Date & Type Note Facility 07-31-2024 Note HNO ID: [id number] Author: ?, ?, ? Service: ? Author Type: ? Type: Progress Notes Filed: 07/31/2024 15:43 Note Text: Dr Serene Maria's message below relayed to patient via VMM. [facility] [place] 07-15-2024 Instructions Delma Severino MD - 07/15/2024 5:03 PM EDT PLAN AND RECOMMENDATIONS: Increase the atorvastatin to 80 mg daily Increase the metoprolol to 50 mg twice a day Lower the amlodipine to 2.5 mg daily Increase ambulation as tolerated with a goal to do moderate activity 30 minutes a day 5 days a week Work on weight loss Follow a heart healthy diet, rich in fruits and vegetables, fish and whole grains. Limited the amount of processed foods, sugary drinks, fried foods, red meat, pork, and salt See me in three months Fasting bloods before then CONTACT INFORMATION: Delma Severino MD, [facility], [facility] Co[employer] Extension Agent and Switchboard Operator Receptionist, Acute Coronary Care [facility], Heart, Vascular and Thoracic Flushing [address] [place] [address], [address] [place] [id number] documented in this encounter [facility] 07-15-2024 History of Presen t illness Narrative Images from the original note were not included. Heart, Vascular and Thoracic Flushing [facility] Department of Cardiovascular Medicine SECTION OF INTERVENTIONAL CARDIOLOGY OUTPATIENT VISIT DATE July 15, 2024 OUTPATIENT VISIT TYPE Established CHIEF COMPLAINT: Followup HISTORY OF PRESENT ILLNESS: Patient is a 68-year-old male with a history of hypertension, hyperlipidemia, and coronary artery disease (CAD), He had several prior caths with the most recent in 2022. But was advised medical therapies. He came to see me for chest pain in 2023. Cath done most recently in with moderate LAD and RFR of 0.94 and moderate dominant LCX with RFR of 0.99. There were small LPL with severe disease and LPDA with severe disease and OM1 with severe disease but a large OM2 with mild disease but on further review has a focal 50% disease in the mid vessel The RCA was non dominant with severe disease. He was medically managed and comes in f/u. Of note he had extensive testing for other causes and they could not find the reason. The patient reports persistent chest discomfort described as a tightness that occurs both during ambulation and while lying on his right side. The discomfort is less severe when lying down compared to walking. He notes that the discomfort when lying down occurs when lying on his right side and is alleviated by sitting up and belching or lying on his back. The symptoms when walking will get better if he stops to rest. He denies any new symptoms since his last cardiac catheterization. He experiences numbness in his legs extending to his feet after standing or walking for prolonged periods, which he attributes to sciatica. This numbness reportedly affects his balance and ability to walk. These symptoms have limited his ability to exercise. He denies any medication allergies. He smokes and consumes bourbon 2-3 times per week. He uses Viagra occasionally. Recent lab results show an LDL of 72 mg/dL and an Lp(a) of 8 mg/dL. Current medications include amlodipine 5 mg once daily, allopurinol, aspirin, atorvastatin 40 mg once daily, Pepcid, losartan 100 mg once daily, metoprolol tartrate 25 mg BID, multivitamins, and Ranexa. He has not tried Imdur. PAST MEDICAL HISTORY Diagnosis Date ABNORMAL CARDIOVASC STUDY NOS 03/03/2006 CT scan with a high calcium score of 880.9 02-27-06 Arthritis CAD (coronary artery disease) Elevated hemidiaphragm GENERAL OSTEOARTHROSIS 03/03/2006 Hernia, diaphragmatic HLD (hyperlipidemia) HTN (hypertension) PAST SURGICAL HISTORY Procedure Laterality Date ARTHROSCOPY KNEE DIAGNOSTIC W/WO SYNOVIAL BX SPX Arthroscopy, knee ARTHROTOMY W/MENISCUS REPAIR KNEE Open knee reconstruction REVISE MEDIAN N/CARPAL TUNNEL SURG TOTAL KNEE REPLACEMENT Right SOCIAL HISTORY Social History Tobacco Use Smoking status: Never Passive exposure: Never Smokeless tobacco: Never Vaping Use Vaping status: Never Used Substance Use Topics Alcohol use: Yes Comment: bourbon 2-3x/week Drug use: No FAMILY HISTORY Problem Relation Age of Onset Stroke Mother at age 82 Heart Attack Father 88 stents Coronary Artery Disease Father Heart Attack Brother 50 stents Heart Attack Maternal Grandfather 74 fatal Coronary Artery Disease Maternal Grandfather Diabetes Maternal Grandfather Heart Attack Paternal Grandfather 58 Coronary Artery Disease Paternal Grandfather ALLERGIES: ALLERGIES No Known Allergies MEDICATIONS: Current Outpatient Medications Medication Sig atorvastatin (LIPITOR) 40 mg tablet Take 1 tablet by mouth once daily. allopurinol (ZYLOPRIM) 100 mg tablet Take 100 mg by mouth two times a day. famotidine (PEPCID) 20 mg tablet Take 1 tablet by mouth every afternoon. ranolazine SR (RANEXA) 1,000 mg tab ER 12 hr Take 1,000 mg by mouth two times a day. Wogsgvlvlqkwc-Lrwdnjno-Mpzqje (MULTIVITAMIN 50 PLUS) tab Take 1 tablet by mouth once daily. metoprolol tartrate, short acting, (LOPRESSOR) 25 mg tablet Take 1 tablet by mouth two times a day. losartan (COZAAR) 100 mg tablet Take 1 tablet by mouth every afternoon. amLODIPine (NORVASC) 5 mg tablet Take 1 tablet by mouth once daily. ASPIRIN 81MG TABLET Take one (1) tablet daily . No current facility-administered medications for this visit. REVIEW OF SYSTEMS: ROS see above PHYSICAL EXAMINATION: 07/15/24 1527 BP: 101/63 BP Site: Left Arm BP Position: Sitting Pulse: 66 Resp: 18 SpO2: 97% Weight: 103.4 kg (228 lb) Height: 182.9 cm (6') Body mass index is 30.92 kg/m . General: Well appearing, in no acute distress, speaking in complete sentences. Lungs: Dry crackles to auscultation with good effort Heart: Regular rhythm,S1, S2 normal, no S3, no S4, no rub and no murmur. Abdomen: Soft, nontender, bowel sounds normal, no palpable organomegaly, no bruits. Extremities: no edema Musculoskeletal: Normal gait and ambulation Neuro: Oriented to time, place and person Last EKG Result Conclusion ECG COMPLETE Collected: 03/29/2024 8:17 AM (Final result) Impression: SINUS BRADYCARDIA OTHERWISE NORMAL ECG Confirmed by MD JOSE, PhD, ISACC ([id number]) on 05/02/2024 4:39:13 PM Injection Site(s): Coronary Artery LMT: The LMT has mild luminal irregularities. Additional Comment: The left main is moderately calcified. The left main is a large caliber vessel that bifurcates into LAD and LCX. LAD: The proximal LAD is narrowed 50 % - focal disease and ostial. The mid LAD is narrowed 50 % - involving a bifurcation. The distal is narrowed 65 % - focal disease. Additional Comment: The LAD is moderately calicified. The LAD is a large caliber vessel that gives rise to two medium diagonal branches and a large septal before reaching and wrapping around the apex. The proximal LAD has a focal 50% stenosis. The mid LAD has a focal 50% stenosis. The distal LAD has an apical 65% stenosis. The remaining vessel has mild diffuse disease. RFR across the proximal and mid LAD ending in the distal LAD was 0.94 consistent with a non physiologically signficant stenosis. LCX: The distal circumflex is narrowed 50 % - focal disease. The 1st left posterolateral circumflex is narrowed 80 % - ostial and focal disease. The 2nd left posterolateral circumflex is narrowed 80 % - focal disease and ostial. The left posterolateral descending circumflex is narrowed 70 % - focal disease. Additional Comment: The LCX is moderately calcified. The LCX is a large caliber dominant vessel that gives off a small OM1 and a large OM2 before continuing in AV groove and giving several LPLs before terminating as the LPDA. The AV LCx has a 50% stenosis followed by an aneurysmal segment. The OM1 has diffuse moderate disease and the OM2 has mild diffuse disease. There is severe ostial stenoses of the LPL1 and LPL2 as seen on prior angiograms. These are small branches. The LPDA has A Focal stenosis 70% as seen on prior angiograms. RFR across the distal Lcx into AV groove was 0.99. RAMUS: The Ramus is Absent. RCA: The proximal RCA is narrowed 90 % - focal disease. Additional Comment: The RCA is nondominant and is medium sized vessel that gives rise to a marginal then continues as a diminutive vessel. There is a 90% focal stenosis in the proximal RCA. +-------+ IMAGING +-------+ Intravascular imaging not performed. + + HEMODYNAMIC INTERROGATION + + Run 1, LCX Distal Type RFR for Pre-PCI Value- 0.99. Run 2, LAD Distal Type RFR for Pre-PCI Value- 0.94. RFR for distal LCx 0.99, 0.99, 0.99. RFR for distal LAD 0.94, 0.93, 0.94. 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 IMPRESSION: Mr. Garcia is a 68 year old male with known CAD who presents with worsening angina, GARCIA and LE swelling. Cath with ostial branch disease of the LPDA, LPL and severe diffuse disease of the OM1 (small) and moderate Om2 (large) and moderate distal LCX and LAD. And severe non dominant LCX. RFR across the LCX main branch and LAD were normal and I adivsed medical therapies. Still has angina and will adjust meds # High cholesterol (E78.00) Managed with atorvastatin 20 mg daily. Lab results show LDL at 68 mg/dL and HDL at 58 mg/dL in 2022, with previous LDL at 35 mg/dL in 2021. Then HDL of 55 and LDL of 77 and TG of 142 and Lp (a) of 8 in ; Adjusted the atorvastatin to 40 mg and LDL in was 72 and HDL if 48 and TC of 142. I now advise we increase the atorvastatin to 80 mg daily # Hypertension, unspecified type (I10) Currently managed with amlodipine 5 mg, losartan 100 mg daily, and metoprolol tartrate. In the past I felt amlodioine may be contributing to lower extremity edema and last visit we lowered the amlodipine. - Decrease amlodipine to 5 mg daily and edema improved; Now BP on lower side and I favor optimizing antianginal meds so will lower the amlodipine again to 2.5 and increase the BB # Chest pain, unspecified type (R07.9) and CAD Exertional chest pressure and dyspnea present for several years, with symptoms alleviated by belching. Previous cardiac evaluations include multiple cardiac catheterizations. The most recent done in 2022 demonstrated severe non dominant RCA and severe disease of the branch vessels of LPL1 LPL2 and LPDA with intermediate disease of the LAD but an apical severe stenosis.Prior stress tests have all been without ischemia. Symptoms may be related to coronary artery disease with more significant plaque than is seen on angiogram or other etiologies such as amyloidosis given fatigue and LE swelling and SOB. Yet work up for amyloid so far is unrevealing. Repeat cath in with ostial branch disease of the LPDA, LPL and severe diffuse disease of the OM1 (small) and moderate focal Om2 (large) and moderate distal LCX and LAD. And severe non dominant LCX. RFR across the LCX main branch and LAD were normal and I adivsed medical therapies. Still has angina and will adjust meds as it is likely from the residual disease. In either event his CAD looks diffuse and I would favor extremely aggressive preventive therapies. Can also consider GLP agonists later on # Overweight (E66.3) Advised mediterrean diet last visit. Consider GLP agonists once indicated for CAD and weight loss # LE EDEMA and SOB BNP however in was normal and echo with gradie I diastolic dysfunction and TC PYP wihout amyloid and lite chains are normal. Likely GARCIA is from deconditioning. Advised weight loss and increased activities; of note the edema now better and likely from the higher dose of norvasc We spend a lot of time discussing the importance of RF modification and optimization of meds. I review all findings on cath PLAN AND RECOMMENDATIONS: Increase the atorvastatin to 80 mg daily Increase the metoprolol to 50 mg twice a day Lower the amlodipine to 2.5 mg daily Increase ambulation as tolerated with a goal to do moderate activity 30 minutes a day 5 days a week Work on weight loss Follow a heart healthy diet, rich in fruits and vegetables, fish and whole grains. Limited the amount of processed foods, sugary drinks, fried foods, red meat, pork, and salt See me in three months Fasting bloods before then CONTACT INFORMATION: Delma Severino MD, [facility], [facility], [facility] Cooperative Extension Agent and Switchboard Operator Receptionist, Acute Coronary Care [facility], Heart, Vascular and Thoracic Flushing [address] [place] [address], [address] [place] [address] The patient consented to the use of ambient AI software for draft documentation of the visit consistent with [facility] s Notice of Privacy Practices. documented in this encounter [facility] 07-15-2024 Note HNO ID: [id number] Author: DELMA SEVERINO MD Service: ? Author Type: Physician Type: Progress Notes Filed: 07/15/2024 18:32 Note Text: Heart, Vascular and Thoracic Fl[facility] Department of Cardiovascular Medicine SECTION OF INTERVENTIONAL CARDIOLOGY OUTPATIENT VISIT DATE July 15, 2024 OUTPATIENT VISIT TYPE Established CHIEF COMPLAINT: Followup HISTORY OF PRESENT ILLNESS: Patient is a 68-year-old male with a history of hypertension, hyperlipidemia, and coronary artery disease (CAD), He had several prior caths with the most recent in 2022. But was advised medical therapies. He came to see me for chest pain in 2023. Cath done most recently in with moderate LAD and RFR of 0.94 and moderate dominant LCX with RFR of 0.99. There were small LPL with severe disease and LPDA with severe disease and OM1 with severe disease but a large OM2 with mild disease but on further review has a focal 50% disease in the mid vessel The RCA was non dominant with severe disease. He was medically managed and comes in f/u. Of note he had extensive testing for other causes and they could not find the reason. The patient reports persistent chest discomfort described as a tightness that occurs both during ambulation and while lying on his right side. The discomfort is less severe when lying down compared to walking. He notes that the discomfort when lying down occurs when lying on his right side and is alleviated by sitting up and belching or lying on his back. The symptoms when walking will get better if he stops to rest. He denies any new symptoms since his last cardiac catheterization. He experiences numbness in his legs extending to his feet after standing or walking for prolonged periods, which he attributes to sciatica. This numbness reportedly affects his balance and ability to walk. These symptoms have limited his ability to exercise. He denies any medication allergies. He smokes and consumes bourbon 2-3 times per week. He uses Viagra occasionally. Recent lab results show an LDL of 72 mg/dL and an Lp(a) of 8 mg/dL. Current medications include amlodipine 5 mg once daily, allopurinol, aspirin, atorvastatin 40 mg once daily, Pepcid, losartan 100 mg once daily, metoprolol tartrate 25 mg BID, multivitamins, and Ranexa. He has not tried Imdur. PAST MEDICAL HISTORY Diagnosis Date ABNORMAL CARDIOVASC STUDY NOS 03/03/2006 CT scan with a high calcium score of 880.9 02-27-06 Arthritis CAD (coronary artery disease) Elevated hemidiaphragm GENERAL OSTEOARTHROSIS 03/03/2006 Hernia, diaphragmatic HLD (hyperlipidemia) HTN (hypertension) PAST SURGICAL HISTORY Procedure Laterality Date ARTHROSCOPY KNEE DIAGNOSTIC W/WO SYNOVIAL BX SPX Arthroscopy, knee ARTHROTOMY W/MENISCUS REPAIR KNEE Open knee reconstruction REVISE MEDIAN N/CARPAL TUNNEL SURG TOTAL KNEE REPLACEMENT Right SOCIAL HISTORY Social History Tobacco Use Smoking status: Never Passive exposure: Never Smokeless tobacco: Never Vaping Use Vaping status: Never Used Substance Use Topics Alcohol use: Yes Comment: bourbon 2-3x/week Drug use: No FAMILY HISTORY Problem Relation Age of Onset Stroke Mother at age 82 Heart Attack Father 88 stents Coronary Artery Disease Father Heart Attack Brother 50 stents Heart Attack Maternal Grandfather 74 fatal Coronary Artery Disease Maternal Grandfather Diabetes Maternal Grandfather Heart Attack Paternal Grandfather 58 Coronary Artery Disease Paternal Grandfather ALLERGIES: ALLERGIES No Known Allergies MEDICATIONS: Current Outpatient Medications Medication Sig atorvastatin (LIPITOR) 40 mg tablet Take 1 tablet by mouth once daily. allopurinol (ZYLOPRIM) 100 mg tablet Take 100 mg by mouth two times a day. famotidine (PEPCID) 20 mg tablet Take 1 tablet by mouth every afternoon. ranolazine SR (RANEXA) 1,000 mg tab ER 12 hr Take 1,000 mg by mouth two times a day. Vyifsokxntywm-Ynficxyk-Ujxagt (MULTIVITAMIN 50 PLUS) tab Take 1 tablet by mouth once daily. metoprolol tartrate, short acting, (LOPRESSOR) 25 mg tablet Take 1 tablet by mouth two times a day. losartan (COZAAR) 100 mg tablet Take 1 tablet by mouth every afternoon. amLODIPine (NORVASC) 5 mg tablet Take 1 tablet by mouth once daily. ASPIRIN 81MG TABLET Take one (1) tablet daily . No current facility-administered medications for this visit. REVIEW OF SYSTEMS: ROS see above PHYSICAL EXAMINATION: 07/15/24 1527 BP: 101/63 BP Site: Left Arm BP Position: Sitting Pulse: 66 Resp: 18 SpO2: 97% Weight: 103.4 kg (228 lb) Height: 182.9 cm (6') Body mass index is 30.92 kg/m?. General: Well appearing, in no acute distress, speaking in complete sentences. Lungs: Dry crackles to auscultation with good effort Heart: Regular rhythm,S1, S2 normal, no S3, no S4, no rub and no murmur. Abdomen: Soft, nontender, bowel sounds normal, (more content not included)... [facility] [place] 07-15-2024 Progress note Formatting of t his note might be different from the original. Bloods look overall good but there maybe some room to further adjust the cholesterol. We can talk when we meet Best Dr Serene Maria [facility] 07-15-2024 Miscellaneous Notes Bloods look overall good but there maybe some room to further adjust the cholesterol. We can talk when we meet Best Dr Serene Maria documented in this encounter [facility] 07-08-2024 Telephone encounter Note July 08, 2024 [id number] Patient Name: Lam Garcia Contact Information: [phone] (home) [phone] (cell) Reason For Call:Appointment ([place] or [facility]) Physician:Dr Serene Maria Pt called to make sure no blood tests are needed before next Monday's visit. [facility] 07-08-2024 Miscellaneous Notes July 08, 2024 [id number] Patient Name: Lam Garcia Contact Information: [phone] (home) [phone] (cell) Reason For Call:Appointment ([place] or [facility]) Physician:Dr Serene Maria Pt called to make sure no blood tests are needed before next Monday's visit. documented in this encounter [facility] 04-18-2024 Telephone encounter Note Patient's Cardiac Cath denied by insurance. Appeal submitted via fax 04/17/2024 Copy uploaded under scanned documents. [facility] 04-18-2024 Miscellaneous Notes Patient's Cardiac Cath denied by insurance. Appeal submitted via fax 04/17/2024 Copy uploaded under scanned documents. documented in this encounter [facility] 03-28-2024 Telephone encounter Note CARDIOVASCULAR LAB INSTRUCTIONS: Readiness to Learn: Cognitive Ability: Alert and oriented Motivation To Learn: Interested Family/Significant Other Support: Unable to assess - Family not present Instruction Provided To: Patient Patient Learns Best By: Verbal Instruction Factors Affecting Learning: None Physical Limitations Affecting Learning: None Learning Response: Procedure: Left Heart Diagnostic Pre procedure education topics: Arrival time/NPO Status/Medications/Travel Instructions/Restrictions Patient/Family Response Evaluation: Verbalizes understanding Follow Up Plan and Medication: As directed by physician Instruction/Supplemental Material Given: Cardiac catheterization instructions, procedure information, hospital information, hotel information. Instructed By Yue Rivera RN, RN. In Department of CARDIOLOGY. [facility] 03-28-2024 Miscellaneous Notes CARDIOVASCULAR LAB INSTRUCTIONS: Readiness to Learn: Cognitive Ability: Alert and oriented Motivation To Learn: Interested Family/Significant Other Support: Unable to assess - Family not present Instruction Provided To: Patient Patient Learns Best By: Verbal Instruction Factors Affecting Learning: None Physical Limitations Affecting Learning: None Learning Response: Procedure: Left Heart Diagnostic Pre procedure education topics: Arrival time/NPO Status/Medications/Travel Instructions/Restrictions Patient/Family Response Evaluation: Verbalizes understanding Follow Up Plan and Medication: As directed by physician Instruction/Supplemental Material Given: Cardiac catheterization instructions, procedure information, hospital information, hotel information. Instructed By Yue Rivera RN, RN. In Department of CARDIOLOGY. documented in this encounter [facility] 03-26-2024 Telephone encounter Note Cath denied by Insurance The following letter should be send and I will ask the team to request an appeal basedon the information in chart and the letter 03-27-2024 Re: Lam Garcia To Whom it May concern I am writing regarding an appeal for the denial of services to proceed with a cardiac cath in this patient. The reference number is [id number]. I am surprised by your denial, as if you read my note it is clear that this patient has classic angina and known coronary artery disease despite optimal medical therapy. To summarize this is a 68-year-old male with multiple cardiac risk factors including obesity hypertension high cholesterol who has known severe coronary artery disease with severe LPL 1, LPL 2, LPDA and an intermediate stenosis of the mid LAD on cardiac cath in 2022. He had been managed medically but continues to have ongoing symptoms despite optimal medical therapy. This therapy includes antiplatelets, atorvastatin, ranolazine, and metoprolol. Given the known severe disease and the ongoing symptoms despite medical therapy he is referred for coronary angiography with the intention of proceeding with revascularization if it is appropriate. I hope that you reconsider this request for a cardiac cath. Please let me know if you have any questions. Delma Severino MD, [facility], FA. FSCAI [facility] 03-26-2024 Miscellaneous Notes Cath denied by Insurance The following letter should be send and I will ask the team to request an appeal basedon the information in chart and the letter 03-27-2024 Re: Lam Garcia To Whom it May concern I am writing regarding an appeal for the denial of services to proceed with a cardiac cath in this patient. The reference number is [id number]. I am surprised by your denial, as if you read my note it is clear that this patient has classic angina and known coronary artery disease despite optimal medical therapy. To summarize this is a 68-year-old male with multiple cardiac risk factors including obesity hypertension high cholesterol who has known severe coronary artery disease with severe LPL 1, LPL 2, LPDA and an intermediate stenosis of the mid LAD on cardiac cath in 2022. He had been managed medically but continues to have ongoing symptoms despite optimal medical therapy. This therapy includes antiplatelets, atorvastatin, ranolazine, and metoprolol. Given the known severe disease and the ongoing symptoms despite medical therapy he is referred for coronary angiography with the intention of proceeding with revascularization if it is appropriate. I hope that you reconsider this request for a cardiac cath. Please let me know if you have any questions. Delma Severino MD, KRISTAN MAX. FSCAI documented in this encounter [facility] 03-20-2024 Note HNO ID: [id number] Author: DELMA SEVERINO MD Service: ? Author Type: Physician Type: Progress Notes Filed: 03/20/2024 13:08 Note Text: See enajer note [facility] [place] 03-20-2024 History of Presen t illness Narrative See enounter note documented in this encounter [facility] 03-19-2024 Progress note Formatting of t his note might be different from the original. See office notes for comments [facility] 03-19-2024 Miscellaneous Notes See office notes for comments documented in this encounter [facility] 03-19-2024 Instructions Delma Severino MD - 03/19/2024 2:52 PM EST PLAN AND RECOMMENDATIONS: Increase the atorvastatin to 40 mg daily Continue the other medications To do cardiac cath 03-29-2024 Increase ambulation as tolerated with a goal to do moderate activity 30 minutes a day 5 days a week Work on weight loss Follow a heart healthy diet, rich in fruits and vegetables, fish and whole grains. Limited the amount of processed foods, sugary drinks, fried foods, red meat, pork, and salt CONTACT INFORMATION: Delma Severino MD, FACSharon, [facility] Cooperative Extension Agent and Switchboard Operator Receptionist, Acute Coronary Care [facility], Heart, Vascular and Thoracic [facility] [address] [place] [address], [id number] [place] [address] documented in this encounter [facility] 03-19-2024 Note HNO ID: [id number] Author: DELMA SEVERINO MD Service: ? Author Type: Physician Type: Progress Notes Filed: 03/19/2024 15:37 Note Text: Heart, Vascular and Thoracic Fl[facility] Department of Cardiovascular Medicine SECTION OF INTERVENTIONAL CARDIOLOGY OUTPATIENT VISIT DATE March 19, 2024 OUTPATIENT VISIT TYPE Established CHIEF COMPLAINT: For CAD and chest pain HISTORY OF PRESENT ILLNESS: Patient is a 68-year-old male with a history of hypertension, hyperlipidemia, and coronary artery disease (CAD), presenting for evaluation of chest pressure and dyspnea. He reports a two-year history of intermittent chest pressure localized to the mid-sternal area, accompanied by dyspnea. He had severeal prior caths with the most recent in 2022. But was advised medical therapies. When I met him I suggested an echo and amyloid study but if this is unrevealing then cath He reports worsening dyspnea and chest pressure over the past year to year and a half, which have become more pronounced recently. These symptoms are variable, sometimes occurring after walking short distances (1-2 blocks) and other times not appearing even after walking up to a mile. He notes that the symptoms are not consistently related to the time of day, weather, or meals. He experiences relief with rest and forced belching. He also reports persistent lower extremity edema, which has improved since the reduction of amlodipine dosage. He notes that wearing lower-cut socks seems to exacerbate the swelling. Recent diagnostic tests include an echocardiogram showing good cardiac function with mild stiffness, and an amyloid scan and blood tests that were negative for amyloidosis. Lipid panel results showed an LDL of 77 mg/dL, HDL within normal limits, and lipoprotein A levels were good. 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 PAST MEDICAL HISTORY Diagnosis Date ABNORMAL CARDIOVASC STUDY NOS 03/03/2006 CT scan with a high calcium score of 880.9 02-27-06 Arthritis CAD (coronary artery disease) Elevated hemidiaphragm GENERAL OSTEOARTHROSIS 03/03/2006 Hernia, diaphragmatic HLD (hyperlipidemia) HTN (hypertension) PAST SURGICAL HISTORY Procedure Laterality Date ARTHROSCOPY KNEE DIAGNOSTIC W/WO SYNOVIAL BX SPX Arthroscopy, knee ARTHROTOMY W/MENISCUS REPAIR KNEE Open knee reconstruction REVISE MEDIAN N/CARPAL TUNNEL SURG SOCIAL HISTORY Social History Tobacco Use Smoking status: Never Passive exposure: Never Smokeless tobacco: Never Vaping Use Vaping status: Never Used Substance Use Topics Alcohol use: Yes Comment: bourbon 2-3x/week Drug use: No FAMILY HISTORY Problem Relation Age of Onset Stroke Mother at age 82 Heart Attack Father 88 stents Coronary Artery Disease Father Heart Attack Brother 50 stents Heart Attack Maternal Grandfather 74 fatal Coronary Artery Disease Maternal Grandfather Diabetes Maternal Grandfather Heart Attack Paternal Grandfather 58 Coronary Artery Disease Paternal Grandfather ALLERGIES: ALLERGIES No Known Allergies MEDICATIONS: Current Outpatient Medications Medication Sig allopurinol (ZYLOPRIM) 100 mg tablet Take 100 mg by mouth two times a day. famotidine (PEPCID) 20 mg tablet Take 1 tablet by mouth every afternoon. ranolazine SR (RANEXA) 1,000 mg tab ER 12 hr Take 1,000 mg by mouth two times a day. Rsszsyzfiunxo-Sovzosdf-Rodqhh (MULTIVITAMIN 50 PLUS) tab Take 1 tablet by mouth once daily. metoprolol tartrate, short acting, (LOPRESSOR) 25 mg tablet Take 1 tablet by mouth two times a day. losartan (COZAAR) 100 mg tablet Take 1 tablet by mouth every afternoon. amLODIPine (NORVASC) 5 mg tablet Take 1 tablet by mouth once daily. LIPITOR 20 MG TAB Take one(1) tablet daily. ASPIRIN 81MG TABLET Take one (1) tablet daily . No current facility-administered medications for this visit. REVIEW OF SYSTEMS: Review of Systems Constitutional: Negative for chills, fever, malaise/fatigue, weight gain and weight loss. HENT: Negative for hearing loss and nosebleeds. Eyes: Negative for visual disturbance. Cardiovascular: Positive for chest pain, dyspnea on exertion and leg swelling. Negative for claudication, irregular heartbeat, near-syncope, orthopnea, palpitations, paroxysmal nocturnal dyspnea and syncope. Respiratory: Positive for shortness of breath. Negative for cough, sleep disturbances due to breathing and wheezing. Endocrine: Negative for cold intolerance, heat intolerance, polydipsia, polyphagia and polyuria. Hematologic/Lymphatic: Negative for bleeding problem. Bruises/bleeds easily. Skin: Negative for rash and suspicious lesions. Musculoskeletal: Positive for joint pain, joint swelling, muscle weakness and myalgias. Negative for falls. Gastrointestinal: Negative for abdominal pain, melena, nausea and vomiting. Genitourinary (more content not included)... [facility] [place] 03-19-2024 History of Presen t illness Narrative Images from the original note were not included. Heart, Vascular and Thoracic Fl[facility] Department of Cardiovascular Medicine SECTION OF INTERVENTIONAL CARDIOLOGY OUTPATIENT VISIT DATE March 19, 2024 OUTPATIENT VISIT TYPE Established CHIEF COMPLAINT: For CAD and chest pain HISTORY OF PRESENT ILLNESS: Patient is a 68-year-old male with a history of hypertension, hyperlipidemia, and coronary artery disease (CAD), presenting for evaluation of chest pressure and dyspnea. He reports a two-year history of intermittent chest pressure localized to the mid-sternal area, accompanied by dyspnea. He had severeal prior caths with the most recent in 2022. But was advised medical therapies. When I met him I suggested an echo and amyloid study but if this is unrevealing then cath He reports worsening dyspnea and chest pressure over the past year to year and a half, which have become more pronounced recently. These symptoms are variable, sometimes occurring after walking short distances (1-2 blocks) and other times not appearing even after walking up to a mile. He notes that the symptoms are not consistently related to the time of day, weather, or meals. He experiences relief with rest and forced belching. He also reports persistent lower extremity edema, which has improved since the reduction of amlodipine dosage. He notes that wearing lower-cut socks seems to exacerbate the swelling. Recent diagnostic tests include an echocardiogram showing good cardiac function with mild stiffness, and an amyloid scan and blood tests that were negative for amyloidosis. Lipid panel results showed an LDL of 77 mg/dL, HDL within normal limits, and lipoprotein A levels were good. 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 PAST MEDICAL HISTORY Diagnosis Date ABNORMAL CARDIOVASC STUDY NOS 03/03/2006 CT scan with a high calcium score of 880.9 02-27-06 Arthritis CAD (coronary artery disease) Elevated hemidiaphragm GENERAL OSTEOARTHROSIS 03/03/2006 Hernia, diaphragmatic HLD (hyperlipidemia) HTN (hypertension) PAST SURGICAL HISTORY Procedure Laterality Date ARTHROSCOPY KNEE DIAGNOSTIC W/WO SYNOVIAL BX SPX Arthroscopy, knee ARTHROTOMY W/MENISCUS REPAIR KNEE Open knee reconstruction REVISE MEDIAN N/CARPAL TUNNEL SURG SOCIAL HISTORY Social History Tobacco Use Smoking status: Never Passive exposure: Never Smokeless tobacco: Never Vaping Use Vaping status: Never Used Substance Use Topics Alcohol use: Yes Comment: bourbon 2-3x/week Drug use: No FAMILY HISTORY Problem Relation Age of Onset Stroke Mother at age 82 Heart Attack Father 88 stents Coronary Artery Disease Father Heart Attack Brother 50 stents Heart Attack Maternal Grandfather 74 fatal Coronary Artery Disease Maternal Grandfather Diabetes Maternal Grandfather Heart Attack Paternal Grandfather 58 Coronary Artery Disease Paternal Grandfather ALLERGIES: ALLERGIES No Known Allergies MEDICATIONS: Current Outpatient Medications Medication Sig allopurinol (ZYLOPRIM) 100 mg tablet Take 100 mg by mouth two times a day. famotidine (PEPCID) 20 mg tablet Take 1 tablet by mouth every afternoon. ranolazine SR (RANEXA) 1,000 mg tab ER 12 hr Take 1,000 mg by mouth two times a day. Igxyunkjqclrv-Grnipizu-Fjwobt (MULTIVITAMIN 50 PLUS) tab Take 1 tablet by mouth once daily. metoprolol tartrate, short acting, (LOPRESSOR) 25 mg tablet Take 1 tablet by mouth two times a day. losartan (COZAAR) 100 mg tablet Take 1 tablet by mouth every afternoon. amLODIPine (NORVASC) 5 mg tablet Take 1 tablet by mouth once daily. LIPITOR 20 MG TAB Take one(1) tablet daily. ASPIRIN 81MG TABLET Take one (1) tablet daily . No current facility-administered medications for this visit. REVIEW OF SYSTEMS: Review of Systems Constitutional: Negative for chills, fever, malaise/fatigue, weight gain and weight loss. HENT: Negative for hearing loss and nosebleeds. Eyes: Negative for visual disturbance. Cardiovascular: Positive for chest pain, dyspnea on exertion and leg swelling. Negative for claudication, irregular heartbeat, near-syncope, orthopnea, palpitations, paroxysmal nocturnal dyspnea and syncope. Respiratory: Positive for shortness of breath. Negative for cough, sleep disturbances due to breathing and wheezing. Endocrine: Negative for cold intolerance, heat intolerance, polydipsia, polyphagia and polyuria. Hematologic/Lymphatic: Negative for bleeding problem. Bruises/bleeds easily. Skin: Negative for rash and suspicious lesions. Musculoskeletal: Positive for joint pain, joint swelling, muscle weakness and myalgias. Negative for falls. Gastrointestinal: Negative for abdominal pain, melena, nausea and vomiting. Genitourinary: Positive for frequency and nocturia. Negative for dysuria, hesitancy and urgency. Neurological: Positive for numbness and paresthesias. Negative for dizziness, headaches and light-headedness. PHYSICAL EXAMINATION: 03/19/24 1429 BP: 142/84 Pulse: 69 Resp: 15 SpO2: 95% Weight: 103.2 kg (227 lb 9.6 oz) Height: 182.9 cm (6') Body mass index is 30.87 kg/m . General: Well appearing, in no acute distress, speaking in complete sentences. Lungs: Dry crackles to auscultation with good effort Heart: Regular rhythm,S1, S2 normal, no S3, no S4, no rub and no murmur. Abdomen: Soft, nontender, bowel sounds normal, no palpable organomegaly, no bruits. Extremities: no edema Musculoskeletal: Normal gait and ambulation Neuro: Oriented to time, place and person FINDINGS: LEFT VENTRICLE The left ventricle is normal in size. There is left ventricular hypertrophy. Left ventricular systolic function is normal. Grade I left ventricular diastolic dysfunction. Mitral annular lateral E/e': 10.3. Mitral annular septal E/e': 13.0. Wall Motion: All scored segments are normal. RIGHT VENTRICLE The right ventricle is normal in size. Right ventricular systolic function is normal. RV systolic tissue Doppler velocity is 12.0 cm/s. Tricuspid annular displacement is 2.2 cm. Estimated right ventricular systolic pressure is not reported due to an insufficient tricuspid regurgitation signal. Estimated right atrial pressure is 3 mmHg based on IVC assessment. LEFT ATRIUM The left atrial cavity is normal in size. Pulmonary Veins: The pulmonary venous pattern showed normal systolic flow. RIGHT ATRIUM The right atrial cavity is normal in size. Inferior Vena Cava: The inferior vena cava appears normal measuring 1.4 cm. The vessel decreases greater than 50 percent with inspiration. MITRAL VALVE There is trace mitral valve regurgitation. There is mild thickening. The pressure half time is 62 msec. The peak mitral E/A ratio is 0.98. The mitral flow deceleration time is 214 msec. TRICUSPID VALVE There is trace tricuspid valve regurgitation. There is no thickening. AORTIC VALVE There is no aortic valve regurgitation. Tricuspid aortic valve. There is mild thickening. The peak gradient is 7 mmHg (peak velocity = 131.0 cm/s). PULMONIC VALVE The pulmonic valve cusps are structurally normal. There is trace pulmonic valve regurgitation. AORTA The visualized aorta is normal in size. Measurements - Mid ascending aorta 3.4 cm. PULMONARY ARTERIES The pulmonary arteries are unseen or not interrogated. INTERATRIAL SEPTUM There is no evidence of intracardiac shunting as detected by Doppler. INTERVENTRICULAR SEPTUM There is no flow through the interventricular septum as detected by Doppler. PERICARDIUM There is no pericardial effusion. There is an epicardial fat pad. 1. Incidental Findings from limited non-diagnostic CTAC: - Coronary calcifications visualized. calcified hilar granulomas. Calcified granuloma in right lung base * * * Final * * * Patient: Name: MR. LAM GARCIA Age: 68 years Gender: M CONCLUSIONS: 1. Not Consistent with TTR amyloidosis Last ECHO Result Conclusion ECHO Collected: 03/19/2024 12:55 PM (Final result) Impression: CONCLUSIONS: - Exam indication: Shortness of Breath - The left ventricle is normal in size. There is left ventricular hypertrophy. Left ventricular systolic function is normal. EF = 54 5% (2D biplane) - The right ventricle is normal in size. Right ventricular systolic function is normal. - There are no significant valvular abnormalities. - The patient has not had a prior [facility] echocardiographic exam for comparison. * * * Final * * * Last EKG Result Conclusion ECG COMPLETE Collected: 01/23/2024 1:39 PM (Final result) Impression: SINUS BRADYCARDIA OTHERWISE NORMAL ECG Confirmed by FERNANDEZ MOREIRA MD ([id number]) on 02/09/2024 2:39:56 PM Latest Reference Range & Units 03/11/24 08:51 Sodium 136 - 144 mmol/L 139 Potassium 3.7 - 5.1 mmol/L 3.9 Chloride 98 - 107 mmol/L 102 CO2 22 - 30 mmol/L 23 BUN 9 - 24 mg/dL 14 Creatinine 0.73 - 1.22 mg/dL 0.94 Glucose 74 - 99 mg/dL 104 (H) Protein, Total 6.3 - 8.0 g/dL 7.1 Calcium 8.5 - 10.2 mg/dL 9.5 Albumin 3.9 - 4.9 g/dL 4.2 Bilirubin, Total 0.2 - 1.3 mg/dL 0.6 Alkaline Phosphatase 38 - 113 U/L 67 ALT 10 - 54 U/L 31 AST 14 - 40 U/L 25 Anion Gap 8 - 15 mmol/L 14 eGFR >=60 mL/min/1.73m 88 Cholesterol, Total <200 mg/dL 160 Triglyceride <150 mg/dL 142 Fasting Time hrs 12 HDL Cholesterol >39 mg/dL 55 LDL Cholesterol <100 mg/dL 77 VLDL Cholesterol <30 mg/dL 28 TC:HDL Ratio <5.10 2.91 LDL:HDL Ratio <2.54 1.40 Non HDL Cholesterol <130 mg/dL 105 Lipoprotein (a) <30 mg/dL 8 K/L Ratio, Serum 0.26 - 1.65 1.18 [place] Free, Serum 3.3 - 19.4 mg/L 18.2 Lambda Free, Serum 5.7 - 26.3 mg/L 15.4 [facility] Result No M protein is identified. No M protein is identified. Result ([facility]) No M protein is identified. No M protein is identified. Staff Review ([facility]) Reviewed by Laisha Rey M.D., Ph.D Staff Review ([facility]) Reviewed by Laisha Rey M.D., Ph.D WBC 3.70 - 11.00 k/uL 6.05 RBC 4.20 - 6.00 m/uL 5.07 Hemoglobin 13.0 - 17.0 g/dL 16.2 Hematocrit 39.0 - 51.0 % 48.1 Platelet Count 150 - 400 k/uL 232 MCV 80.0 - 100.0 fL 94.9 MCH 26.0 - 34.0 pg 32.0 MCHC 30.5 - 36.0 g/dL 33.7 MPV 9.0 - 12.7 fL 10.0 RDW-CV 11.5 - 15.0 % 13.4 DTYPE Auto Neut% % 55.8 Abs Neut (ANC) 1.45 - 7.50 k/uL 3.37 Lymph% % 26.9 Abs Lymph 1.00 - 4.00 k/uL 1.63 [place]% % 13.9 Abs [place] <0.87 k/uL 0.84 Eosin% % 2.1 Abs Eosin <0.46 k/uL 0.13 Baso% % 0.5 Abs Baso <0.11 k/uL 0.03 Immature Gran % % 0.8 IMMATURE GRANS (ABS) <0.10 k/uL 0.05 NRBC /100 WBC 0.0 Absolute nRBC <0.01 k/uL <0.01 (H): Data is abnormally high IMPRESSION: Mr. Garcia is a 68 year old male with known CAD who presents with worsening angina, GARCIA and LE swelling. Cath with ostial branch diseaaes and fifuse moderate CAD # High cholesterol (E78.00) Managed with atorvastatin 20 mg daily. Lab results show LDL at 68 mg/dL and HDL at 58 mg/dL in 2022, with previous LDL at 35 mg/dL in 2021. Then HDL of 55 and LDL of 77 and TG of 142 and Lp (a) of 8 in -2023; Will adjust the atorvastatin to 40 mg # Hypertension, unspecified type (I10) Currently managed with amlodipine 5 mg, losartan 100 mg daily, and metoprolol tartrate. Last visit I felt amlodioine may be contributing to lower extremity edema and last visit we lowered the amlodipine. - Decrease amlodipine to 5 mg daily and edema improved # Chest pain, unspecified type (R07.9) and CAD Exertional chest pressure and dyspnea present for several years, with symptoms alleviated by belching. Previous cardiac evaluations include multiple cardiac catheterizations. The most recent done in 2022 demonstrated severe non dominant RCA and severe disease of the branch vessels of LPL1 LPL2 and LPDA with intermediate disease of the LAD but an apical severe stenosis.Prior stress tests have all been without ischemia. Symptoms may be related to coronary artery disease with more significant plaque than is seen on angiogram or other etiologies such as amyloidosis given fatigue and LE swelling and SOB. Yet work up for amyloid so far is unrevealing. Advised a repeat cath and RFR testing; explained howerver it maybe due to the smaller branch disease so we may need to continue to adjust his meds as well. In either event his CAD looks diffuse and I would favor extremely aggressive preventive therapies. Can also consider GLP agonists later on # Overweight (E66.3) Dietary modifications attempted, including [place]'s diet, but difficult to maintain due to lifestyle. Advised mediterrean diet last visit. Consider GLP agonists once indicated for CAD and weight loss # LE EDEMA and SOB CAnnot exlcude amyloid. BNP however in was normal and echo with gradie I diastolic dysfunction and TC PYP wihout amyloid and lite chains are normal. Likely GARCIA si from deconditioning. Advised weight loss and increased activities; of note the edema now better and likely from the higher dose of norvasc PLAN AND RECOMMENDATIONS: Increase the atorvastatin to 40 mg daily Continue the other medications To do cardiac cath 03-29-2024 Increase ambulation as tolerated with a goal to do moderate activity 30 minutes a day 5 days a week Work on weight loss Follow a heart healthy diet, rich in fruits and vegetables, fish and whole grains. Limited the amount of processed foods, sugary drinks, fried foods, red meat, pork, and salt CONTACT INFORMATION: Delma Severino MD, [facility], [facility], [facility] Cooperative Extension Agent and Switchboard Operator Receptionist, Acute Coronary Care [facility], Heart, Vascular and Thoracic Fl[facility] [address] [place] [address], [address] [place] [address] documented in this encounter [facility] 03-19-2024 Miscellaneous Notes See office notes for comments documented in this encounter [facility] 03-19-2024 Progress note Formatting of t his note might be different from the original. See office notes for comments [facility] 03-19-2024 History of Presen t illness Narrative RADIOLOGY SERVICE PROGRESS NOTE SERVICE DATE: 03/19/2024 SERVICE TIME: 8:38 AM PATIENT IDENTITY VERIFICATION COMPLETED USING TWO (2) STANDARD IDENTIFIERS: Name and Date of confirmed by patient verbally and Name and Date of confirmed by identification band FALL SCREENING: Has the patient had 2 falls in the last year or 1 fall with injury or currently using an Ambulatory Assistive Device (Walker, Cane, Wheelchair, Crutches, etc.)? No PATIENT GENDER DATA: .male ALLERGIES: Reviewed and unchanged MEDICATIONS REVIEWED: Yes PATIENT RELEVANT IMPLANT DATA REVIEWED: Not Applicable PATIENT PRESENTS WITH AN IMPLANTABLE OR ATTACHED ALLOPATHIC DOCTOR: No CREATININE: Creatinine Date Value Ref Range Status 03/11/2024 0.94 0.73 - 1.22 mg/dL Final 03/03/2006 1.2 0.7 - 1.4 mg/dL Final Estimated Glomerular Filtration Rate Date Value Ref Range Status 03/11/2024 88 >=60 mL/min/1.73m Final Comment: Estimated Glomerular Filtration Rate (eGFR) is calculated using the 2020 CKD-EPI creatinine equation. This equation utilizes serum creatinine, sex, and age as parameters. The creatinine assay has traceable calibration to isotope dilution-mass spectrometry. Refer to KDIGO guidelines for clinical interpretation. In patients with unstable renal function, e.g. those with acute kidney injury, the eGFR may not accurately reflect actual GFR. P.O.C.T. RESULTS: N/A March 19, [address] PERFORMED: No IV SITE: Ambulatory: A peripheral IV was started in the Right forearm with a Angio cath: 24 gauge. POST EXAM PIV STATUS: Discontinued PROCEDURE TYPE: NM INJECT: Cardiac Amyloid scan. 19.7 mCi Tc99m HDP. No other medications given.. ADMINISTRATION TIME: 834 PATIENT DISCHARGED TO: Ambulatory patient, left [place] department area. Is this a therapy: No A Diagnostic radioactive procedure has taken place, with no further precautions necessary other than routine body substance precautions. More information regarding radiation safety can be found using this link: [email or web address] SIGNATURE: ANJELICA Chapman) PATIENT NAME: Lam Garcia DATE: March 19, 2024 TIME: 8:38 AM PAGER/CONTACT #: documented in this encounter [facility] 03-19-2024 Note HNO ID: [id number] Author: SCHUYLER DAUGHERTY RT (R) Service: Radiology Author Type: Technologist Type: Progress Notes Filed: 03/19/2024 08:39 Note Text: RADIOLOGY SERVICE PROGRESS NOTE SERVICE DATE: 03/19/2024 SERVICE TIME: 8:38 AM PATIENT IDENTITY VERIFICATION COMPLETED USING TWO (2) STANDARD IDENTIFIERS: Name and Date of confirmed by patient verbally and Name and Date of confirmed by identification band FALL SCREENING: Has the patient had 2 falls in the last year or 1 fall with injury or currently using an Ambulatory Assistive Device (Walker, Cane, Wheelchair, Crutches, etc.)? No PATIENT GENDER DATA: .male ALLERGIES: Reviewed and unchanged MEDICATIONS REVIEWED: Yes PATIENT RELEVANT IMPLANT DATA REVIEWED: Not Applicable PATIENT PRESENTS WITH AN IMPLANTABLE OR ATTACHED ALLOPATHIC DOCTOR: No CREATININE: Creatinine Date Value Ref Range Status 03/11/2024 0.94 0.73 - 1.22 mg/dL Final 03/03/2006 1.2 0.7 - 1.4 mg/dL Final Estimated Glomerular Filtration Rate Date Value Ref Range Status 03/11/2024 88 >=60 mL/min/1.73m? Final Comment: Estimated Glomerular Filtration Rate (eGFR) is calculated using the 2020 CKD-EPI creatinine equation. This equation utilizes serum creatinine, sex, and age as parameters. The creatinine assay has traceable calibration to isotope dilution-mass spectrometry. Refer to KDIGO guidelines for clinical interpretation. In patients with unstable renal function, e.g. those with acute kidney injury, the eGFR may not accurately reflect actual GFR. P.O.C.T. RESULTS: N/A March 19, [address] PERFORMED: No IV SITE: Ambulatory: A peripheral IV was started in the Right forearm with a Angio cath: 24 gauge. POST EXAM PIV STATUS: Discontinued PROCEDURE TYPE: NM INJECT: Cardiac Amyloid scan. 19.7 mCi Tc99m HDP. No other medications given.. ADMINISTRATION TIME: 834 PATIENT DISCHARGED TO: Ambulatory patient, left [place] department area. Is this a therapy: No A Diagnostic radioactive procedure has taken place, with no further precautions necessary other than routine body substance precautions. More information regarding radiation safety can be found using this link: [email or web address] SIGNATURE: RT Ari(R) PATIENT NAME: Lam Garcia DATE: March 19, 2024 TIME: 8:38 AM PAGER/CONTACT #: [facility] [place] 03-08-2024 Telephone encounter Note Patient returned call He will get labs at [facility] 03-08-2024 Miscellaneous Notes Patient returned call He will get labs at [facility] Recvd call from pre-access department. Pt has multiple blood tests ordered, and the results are required before the test can be approved. This caregiver was unsuccessful in reaching patient personally to relay message. Left VMM on his cell # provided by his adult sone when we call the # listed in Demographics ([phone]) documented in this encounter [facility] 03-08-2024 Telephone encounter Note Recvd call from pre-access department. Pt has multiple blood tests ordered, and the results are required before the test can be approved. This caregiver was unsuccessful in reaching patient personally to relay message. Left VMM on his cell # provided by his adult sone when we call the # listed in Demographics ([phone]) [facility] 02-06-2024 Telephone encounter Note Images on CD recvd from [facility] imported to [employer] (DL) nm stress 08/16/21; chest w/o contrast 09/10/21; CTA chest 08/08/22;NM stress 03/21/16; 07/10/13; 02/19/10; [facility] 02-06-2024 Miscellaneous Notes Images on CD recvd from [facility] imported to [employer] (DL) nm stress 08/16/21; chest w/o contrast 09/10/21; CTA chest 08/08/22;NM stress 03/21/16; 07/10/13; 02/19/10; documented in this encounter [facility] 01-23-2024 Instructions Delma Severino MD - 01/23/2024 4:20 PM EDT PLAN AND RECOMMENDATIONS: Change the metoprolol to 25 mg twice a day (1/2 a pill twice a day) Decrease the amlodipine to 5 mg daily tpo ssee if your swelling will come down Increase the losartan to 100 mg daily to help the blood pressure since you are on a lower dose of the amlodipine Do fasting bloods Do amyloid scan Do echo To see me once this is all done and we can reassess and plan for the cardiac cath I will schedule the cath pending these studies CONTACT INFORMATION: Delma Severino MD, [facility] [place], [facility] Cooperative Extension Agent and Switchboard Operator Receptionist, Acute Coronary Care [facility], Heart, Vascular and Thoracic Flushing [address] [place] [address], [id number] [place] [address] documented in this encounter [facility] 01-23-2024 Note HNO ID: [id number] Author: DELMA SEVERINO MD Service: ? Author Type: Physician Type: Progress Notes Filed: 01/23/2024 19:10 Note Text: I personally reviewed the films from 2022 Severe proximal non dominant RCA Diffuse mild to low moderate CAD of the LCX with a focal 40% distal stenosis, and severe diffuse small OM1 and LPL1 and LPL 2 both with severe ostial stenosis Focal 50-60% proximal LAD and 60% mid LAD D1 and D2 are small and have diffuse disease Recommend repeat cath with IFR testing to assess physiology ECG SB but otherwise normal ECG [facility] [place] 01-23-2024 History of Presen t illness Narrative I personally reviewed the films from 2022 Severe proximal non dominant RCA Diffuse mild to low moderate CAD of the LCX with a focal 40% distal stenosis, and severe diffuse small OM1 and LPL1 and LPL 2 both with severe ostial stenosis Focal 50-60% proximal LAD and 60% mid LAD D1 and D2 are small and have diffuse disease Recommend repeat cath with IFR testing to assess physiology ECG SB but otherwise normal ECG Images from the original note were not included. Heart, Vascular and Thoracic Flushing [facility] Lopez Department of Cardiovascular Medicine SECTION OF INTERVENTIONAL CARDIOLOGY OUTPATIENT VISIT DATE 01/23/2024 OUTPATIENT VISIT TYPE NEW PRIMARY CARE PHYSICIAN: To use this Smartlink, specify the provider ID whose address you want to display, e.g., .PROVADDR[1 (where 1 is the provider ID). REFERRING PHYSICIAN: No referring provider defined for this encounter. CHIEF COMPLAINT: For CAD and chest pain HISTORY OF PRESENT ILLNESS: Patient is a 68-year-old male with a history of hypertension, hyperlipidemia, and coronary artery disease (CAD), presenting for evaluation of chest pressure and dyspnea. He reports a two-year history of intermittent chest pressure localized to the mid-sternal area, accompanied by dyspnea. These symptoms occur variably during physical activity, such as walking or playing pickleball, and are sometimes alleviated by belching. He notes that the symptoms can be unpredictable, occurring during short walks or not at all during longer activities. Additionally, he has observed bilateral lower extremity edema over the past year, and overall fatigue and SOB His cardiac history includes three cardiac catheterizations, with the most recent in 2022. The first catheterization in 2011 was prompted by anxiety due to a strong family history of myocardial infarction, including both grandfathers, his brother, and his father having CAD. He was told he had blockages that were not severe and should be medically managed. The second catheterization was a follow-up, and the third was performed due to the onset of chest pressure and SOB. At that time in 2022 n addition to his cardiac evaluations, he has had extensive gastrointestinal and pulmonary testing, including a scope and imaging studies. These tests revealed an elevated right hemidiaphragm and an abdominal hernia, but no hiatal hernia. He has not had an echocardiogram.For this reason his PCP requested that he be re-evaluated with cath and when cath was done he was informed of smaller coronaries with blockages and cannot be addressed surgically. He has also undergone multiple stress tests, with the most recent in 2021, which reportedly showed no significant abnormalities. He is frustrated because he feels everyone keeps stating that the heart or lung or GI is not the cause and he wants someone to give him answers. NURSING INTAKE: The patient is a 68 year old male from [place], [place] here today for cardiovascular evaluation. He has a long personal history of CAD. He had a heart catheterization in 2013 (medical therapy recommended at the time). He had a high calcium score in 2005. He has had several heart catheterizations and stress tests since (most re recent cath in 09/2022). 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 He was told that his vessels are too small to stent and that some of them are not blocked enough to stent. For the last couple of years he has been experiencing chest pressure with activity (pickleball and walking). He feels like he has to belch in order to relieve the pressure. He sometimes has the pressure while at rest. He is also short of breath with and without activity. The pressure is usually somewhat relieved with belching. He does have an abdominal hernia. For the last 6 months he has noticed bilateral leg/ankle swelling. He feels like his symptoms have worsened over the last couple of years. He has a medical history significant for: CAD, HLD, HTN, arthritis, abd hernia He reports the following symptoms of chest pressure, shortness of breath, leg swelling He denies the following symptoms of palpitations, lightheadedness, dizziness, syncope, claudication, coughing, wheezing and signs/symptoms of a stroke. He follows a regular diet. He participates in pickleball, walking and biking for exercise/activity. Although he has not been exercising lately due to his symptoms. PAST MEDICAL HISTORY Diagnosis Date ABNORMAL CARDIOVASC STUDY NOS 03/03/2006 CT scan with a high calcium score of 880.9 02-27-06 Arthritis CAD (coronary artery disease) Elevated hemidiaphragm GENERAL OSTEOARTHROSIS 03/03/2006 Hernia, diaphragmatic HLD (hyperlipidemia) HTN (hypertension) PAST SURGICAL HISTORY Procedure Laterality Date ARTHROSCOPY KNEE DIAGNOSTIC W/WO SYNOVIAL BX SPX Arthroscopy, knee ARTHROTOMY W/MENISCUS REPAIR KNEE Open knee reconstruction REVISE MEDIAN N/CARPAL TUNNEL SURG SOCIAL HISTORY Social History Tobacco Use Smoking status: Never Smokeless tobacco: Never Vaping Use Vaping status: Never Used Substance Use Topics Alcohol use: Yes Comment: bourbon 2-3x/week Drug use: No FAMILY HISTORY Problem Relation Age of Onset Stroke Mother at age 82 Heart Attack Father 88 stents Coronary Artery Disease Father Heart Attack Brother 50 stents Heart Attack Maternal Grandfather 74 fatal Coronary Artery Disease Maternal Grandfather Diabetes Maternal Grandfather Heart Attack Paternal Grandfather 58 Coronary Artery Disease Paternal Grandfather ALLERGIES: ALLERGIES No Known Allergies MEDICATIONS: Current Outpatient Medications Medication Sig amLODIPine (NORVASC) 5 mg tablet Take 5 mg by mouth two times a day. allopurinol (ZYLOPRIM) 100 mg tablet Take 100 mg by mouth two times a day. losartan (COZAAR) 50 mg tablet Take 1 tablet by mouth every afternoon. famotidine (PEPCID) 20 mg tablet Take 1 tablet by mouth every afternoon. ranolazine SR (RANEXA) 1,000 mg tab ER 12 hr Take 1,000 mg by mouth two times a day. metoprolol tartrate, short acting, (LOPRESSOR) 50 mg tablet Take 50 mg by mouth once daily. Iqiywntvekqgp-Hjuxrhqp-Axoceg (MULTIVITAMIN 50 PLUS) tab Take 1 tablet by mouth once daily. LIPITOR 20 MG TAB Take one(1) tablet daily. ASPIRIN 81MG TABLET Take one (1) tablet daily . No current facility-administered medications for this visit. REVIEW OF SYSTEMS: Review of Systems Constitutional: Negative for chills, fever, malaise/fatigue, weight gain and weight loss. HENT: Negative for hearing loss and nosebleeds. Eyes: Negative for visual disturbance. Cardiovascular: Positive for chest pain, dyspnea on exertion and leg swelling. Negative for claudication, irregular heartbeat, near-syncope, orthopnea, palpitations, paroxysmal nocturnal dyspnea and syncope. Respiratory: Positive for shortness of breath. Negative for cough, sleep disturbances due to breathing and wheezing. Endocrine: Negative for cold intolerance, heat intolerance, polydipsia, polyphagia and polyuria. Hematologic/Lymphatic: Negative for bleeding problem. Bruises/bleeds easily. Skin: Negative for rash and suspicious lesions. Musculoskeletal: Positive for joint pain, joint swelling, muscle weakness and myalgias. Negative for falls. Gastrointestinal: Negative for abdominal pain, melena, nausea and vomiting. Genitourinary: Positive for frequency and nocturia. Negative for dysuria, hesitancy and urgency. Neurological: Positive for numbness and paresthesias. Negative for dizziness, headaches and light-headedness. PHYSICAL EXAMINATION: 01/23/24 1510 01/23/24 1513 BP: 131/80 134/75 BP Site: Left Arm Right Arm Pulse: 64 Resp: 18 SpO2: 97% Weight: 104.3 kg (230 lb) Height: 182.9 cm (6') Body mass index is 31.19 kg/m . General: Well appearing, in no acute distress, speaking in complete sentences. Skin: No clubbing, no cyanosis. Head/Eyes: Grossly normal Mouth: Teeth in good repair. Neck: No jugular venous distention, no carotid bruits, Lungs: Dry crackles to auscultation with good effort Heart: Regular rhythm,S1, S2 normal, no S3, no S4, no rub and no murmur. Abdomen: Soft, nontender, bowel sounds normal, no palpable organomegaly, no bruits. Extremities: +1 to +2 but at ankles only peripheral edema Pulses: +2 distal pulses Musculoskeletal: Normal gait and ambulation Neuro: Oriented to time, place and person CARDIOVASCULAR MEDICINE TESTING: All cardiovascular Testing: Imaging in [employer] 2021 2022 HDL of TC 129 TG 131HDL 49 and LDL of 54 2023: HRL of 59 LDL of 68 and TG of 95 I have personally reviewed the Cardiac Catheterization/Percutaneous Coronary Intervention (PCI). IMPRESSION: Mr. Garcia is a 68 year old male with known CAD who presents with worsening angina, GARCIA and LE swelling. # High cholesterol (E78.00) Managed with atorvastatin 20 mg daily. Recent lab results show LDL at 68 mg/dL and HDL at 58 mg/dL in 2022, with previous LDL at 35 mg/dL in 2021. - Ordered lipid panel to monitor cholesterol levels and Lp (a) # Hypertension, unspecified type (I10) Currently managed with amlodipine 5 mg BID, losartan 50 mg daily, and metoprolol tartrate 50 mg daily. amlodioine may be contributing to lower extremity edema and I advised we lower this and increase the losartan - Decrease amlodipine to 5 mg daily. - Increase losartan to 100 mg daily. - Adjust metoprolol tartrate to 25 mg BID. # Chest pain, unspecified type (R07.9) and CAD Exertional chest pressure and dyspnea present for several years, with symptoms alleviated by belching. Previous cardiac evaluations include multiple cardiac catheterizations. The most recent done in 2022 demonstrated severe non dominant RCA and severe disease of the branch vessels with intermediate disease of the LAD> Prior stress tests have all been without ischemia. Symptoms may be related to coronary artery disease with more significant plaque than is seen on angiogram or other etiologies such as amyloidosis given fatigue and LE swelling and SOB. - Begin with evaluation for amyloid. - Ordered amyloid testing, including blood tests for AL and TTR amyloid. - Ordered BNP -Pending this will plan for cath to assess lesion and repeat the IFR # Overweight (E66.3) Dietary modifications attempted, including [place]'s diet, but difficult to maintain due to lifestyle. Advised mediterrean diet - Continue dietary modifications to support weight management and cardiovascular health. # Le EDEma and SOB CAnnot exlcude amyloid. Will do panel and check BNP. Will also check echo as none done recently PLAN AND RECOMMENDATIONS: Change the metoprolol to 25 mg twice a day (1/2 a pill twice a day) Decrease the amlodipine to 5 mg daily tpo ssee if your swelling will come down Increase the losartan to 100 mg daily to help the blood pressure since you are on a lower dose of the amlodipine Do fasting bloods Do amyloid scan Do echo To see me once this is all done and we can reassess and plan for the cardiac cath I will schedule the cath pending these studies CONTACT INFORMATION: Delma Severino MD, [facility] [place], [facility] Cooperative Extension Agent and Switchboard Operator Receptionist, Acute Coronary Care [facility], Heart, Vascular and Thoracic Fl[facility] [address] [place] [address], [id number] [place] [id number] documented in this encounter [facility] 01-23-2024 Note HNO ID: [id number] Author: DELMA SEVERINO MD Service: ? Author Type: Physician Type: Progress Notes Filed: 01/23/2024 19:10 Note Text: Heart, Vascular and Thoracic Flushing Con[facility] Lopez Department of Cardiovascular Medicine SECTION OF INTERVENTIONAL CARDIOLOGY OUTPATIENT VISIT DATE 01/23/2024 OUTPATIENT VISIT TYPE NEW PRIMARY CARE PHYSICIAN: To use this Smartlink, specify the provider ID whose address you want to display, e.g., .PROVADDR[1 (where 1 is the provider ID). REFERRING PHYSICIAN: No referring provider defined for this encounter. CHIEF COMPLAINT: For CAD and chest pain HISTORY OF PRESENT ILLNESS: Patient is a 68-year-old male with a history of hypertension, hyperlipidemia, and coronary artery disease (CAD), presenting for evaluation of chest pressure and dyspnea. He reports a two-year history of intermittent chest pressure localized to the mid-sternal area, accompanied by dyspnea. These symptoms occur variably during physical activity, such as walking or playing pickleball, and are sometimes alleviated by belching. He notes that the symptoms can be unpredictable, occurring during short walks or not at all during longer activities. Additionally, he has observed bilateral lower extremity edema over the past year, and overall fatigue and SOB His cardiac history includes three cardiac catheterizations, with the most recent in 2022. The first catheterization in 2011 was prompted by anxiety due to a strong family history of myocardial infarction, including both grandfathers, his brother, and his father having CAD. He was told he had blockages that were not severe and should be medically managed. The second catheterization was a follow-up, and the third was performed due to the onset of chest pressure and SOB. At that time in 2022 n addition to his cardiac evaluations, he has had extensive gastrointestinal and pulmonary testing, including a scope and imaging studies. These tests revealed an elevated right hemidiaphragm and an abdominal hernia, but no hiatal hernia. He has not had an echocardiogram.For this reason his PCP requested that he be re-evaluated with cath and when cath was done he was informed of smaller coronaries with blockages and cannot be addressed surgically. He has also undergone multiple stress tests, with the most recent in 2021, which reportedly showed no significant abnormalities. He is frustrated because he feels everyone keeps stating that the heart or lung or GI is not the cause and he wants someone to give him answers. NURSING INTAKE: The patient is a 68 year old male from [place], [place] here today for cardiovascular evaluation. He has a long personal history of CAD. He had a heart catheterization in 2013 (medical therapy recommended at the time). He had a high calcium score in 2005. He has had several heart catheterizations and stress tests since (most re recent cath in 09/2022). 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 He was told that his vessels are too small to stent and that some of them are not blocked enough to stent. For the last couple of years he has been experiencing chest pressure with activity (pickleball and walking). He feels like he has to belch in order to relieve the pressure. He sometimes has the pressure while at rest. He is also short of breath with and without activity. The pressure is usually somewhat relieved with belching. He does have an abdominal hernia. For the last 6 months he has noticed bilateral leg/ankle swelling. He feels like his symptoms have worsened over the last couple of years. He has a medical history significant for: CAD, HLD, HTN, arthritis, abd hernia He reports the following symptoms of chest pressure, shortness of breath, leg swelling He denies the following symptoms of palpitations, lightheadedness, dizziness, syncope, claudication, coughing, wheezing and signs/symptoms of a stroke. He follows a regular diet. He participates in pickleball, walking and biking for exercise/activity. Although he has not been exercising lately due to his symptoms. PAST MEDICAL HISTORY Diagnosis Date ABNORMAL CARDIOVASC STUDY NOS 03/03/2006 CT scan with a high calcium score of 880.9 02-27-06 Arthritis CAD (coronary artery disease) Elevated hemidiaphragm GENERAL OSTEOARTHROSIS 03/03/2006 Hernia, diaphragmatic HLD (hyperlipidemia) HTN (hypertension) PAST SURGICAL HISTORY Procedure Laterality Date ARTHROSCOPY KNEE DIAGNOSTIC W/WO SYNOVIAL BX SPX Arthroscopy, knee ARTHROTOMY W/MENISCUS REPAIR KNEE Open knee reconstruction REVISE MEDIAN N/CARPAL TUNNEL SURG SOCIAL HISTORY Social History Tobacco Use Smoking status: Never Smokeless tobacco: Never Vaping Use Vaping status: Never Used Substance Use Topics Alcohol use: Yes Comment: bourbon 2-3x/week Drug use: No FAMILY HISTORY Problem Relation Age of O (more content not included)... [facility] [place] 10-20-2023 Telephone encounter Note Images from the original note were not included. NEW PATIENT REFERRAL: Referring Physician: CONCHIS Kovacs Requesting Physician: Dr. Renzo Eckert MD Reason for Referral: PENDING Diagnosis: Atherosclerotic heart disease of [place] coronary artery without angina; Essential (primary) hypertension; Pure hypercholesterolemia, unspecified Referral Received? Yes Referring Provider Information Received? Yes Patient Demographics & Insurance Received? Yes Medical Records Received? Yes Cardiac Images Received? No CareEverywhere Updated? Yes - Pulled records through on 10/20/23 [facility] [place] [employer]r [employer] ___ Associated Facilities in Care Everywhere: Patients Care Team: ___ RECORDS REQUEST: Office faxed medical records request to [facility] - Uploaded records request into patients chart - Review under scanned documents - Office requested the following information: Medical Records & Cardiac Images from 2020 to present Facility Info: Sent & delivered on 10/20/23 via Right[employer]ax - [facility] [place] [employer] [facility] 10-20-2023 Miscellaneous Notes Images from the original note were not included. NEW PATIENT REFERRAL: Referring Physician: CONCHIS Kovacs Requesting Physician: Dr. Renzo Eckert MD Reason for Referral: PENDING Diagnosis: Atherosclerotic heart disease of [place] coronary artery without angina; Essential (primary) hypertension; Pure hypercholesterolemia, unspecified Referral Received? Yes Referring Provider Information Received? Yes Patient Demographics & Insurance Received? Yes Medical Records Received? Yes Cardiac Images Received? No CareEverywhere Updated? Yes - Pulled records through on 10/20/23 [facility] [place] Assistant II ___ Associated Facilities in Care Everywhere: Patients Care Team: ___ RECORDS REQUEST: Office faxed medical records request to [facility] - Uploaded records request into patients chart - Review under scanned documents - Office requested the following information: Medical Records & Cardiac Images from 2020 to present Facility Info: Sent & delivered on 10/20/23 via [employer] - [facility] Assistant II documented in this encounter [facility] Evaluation note Diagnosis Laceration of right index finger without foreign body without damage to nail, initial encounter- Primary documented in this encounter [facility] Work Phone: Evaluation note* Diagnosis Onset Date Resolution Status Atherosclerotic heart diseas e of [place] coronary artery without angina pectoris chronic Essential (primary) hypertension chronic HLD (hyperlipidemia) chronic Angina pectoris acute Arteriosclerotic heart disease (ASHD) acute Essential (primary) hypertension chronic HLD (hyperlipidemia) [facility] Work Phone: evaluation note* Diagnosis Onset Date Resolution Status Angina pectoris acute Arteriosclerotic heart disease (ASHD) acute Essential (primary) hypertension chronic HLD (hyperlipidemia) chronic [facility] Work Phone: evaluation noteNo assessment information available [facility] Work Phone: evaluation note* Diagnosis Onset Date Resolution Status Chest pressure acute Epigastric pressure chronic [facility] Work Phone: evaluation note* Diagnosis Onset Date Resolution Status Chest pressure acute Epigastric pressure chronic Angina pectoris acute Arteriosclerotic heart disease (ASHD) acute Chest pressure acute Essential (primary) hypertension chronic HLD (hyperlipidemia) chronic [facility] Work Phone: evaluation note* Diagnosis Onset Date Resolution Status Chest pressure acute Epigastric pressure chronic Angina pectoris acute Arteriosclerotic heart disease (ASHD) acute Chest pressure acute Essential (primary) hypertension chronic HLD (hyperlipidemia) chronic Arteriosclerotic heart disease (ASHD) acute Essential (primary) hypertension chronic HLD (hyperlipidemia) chronic [facility] Work Phone: evaluation note* Diagnosis Onset Date Resolution Status Arteriosclerotic heart disease (ASHD) acute Essential (primary) hypertension chronic HLD (hyperlipidemia) chronic [facility] Work Phone: evaluation note* Diagnosis Chest pain, unspecified type- Primary [facility] Diagnosis High cholesterol- Primary Pure hypercholesterolemia Hypertension, unspecified type Chest pain, unspecified type Overweight SOB (shortness of breath) Shortness of breath Coronary artery disease involving [place] coronary artery of [place] heart, unspecified whether angina present [facility] Diagnosis High cholesterol- Primary Pure hypercholesterolemia Hypertension, unspecified type Chest pain, unspecified type Overweight Coronary artery disease involving [place] coronary artery of [place] heart, unspecified whether angina present SOB (shortness of breath) Shortness of breath Coronary artery disease involving [place] coronary artery of [place] heart, unspecified whether angina present [facility]* Diagnosis SOB (shortness of breath) Shortness of breath Coronary artery disease involving [place] coronary artery of [place] heart, unspecified whether angina present documented in this encounter [facility] note* Diagnosis SOB (shortness of breath) Shortness of breath Coronary artery disease involving [place] coronary artery of [place] heart, unspecified whether angina present documented in this encounter [facility] note* Diagnosis High cholesterol- Primary Pure hypercholesterolemia documented in this encounter [facility] note* Diagnosis Hypertension, unspecified type- Primary High cholesterol Pure hypercholesterolemia Coronary artery disease involving [place] coronary artery of [place] heart, unspecified whether angina present Chest pain, unspecified type Family history of prostate cancer Family history of malignant neoplasm of prostate documented in this encounter [facility] Discharge instructions* Attachments The following attachments cannot be sent through Care Everywhere. * Hand Laceration: Stitches (Gabonese) [facility] Reason for referral (narrative)* Outpatient Procedure (Routine) - Pending Review Specialty Diagnoses / Procedures Referred By Patricia kimble Referred To Contact [facility] [place] Diagnoses Chest pain, unspecified type Procedures ECG COMPLETE ECG ROUTINE ECG W/LEAST 12 LDS W/I&R Delma Severino MD [address] [place] [address] [place] [id number] Referral ID Status Reason Start Date Expiration Date Visits Requested Visits Authorized [id number] Pending Review Auto-Generat ed Referral 12/06/2023 12/05/2024 1 1 [facility] for referral (narrative)* Outpatient Procedure (Routine) - Pending Review Specialty Diagnoses / Procedures Referred By Contac t Referred To Contact [facility] Diagnoses SOB (shortness of breath) Procedures ECHO ECHO TTHRC R-T 2D W/WOM-MODE COMPL SPEC&COLR D Delma Severino MD [address] [place] [id number] [place] [id number] Referral ID Status Reason Start Date Expiration Date Visits Requested Visits Authorized [id number] Pending Review Auto-Generat ed Referral 01/23/2024 01/22/2025 1 1 * Transition of Care (Routine) - Ref Not Required Specialty Diagnoses / Procedures Referred By Patricia kimble [facility] Procedures CARDIOVASCULAR MEDICINE OP FOLLOW UP APPT ORDER Delma Severino MD [address] [place] [address] [place] [address] Referral ID Status Reason Start Date Expiration Date Visits Requested Visits Authorized [id number] Ref Not Required PCP Requested Referral 01/22/2025 1 1 * Diagnostic Procedure Only (Routine) - New Request Specialty Diagnoses / Procedures Referred By Patricia kimble Referred To Contact [facility] Diagnoses SOB (shortness of breath) Procedures NM SPECT/CT CARDIAC AMYLOID RP LOCLZJ KOURTNEY SPECT W/CT 1 AREA 1 DAY IMAGING Delma Severino MD [address] [place] [address] [facility] [address] [place] [address] Referral ID Status Reason Start Date Expiration Date Visits Requested Visits Authorized [id number] New Request Auto-Generat ed Referral 01/23/2024 02/21/2025 1 1 * Transition of Care (Routine) - Ref Not Required Specialty Diagnoses / Procedures Referred By Patricia kimble Ref[facility] Procedures CARDIOVASCULAR MEDICINE OP FOLLOW UP APPT ORDER Delma Severino MD [address] [place] [address] [address] Referral ID Status Reason Start Date Expiration Date Visits Requested Visits Authorized [id number] Ref Not Required PCP Requested Referral 4 01/22/2025 1 1 [facility] for referral (narrative)* Diagnostic Procedure Only (Routine) - Closed Specialty Diagnoses / Procedures Referred By Contac t Referred To Contact [facility] Diagnoses SOB (shortness of breath) Procedures NM SPECT/CT CARDIAC AMYLOID RP LOCLZJ KOURTNEY SPECT W/CT 1 AREA 1 DAY IMAGING Delma Severino MD [address] [place] [id number] [facility] [address] [place] [address] Referral ID Status Reason Start Date Expiration Date Visits Re quested Visits Authorized [id number] Closed 03/14/2024 09/10/2024 1 1 [facility] for referral (narrative)* Transition of Care (Routine) - Authorized Specialty Diagnoses / Procedures [facility] To Contact [facility] [place] Procedures CARDIOVASCULAR MEDICINE OP FOLLOW UP APPT ORDER Delma Severino MD [address] [place] [phone] Phone: tel: fax: [place] [address] Referral ID Status Reason Start Date Expiration Date Visits Requested Visits Authorized [id number] Authorized PCP Requested Referral 10/15/2024 07/15/2025 1 1 [facility] for referral (narrative)No reason for [facility]: Reason for visit Narrative* Diagnostic Procedure Only (Routine) - Closed Specialty Diagnoses / Procedures Referred By Contac t Referred To Contact [facility] Diagnoses SOB (shortness of breath) Procedures NM SPECT/CT CARDIAC AMYLOID RP LOCLZJ KOURTNEY SPECT W/CT 1 AREA 1 DAY IMAGING Delma Severino MD [address] [place] [address] [facility] [address] [place] [id number] Referral ID Status Reason Start Date Expiration Date Visits Re quested Visits Authorized [id number] Closed 03/14/2024 09/10/2024 1 1 [facility]* Diagnostic Procedure Only (Routine) - Closed Specialty Diagnoses / Procedures Referred By Contac t Referred To Contact [facility] Diagnoses SOB (shortness of breath) Procedures ECHO ECHO TTHRC R-T 2D W/WOM-MODE COMPL SPEC&COLR D Delma Severino MD [address] [place] [phone] [facility] [place] [address] [place] [address] Referral ID Status Reason Start Date Expiration Date Visits Re quested Visits Authorized [id number] Closed 03/06/2024 05/07/2024 1 1 [facility] Chief Complaint and Reason for Visit Chief Complaint PER LL CP/SOB CP/SOB 6-8 WK F/U Reason for Visit Atherosclerotic hear t disease of [place] coronary artery without angina pectoris Essential (primary) hypertension HLD (hyperlipidemia) Angina pectoris Arteriosclerotic heart disease (ASHD) Essential (primary) hypertension HLD (hyperlipidemia) Chief Complaint PER LL CP/SOB CP/SOB 6-8 WK F/U ABN STRESS Reason for Visit Atherosclerotic hear t disease of [place] coronary artery without angina pectoris Essential (primary) hypertension HLD (hyperlipidemia) Angina pectoris Arteriosclerotic heart disease (ASHD) Essential (primary) hypertension HLD (hyperlipidemia) Chief Complaint CP/SOB CP/SOB 6-8 WK F/U ABN STRESS BLE EDEMA/ADD ON Reason for Visit Angina pectoris Arteriosclerotic heart disease (ASHD) Essential (primary) hypertension HLD (hyperlipidemia) Chief Complaint Consult ABNORMAL LABS Reason for Visit Chest pressure Epigastric pressure Chief Complaint Consult ABNORMAL LABS PER MMM CHEST PAIN Reason for Visit Chest pressure Epigastric pressure Angina pectoris Arteriosclerotic heart disease (ASHD) Chest pressure Essential (primary) hypertension HLD (hyperlipidemia) Chief Complaint Consult ABNORMAL LABS PER MMM CHEST PAIN OVERDUE FOR OV E-ORDER Reason for Visit Chest pressure Epigastric pressure Angina pectoris Arteriosclerotic heart disease (ASHD) Chest pressure Essential (primary) hypertension HLD (hyperlipidemia) Arteriosclerotic heart disease (ASHD) Essential (primary) hypertension HLD (hyperlipidemia) Chief Complaint 6 M FU INT LABS Reason for Visit Arteriosclerotic hea rt disease (ASHD) Essential (primary) hypertension HLD (hyperlipidemia) Chief Complaint Admit Date INT LABS October 29, 2024 8:36 am 1 Y FU October 29, 2024 1:55 pm Family History Relationship Condition Age at Onset Recorded Date/T annalise father Myocardial infarction Unknown Coronary artery disease Unknown Hyperlipidemia Unknown mother Cerebrovascular accident (CVA) Unknown brother Myocardial infarction Unknown Hypertension Unknown Malignant neoplasm of colon Unknown Advance Directives Advance Directive Response Recorded Date/ Time Living Will No December 13, 2018 11:55am Power of Client Development Consultant No December 13 11:55am Advance Directive Response Recorded Date/ Time Advance Directives No September 10, 2021 8:38am Living Will No September 10, 2021 8: 38am Power of Client Development Consultant No September 10, 2021 8:38am Advance Directive Response Recorded Date/ Time Advance Directives No September 10, 2021 8:38am Living Will No August 08, 2022 11:10am Power of Client Development Consultant No August 08 11:10am Advance Directive Response Recorded Date/ Time Advance Directives No September 05, 2022 7:22am Living Will No September 05, 2022 7: 22am Power of Client Development Consultant No September 05, 2022 7:22am Advance Directive Response Recorded Date/ Time Advance Directives No September 05, 2022 6:22am Living Will No September 05, 2022 6: 22am Power of Client Development Consultant No September 05, 2022 6:22am Advance Directive Response Recorded Date/ Time Living Will No September 05, 2022 7: 22am Do you have a Healthcare Power of Client Development Consultant? No September 05, 2022 7:22am Advance Directives No September 05, 2022 7:22am Summary Purpose Reason for Referral Specialty Diagnoses / Procedures Referred By Contac t Referred [facility] Procedures CARDIOVASCULAR MEDICINE OP FOLLOW UP APPT ORDER Delma Severino MD [address] [place] [address] [facility] [place] [address] [place] [address] Referral ID Status Reason Start Date Expiration Date Visits Requested Visits Authorized [id number] Ref Not Required PCP Requested Referral 06/19/2024 03/19/2025 1 1 Additional Source Comments Reason for Visit (unrecogniz ed section and content) Reason Comments Follow Up Specialty Diagnoses / Procedures Referred By Contac t Referred To Contact Cardiology / CARDIOVASCULAR MEDICINE Diagnoses Coronary artery disease involving [place] coronary artery of [place] heart, unspecified whether angina present 2-3 month follow up per [facility] ORDER Procedures EST HVTI PATIENT Delma Severino MD [address] [place] [address] Phone: tel: fax: Delma Severino MD [address] [place] [address] Phone: tel: fax: Referral ID Status Reason Start Date Expiration Date V isits Requested Visits Authorized [id number] New Request 07/15/2024 10/13/2024 1 1 Reason Comments Laceration right index finger Reason Comments Received Outside Medical Records Referra l & Medical Records Consult New Patient Referral to Dr. Renzo Eckert MD Reason Comments New Patient Reason Comments Received Outside Medical Records [facility] Reason Comments Insurance Authorization Reason Comments Radiology [place] Specialty Diagnoses / Procedures Referred By Patricia t Referred To Contact [facility] Diagnoses SOB (shortness of breath) Procedures NM SPECT/CT CARDIAC AMYLOID RP LOCLZJ KOURTNEY SPECT W/CT 1 AREA 1 DAY IMAGING Delma Severino MD [address] [place] [address] Molecular [facility] Functional Imaging [address] [place] [address] Referral ID Status Reason Start Date Expiration Date Visits Re quested Visits Authorized [id number] Closed 03/14/2024 09/10/2024 1 1 Reason Comments Patient Education Reason Comments Patient Question blood work? Scheduled Active and Recently Administ ered Medications (unrecognized section and content) Medication Order 10/20/2020 10/21/2020 10/22/2020 bacitracin ointment (COMPLETED) Topical, ONCE, On [place] 10/22/20 at 1813, For 1 dose, Apply to affected area 182 (Given - Provid er: Liset Bloom RN) ibuprofen (ADVIL;MOTRIN) tablet 400 mg (COMPLETED) 400 mg, Oral, ONCE, On [place] 10/22/20 at 1813, For 1 dose, Do not crush or chew. 182 (Given - Provid er: Liset Bloom RN) lidocaine 1 % injection 10 mL (COMPLETED) 10 mL, Other, ONCE, On [place] 10/22/20 at 1813, For 1 dose, TO BEDSIDE 182 (Given - Provid er: Liset Bloom RN) Goals (unrecognized section and content) Goals may be documented in a n alternate sectionGoals may be documented in an alternate sectionGoals may be documented in an alternate sectionGoals may be documented in an alternate sectionGoals may be documented in an alternate sectionGoals may be documented in an alternate sectionGoals may be documented in an alternate sectionGoals may be documented in an alternate sectionGoals may be documented in an alternate sectionGoals may be documented in an alternate section Care Teams (unrecognized sec tion and content) Team Status: Active Member Role Status Dates Dr. Fam Alberto MD Family Provider Active Dr. Wood Hurtado MD Primary Care Provider Active Team Status: Inactive Member Role Status Dates Dr. Wood Hurtado MD Primary Care Provider, Attending Provider Active Team Status: Inactive Member Role Status Dates Dr. Wood Hurtado MD Primary Care Provider, Referring Provider Active Dr. Luc Joy DO Attending Provider Active Team Status: Active Member Role Status Dates Dr. Wood Hurtado MD Primary Care Provider Active Dr. Luc Joy DO Attending Provider, Referring Provider Active Team Status: Inactive Member Role Status Dates Dr. Wood Hurtado MD Primary Care Provider Active Dr. Tanika Nguyễn MD Emergency Provider Active Team Status: Inactive Member Role Status Dates Dr. Wood Hurtado MD Primary Care Provider Active Dr. Luc Joy DO Attending Provider, Referring Provider Active Team Status: Inactive Member Role Status Dates Dr. Wood Hurtado MD Primary Care Provider, Referring Provider Active Gisele Messina PA, PA Attending Provider Active Team Status: Inactive Member Role Status Dates Dr. Wood Hurtado MD Primary Care Provider Active Dr. Tanika Nguyễn MD Attending Provider, Emergency Provider Active Team Status: Inactive Member Role Status Dates Dr. Wood Hurtado MD Primary Care Provider Active Dr. Daniel Rincon MD Attending Provider, Referring Pro vider Active Team Status: Inactive Member Role Status Dates Dr. Wood Hurtado MD Primary Care Provider, Referring Provider Active Dr. Daniel Rincon MD Attending Provider Active Team Status: Inactive Member Role Status Dates Dr. Wood Hurtado MD Primary Care Provider Active Gisele DE LA ROSA, PA Attending Provider, Referr ing Provider Active Tax Consultant Relationship Specialty Start Date End Date [facility] , TEST ENGINEER.MUNICIPAL ENGINEER [address] [place] [address] Cardiology 10/20/23 Tax Consultant Relationship Specialty Start Date End Date [facility] , TEST ENGINEER.MUNICIPAL ENGINEER [address] [place] [address] Cardiology 10/20/23 Tax Consultant Relationship Specialty Start Date End Date [facility] , TEST ENGINEER.MUNICIPAL ENGINEER [address] [place] [address] Cardiology 10/20/23 Tax Consultant Relationship Specialty Start Date End Date [facility] , TEST ENGINEER.MUNICIPAL ENGINEER [address] [place] [address] Cardiology 10/20/23 Tax Consultant Relationship Specialty Start Date End Date [facility] , TEST ENGINEER.MUNICIPAL ENGINEER [address] [place] [address] Cardiology 10/20/23 Tax Consultant Relationship Specialty Start Date End Date [facility] , TEST ENGINEER.MUNICIPAL ENGINEER [address] [place] [address] Cardiology 10/20/23 Delma Severino MD [address] [place] [address] Primary Staff Physician Cardiology 03/19/24 Tax Consultant Relationship Specialty Start Date End Date Fam Graves TEST ENGINEER.MUNICIPAL ENGINEER [address] [facility] [address] [place] [address] Cardiology 10/20/23 Delma Severino MD [address] [place] [address] Primary Staff Physician Cardiology 03/19/24 Tax Consultant Relationship Specialty Start Date End Date Fam Graves TEST ENGINEER.MUNICIPAL ENGINEER [address] [address] Cardiology 10/20/23 Delma Severino MD [address] [place] [address] Primary Staff Physician Cardiology 03/19/24 Tax Consultant Relationship Specialty Start Date End Date Wood Hurtado MD [address] [place] [address] [address] [place] [address] PCP - General Family Medicine 03/21/24 Fam Graves, TEST ENGINEER.MUNICIPAL ENGINEER [address] [facility] [address] [place] [address] Cardiology 10/20/23 Delma Severino MD [address] [place], [place] [id number] Primary Staff Physician Cardiology 03/19/24 Tax Consultant Relationship Specialty Start Date End Date Wood Hurtado MD [address] [facility] [address] [place] [address] PCP - General Family Medicine 03/21/24 Fam Graves, TEST ENGINEER.MUNICIPAL ENGINEER [address] [place] [address] Cardiology 10/20/23 Delma Severino MD [address] [place] [address] Primary Staff Physician Cardiology 03/19/24 Tax Consultant Relationship Specialty Start Date End Date Wood Hurtado MD [address] [facility] [address] [place] [address] PCP - General Family Medicine 03/21/24 Fam Graves, TEST ENGINEER.MUNICIPAL ENGINEER [address] [place] [address] Cardiology 10/20/23 Delma Severino MD [address] [place] [address] Primary Staff Physician Cardiology 03/19/24 Tax Consultant Relationship Specialty Start Date End Date Wood Hurtado MD [address] [facility] [address] [place] [address] PCP - General Family Medicine 03/21/24 Fam Graves, TEST ENGINEER.MUNICIPAL ENGINEER [address] [place] [address] Cardiology 10/20/23 Delma Severino MD [address] [place] [address] Primary Staff Physician Cardiology 03/19/24 Tax Consultant Relationship Specialty Start Date End Date Wood Hurtado MD [address] [facility] [address] [place], [place] [address] PCP - General Family Medicine 03/21/24 Fam Graves APRN.[facility] [address] [place] [address] Cardiology 10/20/23 Delma Severino MD [address] [place], [place] [id number] Primary Staff Physician Cardiology 03/19/24 Team Status: Active Member Role Status Dates Dr. Wood Hurtado MD Primary Care Provider Active Team Status: Active Member Role Status Dates Dr. Wood Hurtado MD Primary Care Provider Active Start: October 29, 2024 ESTRELLA Mojica Attending Provider Active Start: October 29, 2024 ESTRELLA Mojica Referring Provider Active Start: October 29, 2024 Team Status: Inactive Member Role Status Dates Dr. Wood Hurtado MD Primary Care Provider Active Start: October 29, 2024 End: October 29, 2024 Dr. Wood Hurtado MD Referring Provider Active Start: October 29, 2024 End: October 29, 2024 Dr. Daniel Rincon MD Attending Provider Active S tart: October 29, 2024 End: October 29, 2024 Source Comments (unrecognize d section and content) In the event this informatio n is protected by the Federal Confidentiality of Alcohol and Drug Abuse Patient Records regulations: The Federal rules restrict any use of the information to criminally investigate or prosecute any alcohol or drug abuse patient.[facility] the event this information is protected by the Federal Confidentiality of Alcohol and Drug Abuse Patient Records regulations: The Federal rules restrict any use of the information to criminally investigate or prosecute any alcohol or drug abuse patient.[facility] CenterIn the event this information is protected by the Federal Confidentiality of Alcohol and Drug Abuse Patient Records regulations: The Federal rules restrict any use of the information to criminally investigate or prosecute any alcohol or drug abuse patient.[facility] CenterIn the event this information is protected by the Federal Confidentiality of Alcohol and Drug Abuse Patient Records regulations: The Federal rules restrict any use of the information to criminally investigate or prosecute any alcohol or drug abuse patient.[facility] CenterIn the event this information is protected by the Federal Confidentiality of Alcohol and Drug Abuse Patient Records regulations: The Federal rules restrict any use of the information to criminally investigate or prosecute any alcohol or drug abuse patient.[facility] CenterIn the event this information is protected by the Federal Confidentiality of Alcohol and Drug Abuse Patient Records regulations: The Federal rules restrict any use of the information to criminally investigate or prosecute any alcohol or drug abuse patient.[facility] CenterIn the event this information is protected by the Federal Confidentiality of Alcohol and Drug Abuse Patient Records regulations: The Federal rules restrict any use of the information to criminally investigate or prosecute any alcohol or drug abuse patient.[facility] CenterIn the event this information is protected by the Federal Confidentiality of Alcohol and Drug Abuse Patient Records regulations: The Federal rules restrict any use of the information to criminally investigate or prosecute any alcohol or drug abuse patient.[facility] CenterIn the event this information is protected by the Federal Confidentiality of Alcohol and Drug Abuse Patient Records regulations: The Federal rules restrict any use of the information to criminally investigate or prosecute any alcohol or drug abuse patient.[facility] CenterIn the event this information is protected by the Federal Confidentiality of Alcohol and Drug Abuse Patient Records regulations: The Federal rules restrict any use of the information to criminally investigate or prosecute any alcohol or drug abuse patient.[facility] CenterIn the event this information is protected by the Federal Confidentiality of Alcohol and Drug Abuse Patient Records regulations: The Federal rules restrict any use of the information to criminally investigate or prosecute any alcohol or drug abuse patient.[facility] CenterIn the event this information is protected by the Federal Confidentiality of Alcohol and Drug Abuse Patient Records regulations: The Federal rules restrict any use of the information to criminally investigate or prosecute any alcohol or drug abuse patient.[facility] CenterIn the event this information is protected by the Federal Confidentiality of Alcohol and Drug Abuse Patient Records regulations: The Federal rules restrict any use of the information to criminally investigate or prosecute any alcohol or drug abuse patient.[facility] CenterIn the event this information is protected by the Federal Confidentiality of Alcohol and Drug Abuse Patient Records regulations: The Federal rules restrict any use of the information to criminally investigate or prosecute any alcohol or drug abuse patient.[facility] CenterIn the event this information is protected by the Federal Confidentiality of Alcohol and Drug Abuse Patient Records regulations: The Federal rules restrict any use of the information to criminally investigate or prosecute any alcohol or drug abuse patient.[facility] CenterIn the event this information is protected by the Federal Confidentiality of Alcohol and Drug Abuse Patient Records regulations: The Federal rules restrict any use of the information to criminally investigate or prosecute any alcohol or drug abuse patient.[facility] (unrecognized sect ion and content) No Status Records FoundNo Status Records Found INFORMATION SOURCE (unrecogn ized section and content) DATE CREATED AUTHOR 03/19/2024 [facility] DATE CREATED AUTHOR AUTHOR'S IRVIN ABBYKILLIAN 08/01/2024 [facility] [place] FOR RECORDS PERTAINING TO PATIENTS WHO ARE [...] BE BASED ON THE PRIMARY CLINICAL RECORDS. [facility] provides no warranty or guarantee of the accuracy or completeness of information in this document.
== END | disposition home or self-care (01) ==
PROVIDERS: PCP Family Medicine; Referring Provider Physician Assistant Medical; Visit Provider Physician Assistant Medical
DX: E78.00 Pure hypercholesterolemia, unspecified (principal)
CPT/HCPCS: 36415; 80061; 80076